=== PATIENT | male | born 1945 | race Caucasian/White ===

== ENCOUNTER 2017-04-09 11:08 | Outpatient (CLI) | payer MEDICARE, OTHER ==
[2017-04-09 19:17] LABS: HEMOGLOBIN A1C 0.73 g/dL
[2017-04-09 19:26] LABS: ALBUMIN/GLOBULIN RATIO 1.4 (1.0-2.2); BILIRUBIN,TOTAL 0.5 mg/dL (0.2-1.0); BUN - BLOOD UREA NITROGEN 20 mg/dL (6-20); CALCIUM 9.8 mg/dL (8.5-10.3); CARBON DIOXIDE - CO2 31 mmol/L (21-32); CHLORIDE 96 mmol/L (101-111); CHOL/HDL RATIO 3.7 (<5.0); CHOLESTEROL 193 mg/dL; CREATININE 1.1 mg/dL (0.6-1.2); GFR - MDRD 66 (>89); HDL CHOLESTEROL 52 mg/dL; LDL/HDL RATIO 2.4 (<3.6); POTASSIUM 4.8 mmol/L (3.5-5.0); SODIUM 135 mmol/L (135-145); TOTAL PROTEIN 7.4 g/dL (6.7-8.2); TRIGLYCERIDES 86 mg/dL; VLDL CHOLESTEROL 17 mg/dL
[2017-04-09 19:54] LABS: GLUCOSE 60 mg/dL (70-100)
== END 2017-04-09 11:09 | disposition home or self-care (01) ==
LOC: LAB.WCP 11:08
PROVIDERS: ATTEND Physician Assistant Medical
DX: E11.9 Type 2 diabetes mellitus without complications (principal)
CPT/HCPCS: 36415; 80053; 80061; 83036

== ENCOUNTER 2017-12-02 11:00 | Outpatient (CLI) | payer MEDICARE, OTHER ==
[2017-12-02 18:49] LABS: BASOPHILS # (AUTO) 0.1 10^3/uL (0.0-0.1); EOSINOPHILS # (AUTO) 0.2 10^3/uL (0.0-0.7); EOSINOPHILS % (AUTO) 2.9 %; HGB - HEMOGLOBIN 13.8 g/dL (14.0-18.0); LYMPHOCYTES # (AUTO) 1.9 10^3/uL (1.5-3.5); LYMPHOCYTES % (AUTO) 22.2 %; MEAN CORPUSCULAR HEMOGLOBIN 27.7 pg (27.0-31.0); MEAN CORPUSCULAR VOLUME 86.7 fL (80.0-94.0); MEAN PLATELET VOLUME 8.8 fL (7.4-11.4); MONOCYTES # (AUTO) 0.8 10^3/uL (0.0-1.0); MONOCYTES % (AUTO) 8.9 %; NEUTROPHILS # (AUTO) 5.6 10^3/uL (1.5-6.6); PLT - PLATELET COUNT 300 10^3/uL (130-450); WHITE BLOOD COUNT 8.7 x10^3/uL (4.8-10.8)
[2017-12-02 19:18] LABS: ALBUMIN 4.9 g/dL (3.2-5.5); ALBUMIN/GLOBULIN RATIO 1.5 (1.0-2.2); ALKALINE PHOSPHATASE 70 IU/L (42-121); ALT ALANINE AMINOTRANSFERASE 27 IU/L (10-60); AST ASPARTATE AMINOTRANSFERASE 34 IU/L (10-42); BILIRUBIN,TOTAL 0.5 mg/dL (0.2-1.0); BUN - BLOOD UREA NITROGEN 20 mg/dL (6-20); CALCIUM 9.9 mg/dL (8.5-10.3); CARBON DIOXIDE - CO2 31 mmol/L (21-32); CHLORIDE 93 mmol/L (101-111); CHOL/HDL RATIO 3.7 (<5.0); CHOLESTEROL 253 mg/dL; CREATININE 1.1 mg/dL (0.6-1.2); GFR - MDRD 66 (>89); GLUCOSE 176 mg/dL (70-100); HDL CHOLESTEROL 69 mg/dL; LDL CHOLESTEROL,CALCULATED 167 mg/dL; LDL/HDL RATIO 2.4 (<3.6); SODIUM 133 mmol/L (135-145); TOTAL PROTEIN 8.1 g/dL (6.7-8.2); VLDL CHOLESTEROL 17 mg/dL
[2017-12-02 19:54] LABS: HB2 TOTAL 15.4 g/dL; HEMOGLOBIN A1C 0.84 g/dL; HEMOGLOBIN A1C % 7.1 % (4.6-6.2)
== END 2017-12-02 11:01 ==
LOC: LAB.WCP 11:00
PROVIDERS: ATTEND Physician Assistant Medical
DX: I10 Essential (primary) hypertension (principal); E78.5 Hyperlipidemia, unspecified; E11.9 Type 2 diabetes mellitus without complications; Z12.5 Encounter for screening for malignant neoplasm of prostate; N40.1 Benign prostatic hyperplasia with lower urinary tract symptoms
CPT/HCPCS: 36415; 80053; 80061; 83036; 84443; 85025; G0103; 83721; 84153

== ENCOUNTER 2018-03-03 08:00 | Outpatient (CLI) | payer MEDICARE, OTHER ==
[2018-03-03 13:00] LABS: ALBUMIN 3.9 g/dL (3.2-5.5); ALBUMIN/GLOBULIN RATIO 1.1 (1.0-2.2); ALKALINE PHOSPHATASE 67 IU/L (42-121); ALT ALANINE AMINOTRANSFERASE 18 IU/L (10-60); AST ASPARTATE AMINOTRANSFERASE 24 IU/L (10-42); BILIRUBIN,TOTAL 0.6 mg/dL (0.2-1.0); BUN - BLOOD UREA NITROGEN 24 mg/dL (6-20); CALCIUM 9.4 mg/dL (8.5-10.3); CARBON DIOXIDE - CO2 31 mmol/L (21-32); CHLORIDE 94 mmol/L (101-111); CHOL/HDL RATIO 5.3 (<5.0); CHOLESTEROL 212 mg/dL; CREATININE 1.1 mg/dL (0.6-1.2); GFR - MDRD 66 (>89); GLUCOSE 117 mg/dL (70-100); HDL CHOLESTEROL 40 mg/dL; LDL CHOLESTEROL,CALCULATED 161 mg/dL; SODIUM 134 mmol/L (135-145); TOTAL PROTEIN 7.4 g/dL (6.7-8.2); VLDL CHOLESTEROL 11 mg/dL
[2018-03-03 13:02] LABS: HB2 TOTAL 13.1 g/dL; HEMOGLOBIN A1C 0.65 g/dL; HEMOGLOBIN A1C % 6.7 % (4.6-6.2)
== END 2018-03-03 08:01 ==
LOC: LAB.WCP 08:00
PROVIDERS: ATTEND Physician Assistant Medical
DX: E11.9 Type 2 diabetes mellitus without complications (principal)
CPT/HCPCS: 36415; 80053; 80061; 83036; 83721

== ENCOUNTER 2018-04-29 21:04 | Outpatient (CLI) | payer MEDICARE, OTHER | END 2018-04-29 21:05 | disposition critical access hospital (66) | LOC: EMS 21:04 | PROVIDERS: ATTEND Surgery | DX: R06.02 Shortness of breath (principal) | CPT/HCPCS: A0425; A0427 ==

== ENCOUNTER 2018-04-29 21:23 | Emergency (ER) | payer MEDICARE, OTHER ==
[2018-04-29 21:57] LABS: BASOPHILS # (AUTO) 0.1 10^3/uL (0.0-0.1); BASOPHILS % (AUTO) 0.6 %; EOSINOPHILS # (AUTO) 0.2 10^3/uL (0.0-0.7); EOSINOPHILS % (AUTO) 1.9 %; HGB - HEMOGLOBIN 11.9 g/dL (14.0-18.0); LYMPHOCYTES # (AUTO) 3.1 10^3/uL (1.5-3.5); LYMPHOCYTES % (AUTO) 25.7 %; MEAN CORPUSCULAR HEMOGLOBIN 28.4 pg (27.0-31.0); MEAN CORPUSCULAR HGB CONC 32.5 g/dL (32.0-36.0); MEAN CORPUSCULAR VOLUME 87.5 fL (80.0-94.0); MEAN PLATELET VOLUME 8.6 fL (7.4-11.4); MONOCYTES # (AUTO) 1.5 10^3/uL (0.0-1.0); MONOCYTES % (AUTO) 12.4 %; NEUTROPHILS # (AUTO) 7.1 10^3/uL (1.5-6.6); NEUTROPHILS % (AUTO) 59.4 %; PLT - PLATELET COUNT 283 10^3/uL (130-450); RED BLOOD COUNT 4.19 10^6/uL (4.70-6.10); WHITE BLOOD COUNT 11.9 x10^3/uL (4.8-10.8)
[2018-04-29 22:11] LABS: ALBUMIN 4.3 g/dL (3.2-5.5); ALBUMIN/GLOBULIN RATIO 1.3 (1.0-2.2); BILIRUBIN,TOTAL 0.6 mg/dL (0.2-1.0); CALCIUM 9.2 mg/dL (8.5-10.3); CREATININE 1.1 mg/dL (0.6-1.2); TOTAL PROTEIN 7.6 g/dL (6.7-8.2)
--- NOTE | 2018-04-29 22:15 | XRAY Report ---
Procedure Date: 04/29/2018 Accession Number: [id number] / [id number] Procedure: XR - Chest 2 View X-Ray CPT Code: 40419 FULL RESULT: EXAM: CHEST RADIOGRAPHY EXAM DATE: 04/29/2018 10:03 PM. CLINICAL HISTORY: Chest pain. COMPARISON: CHEST 2 VIEW PA/LAT 01/18/2016 CHEST W/O 01/16/2016. TECHNIQUE: 2 views. FINDINGS: Lungs/Pleura: Large volumes. Mild lingular scarring. No focal pneumonia or overt edema. No pneumothorax or effusion. Mediastinum: Within exam limitations, cardiomediastinal contour is normal. Other: None. IMPRESSION: COPD without acute process seen in the chest. RADIA
--- NOTE | 2018-04-29 22:43 | ED Physician Documentation ---
PD HPI DYSPNEA - Stated complaint Stated Complaint: SOA - Chief complaint Chief Complaint: Cardiac - History obtained from History obtained from: Patient, Family - History of Present Illness Timing - onset: How many hours ago (approximately 1 hour [employer]) Timing - onset during: Rest Timing - details: Abrupt onset Improved by: Other (no exacerbating factors) Worsened by: Other (no exacerbating factors) Associated symptoms: Chest pain / discomfort. No: Fever, Cough, Wheezing, Palpitations, Diaphoresis, Bilateral edema, Unilateral edema Similar symptoms before: Has not had sx before Recently seen: Not recently seen Review of Systems Constitutional: denies: Fever, Chills, Sweats Cardiac: reports: Chest pain / pressure. denies: Palpitations, Pedal edema, Calf pain Respiratory: reports: Dyspnea (baseline dyspnea on this evaluation, but had increased dyspnea over baseline earlier when he had more intense chest pain). denies: Cough GI: reports: Reviewed and negative PD PAST MEDICAL HISTORY - Past Medical History Cardiovascular: Congestive heart failure, Hypertension, High cholesterol Respiratory: COPD, Shortness of breath, Other Endocrine/Autoimmune: Type 2 diabetes GI: Cholelithiasis : None HEENT: Chronic hearing loss Psych: Anxiety Musculoskeletal: Chronic back pain Derm: None - Past Surgical History Past Surgical History: No - Present Medications Home Medications: Ambulatory Orders Medication Instructions Recorded Confirmed Aspirin [Low Dose Aspirin EC] 81 mg PO DAILY 01/10/15 01/16/16 Ezetimibe [Zetia] 10 mg PO DAILY 01/10/15 01/16/16 Fluticasone/Salmeterol [Advair 1 puffs INH BID 01/10/15 01/16/16 250-50 Diskus] Ipratropium/Albuterol Sulfate 1 inh INH QID 01/10/15 01/16/16 [Combivent Respimat Inhal [place]] Lisinopril [Zestril] 10 mg PO DAILY 01/10/15 01/16/16 Metformin HCl [Fortamet] 500 mg PO BIDWM 01/10/15 01/16/16 Albuterol Sulfate 2.5 mg INH Q4H PRN 01/11/15 01/16/16 Glipizide [Glucotrol Xl] 10 mg PO DAILY 01/11/15 01/16/16 Pioglitazone HCl [Actos] 30 mg PO DAILY 01/11/15 01/16/16 Albuterol Sulfate [Proair Hfa] 2 puffs INH Q4H PRN 04/03/15 01/16/16 Ipratropium [Atrovent] 0.5 mg INH QID 04/03/15 01/16/16 Tadalafil [Adcirca] 2.5 mg PO DAILY 04/06/15 01/16/16 - Allergies Allergies/Adverse Reactions: Allergies Allergy/AdvReac Type Severity Reaction Status Date / Time Mppoxhj-Mum-Uyk Reductase AdvReac Cramps Verified 04/29/18 21:31 Inhibitor - Social History Does the pt smoke?: No Smoking Status: Never smoker Does the pt drink ETOH?: No Does the pt have substance abuse?: No - Immunizations Immunizations are current?: Yes - POLST Patient has POLST: No PD ED PE NORMAL - Vitals Vital signs reviewed: Yes - General General: Alert and oriented X 3, No acute distress, Well developed/nourished - Neck Neck: Supple, no meningeal sign - Cardiac Cardiac: RRR - Respiratory Respiratory: No respiratory distress - Abdomen Abdomen: Soft, Non tender - Derm Derm: Normal color, Warm and dry, No rash - Extremities Extremities: No edema - Neuro Neuro: Alert and oriented X 3 PD ED PE EXPANDED - Respiratory Respiratory: Decreased breath sounds (distant bilaterally, all lung weaver) Results - Vitals Vitals: Oxygen O2 Source [] Nasal cannula O2 Source [] Nasal cannula O2 Source Nasal cannula Oxygen Flow Rate 2 - EKG (time done) No standard instances Rate: Rate (enter#) (112) Rhythm: Sinus tachycardia [place]: Normal Intervals: Normal [place] QRS: Normal Ischemia: Normal ST segments - Labs Labs: Laboratory Tests 04/29/18 04/29/18 04/29/18 21:52 21:52 21:52 WBC 11.9 H RBC 4.19 L Hgb 11.9 L Hct 36.6 L MCV 87.5 MCH 28.4 MCHC 32.5 RDW 14.0 Plt Count 283 MPV 8.6 Neut # (Auto) 7.1 H Lymph # (Auto) 3.1 [place] # (Auto) 1.5 H Eos # (Auto) 0.2 Baso # (Auto) 0.1 Absolute Nucleated RBC 0.00 Nucleated RBC % 0.0 Sodium 130 L Potassium 5.0 Chloride 91 L Carbon Dioxide 31 Anion Gap 8.0 BUN 30 H Creatinine 1.1 Estimated GFR (MDRD) 66 L Glucose 171 H Calcium 9.2 Total Bilirubin 0.6 AST 24 ALT 19 Alkaline Phosphatase 69 Troponin I < 0.04 B-Natriuretic Peptide Total Protein 7.6 Albumin 4.3 Globulin 3.3 Albumin/Globulin Ratio 1.3 Lipase 42 04/29/18 21:52 WBC RBC Hgb Hct MCV MCH MCHC RDW Plt Count MPV Neut # (Auto) Lymph # (Auto) [place] # (Auto) Eos # (Auto) Baso # (Auto) Absolute Nucleated RBC Nucleated RBC % Sodium Potassium Chloride Carbon Dioxide Anion Gap BUN Creatinine Estimated GFR (MDRD) Glucose Calcium Total Bilirubin AST ALT Alkaline Phosphatase Troponin I B-Natriuretic Peptide 8 Total Protein Albumin Globulin Albumin/Globulin Ratio Lipase - Rads (name of study) chest xray Radiology: Prelim report reviewed, See rad report CT chest (PE study) Radiology: Prelim report reviewed, See rad report PD MEDICAL DECISION MAKING - ED course Complexity details: reviewed old records, reviewed results, re-evaluated patient , considered differential, d/w patient, d/w family ED course: presents with c/o left-sided chest pain, onset while at home at rest approximately 1 hour [employer]. He has COPD and is oxygen-dependent, and he denies dyspnea on my HPI as well as reevaluation; he did have increased dyspnea (above baseline) while he had the chest pain. His chest pain had improved prior to arrival, and was mild and intermittent during ED stay. distant breath sounds bilaterally, but patient tells me he is not more short of breath than usual at the time of this evaluation. Reassuring test results including EKG, blood tests, CXR, and CT chest. Abnormal findings are include chronic findings (emphysema) as well as incidental findings (gallstone, vertebral fractures (do not appear acute nor would explain his chest discomfort)). Coronary artery calcifications as well as aortic calcification noted on CT, but no findings to suggest AMI (troponin, EKG). Instructed to return if worse in any way, and to follow-up with PMD. - Sepsis Event Vital Signs: Oxygen O2 Source [] Nasal cannula O2 Source [] Nasal cannula O2 Source Nasal cannula Oxygen Flow Rate 2 Departure - Departure Disposition: Home, Self Care Clinical Impression: Chest pain Qualifiers: Chest pain type: unspecified Qualified Code(s): R07.9 - Chest pain, unspecified Condition: Good Instructions: ED Chest Pain Atypical Unkn Cause Follow-Up: Dorothy Layne PA-C [Primary Care Provider] - (Call this morning to arrange for next available appointment) Discharge Date/Time: 04/30/18 03:19
[2018-04-29] MEDS ORDERED: IOPAMIDOL-300 100 ML VIAL ONE (23:39)
[2018-04-30] MEDS ORDERED: IOPAMIDOL-300 100 ML VIAL IVP ONE (00:04)
--- NOTE | 2018-04-30 00:38 | CT Report ---
Procedure Date: 04/30/2018 Accession Number: [id number] / [id number] Procedure: CT - Chest Angio (PE) CPT Code: FULL RESULT: EXAM: CT ANGIOGRAM CHEST EXAM DATE: 04/30/2018 12:06 AM. CLINICAL HISTORY: Dyspnea, chest pain. COMPARISON: 01/16/2016. TECHNIQUE: Routine helical imaging was performed through the chest in the pulmonary arterial phase. IV Contrast: ISOVUE 300 80mL. Reconstructions: Coronal 3-D MIP reconstructions.Sagittal and coronal. In accordance with CT protocol optimization, one or more of the following dose reduction techniques were utilized for this exam: automated exposure control, adjustment of mA and/or KV based on patient size, or use of iterative reconstructive technique. FINDINGS: Pulmonary Arteries: Diagnostic quality: Adequate through the segmental arteries. No evidence for acute or chronic pulmonary emboli. No evidence of right heart strain. Lungs/Pleura: Advanced pulmonary emphysema. Bilateral atelectasis. No pleural effusion. No pneumothorax. Mediastinum: Heart size is normal. Coronary artery calcifications. No lymphadenopathy seen. Thoracic Aorta: Moderate atherosclerosis. No aneurysm or dissection. Upper Abdomen: Calcified stones in the gallbladder. No obvious cholecystitis. Possible fatty liver. Other: Osteopenia. Thoracic and lumbar vertebral body fractures which are mostly unchanged compared with the prior CT. There is a fracture at T9 which is new compared with the prior exam, although still probably old. IMPRESSION: 1. No pulmonary emboli seen. 2. Advanced pulmonary emphysema with bilateral atelectasis. 3. Coronary artery calcifications. 4. Calcified stones in the gallbladder with no obvious cholecystitis. RADIA
[2018-04-30 01:25] VITALS: BP 115/62
== END 2018-04-30 03:19 | disposition home or self-care (01) ==
LOC: EDUNIT# → SUPCPDRO 21:23 → ED 21:23
DX: R07.9 Chest pain, unspecified (principal); R00.0 Tachycardia, unspecified; J43.9 Emphysema, unspecified; K80.80 Other cholelithiasis without obstruction; I11.0 Hypertensive heart disease with heart failure; I50.9 Heart failure, unspecified; E78.00 Pure hypercholesterolemia, unspecified; E11.9 Type 2 diabetes mellitus without complications; Z79.84 Long term (current) use of oral hypoglycemic drugs; Z79.82 Long term (current) use of aspirin
CPT/HCPCS: 36415; 71046; 71275; 80053; 83690; 83880; 84484; 85025; 93005; 99283; Q9967

== ENCOUNTER 2018-05-11 09:27 | Outpatient (CLI) | payer MEDICARE, OTHER ==
[2018-05-11 13:26] LABS: ALBUMIN 3.7 g/dL (3.2-5.5); ALBUMIN/GLOBULIN RATIO 1.2 (1.0-2.2); BILIRUBIN,TOTAL 0.6 mg/dL (0.2-1.0); CALCIUM 9.3 mg/dL (8.5-10.3); TOTAL PROTEIN 6.9 g/dL (6.7-8.2)
== END 2018-05-11 09:28 | disposition home or self-care (01) ==
LOC: LAB.WCP 09:27
PROVIDERS: ATTEND Family Medicine
DX: E11.9 Type 2 diabetes mellitus without complications (principal)
CPT/HCPCS: 36415; 80053

== ENCOUNTER 2018-12-28 13:00 | Emergency (ER) | payer MEDICARE, OTHER ==
[2018-12-28] MEDS ORDERED: IPRATROPIUM/ALBUTEROL 3 ML NEB INH STA (15:10)
--- NOTE | 2018-12-28 15:12 | ED Physician Documentation ---
PD HPI ABD PAIN - Stated complaint Stated Complaint: PAIN IN RIGHT SIDE - Chief complaint Chief Complaint: Abd Pain - History obtained from History obtained from: Patient, Caregiver - History of Present Illness Timing - onset: Last night (This is a 73-year-old gentleman with chronic COPD on oxygen who presents with right lower quadrant pain that started gradually last night. It is associated with occasional spasms. He does note some constipation and small stools with it. He is not nauseous. No history of abdominal surgeries. No urinary complaints.) Review of Systems Ten Systems: 10 systems reviewed and negative Constitutional: denies: Fever, Chills Nose: denies: Rhinorrhea / runny nose, Congestion Throat: denies: Sore throat Cardiac: denies: Chest pain / pressure, Palpitations Respiratory: denies: Dyspnea, Cough PD PAST MEDICAL HISTORY - Past Medical History Cardiovascular: Congestive heart failure, Hypertension, High cholesterol Respiratory: COPD, Shortness of breath, Other Endocrine/Autoimmune: Type 2 diabetes GI: Cholelithiasis : None HEENT: Chronic hearing loss Psych: Anxiety Musculoskeletal: Chronic back pain Derm: None - Past Surgical History Past Surgical History: No - Present Medications Home Medications: Ambulatory Orders Medication Instructions Recorded Confirmed Aspirin [Low Dose Aspirin EC] 81 mg PO DAILY 01/10/15 01/16/16 Ezetimibe [Zetia] 10 mg PO DAILY 01/10/15 01/16/16 Fluticasone/Salmeterol [Advair 1 puffs INH BID 01/10/15 01/16/16 250-50 Diskus] Ipratropium/Albuterol Sulfate 1 inh INH QID 01/10/15 01/16/16 [Combivent Respimat Inhal [place]] Lisinopril [Zestril] 10 mg PO DAILY 01/10/15 01/16/16 Metformin HCl [Fortamet] 500 mg PO BID 01/10/15 01/16/16 Albuterol Sulfate 2.5 mg INH Q4H PRN 01/11/15 01/16/16 Glipizide [Glucotrol Xl] 10 mg PO DAILY 01/11/15 01/16/16 Pioglitazone HCl [Actos] 30 mg PO DAILY 01/11/15 01/16/16 Albuterol Sulfate [Proair Hfa] 2 puffs INH Q4H PRN 04/03/15 01/16/16 Ipratropium [Atrovent] 0.5 mg INH QID 04/03/15 01/16/16 - Allergies Allergies/Adverse Reactions: Allergies Allergy/AdvReac Type Severity Reaction Status Date / Time Bpekspc-Fpl-Apd Reductase AdvReac Cramps Verified 12/28/18 13:19 Inhibitor - Social History Does the pt smoke?: No Smoking Status: Never smoker Does the pt drink ETOH?: No Does the pt have substance abuse?: No - Family History Family history: reports: Non contributory - Immunizations Immunizations are current?: Yes - POLST Patient has POLST: No PD ED PE NORMAL - Vitals Vital signs reviewed: Yes - General General: Alert and oriented X 3, Other (He is visibly short of breath, but says he is not breathing any harder than any other day.) - HEENT HEENT: PERRL, EOMI - Neck Neck: Supple, no meningeal sign, No bony TTP - Cardiac Cardiac: RRR, No murmur - Respiratory Respiratory: Other (Squeaky wheezes throughout, speaking in short sentences. He says this is his baseline.) - Abdomen Abdomen: Normal bowel sounds, Soft, Other (Moderate tenderness lateral to McBurney's point without shingles rash or surgical signs.) - Back Back: No CVA TTP, No spinal TTP - Derm Derm: Normal color, Warm and dry - Extremities Extremities: No edema, No calf tenderness / cord - Neuro Neuro: Alert and oriented X 3, Normal speech Results - Vitals Vitals: Vital Signs - 24 hr 12/28/18 12/28/18 12/28/18 13:14 15:30 15:33 Temperature 36.3 C L Heart Rate 107 H 98 98 Respiratory 18 20 16 Rate Blood Pressure 145/69 H 134/65 H O2 Saturation 94 100 12/28/18 12/28/18 17:10 18:34 Temperature Heart Rate 90 99 Respiratory 18 20 Rate Blood Pressure 113/67 143/63 H O2 Saturation 99 98 Oxygen O2 Source [Without Activity] Nasal cannula O2 Source [With Activity] Nasal cannula O2 Source Nasal cannula Oxygen Flow Rate 3 - Labs Labs: Laboratory Tests 12/28/18 12/28/18 15:20 15:45 WBC 8.8 RBC 4.68 L Hgb 13.1 L Hct 39.5 L MCV 84.4 MCH 27.9 MCHC 33.1 RDW 13.7 Plt Count 307 MPV 8.5 Neut # (Auto) 6.3 Lymph # (Auto) 1.5 [place] # (Auto) 0.8 Eos # (Auto) 0.1 Baso # (Auto) 0.1 Absolute Nucleated RBC 0.00 Nucleated RBC % 0.0 Sodium 132 L Potassium 4.8 Chloride 92 L Carbon Dioxide 30 Anion Gap 10.0 BUN 21 H Creatinine 0.9 Estimated GFR (MDRD) 82 L Glucose 124 H Calcium 9.3 Total Bilirubin 0.2 AST 31 ALT 21 Alkaline Phosphatase 68 Total Protein 6.8 Albumin 4.0 Globulin 2.8 Albumin/Globulin Ratio 1.4 Lipase 42 - Rads (name of study) Ct A/P Radiology: EMP read contemporaneously (Cholelithiasis without acute disease, diverticulosis without diverticulitis.) PD MEDICAL DECISION MAKING - ED course ED course: This is a 73-year-old gentleman presents with right lower quadrant pain, potentially constipation by history. CT was done without acute findings other than cholelithiasis. On recheck prior to discharge she was nontender and feeling okay. We will trial magnesium citrate and he is to return tomorrow if not better for recheck. Departure - Departure Disposition: 01 Home, Self Care Clinical Impression: Abdominal pain Qualifiers: Abdominal location: right lower quadrant Qualified Code(s): R10.31 - Right lower quadrant pain Condition: Stable Record reviewed to determine appropriate education?: Yes Instructions: ED Abdominal Pain Unkn Cause Male Comments: Take the laxative tonight. If you are not better in 12 hours,/tomorrow morning please return for reevaluation. Sooner if worse or if new symptoms develop.
[2018-12-28] MEDS ORDERED: IOVERSOL 320 100 ML VIAL IVP ONE ×2 (15:28→19:12)
[2018-12-28 15:34] LABS: BASOPHILS # (AUTO) 0.1 10^3/uL (0.0-0.1); BASOPHILS % (AUTO) 0.9 %; EOSINOPHILS # (AUTO) 0.1 10^3/uL (0.0-0.7); EOSINOPHILS % (AUTO) 1.3 %; HGB - HEMOGLOBIN 13.1 g/dL (14.0-18.0); LYMPHOCYTES # (AUTO) 1.5 10^3/uL (1.5-3.5); LYMPHOCYTES % (AUTO) 16.8 %; MEAN CORPUSCULAR HEMOGLOBIN 27.9 pg (27.0-31.0); MEAN CORPUSCULAR HGB CONC 33.1 g/dL (32.0-36.0); MEAN CORPUSCULAR VOLUME 84.4 fL (80.0-94.0); MEAN PLATELET VOLUME 8.5 fL (7.4-11.4); MONOCYTES # (AUTO) 0.8 10^3/uL (0.0-1.0); MONOCYTES % (AUTO) 9.5 %; NEUTROPHILS # (AUTO) 6.3 10^3/uL (1.5-6.6); NEUTROPHILS % (AUTO) 71.5 %; PLT - PLATELET COUNT 307 10^3/uL (130-450); RED BLOOD COUNT 4.68 10^6/uL (4.70-6.10); RED CELL DISTRIBUTION WIDTH 13.7 % (12.0-15.0); WHITE BLOOD COUNT 8.8 x10^3/uL (4.8-10.8)
[2018-12-28 16:01] LABS: CALCIUM 9.3 mg/dL (8.5-10.3)
[2018-12-28 18:43] LABS: ALBUMIN/GLOBULIN RATIO 1.4 (1.0-2.2); BILIRUBIN,TOTAL 0.2 mg/dL (0.2-1.0); CREATININE 0.9 mg/dL (0.6-1.2); TOTAL PROTEIN 6.8 g/dL (6.7-8.2)
--- NOTE | 2018-12-28 19:54 | CT Report ---
Reason: IV only, RLQ pain Procedure Date: 12/28/2018 Accession Number: [id number] / [id number] Procedure: CT - Abdomen/Pelvis W CPT Code: FULL RESULT: EXAM: CT ABDOMEN AND PELVIS EXAM DATE: 12/28/2018 07:10 PM. CLINICAL HISTORY: IV only, RLQ pain. COMPARISONS: ABDOMEN W/ 12/21/2015 11:27 AM. TECHNIQUE: Routine helical CT imaging was performed through the abdomen and pelvis. IV contrast: OPTI 320 100mL. Enteric contrast: No. Reconstructions: Coronal and sagittal. In accordance with CT protocol optimization, one or more of the following dose reduction techniques were utilized for this exam: automated exposure control, adjustment of mA and/or KV based on patient size, or use of iterative reconstructive technique. FINDINGS: Lung Bases: Unremarkable. Liver: Normal. No masses. Gallbladder/Bile Ducts: There is layering hyperdensity within the gallbladder which likely represents cholelithiasis. No evidence of cholecystitis or bile duct dilatation. Spleen: Normal. Pancreas: Normal. Adrenal Glands: Normal. Kidneys: Normal. No masses or hydronephrosis. Peritoneal Cavity/Bowel: No dilated or thick-walled bowel is seen. There is scattered distal colon diverticulosis. No intraperitoneal free air or free fluid. No enlarged mesenteric or retroperitoneal lymph nodes. No evidence of appendicitis. Pelvic Organs: Normal. The bladder and visualized pelvic organs are within normal limits. Vasculature: There are atheromatous calcifications of the aorta and branch vessels. Bones: No clearly acute bony abnormalities are seen. There are remote appearing lower thoracic and lumbar spine compression fractures. Other: None. IMPRESSION: 1. No acute solid or hollow viscus organ abnormalities to account for the patient's presentation. No evidence of bowel obstruction. The appendix is normal. 2. There are scattered distal colon diverticula. No evidence of diverticulitis. 3. There is likely cholelithiasis. No evidence of cholecystitis or bile duct dilatation. RADIA
[2018-12-28] MEDS ORDERED: MAGNESIUM CITRATE 296 ML BOTTLE PO STA (20:00)
[2018-12-28 20:10] VITALS: BP 140/66
== END 2018-12-28 20:10 | disposition home or self-care (01) ==
LOC: ED 13:00
DX: R10.31 Right lower quadrant pain (principal); K59.00 Constipation, unspecified; K80.20 Calculus of gallbladder without cholecystitis without obstruction; K57.30 Diverticulosis of large intestine without perforation or abscess without bleeding; J44.9 Chronic obstructive pulmonary disease, unspecified; Z99.81 Dependence on supplemental oxygen; I10 Essential (primary) hypertension; E11.9 Type 2 diabetes mellitus without complications; Z79.84 Long term (current) use of oral hypoglycemic drugs; Z79.82 Long term (current) use of aspirin
CPT/HCPCS: 36415; 74177; 80053; 83690; 85025; 94640; 94664; 99283; A9270; Q9967

== ENCOUNTER 2018-12-30 10:50 | Outpatient (CLI) | payer MEDICARE, OTHER ==
[2018-12-30 19:40] LABS: ALBUMIN 4.3 g/dL (3.2-5.5); ALBUMIN/GLOBULIN RATIO 1.5 (1.0-2.2); ALKALINE PHOSPHATASE 72 IU/L (42-121); ALT ALANINE AMINOTRANSFERASE 24 IU/L (10-60); AST ASPARTATE AMINOTRANSFERASE 38 IU/L (10-42); BILIRUBIN,TOTAL 0.6 mg/dL (0.2-1.0); BUN - BLOOD UREA NITROGEN 23 mg/dL (6-20); CARBON DIOXIDE - CO2 32 mmol/L (21-32); CHLORIDE 88 mmol/L (101-111); CHOL/HDL RATIO 2.8 (<5.0); CHOLESTEROL 184 mg/dL; CREATININE 1.2 mg/dL (0.6-1.2); GFR - MDRD 59 (>89); GLUCOSE 121 mg/dL (70-100); HDL CHOLESTEROL 65 mg/dL; LDL CHOLESTEROL,CALCULATED 110 mg/dL; LDL/HDL RATIO 1.7 (<3.6); SODIUM 130 mmol/L (135-145); TOTAL PROTEIN 7.2 g/dL (6.7-8.2); VLDL CHOLESTEROL 9 mg/dL
[2018-12-30 19:44] LABS: HB2 TOTAL 13.3 g/dL; HEMOGLOBIN A1C 0.7 g/dL
== END 2018-12-30 10:51 | disposition home or self-care (01) ==
LOC: LAB.WCP 10:50
PROVIDERS: ATTEND Physician Assistant Medical
DX: E11.9 Type 2 diabetes mellitus without complications (principal)
CPT/HCPCS: 36415; 80053; 80061; 83036; 83721

== ENCOUNTER 2019-09-13 17:17 | Outpatient (CLI) | payer MEDICARE, OTHER | END 2019-09-13 17:18 | disposition critical access hospital (66) | LOC: EMS 17:17 | PROVIDERS: ATTEND Surgery | DX: R06.02 Shortness of breath (principal); K62.5 Hemorrhage of anus and rectum | CPT/HCPCS: A0425; A0427 ==

== ENCOUNTER 2019-09-13 17:34 | Inpatient (IN) | payer MEDICARE, OTHER ==
[2019-09-13 17:52] LABS: BASOPHILS # (AUTO) 0.1 10^3/uL (0.0-0.1); BASOPHILS % (AUTO) 0.6 %; EOSINOPHILS # (AUTO) 0.1 10^3/uL (0.0-0.7); EOSINOPHILS % (AUTO) 0.6 %; HGB - HEMOGLOBIN 11.8 g/dL (14.0-18.0); LYMPHOCYTES # (AUTO) 1.4 10^3/uL (1.5-3.5); LYMPHOCYTES % (AUTO) 13.8 %; MEAN CORPUSCULAR HEMOGLOBIN 28.6 pg (27.0-31.0); MEAN CORPUSCULAR HGB CONC 31.3 g/dL (32.0-36.0); MEAN CORPUSCULAR VOLUME 91.5 fL (80.0-94.0); MEAN PLATELET VOLUME 10.1 fL (7.4-11.4); MONOCYTES # (AUTO) 1.1 10^3/uL (0.0-1.0); MONOCYTES % (AUTO) 10.6 %; NEUTROPHILS # (AUTO) 7.3 10^3/uL (1.5-6.6); NEUTROPHILS % (AUTO) 73.6 %; PLT - PLATELET COUNT 326 10^3/uL (130-450); RED BLOOD COUNT 4.12 10^6/uL (4.70-6.10); RED CELL DISTRIBUTION WIDTH 13.2 % (12.0-15.0); WHITE BLOOD COUNT 9.9 x10^3/uL (4.8-10.8)
[2019-09-13] MEDS ORDERED: ALBUTEROL NEB 2.5 MG/3 ML INH STA ×2 (17:54→18:07)
[2019-09-13 18:04] LABS: ALBUMIN 4.3 g/dL (3.2-5.5); ALBUMIN/GLOBULIN RATIO 1.4 (1.0-2.2); BILIRUBIN,TOTAL 0.6 mg/dL (0.2-1.0); CALCIUM 9.1 mg/dL (8.5-10.3); CREATININE 1.6 mg/dL (0.6-1.2); TOTAL PROTEIN 7.3 g/dL (6.7-8.2)
[2019-09-13] MEDS ORDERED: SODIUM CHLORIDE 0.9% 1,000 ML IV ONE (18:07)
[2019-09-13] MEDS ORDERED: methylPREDNISolone SUCCINATE 125 MG/2 ML VIAL IVP STA (18:07)
[2019-09-13] MEDS ORDERED: cefTRIAXone 1 GM in SODIUM CHLORIDE 0.9% MINIBAG 100 ML IV STA (18:07)
--- NOTE | 2019-09-13 18:09 | ED Physician Documentation ---
PD HPI DYSPNEA - Stated complaint Stated Complaint: COPD EXAC - Chief complaint Chief Complaint: Resp - History obtained from History obtained from: Patient - History of Present Illness Timing - onset: Other (73-year-old gentleman with COPD had bright red bleeding per rectum tonight. It was painless. EMS was summoned and noted him to be in respiratory distress with sats of 80% on his usual oxygen with tripoding. He is more short of breath than normal. Has a mild cough. Denies runny nose or fevers. No abdominal pain.) Review of Systems Ten Systems: 10 systems reviewed and negative Constitutional: denies: Fever, Chills Cardiac: denies: Chest pain / pressure, Palpitations Respiratory: reports: Dyspnea, Cough GI: denies: Abdominal Pain, Nausea, Vomiting, Constipation, Diarrhea PD PAST MEDICAL HISTORY - Past Medical History Cardiovascular: Congestive heart failure, Hypertension, High cholesterol Respiratory: COPD, Shortness of breath, Other Endocrine/Autoimmune: Type 2 diabetes GI: Cholelithiasis : None HEENT: Chronic hearing loss Psych: Anxiety Musculoskeletal: Chronic back pain Derm: None - Past Surgical History Past Surgical History: No - Present Medications Home Medications: Ambulatory Orders Medication Instructions Recorded Confirmed Aspirin [Low Dose Aspirin EC] 81 mg PO DAILY 01/10/15 01/16/16 Ezetimibe [Zetia] 10 mg PO DAILY 01/10/15 01/16/16 Fluticasone/Salmeterol [Advair 1 puffs INH BID 01/10/15 01/16/16 250-50 Diskus] Ipratropium/Albuterol Sulfate 1 inh INH QID 01/10/15 01/16/16 [Combivent Respimat Inhal [place]] Lisinopril [Zestril] 10 mg PO DAILY 01/10/15 01/16/16 Metformin HCl [Fortamet] 500 mg PO BID 01/10/15 01/16/16 Albuterol Sulfate 2.5 mg INH Q4H PRN 01/11/15 01/16/16 Glipizide [Glucotrol Xl] 10 mg PO DAILY 01/11/15 01/16/16 Pioglitazone HCl [Actos] 30 mg PO DAILY 01/11/15 01/16/16 Albuterol Sulfate [Proair Hfa] 2 puffs INH Q4H PRN 04/03/15 01/16/16 Ipratropium [Atrovent] 0.5 mg INH QID 04/03/15 01/16/16 - Allergies Allergies/Adverse Reactions: Allergies Allergy/AdvReac Type Severity Reaction Status Date / Time Bbwveum-Srz-Fxz Reductase AdvReac Cramps Verified 12/28/18 13:19 Inhibitor - Social History Does the pt smoke?: No Smoking Status: Never smoker Does the pt drink ETOH?: No Does the pt have substance abuse?: No - Immunizations Immunizations are current?: Yes - POLST Patient has POLST: No PD ED PE NORMAL - Vitals Vital signs reviewed: Yes - General General: Alert and oriented X 3, Other (He is tachypneic, speaking in several words but not full sentences.) - HEENT HEENT: PERRL, EOMI - Neck Neck: Supple, no meningeal sign, No bony TTP - Cardiac Cardiac: No murmur, Other (tachy) - Respiratory Respiratory: Other (Tachypneic very tight lungs with wheezing, increased expiratory time.) - Abdomen Abdomen: Non tender - Back Back: No CVA TTP, No spinal TTP - Derm Derm: Normal color, Warm and dry - Extremities Extremities: No edema, No calf tenderness / cord - Neuro Neuro: Alert and oriented X 3, Normal speech Results - Vitals Vitals: Vital Signs - 24 hr 09/13/19 09/13/19 09/13/19 17:35 17:57 18:12 Temperature 37.1 C Heart Rate 116 H 109 H 112 H Respiratory 36 H 20 22 Rate Blood Pressure 175/78 H O2 Saturation 98 09/13/19 09/13/19 09/13/19 18:21 18:30 19:00 Temperature 37.3 C 37.3 C Heart Rate 112 H 123 H 116 H Respiratory 20 22 22 Rate Blood Pressure 125/57 L 124/69 119/72 O2 Saturation 100 97 95 Oxygen O2 Source [] Nasal cannula O2 Source [] Nasal cannula O2 Source Nasal cannula - EKG (time done) 1747 Rate: Rate (enter#) (117) Rhythm: Sinus tachycardia [place]: Normal Intervals: Normal [place] QRS: Normal Ischemia: Normal ST segments Computer interpretation: Agree with computer - Labs Labs: Laboratory Tests 09/13/19 09/13/19 17:47 17:47 WBC 9.9 RBC 4.12 L Hgb 11.8 L Hct 37.7 L MCV 91.5 MCH 28.6 MCHC 31.3 L RDW 13.2 Plt Count 326 MPV 10.1 Neut # (Auto) 7.3 H Lymph # (Auto) 1.4 L [place] # (Auto) 1.1 H Eos # (Auto) 0.1 Baso # (Auto) 0.1 Absolute Nucleated RBC 0.00 Nucleated RBC % 0.0 Sodium 130 L Potassium 4.9 Chloride 90 L Carbon Dioxide 29 Anion Gap 11.0 BUN 40 H Creatinine 1.6 H Estimated GFR (MDRD) 42 L Glucose 235 H Calcium 9.1 Total Bilirubin 0.6 AST 35 ALT 23 Alkaline Phosphatase 75 Total Protein 7.3 Albumin 4.3 Globulin 3.0 Albumin/Globulin Ratio 1.4 Lipase 41 PD MEDICAL DECISION MAKING - ED course ED course: 73-year-old gentleman with COPD presents with an apparent severe exacerbation of same. He had some bright red blood per rectum but his H&H is basically at his baseline. He was administered a total of 5 nebs, one on the way here and an initial neb and then a 3 neb continuous nebulizer here. He still had some respiratory distress with tachypnea but was breathing easier, and at least had some opening of his breath sounds. Spoke with Dr. Li for admission at 7:24 PM. - Critical Care Time(min): 40 Time Includes: Direct patient care, Review records, Reassess patient, Document care, Coordinate care, Medical consult, Family consult for tx dec Data interpretation: Labs, Pulse ox Procedures included in critical care time: Peripheral IV Procedures excluded from critical care time: EKG Departure - Departure Disposition: 66 [facility] DC/Xfer Clinical Impression: Acute exacerbation of chronic obstructive airways disease Condition: Serious
[2019-09-13] MEDS ORDERED: ACETAMINOPHEN 325 MG TABLET PO PRN (19:24)
--- NOTE | 2019-09-13 19:31 | XRAY Report ---
Reason: COPD, tachypneic, CP Procedure Date: 09/13/2019 Accession Number: [id number] / [id number] Procedure: XR - Chest 2 View X-Ray CPT Code: 34890 Final Report FULL RESULT: EXAM: CHEST RADIOGRAPHY EXAM DATE: 09/13/2019 07:07 PM. CLINICAL HISTORY: COPD, tachypneic, CP. COMPARISON: CHEST 2 VIEW 04/29/2018 9:47 PM. TECHNIQUE: 2 views. FINDINGS: Lungs/Pleura: No focal opacities evident. No pleural effusion. No pneumothorax. Normal volumes. Mediastinum: Heart and mediastinal contours are unremarkable. Other: None. IMPRESSION: No acute cardiopulmonary process. RADIA
--- NOTE | 2019-09-13 20:14 | HISTORY & PHYSICAL EXAMINATION ---
Chief Complaint - Chief Complaint Chief Complaint: dyspnea, History of Present Illness - Admitted From Admitted From:: [facility] ED - History Obtained From Records Reviewed: yes History obtained from: patient - History of Present Illness HPI Comment/Other: Patient is a 73 y/o male who presented to the ED via EMS with dyspnea. While at home today he felt like he needed to have a bowel movement . He was not able to go once on the toilet. He noticed blood on the toilet paper on 2 occasions. There was no pain. Since he lives alone he was concerned and called EMS. When EMS arrived they noticed he was dyspneic with an O2Sat of 80% despite being on his baseline 2.5L of oxygen via nasal canula. He also had significantly diminished air movement on lung auscultation and was wheezing. He was only able to speak in very short sentences. As a result of his symptoms he was brought to the ED for further treatment. By the time of presentation for admission he had received 5 nebulizer breathing treatments. He still sounded dyspneic, was tachycardic with a heart rate in the 110's and tachypneic with a respiratory rate in the 20's. As a result he is being admitted for further treatment. He reports marked improvement in his symptoms. However he was still wheezing and still had decreased air movements. He denied chest pain, abd pain, nausea, vomiting, fever or chills. He denies being around anyone sick. History - Past Medical History Cardiovascular: reports: Congestive heart failure, Hypertension, High cholesterol Respiratory: reports: COPD, Shortness of breath, Other Endocrine/Autoimmune: reports: Type 2 diabetes GI: reports: Cholelithiasis : reports: None HEENT: reports: Chronic hearing loss Psych: reports: Anxiety Musculoskeletal: reports: Chronic back pain Derm: reports: None MRSA Hx?: No - Family & Social History Family History: Mother: CVA/TIA, Father: Cancer (liver), Other family: Diabetes, Type 2 (Extensive family Hx of diabetes) Social History Notes: He lives alone. His 2 years ago. He has a daughter who lives in [place]. He is independent of activities of daily living. He has a walker but doesn't use it. He quit smoking in 2002. He smoked about 1ppd for 43 years. He drinks alcohol ocassionally. He denies illicit drug use. - POLST Patient has POLST: Yes POLST Status: DNR Meds/Allgy - Home Medications Home Medications: Ambulatory Orders Medication Instructions Recorded Confirmed Aspirin [Low Dose Aspirin EC] 81 mg PO DAILY 01/10/15 01/16/16 Ezetimibe [Zetia] 10 mg PO DAILY 01/10/15 01/16/16 Fluticasone/Salmeterol [Advair 1 puffs INH BID 01/10/15 01/16/16 250-50 Diskus] Ipratropium/Albuterol Sulfate 1 inh INH QID 01/10/15 01/16/16 [Combivent Respimat Inhal [place]] Lisinopril [Zestril] 10 mg PO DAILY 01/10/15 01/16/16 Metformin HCl [Fortamet] 500 mg PO BID 01/10/15 01/16/16 Albuterol Sulfate 2.5 mg INH Q4H PRN 01/11/15 01/16/16 Glipizide [Glucotrol Xl] 10 mg PO DAILY 01/11/15 01/16/16 Pioglitazone HCl [Actos] 30 mg PO DAILY 01/11/15 01/16/16 Albuterol Sulfate [Proair Hfa] 2 puffs INH Q4H PRN 04/03/15 01/16/16 Ipratropium [Atrovent] 0.5 mg INH QID 04/03/15 01/16/16 - Allergies Allergies/Adverse Reactions: Allergies Allergy/AdvReac Type Severity Reaction Status Date / Time [id number] Reductase AdvReac Cramps Verified 12/28/18 13:19 Inhibitor Review of Systems - Constitutional Constitutional: denies: Fatigue, Fever, Chills - Eyes Eyes: denies: Pain, Vision loss, Dipolpia - Ears, Nose & Throat Ears, Nose & Throat: denies: Vertigo, Sore throat - Cardiovascular Cariovascular: reports: Palpitations, Exertional dyspnea. denies: Chest pain, Edema, Lightheadedness, Syncope - Respiratory Respiratory: reports: Wheezing, SOB at rest, SOB with exertion. denies: Cough, Sputum production, Orthopnea - Gastrointestinal Gastrointestinal: reports: Rectal bleeding. denies: Abdominal pain, Abdominal distention, Constipation, Diarrhea, Black stools, Nausea, Vomiting, Coffee grounds emesis, Reflux/heartburn, Bloating, Poor appetite - Genitourinary Genitourinary: denies: Dysuria, Frequency, Urgency, Hematuria - Musculoskeletal Musculoskeletal: denies: Muscle pain, Back pain, Muscle aches, Stiffness - Integumentary Integumentary: denies: Rash, Pruritis, Lesions - Neurological Neurological: denies: General weakness, Focal weakness, Headache, Dizziness - Psychiatric Psychiatric: reports: Anxiety. denies: Depression - Endocrine Endocrine: denies: Polyuria, Polydypsia - Hematologic/Lymphatic Hematologic/Lymphatic: reports: Bruising. denies: Anemia, Petechiae Prior Level of Functionality: He lives alone. His 2 years ago. He has a daughter who lives in [place]. He is independent of activities of daily living. He has a walker but doesn't use it. Exam - Vital Signs Vital Signs: Vital Signs x48h Temp Pulse Resp BP Pulse Ox 09/13/19 19:48 37.6 C H 111 H 18 113/56 L 98 09/13/19 19:00 37.3 C 116 H 22 119/72 95 09/13/19 18:30 37.3 C 123 H 22 124/69 97 09/13/19 18:21 112 H 20 125/57 L 100 09/13/19 18:12 112 H 22 09/13/19 17:57 109 H 20 09/13/19 17:35 37.1 C 116 H 36 H 175/78 H 98 - Physical Exam General Appearance: positive: Alert, Mild distress (respiratory distress) Eyes Bilateral: positive: Normal inspection, PERRL, EOMI ENT: positive: ENT inspection nml Neck: positive: Nml inspection, No JVD, Trachea midline Respiratory: positive: Chest non-tender, Wheezes Cardiovascular: positive: Tachycardia Back: positive: Nml inspection Skin: positive: Color nml, Warm, Dry, Other (some bruises noted) Neurologic/Psychiatric: positive: Oriented x3 Conclusion/Plan - Problem List (1) COPD exacerbation Conclusion/Plan: Duoneb q4hrs prn Solumedrol TID Pulmicort and formeterol ordered On O2 vial nasal canula (2) DM type 2 (diabetes mellitus, type 2) Conclusion/Plan: Will hold glipizide, metformin and Actos SSI and accu checks ordered (3) Hypertension Conclusion/Plan: Will hold lisinopril for now due to Cr of 1.6. Baseline is about 1.0 (4) Hyperlipidemia Conclusion/Plan: Resume ezetimibe once verified (5) Blood per rectum Conclusion/Plan: Likely 2/2 hemorrhoids Non-painful. Hgb 11.8 which is within baseline. Will monitor daily. If significant drop, please consider General Surgery consult (6) Acute renal failure Conclusion/Plan: Baseline Cr is 1.0. Currently 1.6 Will hold lisinopril. Gentle hydration with normal saline - Lab Results Fish Bones: 09/13/19 17:47 09/13/19 17:47 Core Measures - Anticipated LOS I expect patient to be DC'd or transferred within 96 hours.: Yes - DVT/VTE - Prophylaxis VTE/DVT Device ordered at admit?: Yes
[2019-09-13] MEDS: SODIUM CHLORIDE FLUSH 0.9% 10 ML SYRINGE IVP PRN (20:52)
[2019-09-13] MEDS: methylPREDNISolone SUCCINATE 125 MG/2 ML VIAL IVP SCH (20:52)
[2019-09-13] MEDS: IPRATROPIUM/ALBUTEROL 3 ML NEB INH PRN (22:00)
[2019-09-13] MEDS ORDERED: SODIUM CHLORIDE 0.9% 1,000 ML IV SCH (23:45)
[2019-09-14 00:20] LABS: HB2 TOTAL 11.9 g/dL; HEMOGLOBIN A1C 0.55 g/dL; HEMOGLOBIN A1C % 6.4 % (4.6-6.2)
[2019-09-14] MEDS: SODIUM CHLORIDE FLUSH 0.9% 10 ML SYRINGE IVP SCH ×3 (00:43→20:13)
[2019-09-14] MEDS: methylPREDNISolone SUCCINATE 125 MG/2 ML VIAL IVP SCH (03:34)
[2019-09-14 05:26] LABS: BASOPHILS % (AUTO) 0.2 %; HGB - HEMOGLOBIN 9.6 g/dL (14.0-18.0); LYMPHOCYTES # (AUTO) 0.3 10^3/uL (1.5-3.5); MEAN CORPUSCULAR HEMOGLOBIN 28.5 pg (27.0-31.0); MEAN CORPUSCULAR HGB CONC 31.5 g/dL (32.0-36.0); MEAN CORPUSCULAR VOLUME 90.5 fL (80.0-94.0); MEAN PLATELET VOLUME 10.5 fL (7.4-11.4); MONOCYTES % (AUTO) 0.5 %; NEUTROPHILS # (AUTO) 6.2 10^3/uL (1.5-6.6); NEUTROPHILS % (AUTO) 93.7 %; PLT - PLATELET COUNT 268 10^3/uL (130-450); RED BLOOD COUNT 3.37 10^6/uL (4.70-6.10); RED CELL DISTRIBUTION WIDTH 13.3 % (12.0-15.0); WHITE BLOOD COUNT 6.6 x10^3/uL (4.8-10.8)
[2019-09-14 05:35] LABS: CALCIUM 8.4 mg/dL (8.5-10.3); CREATININE 1.6 mg/dL (0.6-1.2)
[2019-09-14] MEDS: IPRATROPIUM/ALBUTEROL 3 ML NEB INH PRN ×2 (05:43→05:45)
[2019-09-14] MEDS: SODIUM CHLORIDE FLUSH 0.9% 10 ML SYRINGE IVP PRN ×2 (05:50→07:11)
[2019-09-14] MEDS: PANTOPRAZOLE 40 MG TABLET PO SCH (06:19)
[2019-09-14] MEDS: FORMOTEROL FUMARATE NEB 20 MCG/2 ML INH SCH ×2 (06:26→20:33)
[2019-09-14] MEDS: BUDESONIDE 0.5 MG/2 ML NEB INH SCH ×2 (06:27→20:33)
[2019-09-14] MEDS ORDERED: FUROSEMIDE 20 MG/2 ML VIAL IVP STA (06:53)
--- NOTE | 2019-09-14 07:45 | XRAY Report ---
Reason: dyspnea, wheezing Procedure Date: 09/14/2019 Accession Number: [id number] / [id number] Procedure: XR - Chest 1 View X-Ray CPT Code: 73446 Final Report FULL RESULT: EXAM: CHEST RADIOGRAPHY EXAM DATE: 09/14/2019 07:20 AM. CLINICAL HISTORY: Dyspnea, wheezing. COMPARISON: 09/13/2019. TECHNIQUE: 1 view. FINDINGS: Lungs/Pleura: No focal consolidation or vascular congestion. Mild hyperinflation and moderately prominent lung markings, with minor left basilar atelectasis or scarring. No pleural effusion or pneumothorax. Mediastinum: Cardiomediastinal silhouette appears unremarkable. Bones: No acute osseous findings. IMPRESSION: 1. Mild hyperinflation and nonspecific mildly prominent lung markings for age. Differential includes COPD or RAD. 2. No consolidative pneumonia or heart failure. RADIA
[2019-09-14] MEDS ORDERED: INSULIN ASPART 300 UNIT/3 ML PEN SUBQ SCH ×2 (08:00→12:00)
[2019-09-14] MEDS: ASPIRIN CHEW 81 MG TABLET PO SCH (09:20)
[2019-09-14] MEDS: INSULIN GLARGINE 300 UNIT/3 ML PEN SUBQ SCH (09:20)
[2019-09-14] MEDS: POLYETHYLENE GLYCOL 3350 17 GM PACKET PO SCH (09:21)
--- NOTE | 2019-09-14 11:26 | PROVIDER PROGRESS NOTE ---
Assessment/Plan - Problem List (1) COPD exacerbation Assessment/Plan: 09/14 pt is comfortably sitting at bed to watch TV, no obvious respiratory distress. pt took O2 at 2-3 liter NC at home. pt had 95% sats on 3 liter of O2 today. reduce solu-metro to 80mg tid from 120mg tid continue breath treatment with RT on Duoneb, pulmicort, formeterol continue supplement of O2 (2) Acute renal failure Conclusion/Plan: continue gentle hydration. pt's creatinine is still 1.6. pt has the Baseline Cr is 1.0. Currently 1.6 Will hold lisinopril. (3)dyspnea 09/14 great improvement. order D-dimer, reveal negative. The dyspnea is likely from pt's COPD. pt had slight elevated Troponin but denies chest pain, cardiac distress. it is likely from pt's dehydration continue check troponin supplement of O2 as needed (4) DM type 2 (diabetes mellitus, type 2) Conclusion/Plan: A1C is 6.4. continue hold glipizide, metformin and Actos continue SSI and accu checks, hypoglycemia protocol pt is taking steroid, order Lantus and increase SSI level plan to continue glipizide, metformin and Actos as his d/c DM plan (5) Hypertension Conclusion/Plan: stable, Will hold lisinopril for now due to Cr of 1.6. (6) Hyperlipidemia Conclusion/Plan: will Resume ezetimibe once verified (7) Blood per rectum Conclusion/Plan: pt report he had chronic hemorrhoids. Today HGB is 9.6 which is drop from 11.8 but also present hemodilation in lab test. pt denies any more GI bleed in hospital but pt also has no bowel movement as far continue H&H, occult stool test, if still positive, will consider General Surger y consult - Current Meds Current Meds: Current Medications Generic Name Dose Route Start Last Admin Trade Name Freq PRN Reason Stop Dose Admin Albuterol/Ipratropium 3 ml 09/13/19 19:29 09/14/19 05:45 Duoneb INH 3 ml Q4HR PRN Administration Wheezing Aspirin 81 mg 09/14/19 09:00 09/14/19 09:20 St Delta Aspirin PO 81 mg DAILY BAUTISTA Administration Budesonide 0.5 mg 09/14/19 07:00 09/14/19 06:27 Pulmicort INH 0.5 mg RTBID BAUTISTA Administration Formoterol Fumarate 20 mcg 09/14/19 07:00 09/14/19 06:26 Perforomist INH 20 mcg RTBID BAUTISTA Administration Insulin Glargine 10 unit 09/14/19 09:00 09/14/19 09:20 Lantus Solostar SUBQ 10 unit QDBREAKFAST BAUTISTA Administration Pantoprazole Sodium 40 mg 09/14/19 07:00 09/14/19 06:19 Protonix PO 40 mg QDAC BAUTISTA Administration Polyethylene Glycol 17 gm 09/14/19 09:00 09/14/19 09:21 Miralax PO Not Given DAILY BAUTISTA Sodium Chloride 10 ml 09/13/19 19:24 09/14/19 07:11 Normal Saline Flush 0.9% IVP 10 ml PRN PRN Administration NEEDED PER PROVIDER ORDERS Sodium Chloride 10 ml 09/14/19 01:00 09/14/19 09:21 Normal Saline Flush 0.9% IVP 10 ml 0100,0900,1700 BAUTISTA Administration - Lab Result Fish Bone Diagrams: 09/14/19 05:08 09/14/19 05:08 - Additional Planning My Orders: My Active Orders 09/14/19 OCCULT BLOOD IN PAT. SINGLE [RAPID] Urgent 09/14/19 08:13 Echo Transthoracic Complete [ECHO] Routine 09/14/19 09:00 Aspirin Chewable [St Delta Aspirin] 81 mg PO DAILY Insulin Glargine [Lantus Solostar] 10 unit SUBQ QDBREAKFAST 09/14/19 12:00 Insulin Aspart [NovoLOG] 2 - 10 unit SUBQ 0800,1200,1700,2100 methylPREDNISolone SUCCINATE [SOLU-Medrol (40MG VIAL)] 80 mg IVP Q8H 09/14/19 13:00 TROPONIN I HIGH SENSITIVITY [IAI] Timed 09/14/19 19:00 H&H [HEMOGLOBIN AND HEMATOCRIT] [HEME] Timed Subjective - Subjective Patient Reports: Feeling Better Objective Vital Signs: Vital Signs - 24 hr 09/13/19 09/13/19 09/13/19 17:35 17:57 18:12 Temperature 37.1 C Heart Rate 116 H 109 H 112 H Heart Rate [ Monitoring electrodes] Respiratory 36 H 20 22 Rate Blood Pressure 175/78 H Blood Pressure [Right Brachial artery] O2 Saturation 98 09/13/19 09/13/19 09/13/19 18:21 18:30 19:00 Temperature 37.3 C 37.3 C Heart Rate 112 H 123 H 116 H Heart Rate [ Monitoring electrodes] Respiratory 20 22 22 Rate Blood Pressure 125/57 L 124/69 119/72 Blood Pressure [Right Brachial artery] O2 Saturation 100 97 95 09/13/19 09/13/19 09/13/19 19:48 20:56 21:45 Temperature 37.6 C H 36.9 C Heart Rate 111 H 113 H Heart Rate [ 114 H Monitoring electrodes] Respiratory 18 18 20 Rate Blood Pressure 113/56 L Blood Pressure 138/55 H [Right Brachial artery] O2 Saturation 98 98 09/13/19 09/14/19 09/14/19 23:46 03:45 05:25 Temperature 36.6 C 36.7 C Heart Rate 109 H Heart Rate [ 105 H 98 Monitoring electrodes] Respiratory 20 18 30 H Rate Blood Pressure Blood Pressure 115/45 L 137/58 H [Right Brachial artery] O2 Saturation 97 97 09/14/19 09/14/19 06:29 07:35 Temperature 36.6 C Heart Rate 113 H Heart Rate [ 111 H Monitoring electrodes] Respiratory 24 18 Rate Blood Pressure Blood Pressure 118/86 H [Right Brachial artery] O2 Saturation 96 Oxygen O2 Source [Without Activity] Nasal cannula O2 Source [With Activity] Nasal cannula O2 Source Nasal cannula Oxygen Flow Rate 3 I&O (Last 24 Hrs): Intake and Output Totals x24h 09/12/19 09/13/19 09/14/19 23:59 23:59 23:59 Intake Total 1100 861.667 Output Total 300 150 Balance 800 711.667 General: Alert HEENT: Atraumatic Neck: Supple Lymphatic: no adenopathy Neuro: Alert, Non Focal, Oriented Times 3 Cardiovascular: Regular rate, Normal S1, Normal S2 Respiratory: Chest non-tender, No respiratory distress Abdomen: Normal bowel sounds, Soft - Results Results: Laboratory Results WBC 6.6 x10^3/uL (4.8-10.8) 09/14/19 05:08 RBC 3.37 10^6/uL (4.70-6.10) L 09/14/19 05:08 Hgb 9.6 g/dL (14.0-18.0) L 09/14/19 05:08 Hct 30.5 % (42.0-52.0) L 09/14/19 05:08 MCV 90.5 fL (80.0-94.0) 09/14/19 05:08 MCH 28.5 pg (27.0-31.0) 09/14/19 05:08 MCHC 31.5 g/dL (32.0-36.0) L 09/14/19 05:08 RDW 13.3 % (12.0-15.0) 09/14/19 05:08 Plt Count 268 10^3/uL (130-450) 09/14/19 05:08 MPV 10.5 fL (7.4-11.4) 09/14/19 05:08 Neut # (Auto) 6.2 10^3/uL (1.5-6.6) 09/14/19 05:08 Lymph # (Auto) 0.3 10^3/uL (1.5-3.5) L 09/14/19 05:08 Wright # (Auto) 0.0 10^3/uL (0.0-1.0) 09/14/19 05:08 Eos # (Auto) 0.0 10^3/uL (0.0-0.7) 09/14/19 05:08 Baso # (Auto) 0.0 10^3/uL (0.0-0.1) 09/14/19 05:08 Absolute Nucleated RBC 0.00 x10^3/uL 09/14/19 05:08 Nucleated RBC % 0.0 /100WBC 09/14/19 05:08 D-Dimer 244.0 ng/mL (200.0-255.0) 09/14/19 09:08 Sodium 133 mmol/L (135-145) L 09/14/19 05:08 Potassium 4.7 mmol/L (3.5-5.0) 09/14/19 05:08 Chloride 96 mmol/L (101-111) L 09/14/19 05:08 Carbon Dioxide 29 mmol/L (21-32) 09/14/19 05:08 Anion Gap 8.0 (6-13) 09/14/19 05:08 BUN 39 mg/dL (6-20) H 09/14/19 05:08 Creatinine 1.6 mg/dL (0.6-1.2) H 09/14/19 05:08 Estimated GFR (MDRD) 42 (>89) L 09/14/19 05:08 Glucose 309 mg/dL (70-100) H 09/14/19 05:08 Glycated Hemoglobin 6.4 % (4.6-6.2) H 09/13/19 17:47 Estim Average Glucose 137 (70-100) H 09/13/19 17:47 Calcium 8.4 mg/dL (8.5-10.3) L 09/14/19 05:08 Total Bilirubin 0.6 mg/dL (0.2-1.0) 09/13/19 17:47 AST 35 IU/L (10-42) 09/13/19 17:47 ALT 23 IU/L (10-60) 09/13/19 17:47 Alkaline Phosphatase 75 IU/L (42-121) 09/13/19 17:47 Troponin I High Sens 25.4 ng/L (2.3-19.7) H* 09/14/19 07:04 B-Natriuretic Peptide 127 pg/mL (5-100) H 09/14/19 07:04 Total Protein 7.3 g/dL (6.7-8.2) 09/13/19 17:47 Albumin 4.3 g/dL (3.2-5.5) 09/13/19 17:47 Globulin 3.0 g/dL (2.1-4.2) 09/13/19 17:47 Albumin/Globulin Ratio 1.4 (1.0-2.2) 09/13/19 17:47 Lipase 41 U/L (22-51) 09/13/19 17:47 - Procedures Procedures: Procedures NON-INVASIVE MECHANICAL VENTILATION (01/10/15) Sepsis Event Note (H) - Evaluation Current Stage of Sepsis: Ruled out ABX Reporting Has patient been on IV antibiotics over the past 48 hours?: No Current Medications - Current Medications Current Medications: Active Medications Acetaminophen (Tylenol) 650 mg PO Q4HR PRN PRN Reason: Pain 1 to 4 Albuterol/Ipratropium (Duoneb) 3 ml INH Q4HR PRN PRN Reason: Wheezing Last Admin: 09/14/19 05:45 Dose: 3 ml Aspirin (St Delta Aspirin) 81 mg PO DAILY [facility] Last Admin: 09/14/19 09:20 Dose: 81 mg Budesonide (Pulmicort) 0.5 mg INH RTBID [facility] Last Admin: 09/14/19 06:27 Dose: 0.5 mg Formoterol Fumarate (Perforomist) 20 mcg INH RTBID [facility] Last Admin: 09/14/19 06:26 Dose: 20 mcg Insulin Aspart (Novolog) 2 - 10 unit SUBQ 0800,1200,1700,2100 [facility]; Protocol Insulin Glargine (Lantus Solostar) 10 unit SUBQ QDBREAKFAST [facility] Last Admin: 09/14/19 09:20 Dose: 10 unit Methylprednisolone (Solu-Medrol (40mg Vial)) 80 mg IVP Q8H [facility] Pantoprazole Sodium (Protonix) 40 mg PO QDAC [facility] Last Admin: 09/14/19 06:19 Dose: 40 mg Polyethylene Glycol (Miralax) 17 gm PO DAILY [facility] Last Admin: 09/14/19 09:21 Dose: Not Given Sodium Chloride (Normal Saline Flush 0.9%) 10 ml IVP PRN PRN PRN Reason: NEEDED PER PROVIDER ORDERS Last Admin: 09/14/19 07:11 Dose: 10 ml Sodium Chloride (Normal Saline Flush 0.9%) 10 ml IVP 0100,0900,1700 [facility] Last Admin: 09/14/19 09:21 Dose: 10 ml Aspirin [Low Dose Aspirin EC] 81 mg PO DAILY 01/10/15 Fluticasone/Salmeterol [Advair 250-50 Diskus] 1 puffs INH BID 01/10/15 Ipratropium/Albuterol Sulfate [Combivent Respimat Inhal [place]] 1 puffs INH QID 01/10/15 Lisinopril [Zestril] 10 mg PO DAILY 01/10/15 Albuterol Sulfate 2.5 mg INH Q4H PRN 01/11/15 Pioglitazone HCl [Actos] 30 mg PO DAILY 01/11/15 Albuterol Sulfate [Proair Hfa] 2 puffs INH Q4H PRN 04/03/15 Cyclobenzaprine [Flexeril] 5 mg PO TID PRN 09/14/19 Meloxicam [Mobic] 7.5 mg PO BID 09/14/19 glipiZIDE ER [Glucotrol Xl] 2.5 mg PO 0800 09/14/19 metFORMIN [Glucophage] 500 mg PO BIDWM 09/14/19
[2019-09-14] MEDS ORDERED: methylPREDNISolone SUCCINATE 40 MG/ML VIAL IVP SCH (12:00)
[2019-09-14 13:27] LABS: HGB - HEMOGLOBIN 10.8 g/dL (14.0-18.0); MEAN CORPUSCULAR HEMOGLOBIN 29.2 pg (27.0-31.0); MEAN CORPUSCULAR HGB CONC 31.7 g/dL (32.0-36.0); MEAN CORPUSCULAR VOLUME 92.2 fL (80.0-94.0); MEAN PLATELET VOLUME 10.2 fL (7.4-11.4); RED BLOOD COUNT 3.7 10^6/uL (4.70-6.10); RED CELL DISTRIBUTION WIDTH 13.2 % (12.0-15.0); WHITE BLOOD COUNT 15.3 x10^3/uL (4.8-10.8)
[2019-09-14] MEDS ORDERED: LEVALBUTEROL 1.25 MG/3 ML NEB INH PRN (16:50)
[2019-09-14] MEDS ORDERED: IPRATROPIUM 0.2 MG/ML NEB INH SCH (17:00)
[2019-09-14] MEDS: INSULIN ASPART 300 UNIT/3 ML PEN SUBQ SCH ×2 (17:10→20:19)
[2019-09-14] MEDS: methylPREDNISolone SUCCINATE 40 MG/ML VIAL IVP SCH (20:13)
[2019-09-14] MEDS: IPRATROPIUM 0.2 MG/ML NEB INH SCH (20:33)
[2019-09-14] MEDS: LEVALBUTEROL 1.25 MG/3 ML NEB INH PRN (20:33)
[2019-09-14] MEDS ORDERED: CYCLOBENZAPRINE 10 MG TABLET PO PRN (21:34)
[2019-09-14] MEDS: MORPHINE 2 MG/ML CARPUJECT IVP PRN (21:36)
[2019-09-15] MEDS: methylPREDNISolone SUCCINATE 40 MG/ML VIAL IVP SCH ×3 (03:59→20:00)
[2019-09-15] MEDS: SODIUM CHLORIDE FLUSH 0.9% 10 ML SYRINGE IVP SCH ×3 (03:59→17:23)
[2019-09-15] MEDS: SODIUM CHLORIDE FLUSH 0.9% 10 ML SYRINGE IVP PRN (04:00)
[2019-09-15 05:22] LABS: BASOPHILS # (AUTO) 0.1 10^3/uL (0.0-0.1); BASOPHILS % (AUTO) 0.3 %; EOSINOPHILS # (AUTO) 0.1 10^3/uL (0.0-0.7); EOSINOPHILS % (AUTO) 0.3 %; HGB - HEMOGLOBIN 9.8 g/dL (14.0-18.0); LYMPHOCYTES # (AUTO) 0.6 10^3/uL (1.5-3.5); MEAN CORPUSCULAR HEMOGLOBIN 28.7 pg (27.0-31.0); MEAN CORPUSCULAR HGB CONC 30.4 g/dL (32.0-36.0); MEAN CORPUSCULAR VOLUME 94.2 fL (80.0-94.0); MEAN PLATELET VOLUME 10.5 fL (7.4-11.4); MONOCYTES # (AUTO) 0.9 10^3/uL (0.0-1.0); MONOCYTES % (AUTO) 4.9 %; NEUTROPHILS # (AUTO) 16.9 10^3/uL (1.5-6.6); NEUTROPHILS % (AUTO) 90.8 %; PLT - PLATELET COUNT 291 10^3/uL (130-450); RED BLOOD COUNT 3.42 10^6/uL (4.70-6.10); RED CELL DISTRIBUTION WIDTH 13.3 % (12.0-15.0); WHITE BLOOD COUNT 18.6 x10^3/uL (4.8-10.8)
[2019-09-15 05:32] LABS: CALCIUM 8.4 mg/dL (8.5-10.3); CREATININE 1.5 mg/dL (0.6-1.2)
[2019-09-15] MEDS: PANTOPRAZOLE 40 MG TABLET PO SCH (06:47)
[2019-09-15] MEDS ORDERED: SODIUM POLYSTYRENE SULFONATE 15 GM/60 ML BOTTLE PO ONE (07:34)
[2019-09-15] MEDS: IPRATROPIUM 0.2 MG/ML NEB INH SCH ×4 (08:40→19:17)
[2019-09-15] MEDS: BUDESONIDE 0.5 MG/2 ML NEB INH SCH ×2 (08:40→19:17)
[2019-09-15] MEDS: FORMOTEROL FUMARATE NEB 20 MCG/2 ML INH SCH ×2 (08:40→19:17)
[2019-09-15] MEDS: POLYETHYLENE GLYCOL 3350 17 GM PACKET PO SCH (09:16)
[2019-09-15] MEDS: SENNA 8.6 MG TABLET PO SCH (09:16)
[2019-09-15] MEDS: ASPIRIN CHEW 81 MG TABLET PO SCH (09:16)
[2019-09-15] MEDS: DOCUSATE SODIUM 250 MG CAPSULE PO SCH (09:16)
[2019-09-15] MEDS: SODIUM CHLORIDE 0.9% 1,000 ML IV SCH ×2 (09:17→18:42)
[2019-09-15] MEDS: INSULIN GLARGINE 300 UNIT/3 ML PEN SUBQ SCH (09:21)
[2019-09-15] MEDS: INSULIN ASPART 300 UNIT/3 ML PEN SUBQ SCH ×3 (09:22→17:22)
[2019-09-15] MEDS: LEVALBUTEROL 1.25 MG/3 ML NEB INH PRN (13:46)
[2019-09-15 16:49] LABS: CALCIUM 8.9 mg/dL (8.5-10.3); CREATININE 1.5 mg/dL (0.6-1.2)
--- NOTE | 2019-09-15 17:15 | PROVIDER PROGRESS NOTE ---
Assessment/Plan - Problem List (1) COPD exacerbation Assessment/Plan: continue improved. pt is comfortably sitting at bed, no obvious respiratory distress. pt took O2 at 2-3 liter NC at home. pt had 99% sats on 3 liter of O2 today. reduce solu-metro to 670mg tid from 120mg tid continue breath treatment with RT on Duoneb, pulmicort, formeterol continue supplement of O2 nurse with pt safely walk (2) Acute renal failure Conclusion/Plan: pt had creatinine 1.5, slight improved from yesterday 1.6.pt has the Baseline Cr is 1.0. continue IVF order US of retro to check if any obstruction or kidney features, will followup (3) hyperkalemia pt has 5.6 potassium today. pt denies chest pain, palpitation. pt is asymptomatic without distress. it is likely from pt's MIGUEL ANGEL. order Kayexaline check BMP at this afternoon to followup (4)dyspnea great improvement. order D-dimer, reveal negative. The dyspnea is likely from pt's COPD. pt had slight elevated Troponin but denies chest pain, cardiac distress. it is likely from pt's dehydration continue check troponin supplement of O2 as needed (5) DM type 2 (diabetes mellitus, type 2) Conclusion/Plan: A1C is 6.4. continue hold glipizide, metformin and Actos continue SSI and accu checks, hypoglycemia protocol pt is taking steroid, order Lantus and increase SSI level plan to continue glipizide, metformin and Actos as his d/c DM plan (6) Hypertension Conclusion/Plan: stable, Will hold lisinopril for now due to Cr of 1.6. (7) Hyperlipidemia Conclusion/Plan: will Resume ezetimibe once verified (8) Blood per rectum Conclusion/Plan: resolved. HGB is stable. Occult test is negative - Current Meds Current Meds: Current Medications Generic Name Dose Route Start Last Admin Trade Name Pamela PRN Reason Stop Dose Admin Aspirin 81 mg 09/14/19 09:00 09/15/19 09:16 St Delta Aspirin PO 81 mg DAILY BAUTISTA Administration Budesonide 0.5 mg 09/14/19 07:00 09/15/19 08:40 Pulmicort INH 0.5 mg RTBID BAUTISTA Administration Cyclobenzaprine HCl 10 mg 09/14/19 21:34 09/14/19 21:47 Flexeril PO 10 mg TID PRN Administration Spasms Docusate Sodium 250 - 500 mg 09/15/19 09:00 09/15/19 09:16 Colace 250mg Capsule PO 250 mg DAILY BAUTISTA Administration Formoterol Fumarate 20 mcg 09/14/19 07:00 09/15/19 08:40 Perforomist INH 20 mcg RTBID BAUTISTA Administration Sodium Chloride 1,000 mls @ 100 mls/hr 09/15/19 08:00 09/15/19 09:17 Normal Saline 0.9% IV 09/16/19 03:59 100 mls/hr .Q10H BAUTISTA Administration Insulin Aspart 1 - 5 unit 09/14/19 17:00 09/15/19 11:26 Novolog SUBQ 2 unit 0800,1200,1700,2100 BAUTISTA Administration Protocol Insulin Glargine 10 unit 09/14/19 09:00 09/15/19 09:21 Lantus Solostar SUBQ 10 unit QDBREAKFAST BAUTISTA Administration Ipratropium Edwards 0.5 mg 09/14/19 19:00 09/15/19 13:46 Atrovent INH 0.5 mg RTQID BAUTISTA Administration Levalbuterol HCl 1.25 mg 09/14/19 16:53 09/15/19 13:46 Xopenex INH 1.25 mg QID PRN Administration Shortness of Air/Wheezing Methylprednisolone 60 mg 09/14/19 20:00 09/15/19 11:26 Solu-Medrol (40mg Vial) IVP 60 mg Q8H BAUTISTA Administration Morphine Sulfate 2 mg 09/14/19 21:33 09/14/19 21:36 Morphine (Carpuject) IVP 2 mg Q4HR PRN Administration PER PHYSICIAN ORDER Pantoprazole Sodium 40 mg 09/14/19 07:00 09/15/19 06:47 Protonix PO 40 mg QDAC BAUTISTA Administration Polyethylene Glycol 17 gm 09/14/19 09:00 09/15/19 09:16 Miralax PO 17 gm DAILY BAUTISTA Administration Senna 8.6 - 17.2 mg 09/15/19 09:00 09/15/19 09:16 Senokot PO 8.6 mg DAILY BAUTISTA Administration Sodium Chloride 10 ml 09/13/19 19:24 09/15/19 04:00 Normal Saline Flush 0.9% IVP 10 ml PRN PRN Administration NEEDED PER PROVIDER ORDERS Sodium Chloride 10 ml 09/14/19 01:00 09/15/19 09:16 Normal Saline Flush 0.9% IVP 10 ml 0100,0900,1700 BAUTISTA Administration - Lab Result Fish Bone Diagrams: 09/15/19 04:50 09/15/19 15:54 - Additional Planning My Orders: My Active Orders 09/14/19 16:53 Levalbuterol [Xopenex] 1.25 mg INH QID PRN 09/14/19 16:57 Miscellaenous Nursing Order [RC] PRN 09/14/19 17:00 Insulin Aspart [NovoLOG] 1 - 5 unit SUBQ 0800,1200,1700,2100 09/14/19 19:00 Ipratropium [Atrovent] 0.5 mg INH RTQID 09/14/19 20:00 methylPREDNISolone SUCCINATE [SOLU-Medrol (40MG VIAL)] 60 mg IVP Q8H 09/15/19 08:00 Sodium Chloride 0.9% [Normal Saline 0.9%] 1,000 ml IV 100 mls/hr 09/15/19 17:06 Retroperitoneal [US] Routine 09/15/19 Lunch Carb-controlled Diet [DIET] Objective Vital Signs: Vital Signs - 24 hr 09/14/19 09/14/19 09/14/19 19:47 20:36 23:35 Temperature 36.7 C 36.7 C Heart Rate 95 Heart Rate [ Brachial] Heart Rate [ 98 98 Monitoring electrodes] Respiratory 20 20 18 Rate Blood Pressure [Left Brachial artery] Blood Pressure 119/44 L 128/56 L [Right Brachial artery] O2 Saturation 98 99 09/15/19 09/15/19 09/15/19 03:20 07:25 08:40 Temperature 36.7 C 36.6 C Heart Rate 9 L Heart Rate [ Brachial] Heart Rate [ 86 75 Monitoring electrodes] Respiratory 16 18 20 Rate Blood Pressure [Left Brachial artery] Blood Pressure 135/56 H 114/62 [Right Brachial artery] O2 Saturation 100 99 09/15/19 09/15/19 09/15/19 11:15 13:46 16:06 Temperature 36.5 C 36.6 C Heart Rate 97 Heart Rate [ 108 H Brachial] Heart Rate [ 103 H Monitoring electrodes] Respiratory 22 22 21 Rate Blood Pressure 122/64 [Left Brachial artery] Blood Pressure 144/76 H [Right Brachial artery] O2 Saturation 99 99 Oxygen O2 Source [Without Activity] Nasal cannula O2 Source [With Activity] Nasal cannula O2 Source Nasal cannula Oxygen Flow Rate 3 I&O (Last 24 Hrs): Intake and Output Totals x24h 09/13/19 09/14/19 09/15/19 23:59 23:59 23:59 Intake Total 1100 1061.667 820 Output Total 300 865 425 Balance 800 196.667 395 - Results Results: Laboratory Results WBC 18.6 x10^3/uL (4.8-10.8) H 09/15/19 04:50 RBC 3.42 10^6/uL (4.70-6.10) L 09/15/19 04:50 Hgb 9.8 g/dL (14.0-18.0) L 09/15/19 04:50 Hct 32.2 % (42.0-52.0) L 09/15/19 04:50 MCV 94.2 fL (80.0-94.0) H 09/15/19 04:50 MCH 28.7 pg (27.0-31.0) 09/15/19 04:50 MCHC 30.4 g/dL (32.0-36.0) L 09/15/19 04:50 RDW 13.3 % (12.0-15.0) 09/15/19 04:50 Plt Count 291 10^3/uL (130-450) 09/15/19 04:50 MPV 10.5 fL (7.4-11.4) 09/15/19 04:50 Neut # (Auto) 16.9 10^3/uL (1.5-6.6) H 09/15/19 04:50 Lymph # (Auto) 0.6 10^3/uL (1.5-3.5) L 09/15/19 04:50 [place] # (Auto) 0.9 10^3/uL (0.0-1.0) 09/15/19 04:50 Eos # (Auto) 0.1 10^3/uL (0.0-0.7) 09/15/19 04:50 Baso # (Auto) 0.1 10^3/uL (0.0-0.1) 09/15/19 04:50 Absolute Nucleated RBC 0.00 x10^3/uL 09/15/19 04:50 Nucleated RBC % 0.0 /100WBC 09/15/19 04:50 D-Dimer 244.0 ng/mL (200.0-255.0) 09/14/19 09:08 Sodium 136 mmol/L (135-145) 09/15/19 15:54 Potassium 4.5 mmol/L (3.5-5.0) 09/15/19 15:54 Chloride 97 mmol/L (101-111) L 09/15/19 15:54 Carbon Dioxide 31 mmol/L (21-32) 09/15/19 15:54 Anion Gap 8.0 (6-13) 09/15/19 15:54 BUN 39 mg/dL (6-20) H 09/15/19 15:54 Creatinine 1.5 mg/dL (0.6-1.2) H 09/15/19 15:54 Estimated GFR (MDRD) 46 (>89) L 09/15/19 15:54 Glucose 253 mg/dL (70-100) H 09/15/19 15:54 Glycated Hemoglobin 6.4 % (4.6-6.2) H 09/13/19 17:47 Estim Average Glucose 137 (70-100) H 09/13/19 17:47 Calcium 8.9 mg/dL (8.5-10.3) 09/15/19 15:54 Total Bilirubin 0.6 mg/dL (0.2-1.0) 09/13/19 17:47 AST 35 IU/L (10-42) 09/13/19 17:47 ALT 23 IU/L (10-60) 09/13/19 17:47 Alkaline Phosphatase 75 IU/L (42-121) 09/13/19 17:47 Troponin I High Sens 25.1 ng/L (2.3-19.7) H* 09/14/19 13:20 B-Natriuretic Peptide 127 pg/mL (5-100) H 09/14/19 07:04 Total Protein 7.3 g/dL (6.7-8.2) 09/13/19 17:47 Albumin 4.3 g/dL (3.2-5.5) 09/13/19 17:47 Globulin 3.0 g/dL (2.1-4.2) 09/13/19 17:47 Albumin/Globulin Ratio 1.4 (1.0-2.2) 09/13/19 17:47 Lipase 41 U/L (22-51) 09/13/19 17:47 - Procedures Procedures: Procedures NON-INVASIVE MECHANICAL VENTILATION (01/10/15) Sepsis Event Note (H) - Evaluation Current Stage of Sepsis: Ruled out ABX Reporting Has patient been on IV antibiotics over the past 48 hours?: No
[2019-09-15] MEDS: MORPHINE 2 MG/ML CARPUJECT IVP PRN (18:38)
[2019-09-15] MEDS: AZITHROMYCIN 250 MG TABLET PO SCH (18:42)
[2019-09-15] MEDS: HEPARIN 5,000 UNIT/ML VIAL SUBQ SCH (21:58)
[2019-09-16] MEDS ORDERED: traZODone 50 MG TABLET PO SCH (00:18)
[2019-09-16] MEDS: SODIUM CHLORIDE FLUSH 0.9% 10 ML SYRINGE IVP SCH ×3 (01:10→17:30)
[2019-09-16] MEDS: methylPREDNISolone SUCCINATE 40 MG/ML VIAL IVP SCH ×4 (03:04→19:49)
[2019-09-16] MEDS ORDERED: LEVALBUTEROL 1.25 MG/3 ML NEB INH ONE (03:27)
[2019-09-16 04:01] LABS: ABG PH 7.27 (7.35-7.45)
[2019-09-16 04:02] LABS: ABG BASE EXCESS 2.1 mmol/L (-2.0-3.0); ABG HCO3 30.5 mmol/L (22.0-26.0); ABG OXYGEN SATURATION 99 % (94-98); ABG TCO2 32.5 MMOL/L (21.0-29.0); ALLEN TEST POSITIVE
[2019-09-16 04:03] LABS: ABG PCO2 67 mmHg (34-45); ABG PO2 241 mmHg (80-100)
--- NOTE | 2019-09-16 04:09 | XRAY Report ---
Reason: shortness of breath Procedure Date: 09/16/2019 Accession Number: [id number] / [id number] Procedure: XR - Chest 1 View X-Ray CPT Code: 98765 Final Report FULL RESULT: EXAM: CHEST RADIOGRAPHY EXAM DATE: 09/16/2019 03:45 AM. CLINICAL HISTORY: Shortness of breath. COMPARISON: CHEST 1 VIEW 09/14/2019 7:00 AM CHEST ANGIO 04/29/2018 11:43 PM. TECHNIQUE: 1 view. FINDINGS: Lungs/Pleura: Large volumes. No focal pneumonia or overt edema. No pneumothorax or effusion. Mediastinum: Within exam limitations, cardiomediastinal contour is normal. Other: None. IMPRESSION: Known emphysema without acute process seen in the chest. RADIA
[2019-09-16] MEDS: LEVALBUTEROL 1.25 MG/3 ML NEB INH PRN ×3 (04:10→14:35)
--- NOTE | 2019-09-16 05:43 | PROVIDER PROGRESS NOTE ---
Advisory Services Associate Note - Advisory Services Associate Note Advisory Services Associate Note: I was called to patient bedside around 4:00am on 09/16/19 because patient had suddenly become very dyspnea. His O2Sat had drop to the 60's, he was tachycardic into the 120's and there were little to no air movement on auscultation. It appeared like he was unable to take in a breath. He cough but does not produce any sputum. He could not speak during this episode. A Veturi mask was place and the patient's oxygenation bounced back into the high 90's. CXR showed emphysema but no acute cardiopulmonary process. ABG showed pH 7.27, pCO2 67, pO2 214, HCO3 30.4 The patient likely has mucous plugs. While a CT of the chest with contrast will be helpful in exploring this further, were are limited by the patient's renal function. He has a GFR of 39 and a Cr of 1.5 A chest physical therapy was placed on patient. It is likely this acute respiratory distress may recur. Patient may need a bronchoscopy.
[2019-09-16 05:51] LABS: BASOPHILS % (AUTO) 0.2 %; EOSINOPHILS % (AUTO) 0.1 %; HGB - HEMOGLOBIN 10.5 g/dL (14.0-18.0); LYMPHOCYTES # (AUTO) 0.4 10^3/uL (1.5-3.5); LYMPHOCYTES % (AUTO) 2.4 %; MEAN CORPUSCULAR HEMOGLOBIN 28.8 pg (27.0-31.0); MEAN CORPUSCULAR HGB CONC 29.8 g/dL (32.0-36.0); MEAN CORPUSCULAR VOLUME 96.4 fL (80.0-94.0); MEAN PLATELET VOLUME 10.1 fL (7.4-11.4); MONOCYTES # (AUTO) 0.8 10^3/uL (0.0-1.0); MONOCYTES % (AUTO) 5.1 %; NEUTROPHILS # (AUTO) 14.9 10^3/uL (1.5-6.6); NEUTROPHILS % (AUTO) 91.2 %; PLT - PLATELET COUNT 314 10^3/uL (130-450); RED BLOOD COUNT 3.65 10^6/uL (4.70-6.10); RED CELL DISTRIBUTION WIDTH 13.2 % (12.0-15.0); WHITE BLOOD COUNT 16.3 x10^3/uL (4.8-10.8)
[2019-09-16] MEDS: PANTOPRAZOLE 40 MG TABLET PO SCH (05:53)
[2019-09-16 06:02] LABS: CALCIUM 8.3 mg/dL (8.5-10.3); CREATININE 1.2 mg/dL (0.6-1.2)
[2019-09-16 07:12] LABS: ABG BASE EXCESS 4.5 mmol/L (-2.0-3.0); ABG OXYGEN SATURATION 97 % (94-98); ABG PH 7.33 (7.35-7.45); ABG PO2 93 mmHg (80-100)
[2019-09-16 07:13] LABS: ALLEN TEST POSITIVE
[2019-09-16] MEDS: BUDESONIDE 0.5 MG/2 ML NEB INH SCH ×2 (07:16→19:03)
[2019-09-16] MEDS: IPRATROPIUM 0.2 MG/ML NEB INH SCH ×4 (07:16→19:02)
[2019-09-16] MEDS: FORMOTEROL FUMARATE NEB 20 MCG/2 ML INH SCH ×2 (07:16→19:03)
[2019-09-16 07:22] LABS: ABG PCO2 63 mmHg (34-45)
[2019-09-16] MEDS ORDERED: IOVERSOL 320 100 ML VIAL IVP ONE ×2 (07:42→13:03)
[2019-09-16] MEDS ORDERED: SODIUM CHLORIDE 0.9% 1,000 ML IV SCH (08:00)
[2019-09-16] MEDS: HEPARIN 5,000 UNIT/ML VIAL SUBQ SCH ×2 (08:34→20:04)
[2019-09-16] MEDS: DOCUSATE SODIUM 250 MG CAPSULE PO SCH (08:36)
[2019-09-16] MEDS: POLYETHYLENE GLYCOL 3350 17 GM PACKET PO SCH (08:36)
[2019-09-16] MEDS: ASPIRIN CHEW 81 MG TABLET PO SCH (08:36)
[2019-09-16] MEDS: SENNA 8.6 MG TABLET PO SCH (08:36)
[2019-09-16] MEDS: INSULIN ASPART 300 UNIT/3 ML PEN SUBQ SCH ×4 (08:36→20:04)
[2019-09-16] MEDS: AZITHROMYCIN 250 MG TABLET PO SCH (08:37)
[2019-09-16] MEDS: INSULIN GLARGINE 300 UNIT/3 ML PEN SUBQ SCH (08:43)
[2019-09-16] MEDS ORDERED: guaiFENesin 600 MG TABLET PO SCH ×2 (09:00)
--- NOTE | 2019-09-16 09:05 | CT Report ---
Reason: SOB Procedure Date: 09/16/2019 Accession Number: [id number] / [id number] Procedure: CT - CHEST W CPT Code: Final Report FULL RESULT: EXAM: CT CHEST EXAM DATE: 09/16/2019 08:25 AM. CLINICAL HISTORY: Shortness of breath. COMPARISONS: CHEST ANGIO 04/29/2018 11:43 PM ABDOMEN/PELVIS W/ 12/28/2018 7:10 PM CHEST 1 VIEW 09/16/2019 3:28 AM. TECHNIQUE: Routine helical CT imaging was performed through the chest. IV contrast: 80 cc of Optiray 320. Reconstructions: Coronal and sagittal. In accordance with CT protocol optimization, one or more of the following dose reduction techniques were utilized for this exam: automated exposure control, adjustment of mA and/or KV based on patient size, or use of iterative reconstructive technique. FINDINGS: Lungs/Pleura: New spiculated 1.3 x 1.4 cm lesion in the anterior left lower lobe on image 6, 77 with extension to the adjacent diaphragm on image 7, 66. Advanced centrilobular and paraseptal emphysema. No new consolidation, effusions or pneumothorax. Moderate bronchial wall thickening. No endobronchial lesions are noted. Band-like opacity in the posterior lateral left upper lobe on image 6, 38, probably represents an area of scarring. Mediastinum: Atheromatous plaques are noted in the thoracic aorta. No thoracic aortic aneurysm or dissection. No mediastinal hematoma. Multivessel coronary artery disease. No cardiac enlargement. No mediastinal or hilar adenopathy or pericardial effusion. 1.1 cm left thyroid low density nodule on image 3, 10. No abnormal calcifications. No supraclavicular or axillary adenopathy. Bones: Chronic-appearing compression fractures are noted at T9, T11, T12, L1. There is a new inferior T6 compression fracture resulting in approximately 30-40% vertebral body height loss, new since 04/29/2018. No new osteoblastic or osteolytic lesions are noted. 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 Multilevel degenerative disk disease is present. Visualized Abdomen: Probable gallstones or sludge. No gallbladder fossa inflammation. Mild thickening of both adrenal glands without a focal lesion. Visualized portions of the kidneys, liver, pancreas and spleen are normal. Portal vein is patent. Small hiatal hernia. Diffuse atheromatous plaques of the upper abdominal aorta and branch vessels. 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 No upper abdominal aortic aneurysm. Other: None. IMPRESSION: 1. New indeterminate 1.4 cm spiculated lesion in the left lower lobe extending to the diaphragm. Findings are new since CT performed 12/28/2018 and 04/29/2018. Given the configuration, scarring is not excluded. Given the ambiguity, recommend short interval follow-up. If finding persists, recommend evaluation to exclude a lung carcinoma. 2. Extensive centrilobular and paraseptal emphysema. Moderate bronchial wall thickening likely represents superimposed bronchitis. No new consolidation, effusions or pneumothorax. 3. No cardiac enlargement or pathologic adenopathy. Multivessel coronary artery disease. 4. Gallstones. No CT findings concerning for acute cholecystitis. RADIA
[2019-09-16] MEDS: SODIUM CHLORIDE 0.9% 1,000 ML IV SCH ×2 (11:18→19:49)
--- NOTE | 2019-09-16 11:52 | PROVIDER PROGRESS NOTE ---
Assessment/Plan - Problem List (1) Respiratory failure with hypoxia Assessment/Plan: last night pt's sat drop to 60% with tachycardia 120, pt had twice similar episodes. CT of chest with contrast reveals spiculated lesion 1.4 cm size in the left lower lobe no pathologic adenopathy, and given the configuration, scarring is not excluded, recommend short interval followup. extensive emphysema, bronchitis, no new consolidation, effusion. image did not indicate mucus plugging or pneumonia, or PE, and d-dimer was negative at the admission. The second ABGs reveals PO2 93%, PCO2 63% and PH 7.33. continue Azithyromycin for bronchitis continue steroid and breath treatment follow up sugar presser as out-pt for his spiculated lesion (2) COPD exacerbation Assessment/Plan: in the morning pt is comfortably sitting at chair to eat his breakfast, no obvious respiratory distress. pt took O2 at 2-3 liter NC at home. pt had 100% sats on 4 liter of O2 today. solu-metro to 60mg tid continue breath treatment with RT on Duoneb, pulmicort, formeterol continue supplement of O2 (3) Acute renal failure Conclusion/Plan: great improvement. creatinine 1.2 as his baseline continue gently IVF for hydration (4) hyperkalemia resolved (5)dyspnea D-dimer, reveal negative. slight elevated troponin is stable. pt has no chest pain, palpitation. The dyspnea is likely from pt's COPD. pt had slight elevated Troponin but denies chest pain, cardiac distress. it is likely from pt's dehydration supplement of O2 as needed continue treatment of COPD (6) DM type 2 (diabetes mellitus, type 2) Conclusion/Plan: A1C is 6.4. continue hold glipizide, metformin and Actos continue SSI and accu checks, hypoglycemia protocol pt is taking steroid, order Lantus and increase SSI level plan to continue glipizide, metformin and Actos as his d/c DM plan (7) Hypertension Conclusion/Plan: stable, Will hold lisinopril for now due to Cr of 1.6. (8) Blood per rectum Conclusion/Plan: resolved. HGB is stable. Occult test is negative - Current Meds Current Meds: Current Medications Generic Name Dose Route Start Last Admin Trade Name Freq PRN Reason Stop Dose Admin Aspirin 81 mg 09/14/19 09:00 09/16/19 08:36 St Delta Aspirin PO 81 mg DAILY [facility] Administration Azithromycin 250 mg 09/15/19 17:27 09/16/19 08:37 Zithromax PO 250 mg DAILY [facility] Administration Budesonide 0.5 mg 09/14/19 07:00 09/16/19 07:16 Pulmicort INH 0.5 mg RTBID [facility] Administration Cyclobenzaprine HCl 10 mg 09/14/19 21:34 09/14/19 21:47 Flexeril PO 10 mg TID PRN Administration Spasms Docusate Sodium 250 - 500 mg 09/15/19 09:00 09/16/19 08:36 Colace 250mg Capsule PO Not Given DAILY [facility] Formoterol Fumarate 20 mcg 09/14/19 07:00 09/16/19 07:16 Perforomist INH 20 mcg RTBID [facility] Administration Heparin Sodium (Porcine) 2,500 unit 09/15/19 21:00 09/16/19 08:34 SUBQ 2,500 unit BID [facility] Administration Sodium Chloride 1,000 mls @ 83.3 mls/hr 09/16/19 10:20 09/16/19 11:18 Normal Saline 0.9% IV 09/17/19 10:20 Not Given .Q12H1M [facility] Insulin Aspart 1 - 9 unit 09/16/19 08:00 09/16/19 08:36 Novolog SUBQ Not Given 0800,1200,1700,2100 [facility] Protocol Insulin Glargine 10 unit 09/14/19 09:00 09/16/19 08:43 Lantus Solostar SUBQ 10 unit QDBREAKFAST [facility] Administration Ipratropium [place] 0.5 mg 09/14/19 19:00 09/16/19 11:13 Atrovent INH 0.5 mg RTQID [facility] Administration Levalbuterol HCl 1.25 mg 09/14/19 16:53 09/16/19 11:14 Xopenex INH 1.25 mg QID PRN Administration Shortness of Air/Wheezing Methylprednisolone 60 mg 09/16/19 08:44 09/16/19 09:16 Solu-Medrol (40mg Vial) IVP 60 mg Q8H [facility] Administration Morphine Sulfate 2 mg 09/14/19 21:33 09/15/19 18:38 Morphine (Carpuject) IVP 2 mg Q4HR PRN Administration PER PHYSICIAN ORDER Pantoprazole Sodium 40 mg 09/14/19 07:00 09/16/19 05:53 Protonix PO 40 mg QDAC [facility] Administration Polyethylene Glycol 17 gm 09/14/19 09:00 09/16/19 08:36 Miralax PO Not Given DAILY [facility] Senna 8.6 - 17.2 mg 09/15/19 09:00 09/16/19 08:36 Senokot PO Not Given DAILY [facility] Sodium Chloride 10 ml 09/13/19 19:24 09/15/19 04:00 Normal Saline Flush 0.9% IVP 10 ml PRN PRN Administration NEEDED PER PROVIDER ORDERS Sodium Chloride 10 ml 09/14/19 01:00 09/16/19 08:37 Normal Saline Flush 0.9% IVP 10 ml 0100,0900,1700 [facility] Administration - Lab Result Fish Bone Diagrams: 09/16/19 05:30 09/16/19 05:30 - Additional Planning My Orders: My Active Orders 09/15/19 17:27 Azithromycin [Zithromax] 250 mg PO DAILY 09/15/19 21:00 Heparin 2,500 unit SUBQ BID 09/15/19 Lunch Carb-controlled Diet [DIET] 09/16/19 CUL, RESPIRATORY [RM] Urgent 09/16/19 07:34 Daily Weight [RC] 0600 09/16/19 08:00 Retroperitoneal [US] Routine Insulin Aspart [NovoLOG] 1 - 9 unit SUBQ 0800,1200,1700,2100 09/16/19 08:44 methylPREDNISolone SUCCINATE [SOLU-Medrol (40MG VIAL)] 60 mg IVP Q8H 09/16/19 10:20 Sodium Chloride 0.9% [Normal Saline 0.9%] 1,000 ml IV 83.3 mls/hr 09/16/19 21:00 guaiFENesin [Mucinex] 600 mg PO BID Subjective - Subjective Patient Reports: Feeling Better Objective Vital Signs: Vital Signs - 24 hr 09/15/19 09/15/19 09/15/19 13:46 16:06 19:20 Temperature 36.6 C Heart Rate 97 103 H Heart Rate [ 108 H Brachial] Respiratory 22 21 20 Rate Blood Pressure 122/64 [Left Brachial artery] Blood Pressure [Right Brachial artery] O2 Saturation 99 09/15/19 09/16/1909/16/19 20:44 00:35 03:49 Temperature 36.6 C 36.5 C 36.6 C Heart Rate Heart Rate [ 99 91 105 H Brachial] Respiratory 20 20 22 Rate Blood Pressure [Left Brachial artery] Blood Pressure 142/63 H 113/58 L 152/82 H [Right Brachial artery] O2 Saturation 97 95 95 09/16/19 09/16/19 09/16/19 04:11 04:45 07:19 Temperature Heart Rate 105 H 80 Heart Rate [ 102 H Brachial] Respiratory 20 18 Rate Blood Pressure 146/68 H [Left Brachial artery] Blood Pressure [Right Brachial artery] O2 Saturation 92 09/16/19 09/16/19 09/16/19 07:44 11:15 11:43 Temperature 36.6 C 36.5 C Heart Rate 80 Heart Rate [ 95 94 Brachial] Respiratory 20 20 19 Rate Blood Pressure 151/70 H [Left Brachial artery] Blood Pressure 132/59 H [Right Brachial artery] O2 Saturation 99 97 Oxygen O2 Source [Without Activity] Nasal cannula O2 Source [With Activity] Nasal cannula O2 Source Nasal cannula Oxygen Flow Rate 3 I&O (Last 24 Hrs): Intake and Output Totals x24h 09/14/19 09/15/19 09/16/19 23:59 23:59 23:59 Intake Total 3511.734 3659.667 1040 Output Total 865 685 800 Balance 309.828 6766.667 240 General: Alert, No acute distress HEENT: Atraumatic Neck: Supple Lymphatic: no adenopathy Neuro: Alert, Non Focal Cardiovascular: Regular rate Respiratory: Chest non-tender, No respiratory distress, Wheezes Abdomen: Normal bowel sounds, Soft - Results Results: Laboratory Results WBC 16.3 x10^3/uL (4.8-10.8) H 09/16/19 05:30 RBC 3.65 10^6/uL (4.70-6.10) L 09/16/19 05:30 Hgb 10.5 g/dL (14.0-18.0) L 09/16/19 05:30 Hct 35.2 % (42.0-52.0) L 09/16/19 05:30 MCV 96.4 fL (80.0-94.0) H 09/16/19 05:30 MCH 28.8 pg (27.0-31.0) 09/16/19 05:30 MCHC 29.8 g/dL (32.0-36.0) L 09/16/19 05:30 RDW 13.2 % (12.0-15.0) 09/16/19 05:30 Plt Count 314 10^3/uL (130-450) 09/16/19 05:30 MPV 10.1 fL (7.4-11.4) 09/16/19 05:30 Neut # (Auto) 14.9 10^3/uL (1.5-6.6) H 09/16/19 05:30 Lymph # (Auto) 0.4 10^3/uL (1.5-3.5) L 09/16/19 05:30 [place] # (Auto) 0.8 10^3/uL (0.0-1.0) 09/16/19 05:30 Eos # (Auto) 0.0 10^3/uL (0.0-0.7) 09/16/19 05:30 Baso # (Auto) 0.0 10^3/uL (0.0-0.1) 09/16/19 05:30 Absolute Nucleated RBC 0.00 x10^3/uL 09/16/19 05:30 Nucleated RBC % 0.0 /100WBC 09/16/19 05:30 D-Dimer 244.0 ng/mL (200.0-255.0) 09/14/19 09:08 Bld Gas Analysis Time 07:04 09/16/19 07:04 Sample Site RIGHT RADIAL 09/16/19 07:04 ABG pH 7.33 (7.35-7.45) L 09/16/19 07:04 ABG pCO2 63 mmHg (34-45) H* 09/16/19 07:04 ABG pO2 93 mmHg (80-100) 09/16/19 07:04 ABG HCO3 32.0 mmol/L (22.0-26.0) H 09/16/19 07:04 ABG Total CO2 34.0 MMOL/L (21.0-29.0) H 09/16/19 07:04 ABG O2 Saturation 97 % (94-98) 09/16/19 07:04 ABG Base Excess 4.5 mmol/L (-2.0-3.0) H 09/16/19 07:04 Alon Test POSITIVE 09/16/19 07:04 O2 Delivery Device OXYMASK 09/16/19 07:04 O2 Liters/Min 6.00 LPM 09/16/19 07:04 FiO2 9.00 09/16/19 03:55 Sodium 138 mmol/L (135-145) 09/16/19 05:30 Potassium 5.0 mmol/L (3.5-5.0) 09/16/19 05:30 Chloride 100 mmol/L (101-111) L 09/16/19 05:30 Carbon Dioxide 33 mmol/L (21-32) H 09/16/19 05:30 Anion Gap 5.0 (6-13) L 09/16/19 05:30 BUN 33 mg/dL (6-20) H 09/16/19 05:30 Creatinine 1.2 mg/dL (0.6-1.2) 09/16/19 05:30 Estimated GFR (MDRD) 59 (>89) L 09/16/19 05:30 Glucose 128 mg/dL (70-100) H 09/16/19 05:30 Glycated Hemoglobin 6.4 % (4.6-6.2) H 09/13/19 17:47 Estim Average Glucose 137 (70-100) H 09/13/19 17:47 Calcium 8.3 mg/dL (8.5-10.3) L 09/16/19 05:30 Total Bilirubin 0.6 mg/dL (0.2-1.0) 09/13/19 17:47 AST 35 IU/L (10-42) 09/13/19 17:47 ALT 23 IU/L (10-60) 09/13/19 17:47 Alkaline Phosphatase 75 IU/L (42-121) 09/13/19 17:47 Troponin I High Sens 25.1 ng/L (2.3-19.7) H* 09/14/19 13:20 B-Natriuretic Peptide 127 pg/mL (5-100) H 09/14/19 07:04 Total Protein 7.3 g/dL (6.7-8.2) 09/13/19 17:47 Albumin 4.3 g/dL (3.2-5.5) 09/13/19 17:47 Globulin 3.0 g/dL (2.1-4.2) 09/13/19 17:47 Albumin/Globulin Ratio 1.4 (1.0-2.2) 09/13/19 17:47 Lipase 41 U/L (22-51) 09/13/19 17:47 - Procedures Procedures: Procedures NON-INVASIVE MECHANICAL VENTILATION (01/10/15) Sepsis Event Note (H) - Evaluation Current Stage of Sepsis: Ruled out ABX Reporting Has patient been on IV antibiotics over the past 48 hours?: Yes Current Medications - Current Medications Current Medications: Active Medications Acetaminophen (Tylenol) 650 mg PO Q4HR PRN PRN Reason: Pain 1 to 4 Aspirin (St Delta Aspirin) 81 mg PO DAILY [facility] Last Admin: 09/16/19 08:36 Dose: 81 mg Azithromycin (Zithromax) 250 mg PO DAILY [facility] Last Admin: 09/16/19 08:37 Dose: 250 mg Budesonide (Pulmicort) 0.5 mg INH RTBID [facility] Last Admin: 09/16/19 07:16 Dose: 0.5 mg Cyclobenzaprine HCl (Flexeril) 10 mg PO TID PRN PRN Reason: Spasms Last Admin: 09/14/19 21:47 Dose: 10 mg Docusate Sodium (Colace 250mg Capsule) 250 - 500 mg PO DAILY [facility] Last Admin: 09/16/19 08:36 Dose: Not Given Formoterol Fumarate (Perforomist) 20 mcg INH RTBID [facility] Last Admin: 09/16/19 07:16 Dose: 20 mcg Guaifenesin (Mucinex) 600 mg PO BID [facility] Heparin Sodium (Porcine) () 2,500 unit SUBQ BID [facility] Last Admin: 09/16/19 08:34 Dose: 2,500 unit Sodium Chloride (Normal Saline 0.9%) 1,000 mls @ 83.3 mls/hr IV .Q12H1M [facility] Stop: 09/17/19 10:20 Last Admin: 09/16/19 11:18 Dose: Not Given Insulin Aspart (Novolog) 1 - 9 unit SUBQ 0800,1200,1700,2100 [facility]; Protocol Last Admin: 09/16/19 12:41 Dose: 3 unit Insulin Glargine (Lantus Solostar) 10 unit SUBQ QDBREAKFAST [facility] Last Admin: 09/16/19 08:43 Dose: 10 unit Ioversol (Optiray 320) 80 ml IVP ONCE ONE Stop: 09/16/19 13:04 Last Admin: 09/16/19 13:03 Dose: 80 ml Ipratropium [place] (Atrovent) 0.5 mg INH RTQID [facility] Last Admin: 09/16/19 11:13 Dose: 0.5 mg Levalbuterol HCl (Xopenex) 1.25 mg INH QID PRN PRN Reason: Shortness of Air/Wheezing Last Admin: 09/16/19 11:14 Dose: 1.25 mg Methylprednisolone (Solu-Medrol (40mg Vial)) 60 mg IVP Q8H [facility] Last Admin: 09/16/19 09:16 Dose: 60 mg Morphine Sulfate (Morphine (Carpuject)) 2 mg IVP Q4HR PRN PRN Reason: PER PHYSICIAN ORDER Last Admin: 09/15/19 18:38 Dose: 2 mg Pantoprazole Sodium (Protonix) 40 mg PO QDAC [facility] Last Admin: 09/16/19 05:53 Dose: 40 mg Polyethylene Glycol (Miralax) 17 gm PO DAILY [facility] Last Admin: 09/16/19 08:36 Dose: Not Given Senna (Senokot) 8.6 - 17.2 mg PO DAILY [facility] Last Admin: 09/16/19 08:36 Dose: Not Given Sodium Chloride (Normal Saline Flush 0.9%) 10 ml IVP PRN PRN PRN Reason: NEEDED PER PROVIDER ORDERS Last Admin: 09/15/19 04:00 Dose: 10 ml Sodium Chloride (Normal Saline Flush 0.9%) 10 ml IVP 0100,0900,1700 [facility] Last Admin: 09/16/19 08:37 Dose: 10 ml Aspirin [Low Dose Aspirin EC] 81 mg PO DAILY 01/10/15 Fluticasone/Salmeterol [Advair 250-50 Diskus] 1 puffs INH BID 01/10/15 Ipratropium/Albuterol Sulfate [Combivent Respimat Inhal [place]] 1 puffs INH QID 01/10/15 Lisinopril [Zestril] 10 mg PO DAILY 01/10/15 Albuterol Sulfate 2.5 mg INH Q4H PRN 01/11/15 Pioglitazone HCl [Actos] 30 mg PO DAILY 01/11/15 Albuterol Sulfate [Proair Hfa] 2 puffs INH Q4H PRN 04/03/15 Cyclobenzaprine [Flexeril] 5 mg PO TID PRN 09/14/19 Meloxicam [Mobic] 7.5 mg PO BID 09/14/19 glipiZIDE ER [Glucotrol Xl] 2.5 mg PO 0800 09/14/19 metFORMIN [Glucophage] 500 mg PO BIDWM 09/14/19
[2019-09-16] MEDS: MORPHINE 2 MG/ML CARPUJECT IVP PRN (14:32)
[2019-09-16 15:59] LABS: ABG PH 7.29 (7.35-7.45)
[2019-09-16 16:00] LABS: ABG BASE EXCESS 1.9 mmol/L (-2.0-3.0); ABG HCO3 29.8 mmol/L (22.0-26.0); ABG OXYGEN SATURATION 98 % (94-98); ABG PCO2 64 mmHg (34-45); ABG PO2 120 mmHg (80-100); ABG TCO2 31.8 MMOL/L (21.0-29.0); ALLEN TEST POSITIVE
[2019-09-16 18:04] LABS: ABG HCO3 34.6 mmol/L (22.0-26.0); ABG PO2 87 mmHg (80-100)
[2019-09-16 18:05] LABS: ABG OXYGEN SATURATION 95 % (94-98); ALLEN TEST POSITIVE
[2019-09-16 18:12] LABS: ABG PCO2 70 mmHg (34-45)
--- NOTE | 2019-09-16 18:20 | PROVIDER PROGRESS NOTE ---
Hospitalist Cross-cover Note - Cross-Cover Note Cross-Cover Note: Last night he had 2 episodes of Rapid Response for air hunger, improved with percussion vest. This afternoon, Pt had another episiode of "panic attack" due to air hunger and was in severe resp distress, labored breathing, started on BIPAP & moved to ICU. He felt better after recving Morphine 2 mg iv The patient was seen in ICU after Morphine and BIPAP begun, he appeared comfortable, said he had chest pain in center of chest with coughing. BP 140/80, HR 88 in sinus rhythm HEENT: edentulous, wearing BIPSP mask. Lungs: poor air movement everywhere, but no wheezing or rales. Heart: no murmur. Legs: no edema He had a CT chest today that showed no PE, no infiltrate, no plug, no pulmonary edema. ABG on 35% FIO2 on BIPAP: 7.3/70/87 Imp: COPD exacerbation Severe COPD Plan: Continue morphine iv prn for air hunger increase from q4h to q2h Continue BIPAP Continue Zithromax for atypical organisms for bronchitis treatment Add Singular Cont nebs Continue Mucinex Add Acapella device Increase iv Solumedrol from 60mg q8h to 80mg q8h POLST states no ventilator DNR is his Code status CRITICAL CARE TIME SPENT: 60 min
[2019-09-16] MEDS: MONTELUKAST 10 MG TABLET PO SCH (20:04)
[2019-09-16] MEDS: guaiFENesin 600 MG TABLET PO SCH (20:04)
[2019-09-17] MEDS: SODIUM CHLORIDE FLUSH 0.9% 10 ML SYRINGE IVP SCH ×4 (00:18→20:28)
[2019-09-17] MEDS: LEVALBUTEROL 1.25 MG/3 ML NEB INH PRN ×5 (03:02→18:31)
[2019-09-17] MEDS: MORPHINE 2 MG/ML CARPUJECT IVP PRN ×2 (03:02→18:23)
[2019-09-17] MEDS: methylPREDNISolone SUCCINATE 40 MG/ML VIAL IVP SCH ×3 (03:07→20:28)
[2019-09-17 04:53] LABS: BASOPHILS % (AUTO) 0.2 %; HGB - HEMOGLOBIN 9.7 g/dL (14.0-18.0); LYMPHOCYTES # (AUTO) 0.4 10^3/uL (1.5-3.5); MEAN CORPUSCULAR HGB CONC 29.8 g/dL (32.0-36.0); MEAN CORPUSCULAR VOLUME 97.3 fL (80.0-94.0); MEAN PLATELET VOLUME 10.1 fL (7.4-11.4); MONOCYTES # (AUTO) 0.6 10^3/uL (0.0-1.0); MONOCYTES % (AUTO) 5.8 %; NEUTROPHILS # (AUTO) 9.3 10^3/uL (1.5-6.6); NEUTROPHILS % (AUTO) 88.8 %; PLT - PLATELET COUNT 274 10^3/uL (130-450); RED BLOOD COUNT 3.34 10^6/uL (4.70-6.10); RED CELL DISTRIBUTION WIDTH 13.2 % (12.0-15.0); WHITE BLOOD COUNT 10.5 x10^3/uL (4.8-10.8)
[2019-09-17 04:53] LABS: ABG HCO3 35.6 mmol/L (22.0-26.0); ABG OXYGEN SATURATION 99 % (94-98); ABG PCO2 58 mmHg (34-45); ABG PO2 128 mmHg (80-100); ALLEN TEST POSITIVE
[2019-09-17 05:03] LABS: CALCIUM 8.1 mg/dL (8.5-10.3); CREATININE 1.1 mg/dL (0.6-1.2)
[2019-09-17] MEDS: PANTOPRAZOLE 40 MG TABLET PO SCH (06:53)
[2019-09-17] MEDS: IPRATROPIUM 0.2 MG/ML NEB INH SCH ×4 (07:41→18:31)
[2019-09-17] MEDS: FORMOTEROL FUMARATE NEB 20 MCG/2 ML INH SCH ×2 (07:41→18:32)
[2019-09-17] MEDS: BUDESONIDE 0.5 MG/2 ML NEB INH SCH ×2 (07:41→18:31)
[2019-09-17] MEDS: INSULIN GLARGINE 300 UNIT/3 ML PEN SUBQ SCH (08:54)
[2019-09-17] MEDS: guaiFENesin 600 MG TABLET PO SCH ×2 (08:54→20:27)
[2019-09-17] MEDS: SENNA 8.6 MG TABLET PO SCH (08:55)
[2019-09-17] MEDS: DOCUSATE SODIUM 250 MG CAPSULE PO SCH (08:55)
[2019-09-17] MEDS: POLYETHYLENE GLYCOL 3350 17 GM PACKET PO SCH (08:55)
[2019-09-17] MEDS: AZITHROMYCIN 250 MG TABLET PO SCH (08:55)
[2019-09-17] MEDS: INSULIN ASPART 300 UNIT/3 ML PEN SUBQ SCH ×4 (08:55→20:31)
[2019-09-17] MEDS: ASPIRIN CHEW 81 MG TABLET PO SCH (08:55)
[2019-09-17] MEDS: HEPARIN 5,000 UNIT/ML VIAL SUBQ SCH ×2 (08:56→20:28)
--- NOTE | 2019-09-17 13:47 | PROVIDER PROGRESS NOTE ---
Assessment/Plan - Problem List (1) COPD exacerbation Assessment/Plan: Continue with ICU, BiPAP, wean this down as needed. Continue with nebs, IV steroids, the dose has been increased due to his worsening shortness of breath. Continue with pulmonary toilet with Mucinex, Singulair and empiric bronchitis tx (2) Respiratory failure with hypoxia Assessment/Plan: Continue with BiPAP and the plan as above in number 1 (3) Anemia Assessment/Plan: Stable H/H. If there is a further drop, will check B12, folate, iron stores and replace (4) DM type 2 (diabetes mellitus, type 2) Assessment/Plan: Continue CC diet, SS insulin (5) MIGUEL ANGEL (acute kidney injury) Assessment/Plan: Resolved after 3 days of fluids (6) Blood per rectum Assessment/Plan: Resolved, presumably was from hemorrhoidal bleeding - Current Meds Current Meds: Current Medications Generic Name Dose Route Start Last Admin Trade Name Freq PRN Reason Stop Dose Admin Aspirin 81 mg 09/14/19 09:00 09/17/19 08:55 St Delta Aspirin PO 81 mg DAILY BAUTISTA Administration Azithromycin 250 mg 09/15/19 17:27 09/17/19 08:55 Zithromax PO 250 mg DAILY BAUTISTA Administration Budesonide 0.5 mg 09/14/19 07:00 09/17/19 07:41 Pulmicort INH 0.5 mg RTBID BAUTISTA Administration Cyclobenzaprine HCl 10 mg 09/14/19 21:34 09/14/19 21:47 Flexeril PO 10 mg TID PRN Administration Spasms Docusate Sodium 250 - 500 mg 09/15/19 09:00 09/17/19 08:55 Colace 250mg Capsule PO 250 mg DAILY BAUTISTA Administration Formoterol Fumarate 20 mcg 09/14/19 07:00 09/17/19 07:41 Perforomist INH 20 mcg RTBID BAUTISTA Administration Guaifenesin 600 mg 09/16/19 21:00 09/17/19 08:54 Mucinex PO 600 mg BID BAUTISTA Administration Heparin Sodium (Porcine) 2,500 unit 09/15/19 21:00 09/17/19 08:56 SUBQ 2,500 unit BID BAUTISTA Administration Insulin Aspart 1 - 9 unit 09/16/19 08:00 09/17/19 12:04 Novolog SUBQ 3 unit 0800,1200,1700,2100 BAUTISTA Administration Protocol Insulin Glargine 10 unit 09/14/19 09:00 09/17/19 08:54 Lantus Solostar SUBQ 10 unit QDBREAKFAST BAUTISTA Administration Ipratropium [place] 0.5 mg 09/14/19 19:00 09/17/19 11:34 Atrovent INH 0.5 mg RTQID BAUTISTA Administration Levalbuterol HCl 1.25 mg 09/14/19 16:53 09/17/19 11:34 Xopenex INH 1.25 mg QID PRN Administration Shortness of Air/Wheezing Methylprednisolone 80 mg 09/16/19 20:00 09/17/19 12:04 Solu-Medrol (40mg Vial) IVP 80 mg Q8H BAUTISTA Administration Montelukast Sodium 10 mg 09/16/19 21:00 09/16/19 20:04 Singulair PO 10 mg QPM BAUTISTA Administration Morphine Sulfate 2 mg 09/16/19 18:21 09/17/19 03:02 Morphine (Carpuject) IVP 2 mg Q2HR PRN Administration PER PHYSICIAN ORDER Pantoprazole Sodium 40 mg 09/14/19 07:00 09/17/19 06:53 Protonix PO 40 mg QDAC BAUTISTA Administration Polyethylene Glycol 17 gm 09/14/19 09:00 09/17/19 08:55 Miralax PO 17 gm DAILY BAUTISTA Administration Senna 8.6 - 17.2 mg 09/15/19 09:00 09/17/19 08:55 Senokot PO 17.2 mg DAILY BAUTISTA Administration Sodium Chloride 10 ml 09/13/19 19:24 09/15/19 04:00 Normal Saline Flush 0.9% IVP 10 ml PRN PRN Administration NEEDED PER PROVIDER ORDERS Sodium Chloride 10 ml 09/14/19 01:00 09/17/19 08:57 Normal Saline Flush 0.9% IVP 10 ml 0100,0900,1700 BAUTISTA Administration - Lab Result Fish Bone Diagrams: 09/18/19 04:02 09/18/19 04:02 - Additional Planning My Orders: My Active Orders 09/16/19 15:04 BIPAP [BIPAP/CPAP - RT] [RC] .q2 09/16/19 18:21 Morphine Inj (Carpuject) [Morphine (Carpuject)] 2 mg IVP Q2HR PRN 09/16/19 20:00 methylPREDNISolone SUCCINATE [SOLU-Medrol (40MG VIAL)] 80 mg IVP Q8H 09/16/19 21:00 Montelukast [Singulair] 10 mg PO QPM 09/17/19 12:00 Acapella (Flutter Valve Device [RC] TID Subjective - Subjective Patient Reports: Resting Comfortably Nursing Reports: Other (Took short breaks on n.c., off BIPAP) Objective Vital Signs: Vital Signs - 24 hr 09/16/19 09/16/19 09/16/19 14:30 14:33 14:35 Temperature Heart Rate 108 H 108 H Heart Rate [ 116 H Brachial] Heart Rate [ Monitoring electrodes] Respiratory 28 H 24 Rate Blood Pressure Blood Pressure [Left Brachial artery] O2 Saturation 71 L 09/16/19 09/16/19 09/16/19 14:40 14:45 14:50 Temperature Heart Rate 104 H 105 H 115 H Heart Rate [ Brachial] Heart Rate [ Monitoring electrodes] Respiratory Rate Blood Pressure Blood Pressure [Left Brachial artery] O2 Saturation 09/16/19 09/16/19 09/16/19 14:53 14:55 14:56 Temperature Heart Rate 121 H 109 H 106 H Heart Rate [ Brachial] Heart Rate [ Monitoring electrodes] Respiratory 23 21 Rate Blood Pressure 177/83 H Blood Pressure [Left Brachial artery] O2 Saturation 09/16/19 09/16/19 09/16/19 15:00 15:01 15:04 Temperature 36.3 C L Heart Rate 105 H 97 98 Heart Rate [ Brachial] Heart Rate [ 98 Monitoring electrodes] Respiratory 23 22 Rate Blood Pressure 144/77 H Blood Pressure 177/83 H [Left Brachial artery] O2 Saturation 100 09/16/19 09/16/19 09/16/19 15:05 15:10 15:15 Temperature Heart Rate 99 97 92 Heart Rate [ Brachial] Heart Rate [ Monitoring electrodes] Respiratory 21 17 17 Rate Blood Pressure Blood Pressure [Left Brachial artery] O2 Saturation 09/16/19 09/16/19 09/16/19 15:20 15:25 15:30 Temperature Heart Rate 98 98 104 H Heart Rate [ Brachial] Heart Rate [ Monitoring electrodes] Respiratory 21 23 21 Rate Blood Pressure Blood Pressure [Left Brachial artery] O2 Saturation 09/16/19 09/16/19 09/16/19 15:31 15:35 15:40 Temperature Heart Rate 96 93 94 Heart Rate [ Brachial] Heart Rate [ Monitoring electrodes] Respiratory 22 18 16 Rate Blood Pressure 142/72 H Blood Pressure [Left Brachial artery] O2 Saturation 09/16/19 09/16/19 09/16/19 15:45 15:50 15:55 Temperature Heart Rate 98 89 90 Heart Rate [ Brachial] Heart Rate [ Monitoring electrodes] Respiratory 20 17 18 Rate Blood Pressure Blood Pressure [Left Brachial artery] O2 Saturation 09/16/19 09/16/19 09/16/19 16:00 16:01 16:05 Temperature Heart Rate 87 78 95 Heart Rate [ 76 Brachial] Heart Rate [ 76 Monitoring electrodes] Respiratory 22 18 23 Rate Blood Pressure 123/67 Blood Pressure 123/67 [Left Brachial artery] O2 Saturation 100 09/16/19 09/16/19 09/16/19 16:10 16:15 16:20 Temperature Heart Rate 76 108 H 84 Heart Rate [ Brachial] Heart Rate [ Monitoring electrodes] Respiratory 16 29 H 16 Rate Blood Pressure Blood Pressure [Left Brachial artery] O2 Saturation 09/16/19 09/16/19 09/16/19 16:25 16:30 16:35 Temperature Heart Rate 75 86 85 Heart Rate [ Brachial] Heart Rate [ Monitoring electrodes] Respiratory 16 21 18 Rate Blood Pressure Blood Pressure [Left Brachial artery] O2 Saturation 09/16/19 09/16/19 09/16/19 16:40 16:45 16:50 Temperature Heart Rate 77 76 76 Heart Rate [ Brachial] Heart Rate [ Monitoring electrodes] Respiratory 16 16 17 Rate Blood Pressure Blood Pressure [Left Brachial artery] O2 Saturation 09/16/19 09/16/19 09/16/19 16:55 17:00 17:01 Temperature 36.4 C L Heart Rate 75 88 89 Heart Rate [ 75 Brachial] Heart Rate [ Monitoring electrodes] Respiratory 16 18 18 Rate Blood Pressure 133/66 H Blood Pressure 133/66 H [Left Brachial artery] O2 Saturation 100 09/16/19 09/16/19 09/16/19 17:05 17:10 17:15 Temperature Heart Rate 78 73 101 H Heart Rate [ Brachial] Heart Rate [ Monitoring electrodes] Respiratory 16 16 25 H Rate Blood Pressure Blood Pressure [Left Brachial artery] O2 Saturation 09/16/19 09/16/19 09/16/19 17:20 17:25 18:00 Temperature Heart Rate 78 77 Heart Rate [ Brachial] Heart Rate [ 74 Monitoring electrodes] Respiratory 16 16 15 Rate Blood Pressure Blood Pressure 118/60 [Left Brachial artery] O2 Saturation 100 09/16/19 09/16/19 09/16/19 19:00 19:13 19:18 Temperature 36.8 C Heart Rate 94 Heart Rate [ Brachial] Heart Rate [ 93 84 Monitoring electrodes] Respiratory 20 20 19 Rate Blood Pressure Blood Pressure 139/75 H 131/74 H [Left Brachial artery] O2 Saturation 100 100 09/16/19 09/16/19 09/16/19 20:00 20:25 21:00 Temperature Heart Rate 92 Heart Rate [ Brachial] Heart Rate [ 105 H 93 Monitoring electrodes] Respiratory 25 H 16 Rate Blood Pressure Blood Pressure 145/79 H 138/71 H [Left Brachial artery] O2 Saturation 99 99 09/16/19 09/16/19 09/16/19 22:00 22:03 23:00 Temperature 37 C Heart Rate 81 Heart Rate [ Brachial] Heart Rate [ 87 70 Monitoring electrodes] Respiratory 20 18 Rate Blood Pressure Blood Pressure 143/61 H 130/71 [Left Brachial artery] O2 Saturation 99 100 09/17/19 09/17/19 09/17/19 00:00 00:21 01:00 Temperature Heart Rate 67 Heart Rate [ Brachial] Heart Rate [ 68 70 Monitoring electrodes] Respiratory 16 17 Rate Blood Pressure Blood Pressure 135/57 H 138/66 H [Left Brachial artery] O2 Saturation 100 96 09/17/19 09/17/19 09/17/19 02:00 02:12 03:00 Temperature 36.5 C Heart Rate 71 Heart Rate [ Brachial] Heart Rate [ 64 70 Monitoring electrodes] Respiratory 17 20 Rate Blood Pressure Blood Pressure 128/59 L 129/63 [Left Brachial artery] O2 Saturation 99 100 09/17/19 09/17/19 09/17/19 03:04 04:00 05:00 Temperature Heart Rate 69 Heart Rate [ Brachial] Heart Rate [ 64 74 Monitoring electrodes] Respiratory 21 16 20 Rate Blood Pressure Blood Pressure 131/60 H 120/72 [Left Brachial artery] O2 Saturation 100 97 09/17/19 09/17/19 09/17/19 05:34 06:00 07:00 Temperature Heart Rate 77 Heart Rate [ Brachial] Heart Rate [ 60 75 Monitoring electrodes] Respiratory 16 21 Rate Blood Pressure Blood Pressure 141/63 H 132/78 H [Left Brachial artery] O2 Saturation 98 98 09/17/19 09/17/19 09/17/19 07:42 08:00 09:00 Temperature 36 C L Heart Rate 76 Heart Rate [ Brachial] Heart Rate [ 90 71 Monitoring electrodes] Respiratory 22 17 20 Rate Blood Pressure Blood Pressure 161/47 H 142/85 H [Left Brachial artery] O2 Saturation 98 96 09/17/19 09/17/19 09/17/19 09:20 10:00 11:00 Temperature Heart Rate 84 Heart Rate [ Brachial] Heart Rate [ 76 72 Monitoring electrodes] Respiratory 20 18 Rate Blood Pressure Blood Pressure 140/64 H 147/71 H [Left Brachial artery] O2 Saturation 100 100 09/17/19 09/17/19 09/17/19 11:36 12:00 13:00 Temperature 36.2 C L Heart Rate 69 Heart Rate [ Brachial] Heart Rate [ 99 81 Monitoring electrodes] Respiratory 21 20 20 Rate Blood Pressure Blood Pressure 141/67 H 136/70 H [Left Brachial artery] O2 Saturation 96 97 09/17/19 09/17/19 13:19 13:35 Temperature Heart Rate 91 97 Heart Rate [ Brachial] Heart Rate [ Monitoring electrodes] Respiratory Rate Blood Pressure Blood Pressure [Left Brachial artery] O2 Saturation Oxygen O2 Source [Without Activity] Nasal cannula O2 Source [With Activity] Nasal cannula O2 Source BIPAP Oxygen Flow Rate 3 I&O (Last 24 Hrs): Intake and Output Totals x24h 09/15/19 09/16/19 09/17/19 23:59 23:59 23:59 Intake Total 2351.667 2477.172 1364.828 Output Total 685 1400 850 Balance 0060.112 4874.172 514.828 General: Alert HEENT: Mucous membr. moist/pink, Other (edentulous) Neck: Supple Neuro: Non Focal Cardiovascular: No murmurs Respiratory: Other (Poor air mvm, scattered wheezes) Abdomen: Soft Extremities: No edema - Results Results: Laboratory Results WBC 10.5 x10^3/uL (4.8-10.8) 09/17/19 04:40 RBC 3.34 10^6/uL (4.70-6.10) L 09/17/19 04:40 Hgb 9.7 g/dL (14.0-18.0) L 09/17/19 04:40 Hct 32.5 % (42.0-52.0) L 09/17/19 04:40 MCV 97.3 fL (80.0-94.0) H 09/17/19 04:40 MCH 29.0 pg (27.0-31.0) 09/17/19 04:40 MCHC 29.8 g/dL (32.0-36.0) L 09/17/19 04:40 RDW 13.2 % (12.0-15.0) 09/17/19 04:40 Plt Count 274 10^3/uL (130-450) 09/17/19 04:40 MPV 10.1 fL (7.4-11.4) 09/17/19 04:40 Neut # (Auto) 9.3 10^3/uL (1.5-6.6) H 09/17/19 04:40 Lymph # (Auto) 0.4 10^3/uL (1.5-3.5) L 09/17/19 04:40 [place] # (Auto) 0.6 10^3/uL (0.0-1.0) 09/17/19 04:40 Eos # (Auto) 0.0 10^3/uL (0.0-0.7) 09/17/19 04:40 Baso # (Auto) 0.0 10^3/uL (0.0-0.1) 09/17/19 04:40 Absolute Nucleated RBC 0.00 x10^3/uL 09/17/19 04:40 Nucleated RBC % 0.0 /100WBC 09/17/19 04:40 D-Dimer 244.0 ng/mL (200.0-255.0) 09/14/19 09:08 Bld Gas Analysis Time 0430 09/17/19 04:25 Sample Site LEFT RADIAL 09/17/19 04:25 ABG pH 7.40 (7.35-7.45) 09/17/19 04:25 ABG pCO2 58 mmHg (34-45) H 09/17/19 04:25 ABG pO2 128 mmHg (80-100) H 09/17/19 04:25 ABG HCO3 35.6 mmol/L (22.0-26.0) H 09/17/19 04:25 ABG Total CO2 37.0 MMOL/L (21.0-29.0) H 09/17/19 04:25 ABG O2 Saturation 99 % (94-98) H 09/17/19 04:25 ABG Base Excess 11.0 mmol/L (-2.0-3.0) H 09/17/19 04:25 Alon Test POSITIVE 09/17/19 04:25 O2 Delivery Device BiPAP 09/17/19 04:25 O2 Liters/Min 6.00 LPM 09/16/19 07:04 FiO2 26.00 09/17/19 04:25 EPAP 5 cmH2O 09/17/19 04:25 IPAP 12 cmH2O 09/17/19 04:25 Sodium 141 mmol/L (135-145) 09/17/19 04:40 Potassium 4.8 mmol/L (3.5-5.0) 09/17/19 04:40 Chloride 101 mmol/L (101-111) 09/17/19 04:40 Carbon Dioxide 36 mmol/L (21-32) H 09/17/19 04:40 Anion Gap 4.0 (6-13) L 09/17/19 04:40 BUN 26 mg/dL (6-20) H 09/17/19 04:40 Creatinine 1.1 mg/dL (0.6-1.2) 09/17/19 04:40 Estimated GFR (MDRD) 65 (>89) L 09/17/19 04:40 Glucose 181 mg/dL (70-100) H 09/17/19 04:40 Glycated Hemoglobin 6.4 % (4.6-6.2) H 09/13/19 17:47 Estim Average Glucose 137 (70-100) H 09/13/19 17:47 Calcium 8.1 mg/dL (8.5-10.3) L 09/17/19 04:40 Total Bilirubin 0.6 mg/dL (0.2-1.0) 09/13/19 17:47 AST 35 IU/L (10-42) 09/13/19 17:47 ALT 23 IU/L (10-60) 09/13/19 17:47 Alkaline Phosphatase 75 IU/L (42-121) 09/13/19 17:47 Troponin I High Sens 25.1 ng/L (2.3-19.7) H* 09/14/19 13:20 B-Natriuretic Peptide 127 pg/mL (5-100) H 09/14/19 07:04 Total Protein 7.3 g/dL (6.7-8.2) 09/13/19 17:47 Albumin 4.3 g/dL (3.2-5.5) 09/13/19 17:47 Globulin 3.0 g/dL (2.1-4.2) 09/13/19 17:47 Albumin/Globulin Ratio 1.4 (1.0-2.2) 09/13/19 17:47 Lipase 41 U/L (22-51) 09/13/19 17:47 Nasal Screen MRSA (PCR) NEGATIVE (NEGATIVE) 09/16/19 19:00 - Procedures Procedures: Procedures NON-INVASIVE MECHANICAL VENTILATION (01/10/15) Sepsis Event Note (H) - Evaluation Current Stage of Sepsis: Ruled out
[2019-09-17] MEDS: SODIUM CHLORIDE FLUSH 0.9% 10 ML SYRINGE IVP PRN ×2 (18:23→18:58)
[2019-09-17] MEDS: MONTELUKAST 10 MG TABLET PO SCH (20:28)
[2019-09-18 04:11] LABS: BASOPHILS % (AUTO) 0.2 %; EOSINOPHILS # (AUTO) 0.1 10^3/uL (0.0-0.7); EOSINOPHILS % (AUTO) 0.6 %; HGB - HEMOGLOBIN 10.3 g/dL (14.0-18.0); LYMPHOCYTES # (AUTO) 0.6 10^3/uL (1.5-3.5); LYMPHOCYTES % (AUTO) 5.4 %; MEAN CORPUSCULAR HEMOGLOBIN 28.9 pg (27.0-31.0); MEAN CORPUSCULAR HGB CONC 30.6 g/dL (32.0-36.0); MEAN CORPUSCULAR VOLUME 94.7 fL (80.0-94.0); MONOCYTES # (AUTO) 0.7 10^3/uL (0.0-1.0); MONOCYTES % (AUTO) 6.6 %; NEUTROPHILS # (AUTO) 8.7 10^3/uL (1.5-6.6); NEUTROPHILS % (AUTO) 84.6 %; PLT - PLATELET COUNT 258 10^3/uL (130-450); RED BLOOD COUNT 3.56 10^6/uL (4.70-6.10); RED CELL DISTRIBUTION WIDTH 12.9 % (12.0-15.0); WHITE BLOOD COUNT 10.2 x10^3/uL (4.8-10.8)
[2019-09-18 04:29] LABS: CALCIUM 8.6 mg/dL (8.5-10.3)
[2019-09-18] MEDS: methylPREDNISolone SUCCINATE 40 MG/ML VIAL IVP SCH ×3 (05:40→20:15)
[2019-09-18] MEDS: SODIUM CHLORIDE FLUSH 0.9% 10 ML SYRINGE IVP PRN ×2 (05:40→12:36)
[2019-09-18] MEDS: PANTOPRAZOLE 40 MG TABLET PO SCH (06:57)
[2019-09-18] MEDS: IPRATROPIUM 0.2 MG/ML NEB INH SCH ×4 (08:22→19:49)
[2019-09-18] MEDS: LEVALBUTEROL 1.25 MG/3 ML NEB INH PRN ×4 (08:22→19:49)
[2019-09-18] MEDS: BUDESONIDE 0.5 MG/2 ML NEB INH SCH ×2 (08:22→19:49)
[2019-09-18] MEDS: FORMOTEROL FUMARATE NEB 20 MCG/2 ML INH SCH ×2 (08:22→19:49)
[2019-09-18] MEDS: ASPIRIN CHEW 81 MG TABLET PO SCH (08:23)
[2019-09-18] MEDS: POLYETHYLENE GLYCOL 3350 17 GM PACKET PO SCH (08:23)
[2019-09-18] MEDS: guaiFENesin 600 MG TABLET PO SCH ×2 (08:23→20:15)
[2019-09-18] MEDS: SENNA 8.6 MG TABLET PO SCH (08:23)
[2019-09-18] MEDS: AZITHROMYCIN 250 MG TABLET PO SCH (08:23)
[2019-09-18] MEDS: DOCUSATE SODIUM 250 MG CAPSULE PO SCH (08:23)
[2019-09-18] MEDS: INSULIN ASPART 300 UNIT/3 ML PEN SUBQ SCH ×4 (08:28→20:16)
[2019-09-18] MEDS: INSULIN GLARGINE 300 UNIT/3 ML PEN SUBQ SCH (08:30)
[2019-09-18] MEDS: SODIUM CHLORIDE FLUSH 0.9% 10 ML SYRINGE IVP SCH ×3 (08:31→20:27)
[2019-09-18] MEDS: HEPARIN 5,000 UNIT/ML VIAL SUBQ SCH ×2 (08:31→20:15)
--- NOTE | 2019-09-18 16:45 | PROVIDER PROGRESS NOTE ---
Assessment/Plan - Problem List (1) COPD exacerbation Assessment/Plan: Weaning off BIPAP slowly, remain in ICU Continue IV steroids, nebs, Singulair, Mucinex (2) Respiratory failure with hypoxia Qualifiers: Chronicity: acute on chronic Qualified Code(s): J96.21 - Acute and chronic respiratory failure with hypoxia Assessment/Plan: As above (3) Anemia Assessment/Plan: Stable. Monitor CBC daily (4) DM type 2 (diabetes mellitus, type 2) Assessment/Plan: cc diet, ss Insulin - Current Meds Current Meds: Current Medications Generic Name Dose Route Start Last Admin Trade Name Freq PRN Reason Stop Dose Admin Aspirin 81 mg 09/14/19 09:00 09/18/19 08:23 St Delta Aspirin PO 81 mg DAILY BAUTISTA Administration Azithromycin 250 mg 09/15/19 17:27 09/18/19 08:23 Zithromax PO 250 mg DAILY BAUTISTA Administration Budesonide 0.5 mg 09/14/19 07:00 09/18/19 08:22 Pulmicort INH 0.5 mg RTBID BAUTISTA Administration Cyclobenzaprine HCl 10 mg 09/14/19 21:34 09/14/19 21:47 Flexeril PO 10 mg TID PRN Administration Spasms Docusate Sodium 250 - 500 mg 09/15/19 09:00 09/18/19 08:23 Colace 250mg Capsule PO 250 mg DAILY BAUTISTA Administration Formoterol Fumarate 20 mcg 09/14/19 07:00 09/18/19 08:22 Perforomist INH 20 mcg RTBID BAUTISTA Administration Guaifenesin 600 mg 09/16/19 21:00 09/18/19 08:23 Mucinex PO 600 mg BID BAUTISTA Administration Heparin Sodium (Porcine) 2,500 unit 09/15/19 21:00 09/18/19 08:31 SUBQ 2,500 unit BID BAUTISTA Administration Insulin Aspart 1 - 9 unit 09/16/19 08:00 09/18/19 12:36 Novolog SUBQ 5 unit 0800,1200,1700,2100 BAUTISTA Administration Protocol Insulin Glargine 10 unit 09/14/19 09:00 09/18/19 08:30 Lantus Solostar SUBQ 10 unit QDBREAKFAST BAUTISTA Administration Ipratropium [place] 0.5 mg 09/14/19 19:00 09/18/19 15:21 Atrovent INH 0.5 mg RTQID BAUTISTA Administration Levalbuterol HCl 1.25 mg 09/14/19 16:53 09/18/19 15:21 Xopenex INH 1.25 mg QID PRN Administration Shortness of Air/Wheezing Methylprednisolone 80 mg 09/16/19 20:00 09/18/19 12:36 Solu-Medrol (40mg Vial) IVP 80 mg Q8H BAUTISTA Administration Montelukast Sodium 10 mg 09/16/19 21:00 09/17/19 20:28 Singulair PO 10 mg QPM BAUTISTA Administration Morphine Sulfate 2 mg 09/16/19 18:21 09/17/19 18:23 Morphine (Carpuject) IVP 2 mg Q2HR PRN Administration PER PHYSICIAN ORDER Pantoprazole Sodium 40 mg 09/14/19 07:00 09/18/19 06:57 Protonix PO 40 mg QDAC BAUTISTA Administration Polyethylene Glycol 17 gm 09/14/19 09:00 09/18/19 08:23 Miralax PO 17 gm DAILY BAUTISTA Administration Senna 8.6 - 17.2 mg 09/15/19 09:00 09/18/19 08:23 Senokot PO 17.2 mg DAILY BAUTISTA Administration Sodium Chloride 10 ml 09/13/19 19:24 09/18/19 12:36 Normal Saline Flush 0.9% IVP 10 ml PRN PRN Administration NEEDED PER PROVIDER ORDERS Sodium Chloride 10 ml 09/14/19 01:00 09/18/19 08:31 Normal Saline Flush 0.9% IVP 10 ml 0100,0900,1700 BAUTISTA Administration - Lab Result Fish Bone Diagrams: 09/18/19 04:02 09/18/19 04:02 Subjective - Subjective Patient Reports: Feeling Better Nursing Reports: Other (Able to take longer breaks off BIPAP and on n.c. oxygen) Objective Vital Signs: Vital Signs - 24 hr 09/17/19 09/17/19 09/17/19 17:00 17:57 18:33 Temperature Heart Rate 98 Heart Rate [ 71 95 Monitoring electrodes] Respiratory 18 20 20 Rate Blood Pressure 126/53 L 126/73 [Left Brachial artery] O2 Saturation 95 09/17/19 09/17/19 09/17/19 18:36 19:01 19:07 Temperature 36.4 C L Heart Rate 94 Heart Rate [ 95 Monitoring electrodes] Respiratory 21 Rate Blood Pressure 148/85 H [Left Brachial artery] O2 Saturation 99 09/17/19 09/17/19 09/17/19 20:00 20:15 21:00 Temperature Heart Rate 77 Heart Rate [ 88 96 Monitoring electrodes] Respiratory 20 25 H Rate Blood Pressure 138/64 H 136/101 H [Left Brachial artery] O2 Saturation 98 99 09/17/19 09/17/19 09/17/19 22:00 23:00 23:40 Temperature Heart Rate 80 Heart Rate [ 74 76 Monitoring electrodes] Respiratory 18 19 Rate Blood Pressure 142/68 H 156/69 H [Left Brachial artery] O2 Saturation 100 98 09/18/19 09/18/19 09/18/19 00:00 01:00 01:40 Temperature Heart Rate 66 Heart Rate [ 71 64 Monitoring electrodes] Respiratory 20 17 Rate Blood Pressure 155/73 H 135/84 H [Left Brachial artery] O2 Saturation 96 95 09/18/19 09/18/19 09/18/19 02:00 03:00 03:55 Temperature 36.1 C L Heart Rate 67 Heart Rate [ 64 88 Monitoring electrodes] Respiratory 17 17 Rate Blood Pressure 129/64 142/65 H [Left Brachial artery] O2 Saturation 97 97 09/18/19 09/18/19 09/18/19 04:00 05:00 05:05 Temperature Heart Rate 61 Heart Rate [ 69 61 Monitoring electrodes] Respiratory 18 16 Rate Blood Pressure 144/76 H 151/62 H [Left Brachial artery] O2 Saturation 96 97 09/18/19 09/18/19 09/18/19 06:00 07:00 08:00 Temperature 36.5 C Heart Rate Heart Rate [ 59 L 67 73 Monitoring electrodes] Respiratory 17 17 19 Rate Blood Pressure 137/68 H 160/77 H 158/70 H [Left Brachial artery] O2 Saturation 97 99 96 09/18/19 09/18/19 09/18/19 08:30 09:00 10:00 Temperature Heart Rate 64 Heart Rate [ 63 82 Monitoring electrodes] Respiratory 20 15 20 Rate Blood Pressure 163/72 H 94/81 H [Left Brachial artery] O2 Saturation 100 100 09/18/19 09/18/19 09/18/19 11:03 11:53 13:00 Temperature Heart Rate 84 Heart Rate [ 78 101 H Monitoring electrodes] Respiratory 21 16 19 Rate Blood Pressure 120/81 H 148/76 H [Left Brachial artery] O2 Saturation 100 99 09/18/19 09/18/19 09/18/19 14:00 15:00 15:21 Temperature Heart Rate 98 Heart Rate [ 97 91 Monitoring electrodes] Respiratory 20 21 15 Rate Blood Pressure 147/73 H 114/78 [Left Brachial artery] O2 Saturation 100 100 09/18/19 16:00 Temperature 36.2 C L Heart Rate Heart Rate [ 100 Monitoring electrodes] Respiratory 20 Rate Blood Pressure 139/74 H [Left Brachial artery] O2 Saturation 100 Oxygen O2 Source [Without Activity] Nasal cannula O2 Source [With Activity] Nasal cannula O2 Source Nasal cannula Oxygen Flow Rate 3 I&O (Last 24 Hrs): Intake and Output Totals x24h 09/16/19 09/17/19 09/18/19 23:59 23:59 23:59 Intake Total 2477.172 1604.828 620 Output Total 1400 1525 400 Balance 1077.172 79.828 220 General: Alert HEENT: Mucous membr. moist/pink, Other (edentulous) Neck: Supple Neuro: Non Focal Cardiovascular: No murmurs Respiratory: Other (Poor air mvm diffusely) Abdomen: Soft Extremities: No edema - Results Results: Laboratory Results WBC 10.2 x10^3/uL (4.8-10.8) 09/18/19 04:02 RBC 3.56 10^6/uL (4.70-6.10) L 09/18/19 04:02 Hgb 10.3 g/dL (14.0-18.0) L 09/18/19 04:02 Hct 33.7 % (42.0-52.0) L 09/18/19 04:02 MCV 94.7 fL (80.0-94.0) H 09/18/19 04:02 MCH 28.9 pg (27.0-31.0) 09/18/19 04:02 MCHC 30.6 g/dL (32.0-36.0) L 09/18/19 04:02 RDW 12.9 % (12.0-15.0) 09/18/19 04:02 Plt Count 258 10^3/uL (130-450) 09/18/19 04:02 MPV 10.0 fL (7.4-11.4) 09/18/19 04:02 Neut # (Auto) 8.7 10^3/uL (1.5-6.6) H 09/18/19 04:02 Lymph # (Auto) 0.6 10^3/uL (1.5-3.5) L 09/18/19 04:02 [place] # (Auto) 0.7 10^3/uL (0.0-1.0) 09/18/19 04:02 Eos # (Auto) 0.1 10^3/uL (0.0-0.7) 09/18/19 04:02 Baso # (Auto) 0.0 10^3/uL (0.0-0.1) 09/18/19 04:02 Absolute Nucleated RBC 0.00 x10^3/uL 09/18/19 04:02 Nucleated RBC % 0.0 /100WBC 09/18/19 04:02 D-Dimer 244.0 ng/mL (200.0-255.0) 09/14/19 09:08 Bld Gas Analysis Time 0430 09/17/19 04:25 Sample Site LEFT RADIAL 09/17/19 04:25 ABG pH 7.40 (7.35-7.45) 09/17/19 04:25 ABG pCO2 58 mmHg (34-45) H 09/17/19 04:25 ABG pO2 128 mmHg (80-100) H 09/17/19 04:25 ABG HCO3 35.6 mmol/L (22.0-26.0) H 09/17/19 04:25 ABG Total CO2 37.0 MMOL/L (21.0-29.0) H 09/17/19 04:25 ABG O2 Saturation 99 % (94-98) H 09/17/19 04:25 ABG Base Excess 11.0 mmol/L (-2.0-3.0) H 09/17/19 04:25 Alon Test POSITIVE 09/17/19 04:25 O2 Delivery Device BiPAP 09/17/19 04:25 O2 Liters/Min 6.00 LPM 09/16/19 07:04 FiO2 26.00 09/17/19 04:25 EPAP 5 cmH2O 09/17/19 04:25 IPAP 12 cmH2O 09/17/19 04:25 Sodium 136 mmol/L (135-145) 09/18/19 04:02 Potassium 4.8 mmol/L (3.5-5.0) 09/18/19 04:02 Chloride 96 mmol/L (101-111) L 09/18/19 04:02 Carbon Dioxide 34 mmol/L (21-32) H 09/18/19 04:02 Anion Gap 6.0 (6-13) 09/18/19 04:02 BUN 24 mg/dL (6-20) H 09/18/19 04:02 Creatinine 1.0 mg/dL (0.6-1.2) 09/18/19 04:02 Estimated GFR (MDRD) 73 (>89) L 09/18/19 04:02 Glucose 200 mg/dL (70-100) H 09/18/19 04:02 POC Whole Bld Glucose 232 mg/dL (70 - 100) H 09/18/19 11:41 Glycated Hemoglobin 6.4 % (4.6-6.2) H 09/13/19 17:47 Estim Average Glucose 137 (70-100) H 09/13/19 17:47 Calcium 8.6 mg/dL (8.5-10.3) 09/18/19 04:02 Total Bilirubin 0.6 mg/dL (0.2-1.0) 09/13/19 17:47 AST 35 IU/L (10-42) 09/13/19 17:47 ALT 23 IU/L (10-60) 09/13/19 17:47 Alkaline Phosphatase 75 IU/L (42-121) 09/13/19 17:47 Troponin I High Sens 25.1 ng/L (2.3-19.7) H* 09/14/19 13:20 B-Natriuretic Peptide 127 pg/mL (5-100) H 09/14/19 07:04 Total Protein 7.3 g/dL (6.7-8.2) 09/13/19 17:47 Albumin 4.3 g/dL (3.2-5.5) 09/13/19 17:47 Globulin 3.0 g/dL (2.1-4.2) 09/13/19 17:47 Albumin/Globulin Ratio 1.4 (1.0-2.2) 09/13/19 17:47 Lipase 41 U/L (22-51) 09/13/19 17:47 Nasal Screen MRSA (PCR) NEGATIVE (NEGATIVE) 09/16/19 19:00 - Procedures Procedures: Procedures NON-INVASIVE MECHANICAL VENTILATION (01/10/15) Sepsis Event Note (H) - Evaluation Current Stage of Sepsis: Ruled out
[2019-09-18] MEDS: MORPHINE 2 MG/ML CARPUJECT IVP PRN (16:52)
[2019-09-18] MEDS: MONTELUKAST 10 MG TABLET PO SCH (20:15)
[2019-09-19] MEDS: SODIUM CHLORIDE FLUSH 0.9% 10 ML SYRINGE IVP PRN ×3 (04:41→20:31)
[2019-09-19] MEDS: methylPREDNISolone SUCCINATE 40 MG/ML VIAL IVP SCH ×3 (04:41→20:30)
[2019-09-19] MEDS: PANTOPRAZOLE 40 MG TABLET PO SCH (06:06)
[2019-09-19] MEDS: IPRATROPIUM 0.2 MG/ML NEB INH SCH ×4 (07:36→19:51)
[2019-09-19] MEDS: LEVALBUTEROL 1.25 MG/3 ML NEB INH PRN ×4 (07:36→19:51)
[2019-09-19] MEDS: BUDESONIDE 0.5 MG/2 ML NEB INH SCH ×2 (07:36→19:51)
[2019-09-19] MEDS: FORMOTEROL FUMARATE NEB 20 MCG/2 ML INH SCH ×2 (07:36→19:51)
[2019-09-19] MEDS ORDERED: MAGNESIUM CITRATE 296 ML BOTTLE PO SCH (08:00)
[2019-09-19] MEDS: SENNA 8.6 MG TABLET PO SCH (08:31)
[2019-09-19] MEDS: ASPIRIN CHEW 81 MG TABLET PO SCH (08:32)
[2019-09-19] MEDS: AZITHROMYCIN 250 MG TABLET PO SCH (08:32)
[2019-09-19] MEDS: DOCUSATE SODIUM 250 MG CAPSULE PO SCH (08:33)
[2019-09-19] MEDS: guaiFENesin 600 MG TABLET PO SCH ×2 (08:34→20:31)
[2019-09-19] MEDS: INSULIN GLARGINE 300 UNIT/3 ML PEN SUBQ SCH (08:34)
[2019-09-19] MEDS: INSULIN ASPART 300 UNIT/3 ML PEN SUBQ SCH ×4 (08:35→20:33)
[2019-09-19] MEDS: HEPARIN 5,000 UNIT/ML VIAL SUBQ SCH ×2 (08:36→20:31)
[2019-09-19] MEDS: POLYETHYLENE GLYCOL 3350 17 GM PACKET PO SCH (08:39)
[2019-09-19] MEDS: SODIUM CHLORIDE FLUSH 0.9% 10 ML SYRINGE IVP SCH ×3 (08:49→20:31)
--- NOTE | 2019-09-19 17:13 | PROVIDER PROGRESS NOTE ---
Assessment/Plan - Problem List (1) COPD exacerbation Assessment/Plan: He made it throgh the night without BIPAP. Lumbar right you know what reaction to over that I plan for this morning ice good good good he still gets extremely short of breath just standing up Remain in ICU. Continue IV steroids, nebs, Mucinex, Singular and will now add Acapella device (2) Respiratory failure with hypoxia Qualifiers: Chronicity: acute on chronic Qualified Code(s): J96.21 - Acute and chronic respiratory failure with hypoxia Assessment/Plan: As above (3) Anemia Assessment/Plan: Monitor (4) DM type 2 (diabetes mellitus, type 2) Assessment/Plan: cc diet and ss Insulin - Current Meds Current Meds: Current Medications Generic Name Dose Route Start Last Admin Trade Name Freq PRN Reason Stop Dose Admin Aspirin 81 mg 09/14/19 09:00 09/19/19 08:32 St Delta Aspirin PO 81 mg DAILY BAUTISTA Administration Azithromycin 250 mg 09/15/19 17:27 09/19/19 08:32 Zithromax PO 250 mg DAILY BAUTISTA Administration Budesonide 0.5 mg 09/14/19 07:00 09/19/19 07:36 Pulmicort INH 0.5 mg RTBID BAUTISTA Administration Cyclobenzaprine HCl 10 mg 09/14/19 21:34 09/14/19 21:47 Flexeril PO 10 mg TID PRN Administration Spasms Docusate Sodium 250 - 500 mg 09/15/19 09:00 09/19/19 08:33 Colace 250mg Capsule PO 250 mg DAILY BAUTISTA Administration Formoterol Fumarate 20 mcg 09/14/19 07:00 09/19/19 07:36 Perforomist INH 20 mcg RTBID BAUTISTA Administration Guaifenesin 600 mg 09/16/19 21:00 09/19/19 08:34 Mucinex PO 600 mg BID BAUTISTA Administration Heparin Sodium (Porcine) 2,500 unit 09/15/19 21:00 09/19/19 08:36 SUBQ 2,500 unit BID BAUTISTA Administration Insulin Aspart 1 - 9 unit 09/16/19 08:00 09/19/19 16:57 Novolog SUBQ 3 unit 0800,1200,1700,2100 BAUTISTA Administration Protocol Insulin Glargine 10 unit 09/14/19 09:00 09/19/19 08:34 Lantus Solostar SUBQ 10 unit QDBREAKFAST BAUTISTA Administration Ipratropium [place] 0.5 mg 09/14/19 19:00 09/19/19 15:39 Atrovent INH 0.5 mg RTQID BAUTISTA Administration Levalbuterol HCl 1.25 mg 09/14/19 16:53 09/19/19 15:39 Xopenex INH 1.25 mg QID PRN Administration Shortness of Air/Wheezing Methylprednisolone 80 mg 09/16/19 20:00 09/19/19 12:03 Solu-Medrol (40mg Vial) IVP 80 mg Q8H BAUTISTA Administration Montelukast Sodium 10 mg 09/16/19 21:00 09/18/19 20:15 Singulair PO 10 mg QPM BAUTISTA Administration Morphine Sulfate 2 mg 09/16/19 18:21 09/18/19 16:52 Morphine (Carpuject) IVP 2 mg Q2HR PRN Administration PER PHYSICIAN ORDER Pantoprazole Sodium 40 mg 09/14/19 07:00 09/19/19 06:06 Protonix PO 40 mg QDAC BAUTISTA Administration Polyethylene Glycol 17 gm 09/14/19 09:00 09/19/19 08:39 Miralax PO 17 gm DAILY BAUTISTA Administration Senna 8.6 - 17.2 mg 09/15/19 09:00 09/19/19 08:31 Senokot PO 17.2 mg DAILY BAUTISTA Administration Sodium Chloride 10 ml 09/13/19 19:24 09/19/19 16:56 Normal Saline Flush 0.9% IVP 10 ml PRN PRN Administration NEEDED PER PROVIDER ORDERS Sodium Chloride 10 ml 09/14/19 01:00 09/19/19 12:03 Normal Saline Flush 0.9% IVP 10 ml 0100,0900,1700 BAUTISTA Administration - Lab Result Fish Bone Diagrams: 09/18/19 04:02 09/18/19 04:02 Subjective - Subjective Patient Reports: Resting Comfortably Nursing Reports: Other (HR goes up to 130 with standing and he gets red faced and SOB) Objective Vital Signs: Vital Signs - 24 hr 09/18/19 09/18/19 09/18/19 18:00 19:00 19:50 Temperature Heart Rate 99 Heart Rate [ 103 H 98 Monitoring electrodes] Respiratory 22 22 22 Rate Blood Pressure 164/76 H 167/75 H [Left Brachial artery] O2 Saturation 96 92 09/18/19 09/18/19 09/18/19 20:00 21:00 22:00 Temperature Heart Rate Heart Rate [ 93 90 97 Monitoring electrodes] Respiratory 21 17 18 Rate Blood Pressure 155/73 H 140/69 H 138/70 H [Left Brachial artery] O2 Saturation 98 99 97 09/18/19 09/19/19 09/19/19 23:00 00:00 01:00 Temperature Heart Rate Heart Rate [ 76 78 73 Monitoring electrodes] Respiratory 17 16 15 Rate Blood Pressure 129/58 L 138/67 H 121/58 L [Left Brachial artery] O2 Saturation 97 94 98 09/19/19 09/19/19 09/19/19 02:00 03:00 04:00 Temperature 36.1 C L Heart Rate Heart Rate [ 70 70 67 Monitoring electrodes] Respiratory 16 16 15 Rate Blood Pressure 120/45 L 135/58 H 134/58 H [Left Brachial artery] O2 Saturation 97 97 97 09/19/19 09/19/19 09/19/19 04:46 05:00 06:14 Temperature 36 C L Heart Rate Heart Rate [ 68 71 Monitoring electrodes] Respiratory 17 22 Rate Blood Pressure 138/66 H [Left Brachial artery] O2 Saturation 99 100 09/19/19 09/19/19 09/19/19 07:00 07:37 08:00 Temperature 36.4 C L Heart Rate 78 Heart Rate [ 72 74 Monitoring electrodes] Respiratory 17 16 20 Rate Blood Pressure 169/83 H 150/66 H [Left Brachial artery] O2 Saturation 99 92 09/19/19 09/19/19 09/19/19 09:00 10:00 11:00 Temperature Heart Rate Heart Rate [ 89 82 82 Monitoring electrodes] Respiratory 18 19 23 Rate Blood Pressure 162/72 H 166/74 H 114/53 L [Left Brachial artery] O2 Saturation 100 98 95 09/19/19 09/19/19 09/19/19 11:59 12:00 13:00 Temperature 36.4 C L Heart Rate 85 Heart Rate [ 80 100 Monitoring electrodes] Respiratory 18 19 22 Rate Blood Pressure 137/80 H 146/68 H [Left Brachial artery] O2 Saturation 100 90 L 09/19/19 09/19/19 09/19/19 14:00 15:00 15:39 Temperature Heart Rate 85 Heart Rate [ 107 H 94 Monitoring electrodes] Respiratory 27 H 20 20 Rate Blood Pressure 140/91 H 138/79 H [Left Brachial artery] O2 Saturation 100 98 09/19/19 16:00 Temperature 36.6 C Heart Rate Heart Rate [ 100 Monitoring electrodes] Respiratory 18 Rate Blood Pressure 149/64 H [Left Brachial artery] O2 Saturation 100 Oxygen O2 Source [Without Activity] Nasal cannula O2 Source [With Activity] Nasal cannula O2 Source Nasal cannula Oxygen Flow Rate 3 I&O (Last 24 Hrs): Intake and Output Totals x24h 09/17/19 09/18/19 09/19/19 23:59 23:59 23:59 Intake Total 1604.828 770 940 Output Total 1732 600 3838 Balance 79.828 -80 -60 General: Alert, Oriented x3 HEENT: Mucous membr. moist/pink, Other (edentulous) Neck: Supple Neuro: Non Focal Cardiovascular: No murmurs Respiratory: Other (Better air mvm, diminished BS) Abdomen: Soft Extremities: No edema - Results Results: Laboratory Results WBC 10.2 x10^3/uL (4.8-10.8) 09/18/19 04:02 RBC 3.56 10^6/uL (4.70-6.10) L 09/18/19 04:02 Hgb 10.3 g/dL (14.0-18.0) L 09/18/19 04:02 Hct 33.7 % (42.0-52.0) L 09/18/19 04:02 MCV 94.7 fL (80.0-94.0) H 09/18/19 04:02 MCH 28.9 pg (27.0-31.0) 09/18/19 04:02 MCHC 30.6 g/dL (32.0-36.0) L 09/18/19 04:02 RDW 12.9 % (12.0-15.0) 09/18/19 04:02 Plt Count 258 10^3/uL (130-450) 09/18/19 04:02 MPV 10.0 fL (7.4-11.4) 09/18/19 04:02 Neut # (Auto) 8.7 10^3/uL (1.5-6.6) H 09/18/19 04:02 Lymph # (Auto) 0.6 10^3/uL (1.5-3.5) L 09/18/19 04:02 [place] # (Auto) 0.7 10^3/uL (0.0-1.0) 09/18/19 04:02 Eos # (Auto) 0.1 10^3/uL (0.0-0.7) 09/18/19 04:02 Baso # (Auto) 0.0 10^3/uL (0.0-0.1) 09/18/19 04:02 Absolute Nucleated RBC 0.00 x10^3/uL 09/18/19 04:02 Nucleated RBC % 0.0 /100WBC 09/18/19 04:02 D-Dimer 244.0 ng/mL (200.0-255.0) 09/14/19 09:08 Bld Gas Analysis Time 0430 09/17/19 04:25 Sample Site LEFT RADIAL 09/17/19 04:25 ABG pH 7.40 (7.35-7.45) 09/17/19 04:25 ABG pCO2 58 mmHg (34-45) H 09/17/19 04:25 ABG pO2 128 mmHg (80-100) H 09/17/19 04:25 ABG HCO3 35.6 mmol/L (22.0-26.0) H 09/17/19 04:25 ABG Total CO2 37.0 MMOL/L (21.0-29.0) H 09/17/19 04:25 ABG O2 Saturation 99 % (94-98) H 09/17/19 04:25 ABG Base Excess 11.0 mmol/L (-2.0-3.0) H 09/17/19 04:25 Alon Test POSITIVE 09/17/19 04:25 O2 Delivery Device BiPAP 09/17/19 04:25 O2 Liters/Min 6.00 LPM 09/16/19 07:04 FiO2 26.00 09/17/19 04:25 EPAP 5 cmH2O 09/17/19 04:25 IPAP 12 cmH2O 09/17/19 04:25 Sodium 136 mmol/L (135-145) 09/18/19 04:02 Potassium 4.8 mmol/L (3.5-5.0) 09/18/19 04:02 Chloride 96 mmol/L (101-111) L 09/18/19 04:02 Carbon Dioxide 34 mmol/L (21-32) H 09/18/19 04:02 Anion Gap 6.0 (6-13) 09/18/19 04:02 BUN 24 mg/dL (6-20) H 09/18/19 04:02 Creatinine 1.0 mg/dL (0.6-1.2) 09/18/19 04:02 Estimated GFR (MDRD) 73 (>89) L 09/18/19 04:02 Glucose 200 mg/dL (70-100) H 09/18/19 04:02 POC Whole Bld Glucose 206 mg/dL (70 - 100) H 09/19/19 16:54 Glycated Hemoglobin 6.4 % (4.6-6.2) H 09/13/19 17:47 Estim Average Glucose 137 (70-100) H 09/13/19 17:47 Calcium 8.6 mg/dL (8.5-10.3) 09/18/19 04:02 Total Bilirubin 0.6 mg/dL (0.2-1.0) 09/13/19 17:47 AST 35 IU/L (10-42) 09/13/19 17:47 ALT 23 IU/L (10-60) 09/13/19 17:47 Alkaline Phosphatase 75 IU/L (42-121) 09/13/19 17:47 Troponin I High Sens 25.1 ng/L (2.3-19.7) H* 09/14/19 13:20 B-Natriuretic Peptide 127 pg/mL (5-100) H 09/14/19 07:04 Total Protein 7.3 g/dL (6.7-8.2) 09/13/19 17:47 Albumin 4.3 g/dL (3.2-5.5) 09/13/19 17:47 Globulin 3.0 g/dL (2.1-4.2) 09/13/19 17:47 Albumin/Globulin Ratio 1.4 (1.0-2.2) 09/13/19 17:47 Lipase 41 U/L (22-51) 09/13/19 17:47 Nasal Screen MRSA (PCR) NEGATIVE (NEGATIVE) 09/16/19 19:00 - Procedures Procedures: Procedures NON-INVASIVE MECHANICAL VENTILATION (01/10/15) Sepsis Event Note (H) - Evaluation Current Stage of Sepsis: Ruled out
[2019-09-19] MEDS: MONTELUKAST 10 MG TABLET PO SCH (20:30)
[2019-09-20] MEDS: SODIUM CHLORIDE FLUSH 0.9% 10 ML SYRINGE IVP PRN ×2 (03:10→12:03)
[2019-09-20] MEDS: methylPREDNISolone SUCCINATE 40 MG/ML VIAL IVP SCH ×3 (03:10→20:08)
[2019-09-20] MEDS: PANTOPRAZOLE 40 MG TABLET PO SCH (06:33)
[2019-09-20] MEDS: FORMOTEROL FUMARATE NEB 20 MCG/2 ML INH SCH ×2 (08:12→21:30)
[2019-09-20] MEDS: LEVALBUTEROL 1.25 MG/3 ML NEB INH PRN ×4 (08:12→21:30)
[2019-09-20] MEDS: IPRATROPIUM 0.2 MG/ML NEB INH SCH ×4 (08:12→21:30)
[2019-09-20] MEDS: BUDESONIDE 0.5 MG/2 ML NEB INH SCH ×2 (08:12→21:30)
[2019-09-20] MEDS: HEPARIN 5,000 UNIT/ML VIAL SUBQ SCH ×2 (08:33→20:53)
[2019-09-20] MEDS: INSULIN ASPART 300 UNIT/3 ML PEN SUBQ SCH ×4 (08:34→20:43)
[2019-09-20] MEDS: INSULIN GLARGINE 300 UNIT/3 ML PEN SUBQ SCH (08:35)
[2019-09-20] MEDS: AZITHROMYCIN 250 MG TABLET PO SCH (08:35)
[2019-09-20] MEDS: guaiFENesin 600 MG TABLET PO SCH ×2 (08:35→20:56)
[2019-09-20] MEDS: ASPIRIN CHEW 81 MG TABLET PO SCH (08:35)
[2019-09-20] MEDS: POLYETHYLENE GLYCOL 3350 17 GM PACKET PO SCH (08:36)
[2019-09-20] MEDS: SODIUM CHLORIDE FLUSH 0.9% 10 ML SYRINGE IVP SCH ×2 (08:36→20:09)
[2019-09-20] MEDS: SENNA 8.6 MG TABLET PO SCH (08:36)
[2019-09-20] MEDS: DOCUSATE SODIUM 250 MG CAPSULE PO SCH (09:47)
--- NOTE | 2019-09-20 17:49 | PROVIDER PROGRESS NOTE ---
Assessment/Plan - Problem List (1) COPD exacerbation Assessment/Plan: He was not needing BIPAP overnight. Will move out of ICU. Continue nebs, steroids, Mucinex, Cingular and empiric antibx. Increase activity to assess when ready for DCh. He may need SNF for PT if deconditioned, I told him and the at bedside. PT and OT evaluations planned when he is out of ICU. (2) Respiratory failure with hypoxia Qualifiers: Chronicity: acute on chronic Qualified Code(s): J96.21 - Acute and chronic respiratory failure with hypoxia Assessment/Plan: As in #1. He already had home oxygen (3) Anemia Assessment/Plan: Stable (4) DM type 2 (diabetes mellitus, type 2) Assessment/Plan: ss Insulin and cc diet ordered. - Current Meds Current Meds: Current Medications Generic Name Dose Route Start Last Admin Trade Name Freq PRN Reason Stop Dose Admin Acetaminophen 650 mg 09/13/19 19:24 09/19/19 19:31 Tylenol PO 650 mg Q4HR PRN Administration Pain 1 to 4 Aspirin 81 mg 09/14/19 09:00 09/20/19 08:35 St Delta Aspirin PO 81 mg DAILY BAUTISTA Administration Azithromycin 250 mg 09/15/19 17:27 09/20/19 08:35 Zithromax PO 250 mg DAILY BAUTISTA Administration Budesonide 0.5 mg 09/14/19 07:00 09/20/19 08:12 Pulmicort INH 0.5 mg RTBID BAUTISTA Administration Cyclobenzaprine HCl 10 mg 09/14/19 21:34 09/14/19 21:47 Flexeril PO 10 mg TID PRN Administration Spasms Docusate Sodium 250 - 500 mg 09/15/19 09:00 09/20/19 09:47 Colace 250mg Capsule PO Not Given DAILY BAUTISTA Formoterol Fumarate 20 mcg 09/14/19 07:00 09/20/19 08:12 Perforomist INH 20 mcg RTBID BAUTISTA Administration Guaifenesin 600 mg 09/16/19 21:00 09/20/19 08:35 Mucinex PO 600 mg BID BAUTISTA Administration Heparin Sodium (Porcine) 2,500 unit 09/15/19 21:00 09/20/19 08:33 SUBQ 2,500 unit BID BAUTISTA Administration Insulin Aspart 1 - 9 unit 09/16/19 08:00 09/20/19 17:17 Novolog SUBQ 5 unit 0800,1200,1700,2100 BAUTISTA Administration Protocol Insulin Glargine 10 unit 09/14/19 09:00 09/20/19 08:35 Lantus Solostar SUBQ 10 unit QDBREAKFAST BAUTISTA Administration Ipratropium [place] 0.5 mg 09/14/19 19:00 09/20/19 16:33 Atrovent INH 0.5 mg RTQID BAUTISTA Administration Levalbuterol HCl 1.25 mg 09/14/19 16:53 09/20/19 16:33 Xopenex INH 1.25 mg QID PRN Administration Shortness of Air/Wheezing Methylprednisolone 80 mg 09/16/19 20:00 09/20/19 12:03 Solu-Medrol (40mg Vial) IVP 80 mg Q8H BAUTISTA Administration Montelukast Sodium 10 mg 09/16/19 21:00 09/19/19 20:30 Singulair PO 10 mg QPM BAUTISTA Administration Morphine Sulfate 2 mg 09/16/19 18:21 09/18/19 16:52 Morphine (Carpuject) IVP 2 mg Q2HR PRN Administration PER PHYSICIAN ORDER Pantoprazole Sodium 40 mg 09/14/19 07:00 09/20/19 06:33 Protonix PO 40 mg QDAC BAUTISTA Administration Polyethylene Glycol 17 gm 09/14/19 09:00 09/20/19 08:36 Miralax PO Not Given DAILY BAUTISTA Senna 8.6 - 17.2 mg 09/15/19 09:00 09/20/19 08:36 Senokot PO Not Given DAILY BAUTISTA Sodium Chloride 10 ml 09/13/19 19:24 09/20/19 12:03 Normal Saline Flush 0.9% IVP 10 ml PRN PRN Administration NEEDED PER PROVIDER ORDERS Sodium Chloride 10 ml 09/14/19 01:00 09/20/19 08:36 Normal Saline Flush 0.9% IVP 10 ml 0100,0900,1700 BAUTISTA Administration - Lab Result Fish Bone Diagrams: 09/18/19 04:02 09/18/19 04:02 Subjective - Subjective Patient Reports: Feeling Better, Resting Comfortably Objective Vital Signs: Vital Signs - 24 hr 09/19/19 09/19/19 09/19/19 17:51 18:00 19:00 Temperature 36.6 C 36.5 C Heart Rate 102 H Heart Rate [ Brachial] Heart Rate [ 97 93 Monitoring electrodes] Respiratory 22 22 27 H Rate Blood Pressure 145/64 H 136/59 H [Left Brachial artery] Blood Pressure [Right Brachial artery] O2 Saturation 96 99 100 09/19/19 09/19/19 09/19/19 19:52 20:00 21:00 Temperature Heart Rate 91 Heart Rate [ Brachial] Heart Rate [ 88 97 Monitoring electrodes] Respiratory 20 21 24 Rate Blood Pressure 132/56 H 119/61 [Left Brachial artery] Blood Pressure [Right Brachial artery] O2 Saturation 100 98 09/19/19 09/19/19 09/19/19 22:00 23:00 23:14 Temperature 36.2 C L Heart Rate Heart Rate [ Brachial] Heart Rate [ 85 74 Monitoring electrodes] Respiratory 19 18 Rate Blood Pressure 125/54 L 125/55 L [Left Brachial artery] Blood Pressure [Right Brachial artery] O2 Saturation 92 100 09/20/19 09/20/19 09/20/19 00:00 01:00 02:00 Temperature Heart Rate Heart Rate [ Brachial] Heart Rate [ 73 74 78 Monitoring electrodes] Respiratory 14 16 16 Rate Blood Pressure 134/74 H 114/52 L 128/59 L [Left Brachial artery] Blood Pressure [Right Brachial artery] O2 Saturation 100 99 93 09/20/19 09/20/19 09/20/19 03:00 03:09 04:00 Temperature 36.4 C L Heart Rate Heart Rate [ Brachial] Heart Rate [ 91 70 Monitoring electrodes] Respiratory 26 H 17 Rate Blood Pressure 139/70 H 122/61 [Left Brachial artery] Blood Pressure [Right Brachial artery] O2 Saturation 96 96 09/20/19 09/20/19 09/20/19 05:00 06:00 07:00 Temperature Heart Rate Heart Rate [ Brachial] Heart Rate [ 74 68 71 Monitoring electrodes] Respiratory 19 17 16 Rate Blood Pressure 133/63 H 132/63 H 128/64 [Left Brachial artery] Blood Pressure [Right Brachial artery] O2 Saturation 97 97 92 09/20/19 09/20/19 09/20/19 07:44 08:15 09:00 Temperature 36.7 C Heart Rate 74 Heart Rate [ Brachial] Heart Rate [ 82 79 Monitoring electrodes] Respiratory 25 H 12 18 Rate Blood Pressure 128/64 145/69 H [Left Brachial artery] Blood Pressure [Right Brachial artery] O2 Saturation 96 96 09/20/19 09/20/19 09/20/19 11:23 11:57 13:00 Temperature 36.8 C 36.6 C Heart Rate 86 Heart Rate [ Brachial] Heart Rate [ 82 Monitoring electrodes] Respiratory 20 18 Rate Blood Pressure 136/55 H [Left Brachial artery] Blood Pressure [Right Brachial artery] O2 Saturation 99 09/20/19 09/20/19 16:07 16:33 Temperature 37.1 C Heart Rate 77 Heart Rate [ 84 Brachial] Heart Rate [ Monitoring electrodes] Respiratory 18 14 Rate Blood Pressure [Left Brachial artery] Blood Pressure 141/65 H [Right Brachial artery] O2 Saturation 98 Oxygen O2 Source [Without Activity] Nasal cannula O2 Source [With Activity] Nasal cannula O2 Source Nasal cannula Oxygen Flow Rate 3 I&O (Last 24 Hrs): Intake and Output Totals x24h 09/18/19 09/19/19 09/20/19 23:59 23:59 23:59 Intake Total 770 1260 840 Output Total 850 1700 1950 Balance -80 -440 -1110 General: Alert, Oriented x3 HEENT: Mucous membr. moist/pink, Other (edentulous) Neck: Supple Neuro: Alert, Non Focal Cardiovascular: Regular rate, No murmurs Respiratory: No respiratory distress, Other (PPoor air movement, no wheezing, rales or rhonchi) Abdomen: Soft Extremities: No edema - Results Results: Laboratory Results WBC 10.2 x10^3/uL (4.8-10.8) 09/18/19 04:02 RBC 3.56 10^6/uL (4.70-6.10) L 09/18/19 04:02 Hgb 10.3 g/dL (14.0-18.0) L 09/18/19 04:02 Hct 33.7 % (42.0-52.0) L 09/18/19 04:02 MCV 94.7 fL (80.0-94.0) H 09/18/19 04:02 MCH 28.9 pg (27.0-31.0) 09/18/19 04:02 MCHC 30.6 g/dL (32.0-36.0) L 09/18/19 04:02 RDW 12.9 % (12.0-15.0) 09/18/19 04:02 Plt Count 258 10^3/uL (130-450) 09/18/19 04:02 MPV 10.0 fL (7.4-11.4) 09/18/19 04:02 Neut # (Auto) 8.7 10^3/uL (1.5-6.6) H 09/18/19 04:02 Lymph # (Auto) 0.6 10^3/uL (1.5-3.5) L 09/18/19 04:02 [place] # (Auto) 0.7 10^3/uL (0.0-1.0) 09/18/19 04:02 Eos # (Auto) 0.1 10^3/uL (0.0-0.7) 09/18/19 04:02 Baso # (Auto) 0.0 10^3/uL (0.0-0.1) 09/18/19 04:02 Absolute Nucleated RBC 0.00 x10^3/uL 09/18/19 04:02 Nucleated RBC % 0.0 /100WBC 09/18/19 04:02 D-Dimer 244.0 ng/mL (200.0-255.0) 09/14/19 09:08 Bld Gas Analysis Time 0430 09/17/19 04:25 Sample Site LEFT RADIAL 09/17/19 04:25 ABG pH 7.40 (7.35-7.45) 09/17/19 04:25 ABG pCO2 58 mmHg (34-45) H 09/17/19 04:25 ABG pO2 128 mmHg (80-100) H 09/17/19 04:25 ABG HCO3 35.6 mmol/L (22.0-26.0) H 09/17/19 04:25 ABG Total CO2 37.0 MMOL/L (21.0-29.0) H 09/17/19 04:25 ABG O2 Saturation 99 % (94-98) H 09/17/19 04:25 ABG Base Excess 11.0 mmol/L (-2.0-3.0) H 09/17/19 04:25 Alon Test POSITIVE 09/17/19 04:25 O2 Delivery Device BiPAP 09/17/19 04:25 O2 Liters/Min 6.00 LPM 09/16/19 07:04 FiO2 26.00 09/17/19 04:25 EPAP 5 cmH2O 09/17/19 04:25 IPAP 12 cmH2O 09/17/19 04:25 Sodium 136 mmol/L (135-145) 09/18/19 04:02 Potassium 4.8 mmol/L (3.5-5.0) 09/18/19 04:02 Chloride 96 mmol/L (101-111) L 09/18/19 04:02 Carbon Dioxide 34 mmol/L (21-32) H 09/18/19 04:02 Anion Gap 6.0 (6-13) 09/18/19 04:02 BUN 24 mg/dL (6-20) H 09/18/19 04:02 Creatinine 1.0 mg/dL (0.6-1.2) 09/18/19 04:02 Estimated GFR (MDRD) 73 (>89) L 09/18/19 04:02 Glucose 200 mg/dL (70-100) H 09/18/19 04:02 POC Whole Bld Glucose 254 mg/dL (70 - 100) H 09/20/19 16:35 Glycated Hemoglobin 6.4 % (4.6-6.2) H 09/13/19 17:47 Estim Average Glucose 137 (70-100) H 09/13/19 17:47 Calcium 8.6 mg/dL (8.5-10.3) 09/18/19 04:02 Total Bilirubin 0.6 mg/dL (0.2-1.0) 09/13/19 17:47 AST 35 IU/L (10-42) 09/13/19 17:47 ALT 23 IU/L (10-60) 09/13/19 17:47 Alkaline Phosphatase 75 IU/L (42-121) 09/13/19 17:47 Troponin I High Sens 25.1 ng/L (2.3-19.7) H* 09/14/19 13:20 B-Natriuretic Peptide 127 pg/mL (5-100) H 09/14/19 07:04 Total Protein 7.3 g/dL (6.7-8.2) 09/13/19 17:47 Albumin 4.3 g/dL (3.2-5.5) 09/13/19 17:47 Globulin 3.0 g/dL (2.1-4.2) 09/13/19 17:47 Albumin/Globulin Ratio 1.4 (1.0-2.2) 09/13/19 17:47 Lipase 41 U/L (22-51) 09/13/19 17:47 Nasal Screen MRSA (PCR) NEGATIVE (NEGATIVE) 09/16/19 19:00 - Procedures Procedures: Procedures NON-INVASIVE MECHANICAL VENTILATION (01/10/15) Sepsis Event Note (H) - Evaluation Current Stage of Sepsis: Ruled out
[2019-09-20] MEDS: MONTELUKAST 10 MG TABLET PO SCH (20:56)
[2019-09-21] MEDS: methylPREDNISolone SUCCINATE 40 MG/ML VIAL IVP SCH ×3 (03:49→21:21)
[2019-09-21] MEDS: SODIUM CHLORIDE FLUSH 0.9% 10 ML SYRINGE IVP SCH ×3 (03:49→17:16)
[2019-09-21] MEDS: PANTOPRAZOLE 40 MG TABLET PO SCH (07:15)
[2019-09-21] MEDS: BUDESONIDE 0.5 MG/2 ML NEB INH SCH ×2 (07:20→19:38)
[2019-09-21] MEDS: IPRATROPIUM 0.2 MG/ML NEB INH SCH ×4 (07:20→19:38)
[2019-09-21] MEDS: LEVALBUTEROL 1.25 MG/3 ML NEB INH PRN ×3 (07:20→15:13)
[2019-09-21] MEDS: FORMOTEROL FUMARATE NEB 20 MCG/2 ML INH SCH ×2 (07:20→19:38)
[2019-09-21] MEDS: ASPIRIN CHEW 81 MG TABLET PO SCH (08:44)
[2019-09-21] MEDS: guaiFENesin 600 MG TABLET PO SCH ×2 (08:44→21:22)
[2019-09-21] MEDS: AZITHROMYCIN 250 MG TABLET PO SCH (08:44)
[2019-09-21] MEDS: DOCUSATE SODIUM 250 MG CAPSULE PO SCH (08:44)
[2019-09-21] MEDS: SENNA 8.6 MG TABLET PO SCH (08:45)
[2019-09-21] MEDS: INSULIN ASPART 300 UNIT/3 ML PEN SUBQ SCH ×4 (08:45→21:20)
[2019-09-21] MEDS: INSULIN GLARGINE 300 UNIT/3 ML PEN SUBQ SCH (08:49)
[2019-09-21] MEDS: POLYETHYLENE GLYCOL 3350 17 GM PACKET PO SCH (08:51)
[2019-09-21] MEDS: HEPARIN 5,000 UNIT/ML VIAL SUBQ SCH ×2 (08:51→21:18)
--- NOTE | 2019-09-21 14:30 | PROVIDER PROGRESS NOTE ---
Assessment/Plan - Problem List (1) Respiratory failure with hypoxia Qualifiers: Chronicity: acute on chronic Qualified Code(s): J96.21 - Acute and chronic respiratory failure with hypoxia Assessment/Plan: pt moved out ICU today. pt is as far stable, improved. pt requires nocturnal and daytime ventilation. Home Bipap insufficient due to severity of hypoxia condition. COPD is likely the primary cause of CRF/hypercapnia. I am ordering an NHV for pt (2) COPD exacerbation Assessment/Plan: improved, moved out ICU, without acute respiratory distress now continue steroid, and gradually wane off steroid dosage continue breath treatment. pt requires nocturnal and daytime ventilation. Home Bipap insufficient due to severity of hypoxia condition. COPD is likely the primary cause of CRF/hyperc apnia. I am ordering an NHV for pt Since Azithyomycin was given 7 days, it can be stopped now. pt will have PT and OT evaluations and treatment (3) Anemia Assessment/Plan: Stable, continue lab monitor (4) DM type 2 (diabetes mellitus, type 2) Assessment/Plan: stable. pt has slight elevated glucose level, because pt still used steroid now to treat COPD. continue slide scale and cc diet - Current Meds Current Meds: Current Medications Generic Name Dose Route Start Last Admin Trade Name Freq PRN Reason Stop Dose Admin Acetaminophen 650 mg 09/13/19 19:24 09/19/19 19:31 Tylenol PO 650 mg Q4HR PRN Administration Pain 1 to 4 Aspirin 81 mg 09/14/19 09:00 09/21/19 08:44 St Delta Aspirin PO 81 mg DAILY BAUTISTA Administration Budesonide 0.5 mg 09/14/19 07:00 09/21/19 07:20 Pulmicort INH 0.5 mg RTBID BAUTISTA Administration Cyclobenzaprine HCl 10 mg 09/14/19 21:34 09/14/19 21:47 Flexeril PO 10 mg TID PRN Administration Spasms Docusate Sodium 250 - 500 mg 09/15/19 09:00 09/21/19 08:44 Colace 250mg Capsule PO 250 mg DAILY BAUTISTA Administration Formoterol Fumarate 20 mcg 09/14/19 07:00 09/21/19 07:20 Perforomist INH 20 mcg RTBID BAUTISTA Administration Guaifenesin 600 mg 09/16/19 21:00 09/21/19 08:44 Mucinex PO 600 mg BID BAUTISTA Administration Heparin Sodium (Porcine) 2,500 unit 09/15/19 21:00 09/21/19 08:51 SUBQ 2,500 unit BID BAUTISTA Administration Insulin Aspart 1 - 9 unit 09/16/19 08:00 09/21/19 12:00 Novolog SUBQ 5 unit 0800,1200,1700,2100 BAUTISTA Administration Protocol Insulin Glargine 10 unit 09/14/19 09:00 09/21/19 08:49 Lantus Solostar SUBQ 10 unit QDBREAKFAST BAUTISTA Administration Ipratropium [place] 0.5 mg 09/14/19 19:00 09/21/19 11:20 Atrovent INH 0.5 mg RTQID BAUTISTA Administration Levalbuterol HCl 1.25 mg 09/14/19 16:53 09/21/19 11:21 Xopenex INH 1.25 mg QID PRN Administration Shortness of Air/Wheezing Methylprednisolone 60 mg 09/21/19 12:00 09/21/19 12:10 Solu-Medrol (40mg Vial) IVP 60 mg Q8H BAUTISTA Administration Montelukast Sodium 10 mg 09/16/19 21:00 09/20/19 20:56 Singulair PO 10 mg QPM BAUTISTA Administration Morphine Sulfate 2 mg 09/16/19 18:21 09/18/19 16:52 Morphine (Carpuject) IVP 2 mg Q2HR PRN Administration PER PHYSICIAN ORDER Pantoprazole Sodium 40 mg 09/14/19 07:00 09/21/19 07:15 Protonix PO 40 mg QDAC BAUTISTA Administration Polyethylene Glycol 17 gm 09/14/19 09:00 09/21/19 08:51 Miralax PO Not Given DAILY BAUTISTA Senna 8.6 - 17.2 mg 09/15/19 09:00 09/21/19 08:45 Senokot PO 8.6 mg DAILY BAUTISTA Administration Sodium Chloride 10 ml 09/13/19 19:24 09/20/19 12:03 Normal Saline Flush 0.9% IVP 10 ml PRN PRN Administration NEEDED PER PROVIDER ORDERS Sodium Chloride 10 ml 09/14/19 01:00 09/21/19 08:50 Normal Saline Flush 0.9% IVP 10 ml 0100,0900,1700 BAUTISTA Administration - Lab Result Fish Bone Diagrams: 09/18/19 04:02 09/18/19 04:02 - Additional Planning My Orders: My Active Orders 09/21/19 12:00 methylPREDNISolone SUCCINATE [SOLU-Medrol (40MG VIAL)] 60 mg IVP Q8H Subjective - Subjective Patient Reports: Feeling Better Objective Vital Signs: Vital Signs - 24 hr 09/20/19 09/20/19 09/20/19 16:07 16:33 21:00 Temperature 37.1 C 36.6 C Heart Rate 77 Heart Rate [ 84 75 Brachial] Respiratory 18 14 18 Rate Blood Pressure 145/57 H [Left Brachial artery] Blood Pressure 141/65 H [Right Brachial artery] O2 Saturation 98 99 09/20/19 09/20/19 09/21/19 21:32 23:43 05:00 Temperature 36.8 C 36.5 C Heart Rate 76 Heart Rate [ 68 99 Brachial] Respiratory 20 16 20 Rate Blood Pressure [Left Brachial artery] Blood Pressure 129/58 L 152/73 H [Right Brachial artery] O2 Saturation 99 95 09/21/19 09/21/19 09/21/19 07:20 09:15 11:20 Temperature 36.6 C Heart Rate 85 86 Heart Rate [ 97 Brachial] Respiratory 16 26 H 22 Rate Blood Pressure [Left Brachial artery] Blood Pressure 136/61 H [Right Brachial artery] O2 Saturation 94 Oxygen O2 Source [Without Activity] Nasal cannula O2 Source [With Activity] Nasal cannula O2 Source Nasal cannula Oxygen Flow Rate 3 I&O (Last 24 Hrs): Intake and Output Totals x24h 09/19/19 09/20/19 09/21/19 23:59 23:59 23:59 Intake Total 1260 1080 1250 Output Total 1700 1950 1200 Balance -440 -870 50 General: Alert, Oriented x3, No acute distress HEENT: Atraumatic Neck: Supple Lymphatic: no adenopathy Neuro: Alert, Non Focal, Oriented Times 3 Cardiovascular: Regular rate, Normal S1, Normal S2 Respiratory: Chest non-tender, No respiratory distress Abdomen: Normal bowel sounds, Soft - Results Results: Laboratory Results WBC 10.2 x10^3/uL (4.8-10.8) 09/18/19 04:02 RBC 3.56 10^6/uL (4.70-6.10) L 09/18/19 04:02 Hgb 10.3 g/dL (14.0-18.0) L 09/18/19 04:02 Hct 33.7 % (42.0-52.0) L 09/18/19 04:02 MCV 94.7 fL (80.0-94.0) H 09/18/19 04:02 MCH 28.9 pg (27.0-31.0) 09/18/19 04:02 MCHC 30.6 g/dL (32.0-36.0) L 09/18/19 04:02 RDW 12.9 % (12.0-15.0) 09/18/19 04:02 Plt Count 258 10^3/uL (130-450) 09/18/19 04:02 MPV 10.0 fL (7.4-11.4) 09/18/19 04:02 Neut # (Auto) 8.7 10^3/uL (1.5-6.6) H 09/18/19 04:02 Lymph # (Auto) 0.6 10^3/uL (1.5-3.5) L 09/18/19 04:02 [place] # (Auto) 0.7 10^3/uL (0.0-1.0) 09/18/19 04:02 Eos # (Auto) 0.1 10^3/uL (0.0-0.7) 09/18/19 04:02 Baso # (Auto) 0.0 10^3/uL (0.0-0.1) 09/18/19 04:02 Absolute Nucleated RBC 0.00 x10^3/uL 09/18/19 04:02 Nucleated RBC % 0.0 /100WBC 09/18/19 04:02 D-Dimer 244.0 ng/mL (200.0-255.0) 09/14/19 09:08 Bld Gas Analysis Time 0430 09/17/19 04:25 Sample Site LEFT RADIAL 09/17/19 04:25 ABG pH 7.40 (7.35-7.45) 09/17/19 04:25 ABG pCO2 58 mmHg (34-45) H 09/17/19 04:25 ABG pO2 128 mmHg (80-100) H 09/17/19 04:25 ABG HCO3 35.6 mmol/L (22.0-26.0) H 09/17/19 04:25 ABG Total CO2 37.0 MMOL/L (21.0-29.0) H 09/17/19 04:25 ABG O2 Saturation 99 % (94-98) H 09/17/19 04:25 ABG Base Excess 11.0 mmol/L (-2.0-3.0) H 09/17/19 04:25 Alon Test POSITIVE 09/17/19 04:25 O2 Delivery Device BiPAP 09/17/19 04:25 O2 Liters/Min 6.00 LPM 09/16/19 07:04 FiO2 26.00 09/17/19 04:25 EPAP 5 cmH2O 09/17/19 04:25 IPAP 12 cmH2O 09/17/19 04:25 Sodium 136 mmol/L (135-145) 09/18/19 04:02 Potassium 4.8 mmol/L (3.5-5.0) 09/18/19 04:02 Chloride 96 mmol/L (101-111) L 09/18/19 04:02 Carbon Dioxide 34 mmol/L (21-32) H 09/18/19 04:02 Anion Gap 6.0 (6-13) 09/18/19 04:02 BUN 24 mg/dL (6-20) H 09/18/19 04:02 Creatinine 1.0 mg/dL (0.6-1.2) 09/18/19 04:02 Estimated GFR (MDRD) 73 (>89) L 09/18/19 04:02 Glucose 200 mg/dL (70-100) H 09/18/19 04:02 POC Whole Bld Glucose 247 mg/dL (70 - 100) H 09/21/19 11:51 Glycated Hemoglobin 6.4 % (4.6-6.2) H 09/13/19 17:47 Estim Average Glucose 137 (70-100) H 09/13/19 17:47 Calcium 8.6 mg/dL (8.5-10.3) 09/18/19 04:02 Total Bilirubin 0.6 mg/dL (0.2-1.0) 09/13/19 17:47 AST 35 IU/L (10-42) 09/13/19 17:47 ALT 23 IU/L (10-60) 09/13/19 17:47 Alkaline Phosphatase 75 IU/L (42-121) 09/13/19 17:47 Troponin I High Sens 25.1 ng/L (2.3-19.7) H* 09/14/19 13:20 B-Natriuretic Peptide 127 pg/mL (5-100) H 09/14/19 07:04 Total Protein 7.3 g/dL (6.7-8.2) 09/13/19 17:47 Albumin 4.3 g/dL (3.2-5.5) 09/13/19 17:47 Globulin 3.0 g/dL (2.1-4.2) 09/13/19 17:47 Albumin/Globulin Ratio 1.4 (1.0-2.2) 09/13/19 17:47 Lipase 41 U/L (22-51) 09/13/19 17:47 Nasal Screen MRSA (PCR) NEGATIVE (NEGATIVE) 09/16/19 19:00 - Procedures Procedures: Procedures NON-INVASIVE MECHANICAL VENTILATION (01/10/15) Sepsis Event Note (H) - Evaluation Current Stage of Sepsis: Ruled out ABX Reporting Has patient been on IV antibiotics over the past 48 hours?: No Current Medications - Current Medications Current Medications: Active Medications Acetaminophen (Tylenol) 650 mg PO Q4HR PRN PRN Reason: Pain 1 to 4 Last Admin: 09/19/19 19:31 Dose: 650 mg Aspirin (St Delta Aspirin) 81 mg PO DAILY [facility] Last Admin: 09/21/19 08:44 Dose: 81 mg Budesonide (Pulmicort) 0.5 mg INH RTBID [facility] Last Admin: 09/21/19 07:20 Dose: 0.5 mg Cyclobenzaprine HCl (Flexeril) 10 mg PO TID PRN PRN Reason: Spasms Last Admin: 09/14/19 21:47 Dose: 10 mg Docusate Sodium (Colace 250mg Capsule) 250 - 500 mg PO DAILY [facility] Last Admin: 09/21/19 08:44 Dose: 250 mg Formoterol Fumarate (Perforomist) 20 mcg INH RTBID [facility] Last Admin: 09/21/19 07:20 Dose: 20 mcg Guaifenesin (Mucinex) 600 mg PO BID [facility] Last Admin: 09/21/19 08:44 Dose: 600 mg Heparin Sodium (Porcine) () 2,500 unit SUBQ BID [facility] Last Admin: 09/21/19 08:51 Dose: 2,500 unit Insulin Aspart (Novolog) 1 - 9 unit SUBQ 0800,1200,1700,2100 [facility]; Protocol Last Admin: 09/21/19 12:00 Dose: 5 unit Insulin Glargine (Lantus Solostar) 10 unit SUBQ QDBREAKFAST [facility] Last Admin: 09/21/19 08:49 Dose: 10 unit Ipratropium [place] (Atrovent) 0.5 mg INH RTQID [facility] Last Admin: 09/21/19 11:20 Dose: 0.5 mg Levalbuterol HCl (Xopenex) 1.25 mg INH QID PRN PRN Reason: Shortness of Air/Wheezing Last Admin: 09/21/19 11:21 Dose: 1.25 mg Methylprednisolone (Solu-Medrol (40mg Vial)) 60 mg IVP Q8H [facility] Last Admin: 09/21/19 12:10 Dose: 60 mg Montelukast Sodium (Singulair) 10 mg PO QPM [facility] Last Admin: 09/20/19 20:56 Dose: 10 mg Morphine Sulfate (Morphine (Carpuject)) 2 mg IVP Q2HR PRN PRN Reason: PER PHYSICIAN ORDER Last Admin: 09/18/19 16:52 Dose: 2 mg Pantoprazole Sodium (Protonix) 40 mg PO QDAC [facility] Last Admin: 09/21/19 07:15 Dose: 40 mg Polyethylene Glycol (Miralax) 17 gm PO DAILY [facility] Last Admin: 09/21/19 08:51 Dose: Not Given Senna (Senokot) 8.6 - 17.2 mg PO DAILY [facility] Last Admin: 09/21/19 08:45 Dose: 8.6 mg Sodium Chloride (Normal Saline Flush 0.9%) 10 ml IVP PRN PRN PRN Reason: NEEDED PER PROVIDER ORDERS Last Admin: 09/20/19 12:03 Dose: 10 ml Sodium Chloride (Normal Saline Flush 0.9%) 10 ml IVP 0100,0900,1700 [facility] Last Admin: 09/21/19 08:50 Dose: 10 ml Aspirin [Low Dose Aspirin EC] 81 mg PO DAILY 01/10/15 Fluticasone/Salmeterol [Advair 250-50 Diskus] 1 puffs INH BID 01/10/15 Ipratropium/Albuterol Sulfate [Combivent Respimat Inhal [place]] 1 puffs INH QID 01/10/15 Lisinopril [Zestril] 10 mg PO DAILY 01/10/15 Albuterol Sulfate 2.5 mg INH Q4H PRN 01/11/15 Pioglitazone HCl [Actos] 30 mg PO DAILY 01/11/15 Albuterol Sulfate [Proair Hfa] 2 puffs INH Q4H PRN 04/03/15 Cyclobenzaprine [Flexeril] 5 mg PO TID PRN 09/14/19 Meloxicam [Mobic] 7.5 mg PO BID 09/14/19 glipiZIDE ER [Glucotrol Xl] 2.5 mg PO 0800 09/14/19 metFORMIN [Glucophage] 500 mg PO BIDWM 09/14/19
[2019-09-21] MEDS: MONTELUKAST 10 MG TABLET PO SCH (21:36)
[2019-09-22] MEDS: SODIUM CHLORIDE FLUSH 0.9% 10 ML SYRINGE IVP SCH ×2 (05:02→08:45)
[2019-09-22] MEDS: methylPREDNISolone SUCCINATE 40 MG/ML VIAL IVP SCH ×2 (05:02→11:57)
[2019-09-22] MEDS: PANTOPRAZOLE 40 MG TABLET PO SCH (06:56)
[2019-09-22] MEDS: IPRATROPIUM 0.2 MG/ML NEB INH SCH ×3 (07:32→14:53)
[2019-09-22] MEDS: BUDESONIDE 0.5 MG/2 ML NEB INH SCH (07:32)
[2019-09-22] MEDS: LEVALBUTEROL 1.25 MG/3 ML NEB INH PRN ×3 (07:33→14:54)
[2019-09-22] MEDS: FORMOTEROL FUMARATE NEB 20 MCG/2 ML INH SCH (07:33)
[2019-09-22] MEDS: DOCUSATE SODIUM 250 MG CAPSULE PO SCH (08:38)
[2019-09-22] MEDS: ASPIRIN CHEW 81 MG TABLET PO SCH (08:39)
[2019-09-22] MEDS: SENNA 8.6 MG TABLET PO SCH (08:39)
[2019-09-22] MEDS: guaiFENesin 600 MG TABLET PO SCH (08:39)
[2019-09-22] MEDS: HEPARIN 5,000 UNIT/ML VIAL SUBQ SCH (08:39)
[2019-09-22] MEDS: INSULIN ASPART 300 UNIT/3 ML PEN SUBQ SCH ×2 (08:42→11:58)
[2019-09-22] MEDS: INSULIN GLARGINE 300 UNIT/3 ML PEN SUBQ SCH (08:42)
[2019-09-22] MEDS: POLYETHYLENE GLYCOL 3350 17 GM PACKET PO SCH (08:45)
--- NOTE | 2019-09-22 13:27 | Discharge Plan ---
Discharge Plan Problem Reviewed?: Yes Disposition: Home, Self Care Condition: Poor Prescriptions: Budesonide [Pulmicort] 1 puffs INH BID PRN #1 inhaler PRN Reason: Shortness Of Air/Wheezing guaiFENesin [Mucinex] 600 mg PO BID PRN #20 tablet PRN Reason: Cough predniSONE [Deltasone] 20 mg PO [id number] #21 tab Diet: Diabetic Activity Restrictions: Activity as Tolerated Shower Restrictions: No (fall precaution, caregiver closely monitor) Instruction Topics: Guaifenesin oral ER tablets, Prednisone tablets, COPD Health Concerns: COPD Plan of Treatment: The Trilogy machine is approved for you, advise you followup RT instruction to appropriately use the machine. Pulmonary rehab is also arranged for you, advise you followup the schedule. Care Goals: stabilization and improvement of your medical condition Assessment: I discussed with you about your medical conditions, and care plan. you decline to be d/c to SNF. you agree the current care plan and d/c to home. Additional Instructions or Follow Up instructions: you may followup your PCP in one week, followup your technician preventative medicine as out-pt. Should your symptoms return or worsen, you may present ER or call 911 for help. Follow-Up Care: [facility] No Smoking: If you smoke, Please STOP! Call for help. Follow-up with: Dorothy Layne PA-C [Primary Care Provider] -
[2019-09-22 13:43] VITALS: BP 138/60
--- NOTE | 2019-09-22 14:26 | DISCHARGE SUMMARY ---
Discharge Summary Admit Date: 09/13/19 Discharge Date: 09/22/19 Discharging Provider: MÁRQUEZ Primary Care Provider: Melissa Carver Condition at Discharge: Poor Discharge Disposition: 01 Home, Self Care Discharge Facility Name: home - DIAGNOSES Admission Diagnoses: (1) COPD exacerbation (2) DM type 2 (diabetes mellitus, type 2) (3) Hypertension (4) Hyperlipidemia (5) Blood per rectum (6) Acute renal failure Discharge Diagnoses with Status of Each Condition: (1) Respiratory failure with hypoxia stable. pt has no acute respiratory distress since pt was out of ICU for over 48 hours. pt had 100% sats on 2.5 liter of O2 with RR 16 now. pt will have Trilogy setting up on today 4pm. pt is arranged for pulmonary rehab.advise pt resume pt's home oxygen as previous scheduled. In hospital, pt requires nocturnal and daytime ventilation. Home bipap insufficient due to severity of condition. chronic respiratory failure and COPD is primary cause of CRF/hypercapnia. I am ordering a NHV (2) COPD exacerbation stable now. pt had 100% sats on 2.5 liter of O2 with RR 16. pt had recent ABG's indicated a high pCO2 of 67 mmHG. Pt is at the risk of worsening CRF. Pt now requires non-invasive ventilation not offered on less costly options. pt require a device which will not fail in the event of a power failure and ventilatory support using tidal volume that other potions do not provide. Due to the pt's worsening condition, I am prescribing Trilogy therapy to decrease the chance of continued unplanned expensive medical encounters. pt is arranged for pulmonary rehab.advise pt resume pt's home oxygen as previous scheduled. (3) Anemia stable (4) DM type 2 (diabetes mellitus, type 2) stable, resume home diabetes meds, followup PCP continue management (5) Blood per rectum resolved. occult stool test is nbs. pt's HGB is stable (6) Acute renal failure resolved. creatinine is 1.0 - HPI History of Present Illness: refer from Dr. Li's HPI on 09/13/19 Patient is a 73 y/o male who presented to the ED via EMS with dyspnea. While at home today he felt like he needed to have a bowel movement . He was not able to go once on the toilet. He noticed blood on the toilet paper on 2 occasions. There was no pain. Since he lives alone he was concerned and called EMS. When EMS arrived they noticed he was dyspneic with an O2Sat of 80% despite being on his baseline 2.5L of oxygen via nasal canula. He also had significantly diminished air movement on lung auscultation and was wheezing. He was only able to speak in very short sentences. As a result of his symptoms he was brought to the ED for further treatment. By the time of presentation for admission he had received 5 nebulizer breathing treatments. He still sounded dyspneic, was tachycardic with a heart rate in the 110's and tachypneic with a respiratory rate in the 20's. As a result he is being admitted for further treatment. He reports marked improvement in his symptoms. However he was still wheezing and still had decreased air movements. He denied chest pain, abd pain, nausea, vomiting, fever or chills. He denies being around anyone sick. - HOSPITAL COURSE Hospital Course: pt was admitted for shortness of breath and rectal bleed. pt's rectal bleeding was stopped. HGB was stable. occult stool test was negative for blood staining. pt suddenly developed acute respiratory failure. pt need BiPAP and transferred to ICU. after treatment, pt was transferred to medical floor. pt has no acute respiratory distress since he was transferred from ICU to the medical floor without BiPAP or ventilator for over 48 hours. Pt's Trilogy was ordered and will have on this afternoon. pt was also arranged for pulmonary rehab. the detail hospital course is as the below. (1) Respiratory failure with hypoxia stable. pt has no acute respiratory distress since pt was out of ICU for over 48 hours. pt had 100% sats on 2.5 liter of O2 with RR 16 now. pt will have Trilogy setting up on today 4pm. pt is arranged for pulmonary rehab.advise pt resume pt's home oxygen as previous scheduled. In hospital, pt requires nocturnal and daytime ventilation. Home bipap insufficient due to emmett rity of condition. chronic respiratory failure and COPD is primary cause of CRF/hypercapnia. I am ordering a NHV (2) COPD exacerbation stable now. pt had 100% sats on 2.5 liter of O2 with RR 16. pt had recent ABG's indicated a high pCO2 of 67 mmHG. Pt is at the risk of worse federico CRF. Pt now requires non-invasive ventilation not offered on less costly options. pt require a device which will not fail in the event of a power failure and ventilatory support using tidal volume that other potions do not provide. Due to the pt's worsening condition, I am prescribing Trilogy therapy to decrease the chance of continued unplanned expensive medical encounters. pt is arranged for pulmonary rehab.advise pt resume pt's home oxygen as previous scheduled. pt is prescribed Prednisone for wane off and Pulmicort Puff. (3) Anemia stable (4) DM type 2 (diabetes mellitus, type 2) stable, resume home diabetes meds, followup PCP continue management (5) Blood per rectum resolved. occult stool test is nbs. pt's HGB is stable (6) Acute renal failure resolved. creatinine is 1.0 - ALLERGIES Allergies/Adverse Reactions: Allergies Allergy/AdvReac Type Severity Reaction Status Date / Time Imlccyf-[id number]-Mjl Reductase AdvReac Cramps Verified 12/28/18 13:19 Inhibitor - MEDICATIONS Home Medications: Ambulatory Orders Medication Instructions Recorded Confirmed Aspirin [Low Dose Aspirin EC] 81 mg PO DAILY 01/10/15 09/14/19 Fluticasone/Salmeterol [Advair 1 puffs INH BID 01/10/15 09/14/19 250-50 Diskus] Ipratropium/Albuterol Sulfate 1 puffs INH QID 01/10/15 09/14/19 [Combivent Respimat 20-100 Mcg] Lisinopril [Zestril] 10 mg PO DAILY 01/10/15 09/14/19 Albuterol Sulfate 2.5 mg INH Q4H PRN 01/11/15 09/14/19 Pioglitazone HCl [Actos] 30 mg PO DAILY 01/11/15 01/16/16 Albuterol Sulfate [Proair Hfa 2 puffs INH Q4H PRN 04/03/15 09/14/19 Inhaler] Cyclobenzaprine [Flexeril] 5 mg PO TID PRN 09/14/19 09/14/19 glipiZIDE ER [Glucotrol Xl] 2.5 mg PO 0800 09/14/19 09/14/19 metFORMIN [Glucophage] 500 mg PO BIDWM 09/14/19 09/14/19 Budesonide [Pulmicort] 1 puffs INH BID PRN #1 inhaler 09/22/19 guaiFENesin [Mucinex] 600 mg PO BID PRN #20 tablet 09/22/19 predniSONE [Deltasone] 20 mg PO [id number] #21 tab 09/22/19 - PHYSICAL EXAM AT DISCHARGE General Appearance: positive: No acute distress, Alert. negative: Lethargic Eyes Bilateral: positive: Normal inspection, PERRL, EOMI, No lid inflammation ENT: positive: ENT inspection nml, Pharynx nml, No signs of dehydration. negative: Purulent nasal drainage Neck: positive: Nml inspection, Thyroid nml, No JVD, Trachea midline. negative: Thyromegaly, Lymphadenopathy (R), Lymphadenopathy (L), Stiff neck, Tracheal deviation Respiratory: positive: Chest non-tender, No respiratory distress. negative: Wheezes, Rales, Rhonchi Cardiovascular: positive: Regular rate & rhythm, No murmur, No gallop. negative: Irregularly irregular, Extrasystoles, Tachycardia, Bradycardia, JVD present, Systolic murmur, Diastolic murmur Peripheral Pulses: positive: 2+ Abdomen: positive: Non-tender, No organomegaly, Nml bowel sounds, No distention. negative: Tenderness, Guarding, Rebound Back: positive: Nml inspection. negative: CVA tenderness (R), CVA tenderness (L) Skin: positive: Color nml, No rash, Warm, Dry. negative: Cyanosis, Diaphoresis, Pallor Extremities: positive: Non-tender, Full ROM, Nml appearance. negative: Calf tenderness, Adenike's sign/cords Neurologic/Psychiatric: positive: Oriented x3, Motor nml, Sensation nml, Mood/affect nml. negative: Weakness, Sensory loss, Facial droop, Slurred/abnml speech, Depressed mood/affect - LABS Result Diagrams: 09/18/19 04:02 09/18/19 04:02 - SEPSIS Current Stage of Sepsis: Ruled out - FOLLOW UP Follow Up: The Trilogy machine is approved for you, advise you followup RT instruction to appropriately use the machine. Pulmonary rehab is also arranged for you, advise you followup the schedule. you may followup your PCP in one week, followup your facing baster as out-pt. Should your symptoms return or worsen, you may present ER or call 911 for help. - TIME SPENT Time Spent in Discharge (Minutes): 55
== END 2019-09-22 16:00 | disposition home or self-care (01) | DRG 190 ==
LOC: EDUNIT# → ED 17:34 → MS2 19:24 → ICU 09-16 14:35 → MS2 09-20 13:16 → ICU 09-20 13:16 → UNDODISIN 09-22 16:00
PROVIDERS: ADMIT Internal Medicine; ATTEND Nurse Practitioner Gerontology
DX: J44.1 Chronic obstructive pulmonary disease with (acute) exacerbation (principal); J96.01 Acute respiratory failure with hypoxia; K62.5 Hemorrhage of anus and rectum; N17.9 Acute kidney failure, unspecified; E78.00 Pure hypercholesterolemia, unspecified; E11.9 Type 2 diabetes mellitus without complications; I11.0 Hypertensive heart disease with heart failure; I50.9 Heart failure, unspecified; E78.5 Hyperlipidemia, unspecified; E86.0 Dehydration; E87.5 Hyperkalemia; D64.9 Anemia, unspecified; E11.65 Type 2 diabetes mellitus with hyperglycemia; K80.80 Other cholelithiasis without obstruction; F41.0 Panic disorder [episodic paroxysmal anxiety]; G89.29 Other chronic pain; M54.9 Dorsalgia, unspecified; H91.90 Unspecified hearing loss, unspecified ear; Z66 Do not resuscitate; Z99.81 Dependence on supplemental oxygen; Z79.82 Long term (current) use of aspirin; Z79.51 Long term (current) use of inhaled steroids; Z79.84 Long term (current) use of oral hypoglycemic drugs; Z79.899 Other long term (current) drug therapy
CPT/HCPCS: 36415; 36600; 71045; 71046; 71260; 80048; 80053; 82272; 82803; 83036; 83690; 83880; 84484; 85025; 85027; 85379; 87150; 87205; 93005; 93306; 94640; 94660; 94667; 94668; 97116; 97162; 99285; 99291; A9270; J1815; J7626; Q9967; 84132; 85014; 85018; 87070

== ENCOUNTER 2019-09-29 08:00 | Outpatient (CLI) | payer MEDICARE, OTHER ==
[2019-09-29 13:25] LABS: CALCIUM 9.6 mg/dL (8.5-10.3); CREATININE 1.1 mg/dL (0.6-1.2)
[2019-09-29 14:22] LABS: HB2 TOTAL 13.1 g/dL; HEMOGLOBIN A1C 0.67 g/dL; HEMOGLOBIN A1C % 6.8 % (4.6-6.2)
== END 2019-09-29 23:59 | disposition home or self-care (01) ==
LOC: LAB.WCP 08:00
PROVIDERS: ATTEND Physician Assistant Medical
DX: E11.9 Type 2 diabetes mellitus without complications (principal)
CPT/HCPCS: 36415; 80048; 83036

== ENCOUNTER 2019-10-11 13:35 | Outpatient (CLI) | payer MEDICARE, OTHER | END 2019-10-11 13:36 | disposition critical access hospital (66) | LOC: EMS 13:35 | PROVIDERS: ATTEND Surgery | DX: R07.9 Chest pain, unspecified (principal) | CPT/HCPCS: A0425; A0427 ==

== ENCOUNTER 2019-10-11 13:51 | Inpatient (IN) | payer MEDICARE, OTHER ==
[2019-10-11] MEDS ORDERED: methylPREDNISolone SUCCINATE 125 MG/2 ML VIAL IVP STA (13:57)
[2019-10-11] MEDS ORDERED: ALBUTEROL NEB 2.5 MG/3 ML INH STA ×2 (13:57→16:32)
--- NOTE | 2019-10-11 14:01 | ED Physician Documentation ---
History of Present Illness - Stated complaint Stated Complaint: COPD EXAC - History obtained from History obtained from: Patient - History of Present Illness Timing: Today Pain level max: 0 Pain level now: 0 - Additonal information Additional information: 73-year-old male states that he has had difficulty breathing since yesterday. Has history of severe COPD. Admitted approximately 3 weeks ago for same. He had an appointment with his mattress filler today, but was severely short of breath but his daughter called 911 instead. Brought here for evaluation. Received a DuoNeb en route. He denies being ill recently. No fevers. Has a chronic, dry cough. Nothing makes it better or worse. Is on 2.5 L of O2 at home 19/05. Review of Systems Ten Systems: 10 systems reviewed and negative Constitutional: denies: Fever, Chills Ears: denies: Ear pain Nose: denies: Rhinorrhea / runny nose, Congestion Throat: denies: Sore throat Cardiac: denies: Chest pain / pressure Respiratory: reports: Dyspnea, Cough, Wheezing GI: denies: Abdominal Pain, Nausea, Vomiting, Diarrhea Skin: denies: Rash Musculoskeletal: denies: Neck pain, Back pain Neurologic: denies: Headache PD PAST MEDICAL HISTORY - Past Medical History Cardiovascular: Congestive heart failure, Hypertension, High cholesterol Respiratory: COPD, Shortness of breath, Other Endocrine/Autoimmune: Type 2 diabetes GI: Cholelithiasis : None HEENT: Chronic hearing loss Psych: Anxiety Musculoskeletal: Chronic back pain Derm: None - Past Surgical History Past Surgical History: No - Present Medications Home Medications: Ambulatory Orders Medication Instructions Recorded Confirmed Aspirin [Low Dose Aspirin EC] 81 mg PO DAILY 01/10/15 09/14/19 Fluticasone/Salmeterol [Advair 1 puffs INH BID 01/10/15 09/14/19 250-50 Diskus] Ipratropium/Albuterol Sulfate 1 puffs INH QID 01/10/15 09/14/19 [Combivent Respimat 20-100 Mcg] Lisinopril [Zestril] 10 mg PO DAILY 01/10/15 09/14/19 Albuterol Sulfate 2.5 mg INH Q4H PRN 01/11/15 09/14/19 Pioglitazone HCl [Actos] 30 mg PO DAILY 03/18/15 03/22/16 Albuterol Sulfate [Proair Hfa 2 puffs INH Q4H PRN 04/03/15 09/14/19 Inhaler] Cyclobenzaprine [Flexeril] 5 mg PO TID PRN 09/14/19 09/14/19 glipiZIDE ER [Glucotrol Xl] 2.5 mg PO 0800 09/14/19 09/14/19 metFORMIN [Glucophage] 500 mg PO BIDWM 09/14/19 09/14/19 Budesonide [Pulmicort] 1 puffs INH BID PRN #1 inhaler 09/22/19 guaiFENesin [Mucinex] 600 mg PO BID PRN #20 tablet 09/22/19 predniSONE [Deltasone] 20 mg PO [id number] #21 tab 09/22/19 Furosemide 10/11/19 - Allergies Allergies/Adverse Reactions: Allergies Allergy/AdvReac Type Severity Reaction Status Date / Time acetaminophen AdvReac Hives Verified 10/11/19 18:40 Hiveszj-Mxx-Hht Reductase AdvReac Cramps Verified 10/11/19 14:04 Inhibitor - Social History Does the pt smoke?: No Smoking Status: Former smoker Does the pt drink ETOH?: No Does the pt have substance abuse?: No - Immunizations Immunizations are current?: Yes - POLST Patient has POLST: Yes POLST Status: DNR PD ED PE NORMAL - Vitals Vital signs reviewed: Yes - General General: Alert and oriented X 3, Well developed/nourished - HEENT HEENT: Moist mucous membranes - Neck Neck: Supple, no meningeal sign - Cardiac Cardiac: RRR - Respiratory Respiratory: Other (Tachypneic, very restricted breathing with occasional wheeze.) - Abdomen Abdomen: Soft, Non tender, Non distended - Derm Derm: Warm and dry - Extremities Extremities: No edema - Neuro Neuro: Alert and oriented X 3 - Psych Psych: Normal mood, Normal affect Results - Vitals Vitals: Vital Signs - 24 hr 10/11/19 10/11/19 10/11/19 13:58 14:05 14:34 Temperature 36.7 C Heart Rate 107 H 105 H 101 H Respiratory 16 24 18 Rate Blood Pressure 116/51 L 112/58 L O2 Saturation 99 100 10/11/19 10/11/19 10/11/19 15:04 15:34 16:04 Temperature Heart Rate 100 96 98 Respiratory 16 18 20 Rate Blood Pressure 112/58 L 109/52 L 110/53 L O2 Saturation 100 100 100 10/11/19 10/11/19 10/11/19 16:30 16:57 17:00 Temperature Heart Rate 104 H 105 H 123 H Respiratory 18 22 16 Rate Blood Pressure 119/56 L 144/94 H O2 Saturation 98 90 L 10/11/19 17:30 Temperature Heart Rate 104 H Respiratory 18 Rate Blood Pressure 120/58 L O2 Saturation 98 Oxygen O2 Source [Without Activity] Nasal cannula O2 Source [With Activity] Nasal cannula O2 Source Nasal cannula Oxygen Flow Rate 2 - Labs Labs: Laboratory Tests 10/11/19 10/11/19 10/11/19 13:57 14:10 14:10 WBC 6.5 RBC 3.96 L Hgb 11.5 L Hct 36.5 L MCV 92.2 MCH 29.0 MCHC 31.5 L RDW 14.5 Plt Count 323 MPV 9.4 Neut # (Auto) 4.9 Lymph # (Auto) 0.7 L [place] # (Auto) 0.5 Eos # (Auto) 0.4 Baso # (Auto) 0.0 Absolute Nucleated RBC 0.00 Nucleated RBC % 0.0 Sodium 134 L Potassium 4.5 Chloride 91 L Carbon Dioxide 35 H Anion Gap 8.0 BUN 26 H Creatinine 1.5 H Estimated GFR (MDRD) 46 L Glucose 197 H Calcium 9.1 Total Bilirubin 0.6 AST 31 ALT 34 Alkaline Phosphatase 64 B-Natriuretic Peptide 21 Total Protein 6.9 Albumin 3.8 Globulin 3.1 Albumin/Globulin Ratio 1.2 Lipase 54 H - Rads (name of study) Chest x-ray Radiology: Prelim report reviewed, EMP read contemporaneously, See rad report (Emphysematous changes without definite superimposed acute findings. The left lower lobe nodule seen on the 09/16/[address] is not well seen by plain films. Follow-up as previously described still indicated. ) PD MEDICAL DECISION MAKING - ED course Complexity details: reviewed results, re-evaluated patient, considered differential, d/w patient, d/w family ED course: 73-year-old male presents to the emergency department with a COPD exacerbation. Despite 5 nebulizer treatments between the emergency department and EMS, as well as IV steroids he is still unable to ambulate without significant respiratory distress and hypoxia. Dropped down to the low 80s with any exertion. He will need to be placed back in the hospital for COPD exacerbation. Discussed the case with the hospitalist, Dr. Solis who accepts. This document was made in part using voice recognition software. While efforts are made to proofread this document, sound alike and grammatical errors may occur. Departure - Departure Disposition: 66 [facility] DC/Xfer Clinical Impression: COPD exacerbation, Hypoxia Tinea pedis Qualifiers: Laterality: bilateral Qualified Code(s): B35.3 - Tinea pedis Condition: Stable Discharge Date/Time: 10/11/19 18:35
[2019-10-11 14:20] LABS: BASOPHILS % (AUTO) 0.5 %; EOSINOPHILS # (AUTO) 0.4 10^3/uL (0.0-0.7); EOSINOPHILS % (AUTO) 5.5 %; HGB - HEMOGLOBIN 11.5 g/dL (14.0-18.0); LYMPHOCYTES # (AUTO) 0.7 10^3/uL (1.5-3.5); LYMPHOCYTES % (AUTO) 10.1 %; MEAN CORPUSCULAR HGB CONC 31.5 g/dL (32.0-36.0); MEAN CORPUSCULAR VOLUME 92.2 fL (80.0-94.0); MEAN PLATELET VOLUME 9.4 fL (7.4-11.4); MONOCYTES # (AUTO) 0.5 10^3/uL (0.0-1.0); MONOCYTES % (AUTO) 8.1 %; NEUTROPHILS # (AUTO) 4.9 10^3/uL (1.5-6.6); NEUTROPHILS % (AUTO) 75.2 %; PLT - PLATELET COUNT 323 10^3/uL (130-450); RED BLOOD COUNT 3.96 10^6/uL (4.70-6.10); RED CELL DISTRIBUTION WIDTH 14.5 % (12.0-15.0); WHITE BLOOD COUNT 6.5 x10^3/uL (4.8-10.8)
[2019-10-11 14:33] LABS: ALBUMIN 3.8 g/dL (3.2-5.5); BILIRUBIN,TOTAL 0.6 mg/dL (0.2-1.0); CALCIUM 9.1 mg/dL (8.5-10.3); CREATININE 1.5 mg/dL (0.6-1.2); TOTAL PROTEIN 6.9 g/dL (6.7-8.2)
[2019-10-11 14:34] LABS: ALBUMIN/GLOBULIN RATIO 1.2 (1.0-2.2)
--- NOTE | 2019-10-11 14:56 | XRAY Report ---
Reason: cough, wheezing Procedure Date: 10/11/2019 Accession Number: [id number] / [id number] Procedure: XR - Chest 2 View X-Ray CPT Code: 92455 Final Report FULL RESULT: EXAM: CHEST RADIOGRAPHY EXAM DATE: 10/11/2019 02:41 PM. CLINICAL HISTORY: Cough, wheezing. COMPARISON: CHEST W/ 09/16/2019 8:15 AM CHEST 1 VIEW 09/16/2019 3:28 AM ABDOMEN/PELVIS W12/28/2018 7:10 PM. TECHNIQUE: 2 views. FINDINGS: Lungs/Pleura: Emphysematous changes are present. The 1.4 cm left lower lobe spiculated lesion seen on the 09/16/[address] is not well seen by plain films. No definite acute parenchymal findings are seen. No pleural effusion. No pneumothorax. Normal volumes. Mediastinum: Heart and mediastinal contours are unremarkable. Other: None. IMPRESSION: Emphysematous changes without definite superimposed acute findings. The left lower lobe nodule seen on the 09/16/[address] is not well seen by plain films. Follow-up as previously described still indicated. RADIA
[2019-10-11] MEDS ORDERED: predniSONE 20 MG TABLET PO STA (16:31)
[2019-10-11] MEDS ORDERED: HYDROcod/ACETAM 5/325 MG TABLET PO STA (16:56)
[2019-10-11] MEDS ORDERED: ONDANSETRON 4 MG/2 ML VIAL IVP PRN (17:31)
[2019-10-11] MEDS ORDERED: ONDANSETRON ODT 4 MG TABLET TL PRN (17:31)
[2019-10-11] MEDS ORDERED: oxyCODONE 5 MG TABLET PO PRN (17:31)
[2019-10-11] MEDS ORDERED: ACETAMINOPHEN 325 MG TABLET PO PRN (17:31)
--- NOTE | 2019-10-11 17:48 | HISTORY & PHYSICAL EXAMINATION ---
Chief Complaint - Chief Complaint Chief Complaint: short of breath History of Present Illness - Admitted From Admitted From:: Home/ER - History Obtained From Records Reviewed: [facility] History obtained from: Dr. Bernal, patient Exam Limitations: he's tired and sob - History of Present Illness HPI Comment/Other: This is a gentleman that I met back in December 2015. At that time he had already had severe COPD. 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 He was already short of breath by the time he was in the middle of his service with the [employer]. As time is gone on, he is developed and progressed to COPD. He did meet with Faustina Costello in December 2015 for palliative care consultation. He was anxious, depressed, fearful of the future and what his lung deterioration would mean. At that time his was alive. She 2 years ago. He lives by himself. Daughter lives in [place] and comes on a regular basis or the grandchildren come over to help him with groceries, taking them out. He lives a very solitary life. Does have a caregiver that comes Friday through Friday a couple hours a day. Both he and his daughter agree that there is a strong component of anxiety to his shortness of breath. 1 of the reasons he refuses to leave the apartment is his fear of running out of oxygen. He was just in the hospital September 13 through September 22. He presented with shortness of breath, and blood on the toilet paper on 2 occasions. He had an O2 sat of 80% in spite of being on his usual 2-1/2 L of oxygen. He was brought into the hospital because he was continued to be symptomatic in spite of treatment in the emergency room. Rectal bleeding did stop. COPD exacerbation was gradually tempered and he was able to walk from the bathroom to his room door and out a few feet and back again without feeling like he was completely wiped out. He was sent home on trilogy. Prednisone was tapered. Since being home not much is changed. He and his daughter both state that he is compliant with his medications. She does not see him taking them but she knows that he is nervous enough about his status that he will take them. There is been no antecedent change with regards to fever, chills, and no one else is sick.He has had increased leg edema and his legs have gotten severely puffy. The soles of his feet, the skin between his toes, and the tops of his feet were red and hot feeling but not tender. The skin started peeling off like a sunburn. She went to go pick him up to take him to see his beater lead. She had come last night, spent the night, and this morning had gotten ready. By the time she got the car ready to go, and came to get him out of the house, he was starting to panic and say that his chest hurt. He describes his chest pain as a "full feeling" "like he is going to pop". It is not pleuritic, stabbing. Every once in all it does feel like there is an elephant sitting on his chest. There is no diaphoresis, sweats, nausea with this. Nonradiating. He really will panic and feel like he is going to . As such she called an ambulance and he was brought to the emergency room. They did give him steroids, nebulizers, and were trying to send him home. But when they tried to road test him his O2 sat was 84% with his usual oxygen and he has been asked to be admitted. Chest x-ray is negative for new infiltrates. He has emphysematous changes without definite superimposed acute findings. He continues to have the left lower lobe nodule. It is a spiculated lesion. He is slightly tachycardic at 101. 2 L nasal cannula results on the 100% saturation. Slight bump in his creatinine of 1.5 and his baseline is 1.0. Sometimes low as 0.9. And random glucose is 197. White cell count is normal. He is now admitted for COPD exacerbation. History - Past Medical History Cardiovascular: reports: Congestive heart failure, Hypertension, High cholesterol Respiratory: reports: COPD, Shortness of breath, Other Neuro: reports: None Endocrine/Autoimmune: reports: Type 2 diabetes GI: reports: Cholelithiasis : reports: None HEENT: reports: Chronic hearing loss Psych: reports: Anxiety Musculoskeletal: reports: Chronic back pain Derm: reports: None MRSA Hx?: No - Family & Social History Family History: Mother: CVA/TIA, Father: Cancer (liver), Other family: Diabetes, Type 2 (Extensive family Hx of diabetes) Living arrangement: At home Living Situation: Alone Social History Notes: He lives alone. His 2 years ago.He was dependent on her for help. He has a daughter who lives in [place]. He is independent of activities of daily living. He has a walker but doesn't use it. He quit smoking in 2002. He smoked about 1ppd for 43 years. He drinks alcohol ocassionally. He denies illicit drug use. - Substance History Use: Uses substance without health or social issues: NONE Abuse: Recurrent use of substance despite neg consequences: NONE Dependence: Experiences withdrawal or developed tolerances: NONE - POLST Patient has POLST: Yes POLST Status: DNR Meds/Allgy - Home Medications Home Medications: Ambulatory Orders Medication Instructions Recorded Confirmed Aspirin [Low Dose Aspirin EC] 81 mg PO DAILY 01/10/15 09/14/19 Fluticasone/Salmeterol [Advair 1 puffs INH BID 01/10/15 09/14/19 250-50 Diskus] Ipratropium/Albuterol Sulfate 1 puffs INH QID 01/10/15 09/14/19 [Combivent Respimat 20-100 Mcg] Lisinopril [Zestril] 10 mg PO DAILY 01/10/15 09/14/19 Albuterol Sulfate 2.5 mg INH Q4H PRN 01/11/15 09/14/19 Pioglitazone HCl [Actos] 30 mg PO DAILY 01/11/15 01/16/16 Albuterol Sulfate [Proair Hfa 2 puffs INH Q4H PRN 04/03/15 09/14/19 Inhaler] Cyclobenzaprine [Flexeril] 5 mg PO TID PRN 09/14/19 09/14/19 glipiZIDE ER [Glucotrol Xl] 2.5 mg PO 0800 09/14/19 09/14/19 metFORMIN [Glucophage] 500 mg PO BIDWM 09/14/19 09/14/19 Budesonide [Pulmicort] 1 puffs INH BID PRN #1 inhaler 09/22/19 guaiFENesin [Mucinex] 600 mg PO BID PRN #20 tablet 09/22/19 predniSONE [Deltasone] 20 mg PO [id number] #21 tab 09/22/19 Furosemide 10/11/19 - Allergies Allergies/Adverse Reactions: Allergies Allergy/AdvReac Type Severity Reaction Status Date / Time acetaminophen AdvReac Hives Verified 10/11/19 18:40 Tzrovjw-Bqe-Bph Reductase AdvReac Cramps Verified 10/11/19 14:04 Inhibitor Review of Systems - Constitutional Constitutional: reports: Fatigue, Malaise. denies: Fever, Chills - Eyes Eyes: reports: Vision loss (chornic). denies: Pain, Field loss - Ears, Nose & Throat Ears, Nose & Throat: reports: Hearing loss, Vertigo, Nasal congestion. denies: Ear pain - Cardiovascular Cariovascular: reports: Palpitations, Chest pain, Exertional dyspnea, Decr. exercise tolerance, Orthopnea (sleeps in reclincer at home for a while now, unchanged. Using his trilogy.) - Respiratory Respiratory: reports: Cough, Sputum production, Wheezing, SOB at rest, SOB with exertion - Gastrointestinal Gastrointestinal: denies: Abdominal pain, Abdominal distention, Constipation, Change in bowel habits - Genitourinary Genitourinary: denies: Dysuria, Frequency, Urgency, Incontinence - Musculoskeletal Musculoskeletal: denies: Muscle pain, Back pain, Muscle aches, Stiffness - Integumentary Integumentary: denies: Rash, Pruritis - Neurological Neurological: reports: General weakness, Headache, Dizziness, Memory problems, Pre-existing deficit. denies: Focal weakness, Numbness - Psychiatric Psychiatric: reports: Depression, Anxiety. denies: Suicidal, Delusions, Hallucinations - Endocrine Endocrine: denies: Polyuria, Polydypsia, Polyphagia - Hematologic/Lymphatic Hematologic/Lymphatic: denies: Anemia, Bruising, Petechiae Prior Level of Functionality: He prefers to stay in his apartment. He has a lady that comes by Friday through Friday to do 2 hours of work a day. He can get up to walk to the bathroom, dress himself, feed himself. He is homebound and that it requires such exertion to leave the house with his oxygen, etc. that he prefers to stay home. Exam - Vital Signs Reviewed Vital Signs: Yes Vital Signs: Vital Signs x48h Temp Pulse Resp BP Pulse Ox 10/11/19 17:00 123 H 16 144/94 H 90 L 10/11/19 16:57 105 H 22 10/11/19 16:30 104 H 18 119/56 L 98 10/11/19 16:04 98 20 110/53 L 100 10/11/19 15:34 96 18 109/52 L 100 10/11/19 15:04 100 16 112/58 L 100 10/11/19 14:34 101 H 18 112/58 L 100 10/11/19 14:05 105 H 24 10/11/19 13:58 36.7 C 107 H 16 116/51 L 99 - Physical Exam General Appearance: positive: Alert, Other (Short statured of 5 foot 1 inches tall, 57.5 kg. Male pattern baldness elderly gentleman with pursed lip breathing and baseline increased respiratory effort even at rest. Both daughter and he say that this is what he looks like 100% of the time) Eyes Bilateral: positive: PERRL, EOMI ENT: positive: Dry mucous membranes (From open mouth breathing) Neck: positive: Thyroid nml, No JVD. negative: Stiff neck Respiratory: positive: Chest non-tender, Wheezes, Rhonchi, Other (Respiratory rate 20, prolonged inhalation to escalation ratio that is quite noticeable, rib contraction but no use of sternocleidomastoid muscles, no use of abdominal muscles). negative: Rales Cardiovascular: positive: Regular rate & rhythm (Tachycardic at 106-110), Other (no RV lift but does have barrel chest). negative: Gallop/S4, Friction rub Abdomen: positive: Non-tender, No organomegaly, Nml bowel sounds, No distention Skin: positive: Other Extremities: positive: Pedal edema (2+ of calves, 3+ of feet. Skin is red, non blanching at base of metatarsals, between toes, bottom of toes.) Conclusion/Plan - Problem List (1) COPD exacerbation Conclusion/Plan: He returns in less than a month from his last admission. States he is compliant w his meds. NO new illness. CXR does not have infiltrate. Plan: steroids tid for 1 day then bid, then qd IVF for 1 liter oral azithromycin inhaled LABA + inhaled steroids Palliative care reconsult. He was seen 12/2015 but no further visits. (2) Acute on chronic kidney failure Conclusion/Plan: dehydrated on labs and oral mucosa Plan: check labs in am hydrate w 1 liter IVF Qualifiers: Chronic kidney disease stage: stage 3 (moderate) (3) Type 2 diabetes mellitus with neurologic complication, with long-term current use of insulin Conclusion/Plan: stop oral meds for now change to lantus and SS insulin. check A1c Qualifiers: Diabetes mellitus complication detail: with polyneuropathy Qualified Code(s): E11.42 - Type 2 diabetes mellitus with diabetic polyneuropathy; Z79.4 - extermination supervisor (current) use of insulin (4) Hypertension Conclusion/Plan: controlled. no change in lisinopril Qualifiers: Hypertension type: essential hypertension Qualified Code(s): I10 - Essential (primary) hypertension (5) Heart failure with preserved ejection fraction Conclusion/Plan: ECHO is 12/2014 had EF 55% and no right sided failure or hypertension 12/2015 had EF 70% and no right sided HTN 08/2019 the same with EF 60-65% without pulm HTN. In spite of this man's COPD he has kept nomrla pulmonary pressures and no cor pulmonale. Today his BNP is 21. Plan: watch for fluid overlodad and no diuretic at this time Qualifiers: Heart failure chronicity: chronic Qualified Code(s): I50.32 - Chronic diastolic (congestive) heart failure (6) Anxiety about health Conclusion/Plan: In reviewing the objective data on this gentleman he has a really good right heart system, with no right-sided heart failure. There is no pulmonary hypertension. If his COPD is severe enough to be end-stage, I would think that he would have pulmonary hypertension with right-sided heart failure. He does not. He also only requires 2 L to 2-1/2 L to maintain O2 sats. Most of his decompensation is in the face of a sensation of chest tightness and pressure when he starts to hyperventilate and panic. Plan: Cardiopulmonary rehab strongly recommended Start citalopram Consider low-dose benzodiazepine - Lab Results Lab results reviewed: Yes Fish Bones: 10/12/19 09:02 10/12/19 09:02 - Diagnostic Imaging Results Diagnostic Imaging Results: positive: Final report reviewed Diagnostic Imaging Results Comments: EXAM DATE: 10/11/2019 02:41 PM. CLINICAL HISTORY: Cough, wheezing. COMPARISON: CHEST W/ 09/16/2019 8:15 AM CHEST 1 VIEW 09/16/2019 3:28 AM ABDOMEN/PELVIS W/ 12/28/2018 7:10 PM. TECHNIQUE: 2 views. FINDINGS: Lungs/Pleura: Emphysematous changes are present. The 1.4 cm left lower lobe spiculated lesion seen on the 09/16/[address] is not well seen by plain films. No definite acute parenchymal findings are seen. No pleural effusion. No pneumothorax. Normal volumes. Mediastinum: Heart and mediastinal contours are unremarkable. Other: None. IMPRESSION: Emphysematous changes without definite superimposed acute findings. The left lower lobe nodule seen on the 09/16/[address] is not well seen by plain films. Follow-up as previously described still indicated. - EKG Results EKG Interpreted Independently: No Core Measures - Anticipated LOS I expect patient to be DC'd or transferred within 96 hours.: Yes - DVT/VTE - Prophylaxis VTE/DVT Device ordered at admit?: Yes
[2019-10-11] MEDS ORDERED: SODIUM CHLORIDE 0.9% 1,000 ML IV SCH (18:00)
[2019-10-11] MEDS ORDERED: WITCH HAZEL/GLYCERIN 1 PAD TOP PRN (18:57)
[2019-10-11] MEDS: methylPREDNISolone SUCCINATE 40 MG/ML VIAL IVP SCH ×2 (19:41→21:46)
[2019-10-11] MEDS: AZITHROMYCIN 250 MG TABLET PO SCH (19:42)
[2019-10-11] MEDS ORDERED: INSULIN GLARGINE 300 UNIT/3 ML PEN SUBQ SCH (21:00)
[2019-10-11] MEDS: FORMOTEROL FUMARATE NEB 20 MCG/2 ML INH SCH (21:36)
[2019-10-11] MEDS: BUDESONIDE 0.5 MG/2 ML NEB INH SCH (21:36)
[2019-10-11] MEDS: IPRATROPIUM/ALBUTEROL 3 ML NEB INH SCH (21:36)
[2019-10-11] MEDS: INSULIN ASPART 300 UNIT/3 ML PEN SUBQ SCH (21:48)
[2019-10-11] MEDS ORDERED: MORPHINE 2 MG/ML CARPUJECT IVP STA (22:26)
[2019-10-12] MEDS: SODIUM CHLORIDE FLUSH 0.9% 10 ML SYRINGE IVP SCH ×3 (05:50→19:43)
[2019-10-12] MEDS: methylPREDNISolone SUCCINATE 40 MG/ML VIAL IVP SCH ×3 (05:50→21:03)
[2019-10-12] MEDS: IPRATROPIUM/ALBUTEROL 3 ML NEB INH SCH ×4 (08:03→20:21)
[2019-10-12] MEDS: BUDESONIDE 0.5 MG/2 ML NEB INH SCH ×2 (08:03→20:21)
[2019-10-12] MEDS: FORMOTEROL FUMARATE NEB 20 MCG/2 ML INH SCH ×2 (08:03→20:21)
[2019-10-12] MEDS: lisinopriL 5 MG TABLET PO SCH (08:26)
[2019-10-12] MEDS: INSULIN ASPART 300 UNIT/3 ML PEN SUBQ SCH ×4 (08:26→21:11)
[2019-10-12] MEDS: AZITHROMYCIN 250 MG TABLET PO SCH (08:26)
[2019-10-12] MEDS ORDERED: LORazepam 0.5 MG TABLET PO PRN (08:45)
[2019-10-12] MEDS ORDERED: CYCLOBENZAPRINE 10 MG TABLET PO PRN (08:45)
[2019-10-12] MEDS ORDERED: SODIUM CHLORIDE 0.9% 1,000 ML IV SCH (09:00)
[2019-10-12 09:12] LABS: BASOPHILS % (AUTO) 0.1 %; HGB - HEMOGLOBIN 9.7 g/dL (14.0-18.0); LYMPHOCYTES # (AUTO) 0.4 10^3/uL (1.5-3.5); LYMPHOCYTES % (AUTO) 4.8 %; MEAN CORPUSCULAR HEMOGLOBIN 29.3 pg (27.0-31.0); MEAN CORPUSCULAR HGB CONC 31.5 g/dL (32.0-36.0); MEAN CORPUSCULAR VOLUME 93.1 fL (80.0-94.0); MEAN PLATELET VOLUME 9.6 fL (7.4-11.4); MONOCYTES # (AUTO) 0.2 10^3/uL (0.0-1.0); NEUTROPHILS # (AUTO) 7.9 10^3/uL (1.5-6.6); NEUTROPHILS % (AUTO) 92.5 %; PLT - PLATELET COUNT 326 10^3/uL (130-450); RED BLOOD COUNT 3.31 10^6/uL (4.70-6.10); RED CELL DISTRIBUTION WIDTH 14.6 % (12.0-15.0); WHITE BLOOD COUNT 8.5 x10^3/uL (4.8-10.8)
[2019-10-12 09:23] LABS: CALCIUM 8.6 mg/dL (8.5-10.3); CREATININE 1.3 mg/dL (0.6-1.2); MAGNESIUM 2.1 mg/dL (1.7-2.8)
[2019-10-12 09:26] LABS: HB2 TOTAL 9.9 g/dL; HEMOGLOBIN A1C 0.61 g/dL; HEMOGLOBIN A1C % 7.8 % (4.6-6.2)
[2019-10-12] MEDS: MORPHINE 2 MG/ML CARPUJECT IVP PRN ×4 (09:34→21:01)
[2019-10-12 09:46] LABS: ABG PCO2 54 mmHg (34-45); ABG PH 7.34 (7.35-7.45)
[2019-10-12 09:47] LABS: ABG BASE EXCESS 2.2 mmol/L (-2.0-3.0); ABG HCO3 28.7 mmol/L (22.0-26.0); ABG OXYGEN SATURATION 94 % (94-98); ABG PO2 77 mmHg (80-100); ABG TCO2 30.3 MMOL/L (21.0-29.0); ALLEN TEST POSITIVE
[2019-10-12] MEDS: LORazepam 2 MG/ML VIAL IVP PRN ×2 (09:47→21:32)
[2019-10-12] MEDS: guaiFENesin 600 MG TABLET PO SCH ×2 (10:43→21:09)
--- NOTE | 2019-10-12 15:39 | PROVIDER PROGRESS NOTE ---
Assessment/Plan - Problem List (1) COPD exacerbation Assessment/Plan: recurrent of COPD. CXR does not have infiltrate. continue steroids tid for 1 day then bid, then qd IVF for 1 liter oral azithromycin inhaled LABA + inhaled steroids called Palliative care re-consult, will pt on tomorrow. He was seen 12/2015 but no further visits. (2) Acute on chronic kidney failure Conclusion/Plan: improved. creatinine is 1.3 from 1.5 at the admission. Plan: check labs in am hydrate w 1 liter IVF (3) Type 2 diabetes mellitus with neurologic complication, with long-term current use of insulin Conclusion/Plan: A1c is 7.8. pt did not take insulin at home. but pt is on steroid now stop oral meds for now change to lantus 15 unit on PM and SS insulin. continue hypoglycemia protocol continue ACHS to check glucose level (4) Hypertension Conclusion/Plan: controlled. no change in lisinopril (5) Heart failure with preserved ejection fraction Conclusion/Plan: ECHO is 12/2014 had EF 55% and no right sided failure or hypertension 12/2015 had EF 70% and no right sided HTN 08/2019 the same with EF 60-65% without pulm HTN. In spite of this man's COPD he has kept nomrla pulmonary pressures and no cor pulmonale. Today his BNP is 21. continue, watch for fluid overlodad, gently hydration for his MIGUEL ANGEL, and hold diuretic at this time for his MIGUEL ANGEL (6) Anxiety about health Conclusion/Plan: pt's sudden SOB as last admission and today morning episode is more likely caused by pt's anxiety and panic. ABGs reveals mild respiratory distress which is not matched his clinic presentation. agree Dr. Solis's analysis: In reviewing the objective data on this gentleman he has a really good right heart system, with no right-sided heart failure. There is no pulmonary hypertension. If his COPD is severe enough to be end-sta ge, I would think that he would have pulmonary hypertension with right-sided heart failure. He does not. He also only requires 2 L to 2-1/2 L to maintain O2 sats. Most of his decompensation is in the face of a sensation of chest tightness and pressure when he starts to hyperventilate and panic. Plan: Cardiopulmonary rehab strongly recommended Start citalopram Consider low-dose benzodiazepine PRN now start Morphine PRN - Current Meds Current Meds: Current Medications Generic Name Dose Route Start Last Admin Trade Name Fredain PRN Reason Stop Dose Admin Albuterol/Ipratropium 3 ml 10/11/19 19:00 10/12/19 15:26 Duoneb INH 3 ml RTQID [facility] Administration Azithromycin 250 mg 10/11/19 17:43 10/12/19 08:26 Zithromax PO 250 mg DAILY [facility] Administration Budesonide 0.5 mg 10/11/19 19:00 10/12/19 08:03 Pulmicort INH 0.5 mg RTBID [facility] Administration Formoterol Fumarate 20 mcg 10/11/19 19:00 10/12/19 08:03 Perforomist INH 20 mcg RTBID [facility] Administration Guaifenesin 600 mg 10/12/19 10:00 10/12/19 10:43 Mucinex PO 600 mg BID [facility] Administration Sodium Chloride 1,000 mls @ 83.333 mls/hr 10/12/19 09:00 10/12/19 10:45 Normal Saline 0.9% IV 10/12/19 20:59 83.333 mls/hr .Q12H [facility] Administration Insulin Aspart 1 - 9 unit 10/11/19 21:00 10/12/19 11:42 Novolog SUBQ 5 unit 0800,1200,1700,2100 [facility] Administration Protocol Insulin Glargine 20 unit 10/11/19 21:00 10/11/19 21:48 Lantus Solostar SUBQ 20 unit QPM [facility] Administration Lisinopril 10 mg 10/12/19 09:00 10/12/19 08:26 Zestril PO 10 mg DAILY [facility] Administration Lorazepam 0.5 mg 10/12/19 09:27 10/12/19 09:47 Ativan Inj (Vial) IVP 0.5 mg Q6H PRN Administration Anxiety Methylprednisolone 40 mg 10/12/19 14:00 10/12/19 14:36 Solu-Medrol (40mg Vial) IVP 40 mg TID [facility] Administration Morphine Sulfate 2 mg 10/12/19 09:24 10/12/19 14:35 Morphine (Carpuject) IVP 2 mg Q2HR PRN Administration PAIN Sodium Chloride 10 ml 10/12/19 01:00 10/12/19 08:27 Normal Saline Flush 0.9% IVP 10 ml 0100,0900,1700 [facility] Administration - Lab Result Fish Bone Diagrams: 10/12/19 09:02 10/12/19 09:02 - Additional Planning My Orders: My Active Orders 10/12/19 Palliative Care Consult [CONS] Routine OCCULT BLOOD IN PAT. SINGLE [RAPID] Routine 10/12/19 08:45 Cyclobenzaprine [Flexeril] 10 mg PO TID PRN 10/12/19 09:00 Sodium Chloride 0.9% [Normal Saline 0.9%] 1,000 ml IV 83.333 mls/hr 10/12/19 09:23 Respiratory Care [RC] .ONCE 10/12/19 09:24 Morphine Inj (Carpuject) [Morphine (Carpuject)] 2 mg IVP Q2HR PRN 10/12/19 09:25 Arterial Blood Gases - RT [RC] .ONCE 10/12/19 09:27 LORazepam INJ [Ativan Inj (Vial)] 0.5 mg IVP Q6H PRN 10/12/19 10:00 guaiFENesin [Mucinex] 600 mg PO BID 10/12/19 14:00 methylPREDNISolone SUCCINATE [SOLU-Medrol (40MG VIAL)] 40 mg IVP TID 10/13/19 05:00 BMP - BASIC METABOLIC PANEL [CHEM] DAILYLAB CBC - COMP BLD CT W/AUTO DIFF [HEME] DAILYLAB 10/14/19 05:00 BMP - BASIC METABOLIC PANEL [CHEM] DAILYLAB CBC - COMP BLD CT W/AUTO DIFF [HEME] DAILYLAB 10/15/19 05:00 BMP - BASIC METABOLIC PANEL [CHEM] DAILYLAB CBC - COMP BLD CT W/AUTO DIFF [HEME] DAILYLAB 10/16/19 05:00 BMP - BASIC METABOLIC PANEL [CHEM] DAILYLAB CBC - COMP BLD CT W/AUTO DIFF [HEME] DAILYLAB 10/17/19 05:00 BMP - BASIC METABOLIC PANEL [CHEM] DAILYLAB CBC - COMP BLD CT W/AUTO DIFF [HEME] DAILYLAB Subjective - Subjective Patient Reports: Feeling Better Objective Vital Signs: Vital Signs - 24 hr 10/11/19 10/11/19 10/11/19 16:04 16:30 16:57 Temperature Heart Rate 98 104 H 105 H Heart Rate [ Brachial] Respiratory 20 18 22 Rate Blood Pressure 110/53 L 119/56 L Blood Pressure [Right Brachial artery] O2 Saturation 100 98 10/11/19 10/11/19 10/11/19 17:00 17:30 18:00 Temperature Heart Rate 123 H 104 H 103 H Heart Rate [ Brachial] Respiratory 16 18 16 Rate Blood Pressure 144/94 H 120/58 L 128/58 L Blood Pressure [Right Brachial artery] O2 Saturation 90 L 98 98 10/11/19 10/11/19 10/11/19 18:41 21:41 22:15 Temperature 36.9 C Heart Rate 99 Heart Rate [ 110 H 120 H Brachial] Respiratory 20 20 30 H Rate Blood Pressure Blood Pressure 129/59 L [Right Brachial artery] O2 Saturation 95 82 L 10/11/19 10/11/19 10/11/19 22:35 22:45 23:51 Temperature 36.8 C Heart Rate Heart Rate [ 122 H 98 Brachial] Respiratory 30 H 16 16 Rate Blood Pressure Blood Pressure 122/60 [Right Brachial artery] O2 Saturation 92 92 97 10/12/19 10/12/19 10/12/19 05:30 05:32 05:45 Temperature Heart Rate Heart Rate [ 99 Brachial] Respiratory 22 20 20 Rate Blood Pressure Blood Pressure [Right Brachial artery] O2 Saturation 78 L 95 99 10/12/19 10/12/19 10/12/19 08:00 08:03 12:15 Temperature 36.5 C Heart Rate 107 H 101 H Heart Rate [ 104 H Brachial] Respiratory 22 22 22 Rate Blood Pressure Blood Pressure 119/64 [Right Brachial artery] O2 Saturation 93 10/12/19 15:28 Temperature Heart Rate 95 Heart Rate [ Brachial] Respiratory 22 Rate Blood Pressure Blood Pressure [Right Brachial artery] O2 Saturation Oxygen O2 Source [Without Activity] Nasal cannula O2 Source [With Activity] Nasal cannula O2 Source Nasal cannula Oxygen Flow Rate 2 I&O (Last 24 Hrs): Intake and Output Totals x24h 10/10/19 10/11/19 10/12/19 23:59 23:59 23:59 Intake Total 1360 Output Total 275 250 Balance -275 1110 General: Alert, Oriented x3, No acute distress HEENT: Atraumatic Neck: Supple Lymphatic: no adenopathy Neuro: Alert, Non Focal, Oriented Times 3 Cardiovascular: Regular rate, Normal S1, Normal S2 Respiratory: Chest non-tender, No respiratory distress Abdomen: Normal bowel sounds, Soft Extremities: Normal pulses - Results Results: Laboratory Results WBC 8.5 x10^3/uL (4.8-10.8) 10/12/19 09:02 RBC 3.31 10^6/uL (4.70-6.10) L 10/12/19 09:02 Hgb 9.7 g/dL (14.0-18.0) L 10/12/19 09:02 Hct 30.8 % (42.0-52.0) L 10/12/19 09:02 MCV 93.1 fL (80.0-94.0) 10/12/19 09:02 MCH 29.3 pg (27.0-31.0) 10/12/19 09:02 MCHC 31.5 g/dL (32.0-36.0) L 10/12/19 09:02 RDW 14.6 % (12.0-15.0) 10/12/19 09:02 Plt Count 326 10^3/uL (130-450) 10/12/19 09:02 MPV 9.6 fL (7.4-11.4) 10/12/19 09:02 Neut # (Auto) 7.9 10^3/uL (1.5-6.6) H 10/12/19 09:02 Lymph # (Auto) 0.4 10^3/uL (1.5-3.5) L 10/12/19 09:02 [place] # (Auto) 0.2 10^3/uL (0.0-1.0) 10/12/19 09:02 Eos # (Auto) 0.0 10^3/uL (0.0-0.7) 10/12/19 09:02 Baso # (Auto) 0.0 10^3/uL (0.0-0.1) 10/12/19 09:02 Absolute Nucleated RBC 0.00 x10^3/uL 10/12/19 09:02 Nucleated RBC % 0.0 /100WBC 10/12/19 09:02 Bld Gas Analysis Time 0945 10/12/19 09:38 Sample Site RIGHT RADIAL 10/12/19 09:38 ABG pH 7.34 (7.35-7.45) L 10/12/19 09:38 ABG pCO2 54 mmHg (34-45) H 10/12/19 09:38 ABG pO2 77 mmHg (80-100) L 10/12/19 09:38 ABG HCO3 28.7 mmol/L (22.0-26.0) H 10/12/19 09:38 ABG Total CO2 30.3 MMOL/L (21.0-29.0) H 10/12/19 09:38 ABG O2 Saturation 94 % (94-98) 10/12/19 09:38 ABG Base Excess 2.2 mmol/L (-2.0-3.0) 10/12/19 09:38 Alon Test POSITIVE 10/12/19 09:38 O2 Delivery Device NASAL CANNULA 10/12/19 09:38 O2 Liters/Min 2.50 LPM 10/12/19 09:38 Sodium 135 mmol/L (135-145) 10/12/19 09:02 Potassium 4.8 mmol/L (3.5-5.0) 10/12/19 09:02 Chloride 97 mmol/L (101-111) L 10/12/19 09:02 Carbon Dioxide 31 mmol/L (21-32) 10/12/19 09:02 Anion Gap 7.0 (6-13) 10/12/19 09:02 BUN 25 mg/dL (6-20) H 10/12/19 09:02 Creatinine 1.3 mg/dL (0.6-1.2) H 10/12/19 09:02 Estimated GFR (MDRD) 54 (>89) L 10/12/19 09:02 Glucose 255 mg/dL (70-100) H 10/12/19 09:02 Glycated Hemoglobin 7.8 % (4.6-6.2) H 10/12/19 09:02 Estim Average Glucose 177 (70-100) H 10/12/19 09:02 Calcium 8.6 mg/dL (8.5-10.3) 10/12/19 09:02 Magnesium 2.1 mg/dL (1.7-2.8) 10/12/19 09:02 Total Bilirubin 0.6 mg/dL (0.2-1.0) 10/11/19 13:57 AST 31 IU/L (10-42) 10/11/19 13:57 ALT 34 IU/L (10-60) 10/11/19 13:57 Alkaline Phosphatase 64 IU/L (42-121) 10/11/19 13:57 B-Natriuretic Peptide 21 pg/mL (5-100) 10/11/19 14:10 Total Protein 6.9 g/dL (6.7-8.2) 10/11/19 13:57 Albumin 3.8 g/dL (3.2-5.5) 10/11/19 13:57 Globulin 3.1 g/dL (2.1-4.2) 10/11/19 13:57 Albumin/Globulin Ratio 1.2 (1.0-2.2) 10/11/19 13:57 Lipase 54 U/L (22-51) H 10/11/19 13:57 - Procedures Procedures: Procedures NON-INVASIVE MECHANICAL VENTILATION (01/10/15) Sepsis Event Note (H) - Evaluation Current Stage of Sepsis: Ruled out ABX Reporting Has patient been on IV antibiotics over the past 48 hours?: Yes Current Medications - Current Medications Current Medications: Active Medications Albuterol () 2.5 mg INH RTQ4H PRN PRN Reason: Wheezing Albuterol/Ipratropium (Duoneb) 3 ml INH RTQID [facility] Last Admin: 10/12/19 15:26 Dose: 3 ml Azithromycin (Zithromax) 250 mg PO DAILY [facility] Last Admin: 10/12/19 08:26 Dose: 250 mg Budesonide (Pulmicort) 0.5 mg INH RTBID [facility] Last Admin: 10/12/19 08:03 Dose: 0.5 mg Citalopram Hydrobromide (Celexa) 10 mg PO DAILY [facility] Cyclobenzaprine HCl (Flexeril) 10 mg PO TID PRN PRN Reason: Spasms Formoterol Fumarate (Perforomist) 20 mcg INH RTBID [facility] Last Admin: 10/12/19 08:03 Dose: 20 mcg Guaifenesin (Mucinex) 600 mg PO BID [facility] Last Admin: 10/12/19 10:43 Dose: 600 mg Sodium Chloride (Normal Saline 0.9%) 1,000 mls @ 83.333 mls/hr IV .Q12H [facility] Stop: 10/12/19 20:59 Last Admin: 10/12/19 10:45 Dose: 83.333 mls/hr Insulin Aspart (Novolog) 1 - 9 unit SUBQ 0800,1200,1700,2100 [facility]; Protocol Last Admin: 10/12/19 11:42 Dose: 5 unit Insulin Glargine (Lantus Solostar) 15 unit SUBQ QPM [facility] Lisinopril (Zestril) 10 mg PO DAILY [facility] Last Admin: 10/12/19 08:26 Dose: 10 mg Lorazepam (Ativan Inj (Vial)) 0.5 mg IVP Q6H PRN PRN Reason: Anxiety Last Admin: 10/12/19 09:47 Dose: 0.5 mg Methylprednisolone (Solu-Medrol (40mg Vial)) 40 mg IVP TID [facility] Last Admin: 10/12/19 14:36 Dose: 40 mg Morphine Sulfate (Morphine (Carpuject)) 2 mg IVP Q2HR PRN PRN Reason: PAIN Last Admin: 10/12/19 14:35 Dose: 2 mg Ondansetron HCl (Zofran Inj) 4 mg IVP Q6HR PRN PRN Reason: Nausea / Vomiting Ondansetron HCl (Zofran Odt) 4 mg TL Q6HR PRN PRN Reason: Nausea / Vomiting Oxycodone HCl (Roxicodone) 5 mg PO Q4HR PRN PRN Reason: Pain 5 to 7 Sodium Chloride (Normal Saline Flush 0.9%) 10 ml IVP PRN PRN PRN Reason: NEEDED PER PROVIDER ORDERS Sodium Chloride (Normal Saline Flush 0.9%) 10 ml IVP 0100,0900,1700 [facility] Last Admin: 10/12/19 08:27 Dose: 10 ml Witch Flower/Glycerin (Tucks) 1 pad TOP PRN PRN PRN Reason: ITCHING Aspirin [Low Dose Aspirin EC] 81 mg PO DAILY 01/10/15 Fluticasone/Salmeterol [Advair 250-50 Diskus] 1 puffs INH BID 01/10/15 Ipratropium/Albuterol Sulfate [Combivent Respimat 20-100 Mcg] 1 puffs INH QID 01/10/15 Lisinopril [Zestril] 10 mg PO DAILY 01/10/15 Albuterol Sulfate 2.5 mg INH Q4H PRN 01/11/15 Pioglitazone HCl [Actos] 30 mg PO DAILY 01/11/15 Albuterol Sulfate [Proair Hfa Inhaler] 2 puffs INH Q4H PRN 04/03/15 Cyclobenzaprine [Flexeril] 5 mg PO TID PRN 09/14/19 glipiZIDE ER [Glucotrol Xl] 2.5 mg PO 0800 09/14/19 metFORMIN [Glucophage] 500 mg PO BIDWM 09/14/19 Furosemide 10/11/19
[2019-10-12] MEDS: CITALOPRAM 10 MG TABLET PO SCH (16:42)
--- NOTE | 2019-10-12 16:48 | ADVANCE CARE PLANNING NOTE ---
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 He was diagnosed with emphysema while he was still in active duty. That is when he can still remember being for short of breath. [place] . And his emphysema has progressed. He was admitted for a long hospital stay in 2016. Overall his status is deteriorated to the point that he spends most of his time in his own home. He's lonely and depressed since his 2 years ago and he doesn't find much to be happy about anymore. He does not like to even get in a car and go for a long drive even if the oxygen tank is with him. Going to doctors offices for visits, or even going to the grocery store has become nearly impossible for him. His daughter drives from [place] to pick him up and take him to pulmonology. She did that on the day of admission and by the time he got ready, into the car, he was so short of breath he called an ambulance instead to bring him to the hospital. He says he is compliant with medications. There is a strong component of anxiety with a shortness of breath. In spite of his nearly monastic existence of being in his apartment all the time, he still finds almita in life. His face lights up when he talks about his twin grandsons. He also talks about the older boys that are the signs of the daughter this in the room with him right now. While he is willing to be DO NOT RESUSCITATE, he says that he still not ready to transition to palliative care or hospice yet. He has not thought about what arrangements he needs to make if he needs more help in the home. He says is very difficult for him to want to ask for help. Objective/Medical Story: This is a gentleman that I met back in December 2015. At that time he had already had severe COPD. 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 He was already short of breath by the time he was in the middle of his service with the [employer]. As time is gone on, he is developed and progressed to COPD. He did meet with Faustina Costello in December 2015 for palliative care consultation. He was anxious, depressed, fearful of the future and what his lung deterioration would mean. At that time his was alive. She 2 years ago. He lives by himself. Daughter lives in [place] and comes on a regular basis or the grandchildren come over to help him with groceries, taking them out. He lives a very solitary life. Does have a caregiver that comes Friday through Friday a couple hours a day. Both he and his daughter agree that there is a strong component of anxiety to his shortness of breath. 1 of the reasons he refuses to leave the apartment is his fear of running out of oxygen. He was just in the hospital September 13 through September 22. He presented with shortness of breath, and blood on the toilet paper on 2 occasions. He had an O2 sat of 80% in spite of being on his usual 2-1/2 L of oxygen. He was brought into the hospital because he was continued to be symptomatic in spite of treatment in the emergency room. Rectal bleeding did stop. COPD exacerbation was gradually tempered and he was able to walk from the bathroom to his room door and out a few feet and back again without feeling like he was completely wiped out. He was sent home on trilogy. Prednisone was tapered. Since being home not much is changed. He and his daughter both state that he is compliant with his medications. She does not see him taking them but she knows that he is nervous enough about his status that he will take them. There is been no antecedent change with regards to fever, chills, and no one else is sick.He has had increased leg edema and his legs have gotten severely puffy. The soles of his feet, the skin between his toes, and the tops of his feet were red and hot feeling but not tender. The skin started peeling off like a sunburn. She went to go pick him up to take him to see his clipper operator. She had come last night, spent the night, and this morning had gotten ready. By the time she got the car ready to go, and came to get him out of the house, he was starting to panic and say that his chest hurt. He describes his chest pain as a "full feeling" "like he is going to pop". It is not pleuritic, stabbing. Every once in all it does feel like there is an elephant sitting on his chest. There is no diaphoresis, sweats, nausea with this. Nonradiating. He really will panic and feel like he is going to . As such she called an ambulance and he was brought to the emergency room. They did give him steroids, nebulizers, and were trying to send him home. But when they tried to road test him his O2 sat was 84% with his usual oxygen and he has been asked to be admitted. Chest x-ray is negative for new infiltrates. He has emphysematous changes without definite superimposed acute findings. He continues to have the left lower lobe nodule. It is a spiculated lesion. He is slightly tachycardic at 101. 2 L nasal cannula results on the 100% saturation. Slight bump in his creatinine of 1.5 and his baseline is 1.0. Sometimes low as 0.9. And random glucose is 197. White cell count is normal. He is now admitted for COPD exacerbation. History - Past Medical History Cardiovascular: +Congestive heart failure:ECHO is 12/2014 had EF 55% and no right sided failure or hypertension 12/2015 had EF 70% and no right sided HTN 08/2019 the same with EF 60-65% without pulm HTN. In spite of this man's COPD he has kept normal pulmonary pressures and no cor pulmonale. Today his BNP is 21. +Hypertension +High cholesterol Respiratory: reports: COPD, Shortness of breath, Other Neuro: reports: None Endocrine/Autoimmune: reports: Type 2 diabetes GI: reports: Cholelithiasis : reports: None HEENT: reports: Chronic hearing loss Psych: reports: Anxiety Musculoskeletal: reports: Chronic back pain Derm: reports: None Goals of Care: 1. He would like to remain as independent as possible and to always remain in his own home. He doubts he will ever want to be placed in a fpc facility for care. 2. To remain DO NOT RESUSCITATE 3. To try and figure out a way to control his anxiety which makes him hyperventilate and destabilize his COPD 4. To improve his cardiopulmonary endurance and be able to do simple things within his own home without getting so short of breath beyond 20 feet Plan: 1. Refer to cardiopulmonary rehab 2. Fill out POLST form 3. Start serotonin reuptake inhibitor and benzodiazepine to control depression with anxiety 4. Consider palliative care consult Code Status: Do Not Attempt Resuscitation Time spent on advance care plannin
--- NOTE | 2019-10-12 19:30 | PHARMACY PROGRESS NOTE ---
- Best Possible Medication History Admit Date and Time: 10/11/19 1731 Processed by: Pharmacy Medication History completed: In progress As the person ultimately responsible for medication therapy, providers are able to order a medication from an existing home medication list in [facility] via the "Reconcile Routine" prior to Confirmation of that medication by customer support analyst. Such practice is discouraged except when the physician, in their clinical judgment, deems that a medical need exists for a medication without regard to previous use.
[2019-10-12] MEDS: SODIUM CHLORIDE FLUSH 0.9% 10 ML SYRINGE IVP PRN (21:02)
[2019-10-12] MEDS: INSULIN GLARGINE 300 UNIT/3 ML PEN SUBQ SCH (21:11)
[2019-10-13 05:01] LABS: BASOPHILS % (AUTO) 0.2 %; HGB - HEMOGLOBIN 9.1 g/dL (14.0-18.0); LYMPHOCYTES # (AUTO) 0.5 10^3/uL (1.5-3.5); LYMPHOCYTES % (AUTO) 4.9 %; MEAN CORPUSCULAR HEMOGLOBIN 28.1 pg (27.0-31.0); MEAN CORPUSCULAR HGB CONC 29.7 g/dL (32.0-36.0); MEAN CORPUSCULAR VOLUME 94.4 fL (80.0-94.0); MEAN PLATELET VOLUME 9.4 fL (7.4-11.4); MONOCYTES # (AUTO) 0.6 10^3/uL (0.0-1.0); MONOCYTES % (AUTO) 5.4 %; NEUTROPHILS # (AUTO) 9.6 10^3/uL (1.5-6.6); NEUTROPHILS % (AUTO) 88.5 %; PLT - PLATELET COUNT 331 10^3/uL (130-450); RED BLOOD COUNT 3.24 10^6/uL (4.70-6.10); RED CELL DISTRIBUTION WIDTH 14.7 % (12.0-15.0); WHITE BLOOD COUNT 10.8 x10^3/uL (4.8-10.8)
[2019-10-13 05:07] LABS: CALCIUM 8.9 mg/dL (8.5-10.3); CREATININE 1.2 mg/dL (0.6-1.2)
[2019-10-13] MEDS: methylPREDNISolone SUCCINATE 40 MG/ML VIAL IVP SCH ×3 (06:54→21:00)
[2019-10-13] MEDS: SODIUM CHLORIDE FLUSH 0.9% 10 ML SYRINGE IVP SCH ×4 (06:55→17:27)
[2019-10-13] MEDS: FORMOTEROL FUMARATE NEB 20 MCG/2 ML INH SCH ×2 (07:45→20:10)
[2019-10-13] MEDS: BUDESONIDE 0.5 MG/2 ML NEB INH SCH ×2 (07:45→20:11)
[2019-10-13] MEDS: IPRATROPIUM/ALBUTEROL 3 ML NEB INH SCH ×4 (07:45→20:11)
[2019-10-13] MEDS: INSULIN ASPART 300 UNIT/3 ML PEN SUBQ SCH ×4 (08:00→20:33)
[2019-10-13] MEDS: MORPHINE 2 MG/ML CARPUJECT IVP PRN ×2 (08:24→16:17)
[2019-10-13] MEDS: AZITHROMYCIN 250 MG TABLET PO SCH (09:16)
[2019-10-13] MEDS: CITALOPRAM 10 MG TABLET PO SCH (09:17)
[2019-10-13] MEDS: guaiFENesin 600 MG TABLET PO SCH ×2 (09:17→20:32)
[2019-10-13] MEDS: lisinopriL 5 MG TABLET PO SCH (09:21)
[2019-10-13] MEDS: LORazepam 2 MG/ML VIAL IVP PRN ×2 (10:20→19:13)
[2019-10-13] MEDS ORDERED: SODIUM POLYSTYRENE SULFONATE 15 GM/60 ML BOTTLE PO ONE (11:26)
[2019-10-13] MEDS ORDERED: SODIUM CHLORIDE 0.9% 1,000 ML IV SCH (12:00)
--- NOTE | 2019-10-13 12:29 | PROVIDER PROGRESS NOTE ---
Subjective - Prog Note Date Prog Note Date: 10/13/19 - Subjective Pt reports feeling: No change Subjective: pt has some difficult to use Triligen at last night. I asked pt's daughter if pt see his gift officer for further evaluation of his spiculated lesion on his left lower lobe, per discussed with pt and his daughter on last discharge. pt's daughter state pt did not see his gift officer on Friday instead he went to hospital. Advise pt and pt's daughter still need see his gift officer for further evaluation of his left lower lobe lesion. Both understand this. Current Medications - Current Medications Current Medications: Active Medications Albuterol () 2.5 mg INH RTQ4H PRN PRN Reason: Wheezing Albuterol/Ipratropium (Duoneb) 3 ml INH RTQID [facility] Last Admin: 10/13/19 10:57 Dose: 3 ml Azithromycin (Zithromax) 250 mg PO DAILY [facility] Last Admin: 10/13/19 09:16 Dose: 250 mg Budesonide (Pulmicort) 0.5 mg INH RTBID [facility] Last Admin: 10/13/19 07:45 Dose: 0.5 mg Citalopram Hydrobromide (Celexa) 10 mg PO DAILY [facility] Last Admin: 10/13/19 09:17 Dose: 10 mg Cyclobenzaprine HCl (Flexeril) 10 mg PO TID PRN PRN Reason: Spasms Enoxaparin Sodium (Lovenox) 40 mg SUBQ DAILY [facility] Formoterol Fumarate (Perforomist) 20 mcg INH RTBID [facility] Last Admin: 10/13/19 07:45 Dose: 20 mcg Guaifenesin (Mucinex) 600 mg PO BID [facility] Last Admin: 10/13/19 09:17 Dose: 600 mg Sodium Chloride (Normal Saline 0.9%) 1,000 mls @ 75 mls/hr IV .[id number] [facility] Stop: 10/14/19 01:19 Insulin Aspart (Novolog) 2 - 10 unit SUBQ 0800,1200,1700,2100 [facility]; Protocol Last Admin: 10/13/19 12:01 Dose: 4 unit Insulin Glargine (Lantus Solostar) 15 unit SUBQ QPM [facility] Last Admin: 10/12/19 21:11 Dose: 15 unit Lisinopril (Zestril) 10 mg PO DAILY [facility] Last Admin: 10/13/19 09:21 Dose: 10 mg Lorazepam (Ativan Inj (Vial)) 0.5 mg IVP Q6H PRN PRN Reason: Anxiety Last Admin: 10/13/19 10:20 Dose: 0.5 mg Methylprednisolone (Solu-Medrol (40mg Vial)) 40 mg IVP TID [facility] Last Admin: 10/13/19 06:54 Dose: 40 mg Morphine Sulfate (Morphine (Carpuject)) 2 mg IVP Q2HR PRN PRN Reason: Shortness of Air/Wheezing Last Admin: 10/13/19 08:24 Dose: 2 mg Nystatin (Mycostatin Cream) 1 applic TOP BID [facility] Ondansetron HCl (Zofran Inj) 4 mg IVP Q6HR PRN PRN Reason: Nausea / Vomiting Ondansetron HCl (Zofran Odt) 4 mg TL Q6HR PRN PRN Reason: Nausea / Vomiting Oxycodone HCl (Roxicodone) 5 mg PO Q4HR PRN PRN Reason: Pain 5 to 7 Sodium Chloride (Normal Saline Flush 0.9%) 10 ml IVP PRN PRN PRN Reason: NEEDED PER PROVIDER ORDERS Last Admin: 10/12/19 21:02 Dose: 10 ml Sodium Chloride (Normal Saline Flush 0.9%) 10 ml IVP 0100,0900,1700 [facility] Last Admin: 10/13/19 08:24 Dose: 10 ml Witch Flower/Glycerin (Tucks) 1 pad TOP PRN PRN PRN Reason: ITCHING Aspirin [Low Dose Aspirin EC] 81 mg PO DAILY 01/10/15 Fluticasone/Salmeterol [Advair 250-50 Diskus] 1 puffs INH BID 01/10/15 Ipratropium/Albuterol Sulfate [Combivent Respimat 20-100 Mcg] 1 puffs INH QID 01/10/15 Lisinopril [Zestril] 10 mg PO DAILY 01/10/15 Albuterol Sulfate [Proair Hfa Inhaler] 1 - 2 puffs INH Q4H PRN 04/03/15 metFORMIN [Glucophage] 500 mg PO BID 09/14/19 Furosemide 20 mg PO BID 10/11/19 Azithromycin 250 mg PO MOWEFR 10/12/19 Glipizide [Glipizide Xl] 2.5 mg PO DAILY 10/12/19 Pioglitazone HCl 45 mg PO DAILY 10/12/19 guaiFENesin [Mucinex] 600 mg PO BID PRN 10/12/19 Objective - Vital Signs/Intake & Output Reviewed Vital Signs: Yes Vital Signs: Vital Signs x48h Temp Pulse Pulse Pulse Pulse Pulse Resp 10/13/19 11:12 113 H 109 H 104 H 10/13/19 10:57 100 16 10/13/19 07:45 79 20 10/13/19 07:21 36.5 C 90 19 10/13/19 05:07 36.5 C 90 20 BP Pulse Ox Pulse Ox Pulse Ox Pulse Ox 10/13/19 11:12 99 99 96 10/13/19 10:57 10/13/19 07:45 10/13/19 07:21 124/62 93 10/13/19 05:07 108/54 L 97 Intake & Output: Intake & Output 10/10/19 10/11/19 10/12/19 10/13/19 23:59 23:59 23:59 23:59 Intake Total 2746.000 230 Output Total 275 250 550 Balance -275 2496.000 -320 - Objective General Appearance: positive: No acute distress, Alert. negative: Lethargic Eyes Bilateral: positive: Normal inspection, PERRL, EOMI, No lid inflammation ENT: positive: ENT inspection nml, Pharynx nml, No signs of dehydration. negative: Purulent nasal drainage Neck: positive: Nml inspection, Thyroid nml, No JVD, Trachea midline. negative: Thyromegaly, Lymphadenopathy (R), Lymphadenopathy (L), Stiff neck, Tracheal deviation Respiratory: positive: Chest non-tender, Rales. negative: No respiratory distress, Breath sounds nml, Wheezes, Rhonchi Cardiovascular: positive: Regular rate & rhythm, No murmur, No gallop, Ta chycardia. negative: Irregularly irregular, Extrasystoles, Bradycardia, JVD present, Systolic murmur, Diastolic murmur Peripheral Pulses: 2+ Radial (R), 2+ Radial (L), 2+ Dorsalis pedis (R), 2+ Dorsalis pedis (L) Abdomen: positive: Non-tender, No organomegaly, Nml bowel sounds, No distention. negative: Tenderness, Guarding, Rebound Back: positive: Nml inspection. negative: CVA tenderness (R), CVA tenderness (L) Skin: positive: Color nml, No rash, Warm, Dry. negative: Cyanosis, Diaphoresis, Pallor Extremities: positive: Non-tender, Full ROM, Other (bilateral lower extremities are dry. bilteral foot are mild chronic erythema, edema plus one, possible tinea unguium in his toes). negative: Calf tenderness, Adenike's sign/cords Neurologic/Psychiatric: positive: Oriented x3, Sensation nml, Mood/affect nml. negative: Weakness, Sensory loss, Facial droop, Slurred/abnml speech, Depressed mood/affect - Lab Results Fish Bones: 10/13/19 04:45 10/13/19 04:45 Other Labs: Lab Results x24hrs 10/13/19 10/13/19 10/13/19 Range/Units 11:40 11:09 07:38 WBC (4.8-10.8) x10^3/uL RBC (4.70-6.10) 10^6/uL Hgb (14.0-18.0) g/dL Hct (42.0-52.0) % MCV (80.0-94.0) fL MCH (27.0-31.0) pg MCHC (32.0-36.0) g/dL RDW (12.0-15.0) % Plt Count (130-450) 10^3/uL MPV (7.4-11.4) fL Neut # (Auto) (1.5-6.6) 10^3/uL Lymph # (Auto) (1.5-3.5) 10^3/uL Hardee # (Auto) (0.0-1.0) 10^3/uL Eos # (Auto) (0.0-0.7) 10^3/uL Baso # (Auto) (0.0-0.1) 10^3/uL Absolute Nucleated RBC x10^3/uL Nucleated RBC % /100WBC Sodium (135-145) mmol/L Potassium (3.5-5.0) mmol/L Chloride (101-111) mmol/L Carbon Dioxide (21-32) mmol/L Anion Gap (6-13) BUN (6-20) mg/dL Creatinine (0.6-1.2) mg/dL Estimated GFR (MDRD) (>89) Glucose (70-100) mg/dL POC Whole Bld Glucose 215 H 104 H (70 - 100) mg/dL Calcium (8.5-10.3) mg/dL Troponin I High Sens 15.0 (2.3-19.7) ng/L 10/13/19 10/13/19 10/12/19 Range/Units 04:45 04:45 20:47 WBC 10.8 (4.8-10.8) x10^3/uL RBC 3.24 L (4.70-6.10) 10^6/uL Hgb 9.1 L (14.0-18.0) g/dL Hct 30.6 L (42.0-52.0) % MCV 94.4 H (80.0-94.0) fL MCH 28.1 (27.0-31.0) pg MCHC 29.7 L (32.0-36.0) g/dL RDW 14.7 (12.0-15.0) % Plt Count 331 (130-450) 10^3/uL MPV 9.4 (7.4-11.4) fL Neut # (Auto) 9.6 H (1.5-6.6) 10^3/uL Lymph # (Auto) 0.5 L (1.5-3.5) 10^3/uL Hardee # (Auto) 0.6 (0.0-1.0) 10^3/uL Eos # (Auto) 0.0 (0.0-0.7) 10^3/uL Baso # (Auto) 0.0 (0.0-0.1) 10^3/uL Absolute Nucleated RBC 0.00 x10^3/uL Nucleated RBC % 0.0 /100WBC Sodium 139 (135-145) mmol/L Potassium 5.2 H (3.5-5.0) mmol/L Chloride 100 L (101-111) mmol/L Carbon Dioxide 33 H (21-32) mmol/L Anion Gap 6.0 (6-13) BUN 24 H (6-20) mg/dL Creatinine 1.2 (0.6-1.2) mg/dL Estimated GFR (MDRD) 59 L (>89) Glucose 138 H (70-100) mg/dL POC Whole Bld Glucose 215 H (70 - 100) mg/dL Calcium 8.9 (8.5-10.3) mg/dL Troponin I High Sens (2.3-19.7) ng/L 10/12/19 10/12/19 10/12/19 Range/Units 16:31 11:34 08:05 WBC (4.8-10.8) x10^3/uL RBC (4.70-6.10) 10^6/uL Hgb (14.0-18.0) g/dL Hct (42.0-52.0) % MCV (80.0-94.0) fL MCH (27.0-31.0) pg MCHC (32.0-36.0) g/dL RDW (12.0-15.0) % Plt Count (130-450) 10^3/uL MPV (7.4-11.4) fL Neut # (Auto) (1.5-6.6) 10^3/uL Lymph # (Auto) (1.5-3.5) 10^3/uL Hardee # (Auto) (0.0-1.0) 10^3/uL Eos # (Auto) (0.0-0.7) 10^3/uL Baso # (Auto) (0.0-0.1) 10^3/uL Absolute Nucleated RBC x10^3/uL Nucleated RBC % /100WBC Sodium (135-145) mmol/L Potassium (3.5-5.0) mmol/L Chloride (101-111) mmol/L Carbon Dioxide (21-32) mmol/L Anion Gap (6-13) BUN (6-20) mg/dL Creatinine (0.6-1.2) mg/dL Estimated GFR (MDRD) (>89) Glucose (70-100) mg/dL POC Whole Bld Glucose 225 H 272 H 195 H (70 - 100) mg/dL Calcium (8.5-10.3) mg/dL Troponin I High Sens (2.3-19.7) ng/L 10/11/19 Range/Units 21:15 WBC (4.8-10.8) x10^3/uL RBC (4.70-6.10) 10^6/uL Hgb (14.0-18.0) g/dL Hct (42.0-52.0) % MCV (80.0-94.0) fL MCH (27.0-31.0) pg MCHC (32.0-36.0) g/dL RDW (12.0-15.0) % Plt Count (130-450) 10^3/uL MPV (7.4-11.4) fL Neut # (Auto) (1.5-6.6) 10^3/uL Lymph # (Auto) (1.5-3.5) 10^3/uL Hardee # (Auto) (0.0-1.0) 10^3/uL Eos # (Auto) (0.0-0.7) 10^3/uL Baso # (Auto) (0.0-0.1) 10^3/uL Absolute Nucleated RBC x10^3/uL Nucleated RBC % /100WBC Sodium (135-145) mmol/L Potassium (3.5-5.0) mmol/L Chloride (101-111) mmol/L Carbon Dioxide (21-32) mmol/L Anion Gap (6-13) BUN (6-20) mg/dL Creatinine (0.6-1.2) mg/dL Estimated GFR (MDRD) (>89) Glucose (70-100) mg/dL POC Whole Bld Glucose 350 H (70 - 100) mg/dL Calcium (8.5-10.3) mg/dL Troponin I High Sens (2.3-19.7) ng/L ABX Reporting Has patient been on IV antibiotics over the past 48 hours?: No Sepsis Event Note (H) - Evaluation Current Stage of Sepsis: Ruled out Assessment/Plan - Problem List (1) COPD exacerbation Impression: 10/13 pt need 2.5-3.5 of liter of O2 to remain his 93% sats. consult with RT for pt's home Triligen for appropriate usage. RT will call the company to provide the detail information for pt appropriately use the Triligen machine. continue steroids, oral azithromycin inhaled LABA + inhaled steroids called Palliative care re-consult, will pt on today. recurrent of COPD. CXR does not have infiltrate. continue steroids tid for 1 day then bid, then qd IVF for 1 liter oral azithromycin inhaled LABA + inhaled steroids called Palliative care re-consult, will pt on tomorrow. He was seen 12/2015 but no further visits. (2) Acute on chronic kidney failure Conclusion/Plan: 10/13 improved. creatinine is 1.2 from 1.5 at the admission. Plan: check labs in am hydrate w 1 liter IVF (3) Type 2 diabetes mellitus with neurologic complication, with long-term current use of insulin Conclusion/Plan: A1c is 7.8. pt did not take insulin at home. but pt is on steroid now stop oral meds for now change to lantus 15 unit on PM and SS insulin. continue hypoglycemia protocol continue ACHS to check glucose level (4) Hypertension Conclusion/Plan: controlled. no change in lisinopril (5) Heart failure with preserved ejection fraction Conclusion/Plan: ECHO is 12/2014 had EF 55% and no right sided failure or hypertension 12/2015 had EF 70% and no right sided HTN 08/2019 the same with EF 60-65% without pulm HTN. In spite of this man's COPD he has kept nomrla pulmonary pressures and no cor pulmonale. Today his BNP is 21. continue, watch for fluid overlodad, gently hydration for his MIGUEL ANGEL, and hold diuretic at this time for his MIGUEL ANGEL (6) Anxiety about health Conclusion/Plan: 10/13 continue Ativan and Morphine. we might schedule ativan and morphine the meds for pt continue Citalopram pt's sudden SOB as last admission and today morning episode is more likely caused by pt's anxiety and panic. ABGs reveals mild respiratory distress which is not matched his clinic presentation. agree Dr. Solis's analysis: In reviewing the objective data on this gentleman he has a really good right heart system, with no right-sided heart failure. There is no pulmonary hypertension. If his COPD is severe enough to be end- stage, I would think that he would have pulmonary hypertension with right-sided heart failure. He does not. He also only requires 2 L to 2-1/2 L to maintain O2 sats. Most of his decompensation is in the face of a sensation of chest tightness and pressure when he starts to hyperventilate and panic. Plan: Cardiopulmonary rehab strongly recommended Start citalopram Consider low-dose benzodiazepine PRN now start Morphine PRN (7) spiculated lesion on left lower lobe pt had 1.4 cm spiculated lesion at left lower lobe on CT of chest on 10/16/19. I asked pt's daughter if pt see his gift officer for further evaluation of his spiculated lesion on his left lower lobe, per discussed with pt and his daughter on last discharge. pt's daughter state pt did not see his gift officer on Friday instead he went to hospital. Advise pt and pt's daughter still need see his gift officer for further evaluation of his left lower lobe lesion. Both understand this.
[2019-10-13] MEDS: NYSTATIN CREAM 15 GM TUBE TOP SCH ×2 (12:30→20:34)
[2019-10-13] MEDS ORDERED: CALCIUM CARBONATE CHEW 500 MG TABLET PO PRN (12:54)
--- NOTE | 2019-10-13 15:40 | CONSULTATION NOTE ---
Palliative Care Consultation - Referral Referring Provider: Lucas DAVIS Time of Visit: 1107-4801 Referral setting: Hospitalized patient Referral Reason: Advanced COPD/Goals of Care - Information Sources Records reviewed: Previous records reviewed History/Review of Systems obtained from: Patient, Family (daughter Sophia) Exam limitations: Clinical condition (patient lethargic and with respiratory effort;) - History of Present Illness Brief History of Present Illness: This is a 73-year-old gentleman with advanced COPD, admitted acutely for hypoxia, increased anxiety, worsening chest pain exacerbated with inspiration, also describes across upper abdomen. Patient was just recently hospitalized 09/13 to 09/22, for similar symptoms as well as rectal bleeding. This stay though did include an ICU stay for noted respiratory failure with hypoxia. He did have functional decline, and was discharged home, did have some improvement as far as his ability to ambulate short distances but has remained quite weak, and also presents with weight loss of 13 pounds. Patient symptom burden is fairly high, he has severe dyspnea with any kind of activity, he has poor activity tolerance which includes ambulation, ADLs, severe anxiety, and persistent depressive symptoms. Patient has needed increased support since last discharge, his sister came for couple weeks, he does have a caregiver he has had for 2 years, who comes 2 to 3 hours a day. His daughter has been providing more support, the patient's goals are to remain independent. Patient has had steady decline, daughter's understanding from engineer technician, is he is essentially on the last frontier as far as medications, trilogy, and ability impact or improve his underlying disease process. Palliative care meeting with patient and daughter to establish rapport, and goals of care. Patient's understanding of his disease, as he is quite ill, and is hoping to be able to feel independent again, he is expressing the desire to return home. And is drifting off quite frequently, is unable to stay engaged in conversation, most of the history and information is obtained from his daughter Sophia. She is his D POA and has actually quite a bit of insight into his ongoing decline. She reports his symptom burden is very high, that he has about 20% of his lung function, and often is gasping with any kind of activity. Medical/Surgical History - Past Medical History Cardiovascular: reports: Congestive heart failure, Hypertension, High cholesterol Respiratory: reports: COPD, Shortness of breath, Other Neuro: None Endocrine/Autoimmune: reports: Type 2 diabetes GI: reports: Cholelithiasis : reports: None HEENT: reports: Chronic hearing loss Psych: reports: Depression, Anxiety Musculoskeletal: reports: Osteoarthritis, Fatigue, Chronic back pain Derm: reports: None MRSA Hx?: No Other Past Medical History: COPD, shortness of breath, vision, & hearing loss. - Substance History Use: Uses substance without health or social issues: NONE Abuse: Recurrent use of substance despite neg consequences: NONE Dependence: Experiences withdrawal or developed tolerances: NONE Social History - Living Situation Living arrangement: At home Living Situation: Alone Support System: Patient is retired Mel[employer], his who remarried in 1973, and took on her 3 children from the [facility], 2 years ago. Daughter believes that this was his reason for living, despite being told he had end-stage disease in 2016. She is quite devoted, as he has been her dad for 10 years, there are 2 other siblings, unfortunately 1 of her brothers has had a stroke recently. Patient does have 3 sisters still living, and are available to help some with caregiving. She feels he "still has things to live for", as he still enjoys his grandchildren, though does admit patient has been on a fairly steep decline, with increasing dyspnea, isolation, and worsening functional status. Family History - Family History Family History: Mother: (black lung disease), CAD, Diabetes, Type 2, Father: , Sister: Alive and Well (lung cancer) Medications/Allergies - Medications Active Medication List: Active Medications Albuterol () 2.5 mg INH RTQ4H PRN PRN Reason: Wheezing Albuterol/Ipratropium (Duoneb) 3 ml INH RTQID [facility] Last Admin: 10/13/19 10:57 Dose: 3 ml Azithromycin (Zithromax) 250 mg PO DAILY [facility] Last Admin: 10/13/19 09:16 Dose: 250 mg Budesonide (Pulmicort) 0.5 mg INH RTBID [facility] Last Admin: 10/13/19 07:45 Dose: 0.5 mg Calcium Carbonate/Glycine (Tums) 500 mg PO BID PRN PRN Reason: Heartburn Citalopram Hydrobromide (Celexa) 10 mg PO DAILY [facility] Last Admin: 10/13/19 09:17 Dose: 10 mg Cyclobenzaprine HCl (Flexeril) 10 mg PO TID PRN PRN Reason: Spasms Enoxaparin Sodium (Lovenox) 40 mg SUBQ DAILY [facility] Formoterol Fumarate (Perforomist) 20 mcg INH RTBID [facility] Last Admin: 10/13/19 07:45 Dose: 20 mcg Guaifenesin (Mucinex) 600 mg PO BID [facility] Last Admin: 10/13/19 09:17 Dose: 600 mg Sodium Chloride (Normal Saline 0.9%) 1,000 mls @ 75 mls/hr IV [id number] [facility] Stop: 10/14/19 01:19 Last Admin: 10/13/19 12:30 Dose: 75 mls/hr Insulin Aspart (Novolog) 2 - 10 unit SUBQ 0800,1200,1700,2100 [facility]; Protocol Last Admin: 10/13/19 12:01 Dose: 4 unit Insulin Glargine (Lantus Solostar) 15 unit SUBQ QPM [facility] Last Admin: 10/12/19 21:11 Dose: 15 unit Lisinopril (Zestril) 10 mg PO DAILY [facility] Last Admin: 10/13/19 09:21 Dose: 10 mg Lorazepam (Ativan Inj (Vial)) 0.5 mg IVP Q6H PRN PRN Reason: Anxiety Last Admin: 10/13/19 10:20 Dose: 0.5 mg Methylprednisolone (Solu-Medrol (40mg Vial)) 40 mg IVP TID [facility] Last Admin: 10/13/19 15:04 Dose: 40 mg Morphine Sulfate (Morphine (Carpuject)) 2 mg IVP Q2HR PRN PRN Reason: Shortness of Air/Wheezing Last Admin: 10/13/19 08:24 Dose: 2 mg Nystatin (Mycostatin Cream) 1 applic TOP BID [facility] Last Admin: 10/13/19 12:30 Dose: 1 applic Ondansetron HCl (Zofran Inj) 4 mg IVP Q6HR PRN PRN Reason: Nausea / Vomiting Ondansetron HCl (Zofran Odt) 4 mg TL Q6HR PRN PRN Reason: Nausea / Vomiting Oxycodone HCl (Roxicodone) 5 mg PO Q4HR PRN PRN Reason: Pain 5 to 7 Sodium Chloride (Normal Saline Flush 0.9%) 10 ml IVP PRN PRN PRN Reason: NEEDED PER PROVIDER ORDERS Last Admin: 10/12/19 21:02 Dose: 10 ml Sodium Chloride (Normal Saline Flush 0.9%) 10 ml IVP 0100,0900,1700 [facility] Last Admin: 10/13/19 15:04 Dose: 10 ml Witch Flower/Glycerin (Tucks) 1 pad TOP PRN PRN PRN Reason: ITCHING Aspirin [Low Dose Aspirin EC] 81 mg PO DAILY 01/10/15 Fluticasone/Salmeterol [Advair 250-50 Diskus] 1 puffs INH BID 01/10/15 Ipratropium/Albuterol Sulfate [Combivent Respimat 20-100 Mcg] 1 puffs INH QID 01/10/15 Lisinopril [Zestril] 10 mg PO DAILY 01/10/15 Albuterol Sulfate [Proair Hfa Inhaler] 1 - 2 puffs INH Q4H PRN 04/03/15 metFORMIN [Glucophage] 500 mg PO BID 09/14/19 Furosemide 20 mg PO BID 10/11/19 Azithromycin 250 mg PO MOWEFR 10/12/19 Glipizide [Glipizide Xl] 2.5 mg PO DAILY 10/12/19 Pioglitazone HCl 45 mg PO DAILY 10/12/19 guaiFENesin [Mucinex] 600 mg PO BID PRN 10/12/19 - Allergies Allergies/Adverse Reactions: Allergies Allergy/AdvReac Type Severity Reaction Status Date / Time acetaminophen AdvReac Hives Verified 10/11/19 18:40 [id number]-Lrl Reductase AdvReac Cramps Verified 10/11/19 14:04 Inhibitor Review of Systems - Constitutional Constitutional: reports: Fatigue, Weight loss (last admit was 63.5; today 57.5). denies: Fever, Chills - Eyes Eyes: reports: Vision loss - Ears, Nose & Throat Ears, Nose & Throat: reports: Hearing loss, Dry mouth - Cardiovascular Cardiovascular: reports: Chest pain (reports both patient more upper abdominal; daughter reports exacerbates with COPD exacerbation as part of constellation of symptoms), Decr. exercise tolerance - Respiratory Respiratory: reports: Wheezing, Orthopnea, SOB at rest, SOB with exertion - Gastrointestinal Gastrointestinal: reports: Abdominal distention, Poor appetite, Early satiety - Genitourinary Genitourinary: reports: Frequency - Musculoskeletal Musculoskeletal: reports: Muscle weakness, Assistive devices (has walker and equipment at home) - Integumentary Integumentary: reports: Dryness - Neurological Neurological: reports: General weakness, Memory problems (fluctuating per daughter) - Psychiatric Psychiatric: reports: Depression, Anxiety - Endocrine Endocrine: reports: Diabetes type 2 (patient manages at home), Intolerance to h eat - Hematologic/Lymphatic Hematologic/Lymphatic: reports: Anemia - All Other Systems All Other Systems: reports: Other (limited ROS with patient lethargy) Physical Exam - Vital Signs Vital Signs: Vital Signs x48h Temp Pulse Pulse Pulse Pulse Pulse Resp 10/13/19 13:47 10/13/19 12:50 36.6 C 113 H 20 10/13/19 11:12 113 H 109 H 104 H 10/13/19 10:57 100 16 10/13/19 10:20 113 H 104 H 10/13/19 07:45 79 20 BP Pulse Ox Pulse Ox Pulse Ox Pulse Ox 10/13/19 13:47 113/32 L 10/13/19 12:50 94 10/13/19 11:12 99 99 96 10/13/19 10:57 10/13/19 10:20 10/13/19 07:45 - Physical Exam General Appearance: positive: Moderate distress, Anxious, Lethargic Eyes Bilateral: positive: Other (kept eyes closed most of visit) Neck: positive: Trachea midline Cardiovascular: positive: Regular rate & rhythm, Tachycardia Respiratory: positive: Diminished throughout, Wheezes (audidble without stethscope). negative: No respiratory distress (patient with respiratory effort; even when sleeping; heavy labored breaths) Abdomen: positive: Soft, Nml bowel sounds, Taut Skin: positive: Pallor, Dryness, Bruising Extremities: positive: No pedal edema Neurologic/Psychiatric: positive: Disoriented to time, Weakness, Slurred/abnml speech, Depressed mood/affect, Flat affect Palliative Care - POLST Patient has POLST: Yes POLST Status: DNR, Selective Treatment (filled out 01/16/2016 with hospitalis for DNAR/ Bipap only no intubation; okay for AB and no medically assisted nutrition) Pain: Location (pain in chest/upper abdomen worsens with respiratory effort; anxiety;) Tiredness/Fatigue: Severe (7-10) Drowsiness/Sedation: Severe (7-10) Dyspnea: Severe (7-10) Depression: Severe (7-10) Anxiety: Severe (7-10) Feelings of wellbeing/Perceived Quality of Life: Poor, Worsening Constipation: Yes (no BM for two days) Performance Status: He has had a decline in his functional status overall, he is able to ambulate short distances in his house, he has declined SNF though has had it in the past. And if he does go out, he is quite fearful of running out of oxygen, his daughter does live in [place] but talks to him daily, as well as visits frequently. He does have some caregiving support, he tries to be quite independent, though does appear no preparation is more difficult and can be adding to his factors for weight loss. - Palliative Care Discussion: Discussion for goals, was mostly done with Sophia, patient drifted in and out. We did discuss the pros and cons of SNF versus home health team support, she feels he would not choose to go to a SNF. We did discuss support through RN, PT, OT, and home health aide that it is covered to his Medicare a benefit, and would be able to pace his recovery and goals accordingly to his energy. Initiated conversation regarding anticipatory guidance, she does understand he is most likely not to improve, she does understand he has a spiculated left lower lobe nodule, but it his underlying COPD and severity is more of a focus at this point. Patient does have severe anxiety, which feeds into his breathlessness and activity tolerance, he has been started on citalopram and lorazepam. Did initiate conversation regarding transition and continuum of care of palliative versus hospice, she does feel most likely home health team support and palliative support would meet their current goals. Patient is a do not attempt resuscitation, she does feel she understands most likely what he would want if he were not able to speak for himself. She does present with some caregiver fatigue, her mother did have hospice for about 3 days, and she did help with her care and her last weeks to months. Results - Lab Results Lab results reviewed: Yes Fish Bones: 10/13/19 04:45 10/13/19 04:45 Lab and Imaging Results: Lab Results x24hrs 10/13/19 10/13/19 10/13/19 Range/Units 11:40 11:09 07:38 WBC (4.8-10.8) x10^3/uL RBC (4.70-6.10) 10^6/uL Hgb (14.0-18.0) g/dL Hct (42.0-52.0) % MCV (80.0-94.0) fL MCH (27.0-31.0) pg MCHC (32.0-36.0) g/dL RDW (12.0-15.0) % Plt Count (130-450) 10^3/uL MPV (7.4-11.4) fL Neut # (Auto) (1.5-6.6) 10^3/uL Lymph # (Auto) (1.5-3.5) 10^3/uL Yolo # (Auto) (0.0-1.0) 10^3/uL Eos # (Auto) (0.0-0.7) 10^3/uL Baso # (Auto) (0.0-0.1) 10^3/uL Absolute Nucleated RBC x10^3/uL Nucleated RBC % /100WBC Sodium (135-145) mmol/L Potassium (3.5-5.0) mmol/L Chloride (101-111) mmol/L Carbon Dioxide (21-32) mmol/L Anion Gap (6-13) BUN (6-20) mg/dL Creatinine (0.6-1.2) mg/dL Estimated GFR (MDRD) (>89) Glucose (70-100) mg/dL POC Whole Bld Glucose 215 H 104 H (70 - 100) mg/dL Calcium (8.5-10.3) mg/dL Troponin I High Sens 15.0 (2.3-19.7) ng/L 10/13/19 10/13/19 10/12/19 Range/Units 04:45 04:45 20:47 WBC 10.8 (4.8-10.8) x10^3/uL RBC 3.24 L (4.70-6.10) 10^6/uL Hgb 9.1 L (14.0-18.0) g/dL Hct 30.6 L (42.0-52.0) % MCV 94.4 H (80.0-94.0) fL MCH 28.1 (27.0-31.0) pg MCHC 29.7 L (32.0-36.0) g/dL RDW 14.7 (12.0-15.0) % Plt Count 331 (130-450) 10^3/uL MPV 9.4 (7.4-11.4) fL Neut # (Auto) 9.6 H (1.5-6.6) 10^3/uL Lymph # (Auto) 0.5 L (1.5-3.5) 10^3/uL Yolo # (Auto) 0.6 (0.0-1.0) 10^3/uL Eos # (Auto) 0.0 (0.0-0.7) 10^3/uL Baso # (Auto) 0.0 (0.0-0.1) 10^3/uL Absolute Nucleated RBC 0.00 x10^3/uL Nucleated RBC % 0.0 /100WBC Sodium 139 (135-145) mmol/L Potassium 5.2 H (3.5-5.0) mmol/L Chloride 100 L (101-111) mmol/L Carbon Dioxide 33 H (21-32) mmol/L Anion Gap 6.0 (6-13) BUN 24 H (6-20) mg/dL Creatinine 1.2 (0.6-1.2) mg/dL Estimated GFR (MDRD) 59 L (>89) Glucose 138 H (70-100) mg/dL POC Whole Bld Glucose 215 H (70 - 100) mg/dL Calcium 8.9 (8.5-10.3) mg/dL Troponin I High Sens (2.3-19.7) ng/L 10/12/19 10/12/19 10/12/19 Range/Units 16:31 11:34 08:05 WBC (4.8-10.8) x10^3/uL RBC (4.70-6.10) 10^6/uL Hgb (14.0-18.0) g/dL Hct (42.0-52.0) % MCV (80.0-94.0) fL MCH (27.0-31.0) pg MCHC (32.0-36.0) g/dL RDW (12.0-15.0) % Plt Count (130-450) 10^3/uL MPV (7.4-11.4) fL Neut # (Auto) (1.5-6.6) 10^3/uL Lymph # (Auto) (1.5-3.5) 10^3/uL [place]olo # (Auto) (0.0-1.0) 10^3/uL Eos # (Auto) (0.0-0.7) 10^3/uL Baso # (Auto) (0.0-0.1) 10^3/uL Absolute Nucleated RBC x10^3/uL Nucleated RBC % /100WBC Sodium (135-145) mmol/L Potassium (3.5-5.0) mmol/L Chloride (101-111) mmol/L Carbon Dioxide (21-32) mmol/L Anion Gap (6-13) BUN (6-20) mg/dL Creatinine (0.6-1.2) mg/dL Estimated GFR (MDRD) (>89) Glucose (70-100) mg/dL POC Whole Bld Glucose 225 H 272 H 195 H (70 - 100) mg/dL Calcium (8.5-10.3) mg/dL Troponin I High Sens (2.3-19.7) ng/L 10/11/19 Range/Units 21:15 WBC (4.8-10.8) x10^3/uL RBC (4.70-6.10) 10^6/uL Hgb (14.0-18.0) g/dL Hct (42.0-52.0) % MCV (80.0-94.0) fL MCH (27.0-31.0) pg MCHC (32.0-36.0) g/dL RDW (12.0-15.0) % Plt Count (130-450) 10^3/uL MPV (7.4-11.4) fL Neut # (Auto) (1.5-6.6) 10^3/uL Lymph # (Auto) (1.5-3.5) 10^3/uL [place] # (Auto) (0.0-1.0) 10^3/uL Eos # (Auto) (0.0-0.7) 10^3/uL Baso # (Auto) (0.0-0.1) 10^3/uL Absolute Nucleated RBC x10^3/uL Nucleated RBC % /100WBC Sodium (135-145) mmol/L Potassium (3.5-5.0) mmol/L Chloride (101-111) mmol/L Carbon Dioxide (21-32) mmol/L Anion Gap (6-13) BUN (6-20) mg/dL Creatinine (0.6-1.2) mg/dL Estimated GFR (MDRD) (>89) Glucose (70-100) mg/dL POC Whole Bld Glucose 350 H (70 - 100) mg/dL Calcium (8.5-10.3) mg/dL Troponin I High Sens (2.3-19.7) ng/L Impression and Recommendations - Palliative Care Impression: This is a 73-year-old gentleman who presents with advanced COPD, and high symptom burden. He has significant fatigue, dyspnea, depression, anxiety, and acute on chronic pain. He has had fairly steady functional decline, now more acute as far as being able to meet his ADLs and continue to be independent. Patient would benefit from further palliative support in transition back to his home setting given the severity of his illness. Recommendations/Counseling Done: 1. Stage IV COPD. Patient presents with second acute hospitalization within a month, with acute on chronic respiratory failure, increasing symptom burden, functional decline, and dyspnea at rest. Patient has had difficulty complying with his trilogy, and presents with audible wheezing. Patient at high risk for continued sequela and decline, daughter does recognize the seriousness of the illness, and patient presents with high anxiety. Patient is being transition to new engineer technician, at this point in time though he is a DNA R, is excepting rehospitalization for management of acute symptoms. They appreciated there conversation with Dr. Solis to help further with their understanding. Counseling provided regarding disease trajectory, anticipatory guidance, and weighing benefits and burdens of decisions as they present themselves. Encouraged continued revisitation of goals, in the context of patient's definiti on of quality of life. 2. Severe anxiety. Patient is being started on an SSRI, and in agreement will benefit long-term, currently managed acutely with benzodiazepines and morphine, will need reevaluation if patient would benefit for PRN dosing for acute anxiety/breathlessness. Patient does live at home by himself, will need to revisit this in the context of safety and or oversight. 3. Generalized weakness. Patient presents with functional decline, had a brief respite after her last hospitalization, now remains quite bedbound. At baseline only able to ambulate 10 to 15 feet, without "gasping". Would recommend home PT/OT for energy conservation, gentle home exercise program, and safety eval. Patient would not be able at this point time to tolerate coming in for pulmonary rehab, daughter reports takes at least several hours to get ready for leaving the home and outpatient appointments. 4. Advanced care planning. Patient stated goals have been to be as independent as possible, though he has had increasing dependence particular over the last several weeks to months. He does have good family support, and will most likely need 24-hour supervision at least for several weeks. Would recommend home health RN for monitoring of symptoms and transition home, in addition to rehab t herapy and home health aide to assist with bathing. Counseling provided to daughter regarding continuum of care including palliative versus hospice, and transition points versus decision points in the trajectory of her father's illness. Patient is quite lethargic from recent medications, has been drifting in and out, agreed to revisit conversation with palliative CARDIOPULMONARY TECHNICIAN tomorrow. Time Spent: 60 minutes with greater than 50% of this done in counseling regarding goals of care, continuum of care, palliative versus hospice, and disease trajectory for advanced COPD. Coordination of care with hospitalist and care team
[2019-10-13] MEDS: INSULIN GLARGINE 300 UNIT/3 ML PEN SUBQ SCH (20:32)
[2019-10-14] MEDS: SODIUM CHLORIDE FLUSH 0.9% 10 ML SYRINGE IVP SCH ×3 (00:59→17:00)
[2019-10-14 05:09] LABS: BASOPHILS % (AUTO) 0.1 %; HGB - HEMOGLOBIN 9.1 g/dL (14.0-18.0); LYMPHOCYTES # (AUTO) 0.4 10^3/uL (1.5-3.5); LYMPHOCYTES % (AUTO) 4.6 %; MEAN CORPUSCULAR HEMOGLOBIN 29.4 pg (27.0-31.0); MEAN CORPUSCULAR HGB CONC 30.3 g/dL (32.0-36.0); MEAN CORPUSCULAR VOLUME 96.8 fL (80.0-94.0); MEAN PLATELET VOLUME 9.4 fL (7.4-11.4); MONOCYTES # (AUTO) 0.5 10^3/uL (0.0-1.0); MONOCYTES % (AUTO) 5.6 %; NEUTROPHILS # (AUTO) 7.1 10^3/uL (1.5-6.6); NEUTROPHILS % (AUTO) 88.5 %; PLT - PLATELET COUNT 351 10^3/uL (130-450); RED CELL DISTRIBUTION WIDTH 14.6 % (12.0-15.0)
[2019-10-14 05:15] LABS: CALCIUM 8.6 mg/dL (8.5-10.3); CREATININE 1.1 mg/dL (0.6-1.2)
[2019-10-14] MEDS: SODIUM CHLORIDE FLUSH 0.9% 10 ML SYRINGE IVP PRN (05:28)
[2019-10-14] MEDS: methylPREDNISolone SUCCINATE 40 MG/ML VIAL IVP SCH ×3 (05:28→21:35)
[2019-10-14] MEDS: FORMOTEROL FUMARATE NEB 20 MCG/2 ML INH SCH (07:50)
[2019-10-14] MEDS: BUDESONIDE 0.5 MG/2 ML NEB INH SCH (07:50)
[2019-10-14] MEDS: IPRATROPIUM/ALBUTEROL 3 ML NEB INH SCH ×2 (07:50→11:35)
[2019-10-14] MEDS: INSULIN ASPART 300 UNIT/3 ML PEN SUBQ SCH ×4 (07:51→21:30)
[2019-10-14] MEDS: MORPHINE 2 MG/ML CARPUJECT IVP PRN (08:26)
[2019-10-14] MEDS: guaiFENesin 600 MG TABLET PO SCH ×2 (09:16→21:28)
[2019-10-14] MEDS: CITALOPRAM 10 MG TABLET PO SCH (09:16)
[2019-10-14] MEDS: ENOXAPARIN 40 MG/0.4 ML SYRINGE SUBQ SCH (09:16)
[2019-10-14] MEDS: AZITHROMYCIN 250 MG TABLET PO SCH (09:16)
[2019-10-14] MEDS: lisinopriL 5 MG TABLET PO SCH (09:16)
[2019-10-14] MEDS: NYSTATIN CREAM 15 GM TUBE TOP SCH ×2 (09:17→21:32)
[2019-10-14] MEDS ORDERED: methylPREDNISolone SUCCINATE 40 MG/ML VIAL IVP ONE (10:00)
--- NOTE | 2019-10-14 11:10 | PROVIDER PROGRESS NOTE ---
Assessment/Plan - Problem List (1) COPD exacerbation Assessment/Plan: 10/14 pt has hx of advanced stage of COPD. today pt present bilateral wheezing with mild to moderate respiratory distress although his sat is remaining similar as yesterday. pt had one episode to have have very respiratory distress, which happened multiple times before. pt's acute respiratory distress quickly return ti his baseline and wane away after pt was given Morphine. increase solu-metrol to 120mg tid. pt has given 60 mg tid before because pt has significant anxiety, we tried to reduced steroid caused anxiety continue breath treatment, continue supplement of O2 followup palliative care's recommendation, continue PT/OT evaluation and treatment, health health PT and AIDe. 10/13 pt need 2.5-3.5 of liter of O2 to remain his 93% sats. consult with RT for pt's home Triligen for appropriate usage. RT will call the company to provide the detail information for pt appropriately use the Triligen machine. continue steroids, oral azithromycin inhaled LABA + inhaled steroids called Palliative care re-consult, will pt on today. recurrent of COPD. CXR does not have infiltrate. continue steroids tid for 1 day then bid, then qd IVF for 1 liter oral azithromycin inhaled LABA + inhaled steroids called Palliative care re-consult, will pt on tomorrow. He was seen 12/2015 but no further visits. (2) Acute on chronic kidney failure Conclusion/Plan: 10/14 continue improved as his baseline, continue appropriate hydration, and lab monitor 10/13 improved. creatinine is 1.2 from 1.5 at the admission. Plan: check labs in am hydrate w 1 liter IVF (3) hypoglycemia with Type 2 diabetes mellitus with neurologic complication, with long-term current use of insulin Conclusion/Plan: 10/14 pt had hypoglycemia at glucose 37 on last night. nurse report pt is asymptomatic. pt had 15 unit of Lantus reduced from his previous 20 units. now pt's lantus is reduced to 5 units, also reduced SS insulin. pt is on steroid, will closely monitor glucose level by ACHS A1c is 7.8. pt did not take insulin at home. but pt is on steroid now stop oral meds for now change to lantus 15 unit on PM and SS insulin. continue hypoglycemia protocol continue ACHS to check glucose level (4) Hypertension Conclusion/Plan: controlled. no change in lisinopril (5) Heart failure with preserved ejection fraction Conclusion/Plan: ECHO is 12/2014 had EF 55% and no right sided failure or hypertension 12/2015 had EF 70% and no right sided HTN 08/2019 the same with EF 60-65% without pulm HTN. In spite of this man's COPD he has kept nomrla pulmonary pressures and no cor pulmonale. Today his BNP is 21. continue, watch for fluid overlodad, gently hydration for his MIGUEL ANGEL, and hold diuretic at this time for his MIGUEL ANGEL (6) Anxiety about health Conclusion/Plan: 10/14 pt still present once significant anxiety today morning. will schedule for Ativan now, PRN Morphine for breathing. 10/13 continue Ativan and Morphine. we might schedule ativan and morphine the meds for pt continue Citalopram pt's sudden SOB as last admission and today morning episode is more likely caused by pt's anxiety and panic. ABGs reveals mild respiratory distress which is not matched his clinic presentation. agree Dr. Solis's analysis: In reviewing the objective data on this gentleman he has a really good right heart system, with no right-sided heart failure. There is no pulmonary hypertension. If his COPD is severe enough to be end- stage, I would think that he would have pulmonary hypertension with right-sided heart failure. He does not. He also only requires 2 L to 2-1/2 L to maintain O2 sats. Most of his decompensation is in the face of a sensation of chest tig htness and pressure when he starts to hyperventilate and panic. Plan: Cardiopulmonary rehab strongly recommended Start citalopram Consider low-dose benzodiazepine PRN now start Morphine PRN (7) spiculated lesion on left lower lobe pt had 1.4 cm spiculated lesion at left lower lobe on CT of chest on 10/16/19. I asked pt's daughter if pt see his lamp decorator for further evaluation of his spiculated lesion on his left lower lobe, per discussed with pt and his daughter on last discharge. pt's daughter state pt did not see his lamp decorator on Friday instead he went to hospital. Advise pt and pt's daughter still need see his lamp decorator for further evaluation of his left lower lobe lesion. Both understand this. - Current Meds Current Meds: Current Medications Generic Name Dose Route Start Last Admin Trade Name Freq PRN Reason Stop Dose Admin Albuterol/Ipratropium 3 ml 10/11/19 19:00 10/14/19 07:50 Duoneb INH 3 ml RTQID BAUTISTA Administration Azithromycin 250 mg 10/11/19 17:43 10/14/19 09:16 Zithromax PO 250 mg DAILY BAUTISTA Administration Budesonide 0.5 mg 10/11/19 19:00 10/14/19 07:50 Pulmicort INH 0.5 mg RTBID BAUTISTA Administration Citalopram Hydrobromide 10 mg 10/12/19 15:53 10/14/19 09:16 Celexa PO 10 mg DAILY BAUTISTA Administration Enoxaparin Sodium 40 mg 10/14/19 09:00 10/14/19 09:16 Lovenox SUBQ 40 mg DAILY BAUTISTA Administration Formoterol Fumarate 20 mcg 10/11/19 19:00 10/14/19 07:50 Perforomist INH 20 mcg RTBID BAUTISTA Administration Guaifenesin 600 mg 10/12/19 10:00 10/14/19 09:16 Mucinex PO 600 mg BID BAUTISTA Administration Lisinopril 10 mg 10/12/19 09:00 10/14/19 09:16 Zestril PO 10 mg DAILY BAUTISTA Administration Lorazepam 0.5 mg 10/12/19 09:27 10/13/19 19:13 Ativan Inj (Vial) IVP 0.5 mg Q6H PRN Administration Anxiety Morphine Sulfate 2 mg 10/12/19 17:49 10/14/19 08:26 Morphine (Carpuject) IVP 2 mg Q2HR PRN Administration Shortness of Air/Wheezing Nystatin 1 applic 10/13/19 12:00 10/14/19 09:17 Mycostatin Cream TOP 1 applic BID BAUTISTA Administration Sodium Chloride 10 ml 10/11/19 17:31 10/14/19 05:28 Normal Saline Flush 0.9% IVP 10 ml PRN PRN Administration NEEDED PER PROVIDER ORDERS Sodium Chloride 10 ml 10/12/19 01:00 10/14/19 09:17 Normal Saline Flush 0.9% IVP 10 ml 0100,0900,1700 BAUTISTA Administration - Lab Result Fish Bone Diagrams: 10/14/19 04:40 10/14/19 04:40 - Additional Planning My Orders: My Active Orders 10/13/19 12:00 Nystatin Cream [Mycostatin Cream] 1 applic TOP BID 10/13/19 12:54 Calcium Carbonate [Tums] 500 mg PO BID PRN 10/14/19 Home Health Referral [CONS] Routine 10/14/19 09:00 Enoxaparin [Lovenox] 40 mg SUBQ DAILY 10/14/19 12:00 Insulin Aspart [NovoLOG] 1 - 5 unit SUBQ 0800,1200,1700,2100 10/14/19 16:00 methylPREDNISolone SUCCINATE [SOLU-Medrol (40MG VIAL)] 120 mg IVP TID 10/14/19 21:00 Insulin Glargine [Lantus Solostar] 5 unit SUBQ QPM 10/15/19 05:00 BMP - BASIC METABOLIC PANEL [CHEM] DAILYLAB CBC - COMP BLD CT W/AUTO DIFF [HEME] DAILYLAB 10/16/19 05:00 BMP - BASIC METABOLIC PANEL [CHEM] DAILYLAB CBC - COMP BLD CT W/AUTO DIFF [HEME] DAILYLAB 10/17/19 05:00 BMP - BASIC METABOLIC PANEL [CHEM] DAILYLAB CBC - COMP BLD CT W/AUTO DIFF [HEME] DAILYLAB Subjective - Subjective Patient Reports: Feeling Better Objective Vital Signs: Vital Signs - 24 hr 10/13/19 10/13/19 10/13/19 11:12 12:50 13:47 Temperature 36.6 C Heart Rate Heart Rate [ 113 H Activity] Heart Rate [ 113 H Brachial] Heart Rate [ 109 H Sitting] Heart Rate [ 104 H Supine] Respiratory 20 Rate Blood Pressure 113/32 L [Right Brachial artery] O2 Saturation 94 O2 Saturation [ 99 Activity] O2 Saturation [ 99 Sitting] O2 Saturation [ 96 Supine] 10/13/19 10/13/19 10/13/19 15:39 15:50 20:12 Temperature 36.6 C Heart Rate 103 H 99 Heart Rate [ Activity] Heart Rate [ 99 Brachial] Heart Rate [ Sitting] Heart Rate [ Supine] Respiratory 20 18 20 Rate Blood Pressure 136/75 H [Right Brachial artery] O2 Saturation 99 O2 Saturation [ Activity] O2 Saturation [ Sitting] O2 Saturation [ Supine] 10/13/19 10/13/19 10/14/19 20:13 23:59 05:13 Temperature 36.2 C L 36.7 C 36.5 C Heart Rate Heart Rate [ Activity] Heart Rate [ 103 H 89 81 Brachial] Heart Rate [ Sitting] Heart Rate [ Supine] Respiratory 16 20 19 Rate Blood Pressure 139/57 H 135/64 H 120/68 [Right Brachial artery] O2 Saturation 98 99 100 O2 Saturation [ Activity] O2 Saturation [ Sitting] O2 Saturation [ Supine] 10/14/19 10/14/19 07:37 07:50 Temperature 36.4 C L Heart Rate 93 Heart Rate [ Activity] Heart Rate [ 104 H Brachial] Heart Rate [ Sitting] Heart Rate [ Supine] Respiratory 20 20 Rate Blood Pressure 148/91 H [Right Brachial artery] O2 Saturation 91 L O2 Saturation [ Activity] O2 Saturation [ Sitting] O2 Saturation [ Supine] Oxygen O2 Source [Without Activity] Nasal cannula O2 Source [With Activity] Nasal cannula O2 Source Nasal cannula Oxygen Flow Rate 2 I&O (Last 24 Hrs): Intake and Output Totals x24h 10/12/19 10/13/19 10/14/19 23:59 23:59 23:59 Intake Total 2746.287 801 8839 Output Total 250 675 725 Balance 2496.000 -165 451 General: Alert, Oriented x3, Mild distress HEENT: Atraumatic Neck: Supple, No thyromegaly Lymphatic: no adenopathy Neuro: Alert, Non Focal, Oriented Times 3 Cardiovascular: Regular rate, Normal S1, Normal S2 Respiratory: Chest non-tender, Wheezes Abdomen: Normal bowel sounds, Soft - Results Results: Laboratory Results WBC 8.0 x10^3/uL (4.8-10.8) 10/14/19 04:40 RBC 3.10 10^6/uL (4.70-6.10) L 10/14/19 04:40 Hgb 9.1 g/dL (14.0-18.0) L 10/14/19 04:40 Hct 30.0 % (42.0-52.0) L 10/14/19 04:40 MCV 96.8 fL (80.0-94.0) H 10/14/19 04:40 MCH 29.4 pg (27.0-31.0) 10/14/19 04:40 MCHC 30.3 g/dL (32.0-36.0) L 10/14/19 04:40 RDW 14.6 % (12.0-15.0) 10/14/19 04:40 Plt Count 351 10^3/uL (130-450) 10/14/19 04:40 MPV 9.4 fL (7.4-11.4) 10/14/19 04:40 Neut # (Auto) 7.1 10^3/uL (1.5-6.6) H 10/14/19 04:40 Lymph # (Auto) 0.4 10^3/uL (1.5-3.5) L 10/14/19 04:40 Door # (Auto) 0.5 10^3/uL (0.0-1.0) 10/14/19 04:40 Eos # (Auto) 0.0 10^3/uL (0.0-0.7) 10/14/19 04:40 Baso # (Auto) 0.0 10^3/uL (0.0-0.1) 10/14/19 04:40 Absolute Nucleated RBC 0.00 x10^3/uL 10/14/19 04:40 Nucleated RBC % 0.0 /100WBC 10/14/19 04:40 Bld Gas Analysis Time 0945 10/12/19 09:38 Sample Site RIGHT RADIAL 10/12/19 09:38 ABG pH 7.34 (7.35-7.45) L 10/12/19 09:38 ABG pCO2 54 mmHg (34-45) H 10/12/19 09:38 ABG pO2 77 mmHg (80-100) L 10/12/19 09:38 ABG HCO3 28.7 mmol/L (22.0-26.0) H 10/12/19 09:38 ABG Total CO2 30.3 MMOL/L (21.0-29.0) H 10/12/19 09:38 ABG O2 Saturation 94 % (94-98) 10/12/19 09:38 ABG Base Excess 2.2 mmol/L (-2.0-3.0) 10/12/19 09:38 Alon Test POSITIVE 10/12/19 09:38 O2 Delivery Device NASAL CANNULA 10/12/19 09:38 O2 Liters/Min 2.50 LPM 10/12/19 09:38 Sodium 140 mmol/L (135-145) 10/14/19 04:40 Potassium 4.6 mmol/L (3.5-5.0) 10/14/19 04:40 Chloride 101 mmol/L (101-111) 10/14/19 04:40 Carbon Dioxide 34 mmol/L (21-32) H 10/14/19 04:40 Anion Gap 5.0 (6-13) L 10/14/19 04:40 BUN 23 mg/dL (6-20) H 10/14/19 04:40 Creatinine 1.1 mg/dL (0.6-1.2) 10/14/19 04:40 Estimated GFR (MDRD) 65 (>89) L 10/14/19 04:40 Glucose 69 mg/dL (70-100) L 10/14/19 04:40 POC Whole Bld Glucose 173 mg/dL (70 - 100) H 10/14/19 11:05 Glycated Hemoglobin 7.8 % (4.6-6.2) H 10/12/19 09:02 Estim Average Glucose 177 (70-100) H 10/12/19 09:02 Calcium 8.6 mg/dL (8.5-10.3) 10/14/19 04:40 Magnesium 2.1 mg/dL (1.7-2.8) 10/12/19 09:02 Total Bilirubin 0.6 mg/dL (0.2-1.0) 10/11/19 13:57 AST 31 IU/L (10-42) 10/11/19 13:57 ALT 34 IU/L (10-60) 10/11/19 13:57 Alkaline Phosphatase 64 IU/L (42-121) 10/11/19 13:57 Troponin I High Sens 15.0 ng/L (2.3-19.7) 10/13/19 11:40 B-Natriuretic Peptide 21 pg/mL (5-100) 10/11/19 14:10 Total Protein 6.9 g/dL (6.7-8.2) 10/11/19 13:57 Albumin 3.8 g/dL (3.2-5.5) 10/11/19 13:57 Globulin 3.1 g/dL (2.1-4.2) 10/11/19 13:57 Albumin/Globulin Ratio 1.2 (1.0-2.2) 10/11/19 13:57 Lipase 54 U/L (22-51) H 10/11/19 13:57 - Procedures Procedures: Procedures NON-INVASIVE MECHANICAL VENTILATION (01/10/15) Sepsis Event Note (H) - Evaluation Current Stage of Sepsis: Ruled out ABX Reporting Has patient been on IV antibiotics over the past 48 hours?: No Current Medications - Current Medications Current Medications: Active Medications Albuterol () 2.5 mg INH RTQ4H PRN PRN Reason: Wheezing Albuterol/Ipratropium (Duoneb) 3 ml INH RTQID [facility] Last Admin: 10/14/19 07:50 Dose: 3 ml Aspirin (Ecotrin) 81 mg PO DAILY [facility] Azithromycin (Zithromax) 250 mg PO DAILY [facility] Last Admin: 10/14/19 09:16 Dose: 250 mg Budesonide (Pulmicort) 0.5 mg INH RTBID [facility] Last Admin: 10/14/19 07:50 Dose: 0.5 mg Calcium Carbonate/Glycine (Tums) 500 mg PO BID PRN PRN Reason: Heartburn Citalopram Hydrobromide (Celexa) 10 mg PO DAILY [facility] Last Admin: 10/14/19 09:16 Dose: 10 mg Cyclobenzaprine HCl (Flexeril) 10 mg PO TID PRN PRN Reason: Spasms Enoxaparin Sodium (Lovenox) 40 mg SUBQ DAILY [facility] Last Admin: 10/14/19 09:16 Dose: 40 mg Formoterol Fumarate (Perforomist) 20 mcg INH RTBID [facility] Last Admin: 10/14/19 07:50 Dose: 20 mcg Guaifenesin (Mucinex) 600 mg PO BID [facility] Last Admin: 10/14/19 09:16 Dose: 600 mg Sodium Chloride (Normal Saline 0.9%) 1,000 mls @ 75 mls/hr IV .[id number] [facility] Stop: 10/15/19 01:19 Insulin Aspart (Novolog) 1 - 5 unit SUBQ 0800,1200,1700,2100 [facility]; Protocol Insulin Glargine (Lantus Solostar) 5 unit SUBQ QPM [facility] Lisinopril (Zestril) 10 mg PO DAILY [facility] Last Admin: 10/14/19 09:16 Dose: 10 mg Lorazepam (Ativan) 1 mg PO BID [facility] Methylprednisolone (Solu-Medrol (40mg Vial)) 120 mg IVP TID [facility] Morphine Sulfate (Morphine (Carpuject)) 2 mg IVP Q2HR PRN PRN Reason: Shortness of Air/Wheezing Last Admin: 10/14/19 08:26 Dose: 2 mg Nystatin (Mycostatin Cream) 1 applic TOP BID [facility] Last Admin: 10/14/19 09:17 Dose: 1 applic Ondansetron HCl (Zofran Inj) 4 mg IVP Q6HR PRN PRN Reason: Nausea / Vomiting Ondansetron HCl (Zofran Odt) 4 mg TL Q6HR PRN PRN Reason: Nausea / Vomiting Oxycodone HCl (Roxicodone) 5 mg PO Q4HR PRN PRN Reason: Pain 5 to 7 Sodium Chloride (Normal Saline Flush 0.9%) 10 ml IVP PRN PRN PRN Reason: NEEDED PER PROVIDER ORDERS Last Admin: 10/14/19 05:28 Dose: 10 ml Sodium Chloride (Normal Saline Flush 0.9%) 10 ml IVP 0100,0900,1700 [facility] Last Admin: 10/14/19 09:17 Dose: 10 ml Witch Flower/Glycerin (Tucks) 1 pad TOP PRN PRN PRN Reason: ITCHING Aspirin [Low Dose Aspirin EC] 81 mg PO DAILY 01/10/15 Fluticasone/Salmeterol [Advair 250-50 Diskus] 1 puffs INH BID 01/10/15 Ipratropium/Albuterol Sulfate [Combivent Respimat 20-100 Mcg] 1 puffs INH QID 01/10/15 Lisinopril [Zestril] 10 mg PO DAILY 01/10/15 Albuterol Sulfate [Proair Hfa Inhaler] 1 - 2 puffs INH Q4H PRN 04/03/15 metFORMIN [Glucophage] 500 mg PO BID 09/14/19 Furosemide 20 mg PO BID 10/11/19 Azithromycin 250 mg PO [id number] 10/12/19 Glipizide [Glipizide Xl] 2.5 mg PO DAILY 10/12/19 Pioglitazone HCl 45 mg PO DAILY 10/12/19 guaiFENesin [Mucinex] 600 mg PO BID PRN 10/12/19
[2019-10-14] MEDS ORDERED: SODIUM CHLORIDE 0.9% 1,000 ML IV SCH (12:00)
[2019-10-14] MEDS ORDERED: LORazepam 1 MG TABLET PO SCH (12:00)
[2019-10-14] MEDS: ASPIRIN EC 81 MG TABLET PO SCH (13:36)
[2019-10-14] MEDS ORDERED: methylPREDNISolone SUCCINATE 40 MG/ML VIAL IVP SCH ×2 (14:00)
[2019-10-14] MEDS ORDERED: INSULIN GLARGINE 300 UNIT/3 ML PEN SUBQ SCH ×2 (21:00)
[2019-10-14] MEDS: INSULIN GLARGINE 300 UNIT/3 ML PEN SUBQ SCH (21:31)
[2019-10-15] MEDS: IPRATROPIUM/ALBUTEROL 3 ML NEB INH SCH ×6 (00:06→21:25)
[2019-10-15] MEDS: BUDESONIDE 0.5 MG/2 ML NEB INH SCH ×3 (00:07→21:25)
[2019-10-15] MEDS: FORMOTEROL FUMARATE NEB 20 MCG/2 ML INH SCH ×3 (00:07→21:25)
[2019-10-15] MEDS: SODIUM CHLORIDE FLUSH 0.9% 10 ML SYRINGE IVP SCH ×3 (01:17→18:19)
[2019-10-15] MEDS: ALBUTEROL NEB 2.5 MG/3 ML INH PRN (04:37)
[2019-10-15 05:01] LABS: BASOPHILS % (AUTO) 0.1 %; HGB - HEMOGLOBIN 9.3 g/dL (14.0-18.0); LYMPHOCYTES # (AUTO) 0.4 10^3/uL (1.5-3.5); LYMPHOCYTES % (AUTO) 5.3 %; MEAN CORPUSCULAR HEMOGLOBIN 29.3 pg (27.0-31.0); MEAN CORPUSCULAR HGB CONC 30.8 g/dL (32.0-36.0); MEAN CORPUSCULAR VOLUME 95.3 fL (80.0-94.0); MEAN PLATELET VOLUME 9.4 fL (7.4-11.4); MONOCYTES # (AUTO) 0.3 10^3/uL (0.0-1.0); MONOCYTES % (AUTO) 3.8 %; NEUTROPHILS # (AUTO) 6.7 10^3/uL (1.5-6.6); NEUTROPHILS % (AUTO) 88.2 %; PLT - PLATELET COUNT 362 10^3/uL (130-450); RED BLOOD COUNT 3.17 10^6/uL (4.70-6.10); RED CELL DISTRIBUTION WIDTH 14.1 % (12.0-15.0); WHITE BLOOD COUNT 7.6 x10^3/uL (4.8-10.8)
[2019-10-15 05:10] LABS: CALCIUM 8.5 mg/dL (8.5-10.3)
[2019-10-15] MEDS: methylPREDNISolone SUCCINATE 40 MG/ML VIAL IVP SCH ×3 (06:16→22:06)
[2019-10-15] MEDS ORDERED: SENNA 8.6 MG TABLET PO SCH (08:00)
[2019-10-15] MEDS: SODIUM CHLORIDE FLUSH 0.9% 10 ML SYRINGE IVP PRN ×2 (08:14→22:08)
[2019-10-15] MEDS: MORPHINE 2 MG/ML CARPUJECT IVP PRN ×2 (08:14→18:10)
[2019-10-15] MEDS: INSULIN ASPART 300 UNIT/3 ML PEN SUBQ SCH ×4 (08:41→22:11)
[2019-10-15] MEDS: POLYETHYLENE GLYCOL 3350 17 GM PACKET PO SCH (08:42)
[2019-10-15] MEDS: guaiFENesin 600 MG TABLET PO SCH ×2 (08:43→22:06)
[2019-10-15] MEDS: AZITHROMYCIN 250 MG TABLET PO SCH (08:43)
[2019-10-15] MEDS: DOCUSATE SODIUM 250 MG CAPSULE PO SCH (08:43)
[2019-10-15] MEDS: ENOXAPARIN 40 MG/0.4 ML SYRINGE SUBQ SCH (08:43)
[2019-10-15] MEDS: lisinopriL 5 MG TABLET PO SCH (08:43)
[2019-10-15] MEDS: ASPIRIN EC 81 MG TABLET PO SCH (08:44)
[2019-10-15] MEDS: CITALOPRAM 10 MG TABLET PO SCH (08:44)
--- NOTE | 2019-10-15 11:36 | PROVIDER PROGRESS NOTE ---
Assessment/Plan - Problem List (1) COPD exacerbation Assessment/Plan: 10/15 pt is taking Trilogy now. it seems pt's respiratory distress is reduced. pt's wheezing sound is reduced significant from yesterday. continue solu-metrol 120mg tid today, tomorrow it might wane gradually off continue breath treatment, continue supplement of O2 followup palliative care's recommendation, continue PT/OT evaluation and treatment, health health PT and [facility]. 10/14 pt has hx of advanced stage of COPD. today pt present bilateral wheezing with mild to moderate respiratory distress although his sat is remaining similar as yesterday. pt had one episode to have have very respiratory distress, which happened multiple times before. pt's acute respiratory distress quickly return ti his baseline and wane away after pt was given Morphine. increase solu-metrol to 120mg tid. pt has given 60 mg tid before because pt has significant anxiety, we tried to reduced steroid caused anxiety continue breath treatment, continue supplement of O2 followup palliative care's recommendation, continue PT/OT evaluation and treatment, health health PT and AIDe. 10/13 pt need 2.5-3.5 of liter of O2 to remain his 93% sats. consult with RT for pt's home Triligen for appropriate usage. RT will call the company to provide the detail information for pt appropriately use the Triligen machine. continue steroids, oral azithromycin inhaled LABA + inhaled steroids called Palliative care re-consult, will pt on today. recurrent of COPD. CXR does not have infiltrate. continue steroids tid for 1 day then bid, then qd IVF for 1 liter oral azithromycin inhaled LABA + inhaled steroids called Palliative care re-consult, will pt on tomorrow. He was seen 12/2015 but no further visits. (2) Acute on chronic kidney failure Conclusion/Plan: 10/15 continue improved. Creatinine is 1.0 today, continue hydration, lab monitor 10/14 continue improved as his baseline, continue appropriate hydration, and lab monitor 10/13 improved. creatinine is 1.2 from 1.5 at the admission. Plan: check labs in am hydrate w 1 liter IVF (3) hypoglycemia with Type 2 diabetes mellitus with neurologic complication, with long-term current use of insulin Conclusion/Plan: 10/15 hypoglycemia is resolved, continue SS, ACHS, hypoglycemia protocol 10/14 pt had hypoglycemia at glucose 37 on last night. nurse report pt is asymptomatic. pt had 15 unit of Lantus reduced from his previous 20 units. now pt's lantus is reduced to 5 units, also reduced SS insulin. pt is on steroid, will closely monitor glucose level by ACHS A1c is 7.8. pt did not take insulin at home. but pt is on steroid now stop oral meds for now change to lantus 15 unit on PM and SS insulin. continue hypoglycemia protocol continue ACHS to check glucose level (4) Hypertension Conclusion/Plan: controlled. no change in lisinopril (5) Heart failure with preserved ejection fraction Conclusion/Plan: ECHO is 12/2014 had EF 55% and no right sided failure or hypertension 12/2015 had EF 70% and no right sided HTN 08/2019 the same with EF 60-65% without pulm HTN. In spite of this man's COPD he has kept nomrla pulmonary pressures and no cor pulmonale. Today his BNP is 21. continue, watch for fluid overlodad, gently hydration for his MIGUEL ANGEL, and hold diuretic at this time for his MIGUEL ANGEL (6) Anxiety about health Conclusion/Plan: 10/15 stable,continue Ativan and Morphine PRN 10/14 pt still present once significant anxiety today morning. will schedule for Ativan now, PRN Morphine for breathing. 10/13 continue Ativan and Morphine. we might schedule ativan and morphine the meds for pt continue Citalopram pt's sudden SOB as last admission and today morning episode is more likely caused by pt's anxiety and panic. ABGs reveals mild respiratory distress which is not matched his clinic presentation. agree Dr. Solis's analysis: In reviewing the objective data on this gentleman he has a really good right heart system, with no right-sided heart failure. There is no pulmonary hypertension. If his COPD is severe enough to be end- stage, I would think that he would have pulmonary hypertension with right-sided heart failure. He does not. He also only requires 2 L to 2-1/2 L to maintain O2 sats. Most of his decompensation is in the face of a sensation of chest tightness and pressure when he starts to hyperventilate and panic. Plan: Cardiopulmonary rehab strongly recommended Start citalopram Consider low-dose benzodiazepine PRN now start Morphine PRN (7) spiculated lesion on left lower lobe pt had 1.4 cm spiculated lesion at left lower lobe on CT of chest on 10/16/19. I asked pt's daughter if pt see his guide for further evaluation of his spiculated lesion on his left lower lobe, per discussed with pt and his daughter on last discharge. pt's daughter state pt did not see his guide on Friday instead he went to hospital. Advise pt and pt's daughter still need see his guide for further evaluation of his left lower lobe lesion. Both understand this. - Current Meds Current Meds: Current Medications Generic Name Dose Route Start Last Admin Trade Name Freq PRN Reason Stop Dose Admin Albuterol 2.5 mg 10/11/19 17:37 10/15/19 04:37 INH 2.5 mg RTQ4H PRN Administration Wheezing Albuterol/Ipratropium 3 ml 10/11/19 19:00 10/15/19 08:19 Duoneb INH 3 ml RTQID [facility] Administration Aspirin 81 mg 10/14/19 12:00 10/15/19 08:44 Ecotrin PO 81 mg DAILY [facility] Administration Azithromycin 250 mg 10/11/19 17:43 10/15/19 08:43 Zithromax PO 250 mg DAILY [facility] Administration Budesonide 0.5 mg 10/11/19 19:00 10/15/19 04:44 Pulmicort INH 0.5 mg RTBID [facility] Administration Citalopram Hydrobromide 10 mg 10/12/19 15:53 10/15/19 08:44 Celexa PO 10 mg DAILY [facility] Administration Docusate Sodium 250 - 500 mg 10/15/19 09:00 10/15/19 08:43 Colace 250mg Capsule PO 250 mg DAILY [facility] Administration Enoxaparin Sodium 40 mg 10/14/19 09:00 10/15/19 08:43 Lovenox SUBQ 40 mg DAILY [facility] Administration Formoterol Fumarate 20 mcg 10/11/19 19:00 10/15/19 04:45 Perforomist INH 20 mcg RTBID [facility] Administration Guaifenesin 600 mg 10/12/19 10:00 10/15/19 08:43 Mucinex PO 600 mg BID [facility] Administration Insulin Aspart 2 - 10 unit 10/15/19 08:00 10/15/19 08:41 Novolog SUBQ 2 unit 0800,1200,1700,2100 [facility] Administration Protocol Insulin Glargine 5 unit 10/14/19 21:00 10/14/19 21:31 Lantus Solostar SUBQ 5 unit QPM [facility] Administration Lisinopril 10 mg 10/12/19 09:00 10/15/19 08:43 Zestril PO 10 mg DAILY [facility] Administration Methylprednisolone 120 mg 10/14/19 16:00 10/15/19 06:16 Solu-Medrol (40mg Vial) IVP 120 mg TID [facility] Administration Morphine Sulfate 2 mg 10/12/19 17:49 10/15/19 08:14 Morphine (Carpuject) IVP 2 mg Q2HR PRN Administration Shortness of Air/Wheezing Nystatin 1 applic 10/13/19 12:00 10/14/19 21:32 Mycostatin Cream TOP 1 applic BID [facility] Administration Polyethylene Glycol 17 gm 10/15/19 09:00 10/15/19 08:42 Miralax PO 17 gm DAILY [facility] Administration Sodium Chloride 10 ml 10/11/19 17:31 10/15/19 08:14 Normal Saline Flush 0.9% IVP 10 ml PRN PRN Administration NEEDED PER PROVIDER ORDERS Sodium Chloride 10 ml 10/12/19 01:00 10/15/19 08:42 Normal Saline Flush 0.9% IVP 10 ml 0100,0900,1700 [facility] Administration - Lab Result Fish Bone Diagrams: 10/15/19 04:50 10/15/19 04:50 - Additional Planning My Orders: My Active Orders 10/14/19 12:00 Aspirin EC [Ecotrin] 81 mg PO DAILY 10/14/19 15:11 LORazepam [Ativan] 0.5 mg PO Q6H PRN 10/14/19 16:00 methylPREDNISolone SUCCINATE [SOLU-Medrol (40MG VIAL)] 120 mg IVP TID 10/14/19 21:00 Insulin Glargine [Lantus Solostar] 5 unit SUBQ QPM 10/15/19 08:00 Insulin Aspart [NovoLOG] 2 - 10 unit SUBQ 0800,1200,1700,2100 Senna [Senokot] 17.2 - 25.8 mg PO Q6H 10/15/19 09:00 Docusate Sodium 250Mg Capsule [Colace 250Mg Capsule] 250 - 500 mg PO DAILY Polyethylene Glycol 3350 [Miralax] 17 gm PO DAILY 10/16/19 05:00 BMP - BASIC METABOLIC PANEL [CHEM] DAILYLAB CBC - COMP BLD CT W/AUTO DIFF [HEME] DAILYLAB 10/17/19 05:00 BMP - BASIC METABOLIC PANEL [CHEM] DAILYLAB CBC - COMP BLD CT W/AUTO DIFF [HEME] DAILYLAB Subjective - Subjective Patient Reports: Feeling Better Objective Vital Signs: Vital Signs - 24 hr 10/14/19 10/14/19 10/14/19 11:35 12:24 15:44 Temperature 36.6 C 36.4 C L Heart Rate 109 H Heart Rate [ 113 H 76 Brachial] Respiratory 20 20 16 Rate Blood Pressure 131/68 H [Left Brachial artery] Blood Pressure 149/72 H [Right Brachial artery] O2 Saturation 91 L 94 10/14/19 10/14/19 10/14/19 16:30 20:00 20:08 Temperature 36.7 C Heart Rate 85 Heart Rate [ 97 Brachial] Respiratory 20 24 Rate Blood Pressure 145/64 H [Left Brachial artery] Blood Pressure [Right Brachial artery] O2 Saturation 95 97 10/15/19 10/15/19 10/15/19 00:09 04:46 04:49 Temperature 36.6 C 36.3 C L Heart Rate 95 Heart Rate [ 88 100 Brachial] Respiratory 24 22 22 Rate Blood Pressure [Left Brachial artery] Blood Pressure 135/64 H 151/61 H [Right Brachial artery] O2 Saturation 94 98 10/15/19 10/15/19 07:49 08:21 Temperature 36.1 C L Heart Rate 116 H Heart Rate [ 88 Brachial] Respiratory 20 28 H Rate Blood Pressure [Left Brachial artery] Blood Pressure 126/53 L [Right Brachial artery] O2 Saturation 94 Oxygen O2 Source [Without Activity] Nasal cannula O2 Source [With Activity] Nasal cannula O2 Source Nasal cannula Oxygen Flow Rate 2 I&O (Last 24 Hrs): Intake and Output Totals x24h 10/13/19 10/14/19 10/15/19 23:59 23:59 23:59 Intake Total 510 1716 1340 Output Total 675 1225 Balance -266 226 9298 General: Alert, Oriented x3, Mild distress HEENT: Atraumatic Neck: Supple Lymphatic: no adenopathy Neuro: Alert, Non Focal, Oriented Times 3 Cardiovascular: Regular rate, Normal S1, Normal S2 Respiratory: Chest non-tender, Wheezes Abdomen: Normal bowel sounds, Soft Extremities: Normal pulses - Results Results: Laboratory Results WBC 7.6 x10^3/uL (4.8-10.8) 10/15/19 04:50 RBC 3.17 10^6/uL (4.70-6.10) L 10/15/19 04:50 Hgb 9.3 g/dL (14.0-18.0) L 10/15/19 04:50 Hct 30.2 % (42.0-52.0) L 10/15/19 04:50 MCV 95.3 fL (80.0-94.0) H 10/15/19 04:50 MCH 29.3 pg (27.0-31.0) 10/15/19 04:50 MCHC 30.8 g/dL (32.0-36.0) L 10/15/19 04:50 RDW 14.1 % (12.0-15.0) 10/15/19 04:50 Plt Count 362 10^3/uL (130-450) 10/15/19 04:50 MPV 9.4 fL (7.4-11.4) 10/15/19 04:50 Neut # (Auto) 6.7 10^3/uL (1.5-6.6) H 10/15/19 04:50 Lymph # (Auto) 0.4 10^3/uL (1.5-3.5) L 10/15/19 04:50 Dickinson # (Auto) 0.3 10^3/uL (0.0-1.0) 10/15/19 04:50 Eos # (Auto) 0.0 10^3/uL (0.0-0.7) 10/15/19 04:50 Baso # (Auto) 0.0 10^3/uL (0.0-0.1) 10/15/19 04:50 Absolute Nucleated RBC 0.02 x10^3/uL 10/15/19 04:50 Nucleated RBC % 0.3 /100WBC 10/15/19 04:50 Bld Gas Analysis Time 0945 10/12/19 09:38 Sample Site RIGHT RADIAL 10/12/19 09:38 ABG pH 7.34 (7.35-7.45) L 10/12/19 09:38 ABG pCO2 54 mmHg (34-45) H 10/12/19 09:38 ABG pO2 77 mmHg (80-100) L 10/12/19 09:38 ABG HCO3 28.7 mmol/L (22.0-26.0) H 10/12/19 09:38 ABG Total CO2 30.3 MMOL/L (21.0-29.0) H 10/12/19 09:38 ABG O2 Saturation 94 % (94-98) 10/12/19 09:38 ABG Base Excess 2.2 mmol/L (-2.0-3.0) 10/12/19 09:38 Alon Test POSITIVE 10/12/19 09:38 O2 Delivery Device NASAL CANNULA 10/12/19 09:38 O2 Liters/Min 2.50 LPM 10/12/19 09:38 Sodium 137 mmol/L (135-145) 10/15/19 04:50 Potassium 4.7 mmol/L (3.5-5.0) 10/15/19 04:50 Chloride 96 mmol/L (101-111) L 10/15/19 04:50 Carbon Dioxide 34 mmol/L (21-32) H 10/15/19 04:50 Anion Gap 7.0 (6-13) 10/15/19 04:50 BUN 24 mg/dL (6-20) H 10/15/19 04:50 Creatinine 1.0 mg/dL (0.6-1.2) 10/15/19 04:50 Estimated GFR (MDRD) 73 (>89) L 10/15/19 04:50 Glucose 197 mg/dL (70-100) H 10/15/19 04:50 POC Whole Bld Glucose 179 mg/dL (70 - 100) H 10/15/19 07:44 Glycated Hemoglobin 7.8 % (4.6-6.2) H 10/12/19 09:02 Estim Average Glucose 177 (70-100) H 10/12/19 09:02 Calcium 8.5 mg/dL (8.5-10.3) 10/15/19 04:50 Magnesium 2.1 mg/dL (1.7-2.8) 10/12/19 09:02 Total Bilirubin 0.6 mg/dL (0.2-1.0) 10/11/19 13:57 AST 31 IU/L (10-42) 10/11/19 13:57 ALT 34 IU/L (10-60) 10/11/19 13:57 Alkaline Phosphatase 64 IU/L (42-121) 10/11/19 13:57 Troponin I High Sens 15.0 ng/L (2.3-19.7) 10/13/19 11:40 B-Natriuretic Peptide 21 pg/mL (5-100) 10/11/19 14:10 Total Protein 6.9 g/dL (6.7-8.2) 10/11/19 13:57 Albumin 3.8 g/dL (3.2-5.5) 10/11/19 13:57 Globulin 3.1 g/dL (2.1-4.2) 10/11/19 13:57 Albumin/Globulin Ratio 1.2 (1.0-2.2) 10/11/19 13:57 Lipase 54 U/L (22-51) H 10/11/19 13:57 - Procedures Procedures: Procedures NON-INVASIVE MECHANICAL VENTILATION (01/10/15) Sepsis Event Note (H) - Evaluation Current Stage of Sepsis: Ruled out ABX Reporting Has patient been on IV antibiotics over the past 48 hours?: Yes Current Medications - Current Medications Current Medications: Active Medications Albuterol () 2.5 mg INH RTQ4H PRN PRN Reason: Wheezing Last Admin: 10/15/19 04:37 Dose: 2.5 mg Albuterol/Ipratropium (Duoneb) 3 ml INH RTQID [facility] Last Admin: 10/15/19 08:19 Dose: 3 ml Aspirin (Ecotrin) 81 mg PO DAILY [facility] Last Admin: 10/15/19 08:44 Dose: 81 mg Azithromycin (Zithromax) 250 mg PO DAILY [facility] Last Admin: 10/15/19 08:43 Dose: 250 mg Budesonide (Pulmicort) 0.5 mg INH RTBID [facility] Last Admin: 10/15/19 04:44 Dose: 0.5 mg Calcium Carbonate/Glycine (Tums) 500 mg PO BID PRN PRN Reason: Heartburn Citalopram Hydrobromide (Celexa) 10 mg PO DAILY [facility] Last Admin: 10/15/19 08:44 Dose: 10 mg Cyclobenzaprine HCl (Flexeril) 10 mg PO TID PRN PRN Reason: Spasms Docusate Sodium (Colace 250mg Capsule) 250 - 500 mg PO DAILY [facility] Last Admin: 10/15/19 08:43 Dose: 250 mg Enoxaparin Sodium (Lovenox) 40 mg SUBQ DAILY [facility] Last Admin: 10/15/19 08:43 Dose: 40 mg Formoterol Fumarate (Perforomist) 20 mcg INH RTBID [facility] Last Admin: 10/15/19 04:45 Dose: 20 mcg Guaifenesin (Mucinex) 600 mg PO BID [facility] Last Admin: 10/15/19 08:43 Dose: 600 mg Insulin Aspart (Novolog) 2 - 10 unit SUBQ 0800,1200,1700,2100 [facility]; Protocol Last Admin: 10/15/19 08:41 Dose: 2 unit Insulin Glargine (Lantus Solostar) 5 unit SUBQ QPM [facility] Last Admin: 10/14/19 21:31 Dose: 5 unit Lisinopril (Zestril) 10 mg PO DAILY [facility] Last Admin: 10/15/19 08:43 Dose: 10 mg Lorazepam (Ativan) 0.5 mg PO Q6H PRN PRN Reason: Anxiety Methylprednisolone (Solu-Medrol (40mg Vial)) 120 mg IVP TID [facility] Last Admin: 10/15/19 06:16 Dose: 120 mg Morphine Sulfate (Morphine (Carpuject)) 2 mg IVP Q2HR PRN PRN Reason: Shortness of Air/Wheezing Last Admin: 10/15/19 08:14 Dose: 2 mg Nystatin (Mycostatin Cream) 1 applic TOP BID [facility] Last Admin: 10/14/19 21:32 Dose: 1 applic Ondansetron HCl (Zofran Inj) 4 mg IVP Q6HR PRN PRN Reason: Nausea / Vomiting Ondansetron HCl (Zofran Odt) 4 mg TL Q6HR PRN PRN Reason: Nausea / Vomiting Oxycodone HCl (Roxicodone) 5 mg PO Q4HR PRN PRN Reason: Pain 5 to 7 Polyethylene Glycol (Miralax) 17 gm PO DAILY [facility] Last Admin: 10/15/19 08:42 Dose: 17 gm Senna (Senokot) 17.2 - 25.8 mg PO Q6H [facility] Stop: 10/16/19 02:01 Sodium Chloride (Normal Saline Flush 0.9%) 10 ml IVP PRN PRN PRN Reason: NEEDED PER PROVIDER ORDERS Last Admin: 10/15/19 08:14 Dose: 10 ml Sodium Chloride (Normal Saline Flush 0.9%) 10 ml IVP 0100,0900,1700 [facility] Last Admin: 10/15/19 08:42 Dose: 10 ml Witch Flower/Glycerin (Tucks) 1 pad TOP PRN PRN PRN Reason: ITCHING Aspirin [Low Dose Aspirin EC] 81 mg PO DAILY 01/10/15 Fluticasone/Salmeterol [Advair 250-50 Diskus] 1 puffs INH BID 01/10/15 Ipratropium/Albuterol Sulfate [Combivent Respimat 20-100 Mcg] 1 puffs INH QID 01/10/15 Lisinopril [Zestril] 10 mg PO DAILY 01/10/15 Albuterol Sulfate [Proair Hfa Inhaler] 1 - 2 puffs INH Q4H PRN 04/03/15 metFORMIN [Glucophage] 500 mg PO BID 09/14/19 Furosemide 20 mg PO BID 10/11/19 Azithromycin 250 mg PO MOWEFR 10/12/19 Glipizide [Glipizide Xl] 2.5 mg PO DAILY 10/12/19 Pioglitazone HCl 45 mg PO DAILY 10/12/19 guaiFENesin [Mucinex] 600 mg PO BID PRN 10/12/19
[2019-10-15] MEDS: NYSTATIN CREAM 15 GM TUBE TOP SCH ×2 (12:53→22:08)
[2019-10-15] MEDS: SENNA 8.6 MG TABLET PO SCH (18:19)
[2019-10-15] MEDS: INSULIN GLARGINE 300 UNIT/3 ML PEN SUBQ SCH (22:11)
[2019-10-16] MEDS: SODIUM CHLORIDE FLUSH 0.9% 10 ML SYRINGE IVP SCH ×3 (01:23→16:23)
[2019-10-16] MEDS: ALBUTEROL NEB 2.5 MG/3 ML INH PRN (01:43)
[2019-10-16 06:10] LABS: BASOPHILS % (AUTO) 0.4 %; HGB - HEMOGLOBIN 10.1 g/dL (14.0-18.0); LYMPHOCYTES % (AUTO) 5.8 %; MEAN CORPUSCULAR HEMOGLOBIN 29.2 pg (27.0-31.0); MEAN CORPUSCULAR VOLUME 94.2 fL (80.0-94.0); MEAN PLATELET VOLUME 9.6 fL (7.4-11.4); MONOCYTES % (AUTO) 5.3 %; NEUTROPHILS % (AUTO) 82.9 %; PLT - PLATELET COUNT 381 10^3/uL (130-450); RED BLOOD COUNT 3.46 10^6/uL (4.70-6.10); RED CELL DISTRIBUTION WIDTH 14.1 % (12.0-15.0); WHITE BLOOD COUNT 8.4 x10^3/uL (4.8-10.8)
[2019-10-16 06:14] LABS: ABNORMAL LYMPHS % (MANUAL) 0 %
[2019-10-16] MEDS: methylPREDNISolone SUCCINATE 40 MG/ML VIAL IVP SCH ×3 (06:16→21:13)
[2019-10-16 06:19] LABS: CALCIUM 9.3 mg/dL (8.5-10.3)
[2019-10-16 06:46] LABS: BAND NEUTROPHILS % (MANUAL) 1 %; LYMPHOCYTES # (MANUAL) 0.2 10^3/uL (1.5-3.5); LYMPHOCYTES % (MANUAL) 2 %; METAMYELOCYTES % (MANUAL) 1 %; MONOCYTES # (MANUAL) 0.4 10^3/uL (0.0-1.0); MYELOCYTES % (MANUAL) 3 %
[2019-10-16 06:48] LABS: DIFFERENTIAL COMMENT MANUAL DIFFERENTIAL; PLATELET ESTIMATE, MANUAL NORMAL (130-450,000) (NORMAL); PLATELET MORPHOLOGY NORMAL APPEARANCE (NORMAL); RBC MORPHOLOGY (MULTIPLE) NORMAL APPEARANCE (NORMAL)
[2019-10-16] MEDS: IPRATROPIUM/ALBUTEROL 3 ML NEB INH SCH ×4 (07:30→19:38)
[2019-10-16] MEDS: FORMOTEROL FUMARATE NEB 20 MCG/2 ML INH SCH ×2 (07:30→19:38)
[2019-10-16] MEDS: BUDESONIDE 0.5 MG/2 ML NEB INH SCH ×2 (07:30→19:38)
[2019-10-16] MEDS: INSULIN ASPART 300 UNIT/3 ML PEN SUBQ SCH ×4 (08:19→21:10)
[2019-10-16] MEDS: AZITHROMYCIN 250 MG TABLET PO SCH (08:51)
[2019-10-16] MEDS: CITALOPRAM 10 MG TABLET PO SCH (08:51)
[2019-10-16] MEDS: guaiFENesin 600 MG TABLET PO SCH ×2 (08:51→21:12)
[2019-10-16] MEDS: ASPIRIN EC 81 MG TABLET PO SCH (08:51)
[2019-10-16] MEDS: ENOXAPARIN 40 MG/0.4 ML SYRINGE SUBQ SCH (08:51)
[2019-10-16] MEDS: lisinopriL 5 MG TABLET PO SCH (08:51)
[2019-10-16] MEDS ORDERED: SENNA 8.6 MG TABLET PO SCH (09:00)
[2019-10-16] MEDS: POLYETHYLENE GLYCOL 3350 17 GM PACKET PO SCH (09:29)
[2019-10-16] MEDS: NYSTATIN CREAM 15 GM TUBE TOP SCH ×2 (09:49→21:12)
[2019-10-16] MEDS: DOCUSATE SODIUM 250 MG CAPSULE PO SCH (10:55)
[2019-10-16] MEDS: SENNA 8.6 MG TABLET PO SCH (10:56)
--- NOTE | 2019-10-16 11:38 | PROVIDER PROGRESS NOTE ---
Assessment/Plan - Problem List (1) COPD exacerbation Assessment/Plan: 10/16, clinically, pt is slight better, HR is 93, with 2.5 liter of O2 pt has 96% sats, RR is 16. pt is still using Trilogy. gently reduced Solu-metrol from 120mg to 80mg tid continue RT treatment, followup trilogy usage instruction, continue supplement of O2 followup palliative recommendations. 10/15 pt is taking Trilogy now. it seems pt's respiratory distress is reduced. pt's wheezing sound is reduced significant from yesterday. continue solu-metrol 120mg tid today, tomorrow it might wane gradually off continue breath treatment, continue supplement of O2 followup palliative care's recommendation, continue PT/OT evaluation and treatment, health health PT and AIDe. 10/14 pt has hx of advanced stage of COPD. today pt present bilateral wheezing with mild to moderate respiratory distress although his sat is remaining similar as yesterday. pt had one episode to have have very respiratory distress, which happened multiple times before. pt's acute respiratory distress quickly return ti his baseline and wane away after pt was given Morphine. increase solu-metrol to 120mg tid. pt has given 60 mg tid before because pt has significant anxiety, we tried to reduced steroid caused anxiety continue breath treatment, continue supplement of O2 followup palliative care's recommendation, continue PT/OT evaluation and treatment, health health PT and AIDe. 10/13 pt need 2.5-3.5 of liter of O2 to remain his 93% sats. consult with RT for pt's home Triligen for appropriate usage. RT will call the company to provide the detail information for pt appropriately use the Triligen machine. continue steroids, oral azithromycin inhaled LABA + inhaled steroids called Palliative care re-consult, will pt on today. recurrent of COPD. CXR does not have infiltrate. continue steroids tid for 1 day then bid, then qd IVF for 1 liter oral azithromycin inhaled LABA + inhaled steroids called Palliative care re-consult, will pt on tomorrow. He was seen 12/2015 but no further visits. (2) Acute on chronic kidney failure Conclusion/Plan: 10/16 resolved. review pt's recent ECHO, pt has unremarkable ECHO study. home meds Lasix did increase pt's creatinine level. pt has no leg edema. CXR did not reveals pleura effusion. advise pt hold lasix when pt is d/c 10/15 continue improved. Creatinine is 1.0 today, continue hydration, lab monitor 10/14 continue improved as his baseline, continue appropriate hydration, and lab monitor 10/13 improved. creatinine is 1.2 from 1.5 at the admission. Plan: check labs in am hydrate w 1 liter IVF (3) hypoglycemia with Type 2 diabetes mellitus with neurologic complication, with long-term current use of insulin Conclusion/Plan: 10/15 hypoglycemia is resolved, continue SS, ACHS, hypoglycemia protocol 10/14 pt had hypoglycemia at glucose 37 on last night. nurse report pt is asymptomatic. pt had 15 unit of Lantus reduced from his previous 20 units. now pt's lantus is reduced to 5 units, also reduced SS insulin. pt is on steroid, will closely monitor glucose level by ACHS A1c is 7.8. pt did not take insulin at home. but pt is on steroid now stop oral meds for now change to lantus 15 unit on PM and SS insulin. continue hypoglycemia protocol continue ACHS to check glucose level (4) Hypertension Conclusion/Plan: controlled. no change in lisinopril (5) Anxiety about health Conclusion/Plan: 10/15 stable,continue Ativan and Morphine PRN 10/14 pt still present once significant anxiety today morning. will schedule for Ativan now, PRN Morphine for breathing. 10/13 continue Ativan and Morphine. we might schedule ativan and morphine the meds for pt continue Citalopram pt's sudden SOB as last admission and today morning episode is more likely caused by pt's anxiety and panic. ABGs reveals mild respiratory distress which is not matched his clinic presentation. agree Dr. Solis's analysis: In reviewing the objective data on this gentleman he has a really good right heart system, with no right-sided heart failure. There is no pulmonary hypertension. If his COPD is severe enough to be end- stage, I would think that he would have pulmonary hypertension with right-sided heart failure. He does not. He also only requires 2 L to 2-1/2 L to maintain O2 sats. Most of his decompensation is in the face of a sensation of chest tightness and pressure when he starts to hyperventilate and panic. Plan: Cardiopulmonary rehab strongly recommended Start citalopram Consider low-dose benzodiazepine PRN now start Morphine PRN (6) spiculated lesion on left lower lobe pt had 1.4 cm spiculated lesion at left lower lobe on CT of chest on 10/16/19. I asked pt's daughter if pt see his biotechnician for further evaluation of his spiculated lesion on his left lower lobe, per discussed with pt and his daughter on last discharge. pt's daughter state pt did not see his biotechnician on Friday instead he went to hospital. Advise pt and pt's daughter still need see his biotechnician for further evaluation of his left lower lobe lesion. Both understand this. - Current Meds Current Meds: Current Medications Generic Name Dose Route Start Last Admin Trade Name Freq PRN Reason Stop Dose Admin Albuterol 2.5 mg 10/11/19 17:37 10/16/19 01:43 INH 2.5 mg RTQ4H PRN Administration Wheezing Albuterol/Ipratropium 3 ml 10/11/19 19:00 10/16/19 11:00 Duoneb INH 3 ml RTQID BAUTISTA Administration Aspirin 81 mg 10/14/19 12:00 10/16/19 08:51 Ecotrin PO 81 mg DAILY BAUTISTA Administration Azithromycin 250 mg 10/11/19 17:43 10/16/19 08:51 Zithromax PO 250 mg DAILY BAUTISTA Administration Budesonide 0.5 mg 10/11/19 19:00 10/16/19 07:30 Pulmicort INH 0.5 mg RTBID BAUTISTA Administration Citalopram Hydrobromide 10 mg 10/12/19 15:53 10/16/19 08:51 Celexa PO 10 mg DAILY BAUTISTA Administration Docusate Sodium 250 - 500 mg 10/15/19 09:00 10/16/19 10:55 Colace 250mg Capsule PO Not Given DAILY BAUTISTA Enoxaparin Sodium 40 mg 10/14/19 09:00 10/16/19 08:51 Lovenox SUBQ 40 mg DAILY BAUTISTA Administration Formoterol Fumarate 20 mcg 10/11/19 19:00 10/16/19 07:30 Perforomist INH 20 mcg RTBID BAUTISTA Administration Guaifenesin 600 mg 10/12/19 10:00 10/16/19 08:51 Mucinex PO 600 mg BID BAUTISTA Administration Insulin Aspart 2 - 10 unit 10/15/19 08:00 10/16/19 08:19 Novolog SUBQ Not Given 0800,1200,1700,2100 [facility] Protocol Insulin Glargine 5 unit 10/14/19 21:00 10/15/19 22:11 Lantus Solostar SUBQ 5 unit QPM BAUTISTA Administration Lisinopril 10 mg 10/12/19 09:00 10/16/19 08:51 Zestril PO 10 mg DAILY BAUTISTA Administration Morphine Sulfate 2 mg 10/12/19 17:49 10/15/19 18:10 Morphine (Carpuject) IVP 2 mg Q2HR PRN Administration Shortness of Air/Wheezing Nystatin 1 applic 10/13/19 12:00 10/16/19 09:49 Mycostatin Cream TOP 1 applic BID BAUTISTA Administration Polyethylene Glycol 17 gm 10/15/19 09:00 10/16/19 09:29 Miralax PO 17 gm DAILY BAUTISTA Administration Senna 8.6 - 17.2 mg 10/15/19 17:00 10/16/19 10:56 Senokot PO Not Given DAILY BAUTISTA Sodium Chloride 10 ml 10/11/19 17:31 10/15/19 22:08 Normal Saline Flush 0.9% IVP 10 ml PRN PRN Administration NEEDED PER PROVIDER ORDERS Sodium Chloride 10 ml 10/12/19 01:00 10/16/19 06:18 Normal Saline Flush 0.9% IVP 10 ml 0100,0900,1700 BAUTISTA Administration - Lab Result Fish Bone Diagrams: 10/16/19 05:50 10/16/19 05:50 - Additional Planning My Orders: My Active Orders 10/15/19 17:00 Senna [Senokot] 8.6 - 17.2 mg PO DAILY 10/16/19 14:00 methylPREDNISolone SUCCINATE [SOLU-Medrol (40MG VIAL)] 80 mg IVP TID 10/16/19 Lunch Carb-controlled Diet [DIET] 10/17/19 05:00 BMP - BASIC METABOLIC PANEL [CHEM] DAILYLAB CBC - COMP BLD CT W/AUTO DIFF [HEME] DAILYLAB Subjective - Subjective Patient Reports: Feeling Better Objective Vital Signs: Vital Signs - 24 hr 10/15/19 10/15/19 10/15/19 12:50 13:19 15:54 Temperature 36.3 C L 36.3 C L Heart Rate 104 H Heart Rate [ 110 H 87 Brachial] Respiratory 24 30 H 22 Rate Blood Pressure 151/83 H 133/53 H [Right Brachial artery] O2 Saturation 98 94 10/15/19 10/15/19 10/15/19 18:14 20:37 21:25 Temperature 36.9 C Heart Rate 114 H 87 Heart Rate [ 106 H Brachial] Respiratory 30 H 24 22 Rate Blood Pressure 146/64 H [Right Brachial artery] O2 Saturation 96 10/16/19 10/16/19 10/16/19 01:35 01:45 01:51 Temperature 36.9 C Heart Rate 74 Heart Rate [ 86 Brachial] Respiratory 24 18 20 Rate Blood Pressure 135/69 H [Right Brachial artery] O2 Saturation 99 99 10/16/19 10/16/19 10/16/19 05:00 07:30 07:41 Temperature 36.3 C L 36.6 C Heart Rate 73 Heart Rate [ 81 93 Brachial] Respiratory 20 20 16 Rate Blood Pressure 144/79 H 136/64 H [Right Brachial artery] O2 Saturation 96 96 10/16/19 11:00 Temperature Heart Rate 100 Heart Rate [ Brachial] Respiratory 20 Rate Blood Pressure [Right Brachial artery] O2 Saturation Oxygen O2 Source [Without Activity] Nasal cannula O2 Source [With Activity] Nasal cannula O2 Source Nasal cannula Oxygen Flow Rate 2 I&O (Last 24 Hrs): Intake and Output Totals x24h 10/14/19 10/15/19 10/16/19 23:59 23:59 23:59 Intake Total 1716 1680 200 Output Total 1225 1000 Balance 491 680 200 General: Alert, Oriented x3, Mild distress HEENT: Atraumatic, PERRLA, EOMI Neck: Supple Lymphatic: no adenopathy Neuro: Alert, Non Focal, Oriented Times 3 Cardiovascular: Regular rate, Normal S1, Normal S2 Respiratory: Chest non-tender Abdomen: Normal bowel sounds, Soft Extremities: No edema, Normal pulses - Results Results: Laboratory Results WBC 8.4 x10^3/uL (4.8-10.8) 10/16/19 05:50 RBC 3.46 10^6/uL (4.70-6.10) L 10/16/19 05:50 Hgb 10.1 g/dL (14.0-18.0) L 10/16/19 05:50 Hct 32.6 % (42.0-52.0) L 10/16/19 05:50 MCV 94.2 fL (80.0-94.0) H 10/16/19 05:50 MCH 29.2 pg (27.0-31.0) 10/16/19 05:50 MCHC 31.0 g/dL (32.0-36.0) L 10/16/19 05:50 RDW 14.1 % (12.0-15.0) 10/16/19 05:50 Plt Count 381 10^3/uL (130-450) 10/16/19 05:50 MPV 9.6 fL (7.4-11.4) 10/16/19 05:50 Neut # (Auto) Not Reportable 10/16/19 05:50 Lymph # (Auto) Not Reportable 10/16/19 05:50 [place] # (Auto) Not Reportable 10/16/19 05:50 Eos # (Auto) Not Reportable 10/16/19 05:50 Baso # (Auto) Not Reportable 10/16/19 05:50 Absolute Nucleated RBC Not Reportable 10/16/19 05:50 Total Counted 100 10/16/19 05:50 Band Neuts % (Manual) 1 % (0-10) 10/16/19 05:50 Abnorm Lymph % (Manual) 0 % 10/16/19 05:50 Metamyelocytes % 1 % (-0) H 10/16/19 05:50 Myelocytes % 3 % (-0) H 10/16/19 05:50 Nucleated RBC % Not Reportable 10/16/19 05:50 Neutrophils # (Manual) 7.5 10^3/uL (1.5-6.6) H 10/16/19 05:50 Lymphocytes # (Manual) 0.2 10^3/uL (1.5-3.5) L 10/16/19 05:50 Monocytes # (Manual) 0.4 10^3/uL (0.0-1.0) 10/16/19 05:50 Eosinophils # (Manual) 0.0 10^3/uL (0-0.7) 10/16/19 05:50 Basophils # (Manual) 0.0 10^3/uL (0-0.1) 10/16/19 05:50 Differential Comment MANUAL DIFFERENTIAL 10/16/19 05:50 WBC Morphology NORMAL APPEARANCE (NORMAL) 10/16/19 05:50 Platelet Estimate NORMAL (130-450,000) (NORMAL) 10/16/19 05:50 Platelet Morphology NORMAL APPEARANCE (NORMAL) 10/16/19 05:50 RBC Morph Micro Appear NORMAL APPEARANCE (NORMAL) 10/16/19 05:50 Bld Gas Analysis Time 0945 10/12/19 09:38 Sample Site RIGHT RADIAL 10/12/19 09:38 ABG pH 7.34 (7.35-7.45) L 10/12/19 09:38 ABG pCO2 54 mmHg (34-45) H 10/12/19 09:38 ABG pO2 77 mmHg (80-100) L 10/12/19 09:38 ABG HCO3 28.7 mmol/L (22.0-26.0) H 10/12/19 09:38 ABG Total CO2 30.3 MMOL/L (21.0-29.0) H 10/12/19 09:38 ABG O2 Saturation 94 % (94-98) 10/12/19 09:38 ABG Base Excess 2.2 mmol/L (-2.0-3.0) 10/12/19 09:38 Alon Test POSITIVE 10/12/19 09:38 O2 Delivery Device NASAL CANNULA 10/12/19 09:38 O2 Liters/Min 2.50 LPM 10/12/19 09:38 Sodium 141 mmol/L (135-145) 10/16/19 05:50 Potassium 4.9 mmol/L (3.5-5.0) 10/16/19 05:50 Chloride 95 mmol/L (101-111) L 10/16/19 05:50 Carbon Dioxide 37 mmol/L (21-32) H 10/16/19 05:50 Anion Gap 9.0 (6-13) 10/16/19 05:50 BUN 25 mg/dL (6-20) H 10/16/19 05:50 Creatinine 1.0 mg/dL (0.6-1.2) 10/16/19 05:50 Estimated GFR (MDRD) 73 (>89) L 10/16/19 05:50 Glucose 115 mg/dL (70-100) H 10/16/19 05:50 POC Whole Bld Glucose 217 mg/dL (70 - 100) H 10/16/19 11:19 Glycated Hemoglobin 7.8 % (4.6-6.2) H 10/12/19 09:02 Estim Average Glucose 177 (70-100) H 10/12/19 09:02 Calcium 9.3 mg/dL (8.5-10.3) 10/16/19 05:50 Magnesium 2.1 mg/dL (1.7-2.8) 10/12/19 09:02 Total Bilirubin 0.6 mg/dL (0.2-1.0) 10/11/19 13:57 AST 31 IU/L (10-42) 10/11/19 13:57 ALT 34 IU/L (10-60) 10/11/19 13:57 Alkaline Phosphatase 64 IU/L (42-121) 10/11/19 13:57 Troponin I High Sens 15.0 ng/L (2.3-19.7) 10/13/19 11:40 B-Natriuretic Peptide 21 pg/mL (5-100) 10/11/19 14:10 Total Protein 6.9 g/dL (6.7-8.2) 10/11/19 13:57 Albumin 3.8 g/dL (3.2-5.5) 10/11/19 13:57 Globulin 3.1 g/dL (2.1-4.2) 10/11/19 13:57 Albumin/Globulin Ratio 1.2 (1.0-2.2) 10/11/19 13:57 Lipase 54 U/L (22-51) H 10/11/19 13:57 - Procedures Procedures: Procedures NON-INVASIVE MECHANICAL VENTILATION (01/10/15) Sepsis Event Note (H) - Evaluation Current Stage of Sepsis: Ruled out ABX Reporting Has patient been on IV antibiotics over the past 48 hours?: Yes Current Medications - Current Medications Current Medications: Active Medications Albuterol () 2.5 mg INH RTQ4H PRN PRN Reason: Wheezing Last Admin: 10/16/19 01:43 Dose: 2.5 mg Albuterol/Ipratropium (Duoneb) 3 ml INH RTQID [facility] Last Admin: 10/16/19 11:00 Dose: 3 ml Aspirin (Ecotrin) 81 mg PO DAILY [facility] Last Admin: 10/16/19 08:51 Dose: 81 mg Azithromycin (Zithromax) 250 mg PO DAILY [facility] Last Admin: 10/16/19 08:51 Dose: 250 mg Budesonide (Pulmicort) 0.5 mg INH RTBID [facility] Last Admin: 10/16/19 07:30 Dose: 0.5 mg Calcium Carbonate/Glycine (Tums) 500 mg PO BID PRN PRN Reason: Heartburn Citalopram Hydrobromide (Celexa) 10 mg PO DAILY [facility] Last Admin: 10/16/19 08:51 Dose: 10 mg Cyclobenzaprine HCl (Flexeril) 10 mg PO TID PRN PRN Reason: Spasms Docusate Sodium (Colace 250mg Capsule) 250 - 500 mg PO DAILY [facility] Last Admin: 10/16/19 10:55 Dose: Not Given Enoxaparin Sodium (Lovenox) 40 mg SUBQ DAILY [facility] Last Admin: 10/16/19 08:51 Dose: 40 mg Formoterol Fumarate (Perforomist) 20 mcg INH RTBID [facility] Last Admin: 10/16/19 07:30 Dose: 20 mcg Guaifenesin (Mucinex) 600 mg PO BID [facility] Last Admin: 10/16/19 08:51 Dose: 600 mg Insulin Aspart (Novolog) 2 - 10 unit SUBQ 0800,1200,1700,2100 [facility]; Protocol Last Admin: 10/16/19 08:19 Dose: Not Given Insulin Glargine (Lantus Solostar) 5 unit SUBQ QPM [facility] Last Admin: 10/15/19 22:11 Dose: 5 unit Lisinopril (Zestril) 10 mg PO DAILY [facility] Last Admin: 10/16/19 08:51 Dose: 10 mg Lorazepam (Ativan) 0.5 mg PO Q6H PRN PRN Reason: Anxiety Methylprednisolone (Solu-Medrol (40mg Vial)) 80 mg IVP TID [facility] Morphine Sulfate (Morphine (Carpuject)) 2 mg IVP Q2HR PRN PRN Reason: Shortness of Air/Wheezing Last Admin: 10/15/19 18:10 Dose: 2 mg Nystatin (Mycostatin Cream) 1 applic TOP BID [facility] Last Admin: 10/16/19 09:49 Dose: 1 applic Ondansetron HCl (Zofran Inj) 4 mg IVP Q6HR PRN PRN Reason: Nausea / Vomiting Ondansetron HCl (Zofran Odt) 4 mg TL Q6HR PRN PRN Reason: Nausea / Vomiting Oxycodone HCl (Roxicodone) 5 mg PO Q4HR PRN PRN Reason: Pain 5 to 7 Polyethylene Glycol (Miralax) 17 gm PO DAILY [facility] Last Admin: 10/16/19 09:29 Dose: 17 gm Senna (Senokot) 8.6 - 17.2 mg PO DAILY [facility] Last Admin: 10/16/19 10:56 Dose: Not Given Sodium Chloride (Normal Saline Flush 0.9%) 10 ml IVP PRN PRN PRN Reason: NEEDED PER PROVIDER ORDERS Last Admin: 10/15/19 22:08 Dose: 10 ml Sodium Chloride (Normal Saline Flush 0.9%) 10 ml IVP 0100,0900,1700 [facility] Last Admin: 10/16/19 06:18 Dose: 10 ml Witch Flower/Glycerin (Tucks) 1 pad TOP PRN PRN PRN Reason: ITCHING Aspirin [Low Dose Aspirin EC] 81 mg PO DAILY 01/10/15 Fluticasone/Salmeterol [Advair 250-50 Diskus] 1 puffs INH BID 01/10/15 Ipratropium/Albuterol Sulfate [Combivent Respimat 20-100 Mcg] 1 puffs INH QID 01/10/15 Lisinopril [Zestril] 10 mg PO DAILY 01/10/15 Albuterol Sulfate [Proair Hfa Inhaler] 1 - 2 puffs INH Q4H PRN 04/03/15 metFORMIN [Glucophage] 500 mg PO BID 09/14/19 Furosemide 20 mg PO BID 10/11/19 Azithromycin 250 mg PO MOWEFR 10/12/19 Glipizide [Glipizide Xl] 2.5 mg PO DAILY 10/12/19 Pioglitazone HCl 45 mg PO DAILY 10/12/19 guaiFENesin [Mucinex] 600 mg PO BID PRN 10/12/19
[2019-10-16] MEDS: INSULIN GLARGINE 300 UNIT/3 ML PEN SUBQ SCH (21:09)
[2019-10-17] MEDS: ALBUTEROL NEB 2.5 MG/3 ML INH PRN ×4 (00:15→17:04)
[2019-10-17] MEDS: methylPREDNISolone SUCCINATE 40 MG/ML VIAL IVP SCH ×3 (05:56→22:26)
[2019-10-17] MEDS: SODIUM CHLORIDE FLUSH 0.9% 10 ML SYRINGE IVP PRN ×3 (05:56→22:26)
[2019-10-17] MEDS: SODIUM CHLORIDE FLUSH 0.9% 10 ML SYRINGE IVP SCH ×3 (05:56→20:34)
[2019-10-17 06:24] LABS: BASOPHILS % (AUTO) 0.5 %; EOSINOPHILS % (AUTO) 2.3 %; HGB - HEMOGLOBIN 9.2 g/dL (14.0-18.0); LYMPHOCYTES % (AUTO) 6.2 %; MEAN CORPUSCULAR HEMOGLOBIN 28.8 pg (27.0-31.0); MEAN CORPUSCULAR HGB CONC 30.5 g/dL (32.0-36.0); MEAN CORPUSCULAR VOLUME 94.4 fL (80.0-94.0); MEAN PLATELET VOLUME 9.9 fL (7.4-11.4); MONOCYTES % (AUTO) 8.7 %; NEUTROPHILS % (AUTO) 76.9 %; PLT - PLATELET COUNT 349 10^3/uL (130-450)
[2019-10-17 06:28] LABS: ABNORMAL LYMPHS % (MANUAL) 0 %; BAND NEUTROPHILS % (MANUAL) 0 %
[2019-10-17 06:37] LABS: CALCIUM 8.5 mg/dL (8.5-10.3); CREATININE 0.9 mg/dL (0.6-1.2)
[2019-10-17 06:46] LABS: LYMPHOCYTES # (MANUAL) 0.7 10^3/uL (1.5-3.5); LYMPHOCYTES % (MANUAL) 9 %; METAMYELOCYTES % (MANUAL) 1 %; MONOCYTES # (MANUAL) 0.6 10^3/uL (0.0-1.0); MYELOCYTES % (MANUAL) 4 %
[2019-10-17 06:47] LABS: PLATELET MORPHOLOGY NORMAL APPEARANCE (NORMAL); RBC MORPHOLOGY (MULTIPLE) NORMAL APPEARANCE (NORMAL)
[2019-10-17 06:48] LABS: DIFFERENTIAL COMMENT MANUAL DIFFERENTIAL; PLATELET ESTIMATE, MANUAL NORMAL (130-450,000) (NORMAL)
[2019-10-17] MEDS: BUDESONIDE 0.5 MG/2 ML NEB INH SCH ×2 (07:32→20:06)
[2019-10-17] MEDS: FORMOTEROL FUMARATE NEB 20 MCG/2 ML INH SCH ×2 (07:32→20:06)
[2019-10-17] MEDS: AZITHROMYCIN 250 MG TABLET PO SCH (08:29)
[2019-10-17] MEDS: INSULIN ASPART 300 UNIT/3 ML PEN SUBQ SCH ×4 (08:29→21:52)
[2019-10-17] MEDS: ASPIRIN EC 81 MG TABLET PO SCH (08:29)
[2019-10-17] MEDS: lisinopriL 5 MG TABLET PO SCH (08:29)
[2019-10-17] MEDS: guaiFENesin 600 MG TABLET PO SCH ×3 (08:29→21:51)
[2019-10-17] MEDS: CITALOPRAM 10 MG TABLET PO SCH (08:29)
[2019-10-17] MEDS: DOCUSATE SODIUM 250 MG CAPSULE PO SCH (08:29)
[2019-10-17] MEDS: SENNA 8.6 MG TABLET PO SCH (08:30)
[2019-10-17] MEDS: POLYETHYLENE GLYCOL 3350 17 GM PACKET PO SCH (08:30)
[2019-10-17] MEDS: ENOXAPARIN 40 MG/0.4 ML SYRINGE SUBQ SCH (08:30)
[2019-10-17] MEDS: NYSTATIN CREAM 15 GM TUBE TOP SCH ×2 (08:31→21:53)
[2019-10-17] MEDS: IPRATROPIUM/ALBUTEROL 3 ML NEB INH SCH ×4 (10:17→20:08)
[2019-10-17] MEDS: MORPHINE 2 MG/ML CARPUJECT IVP PRN ×2 (12:56→20:55)
--- NOTE | 2019-10-17 16:26 | PROVIDER PROGRESS NOTE ---
Assessment/Plan - Problem List (1) COPD exacerbation Assessment/Plan: Patient still has scattered wheezes and scattered rhonchi but no longer prolonged expiratory phase and does have air movement that is adequate now diffusely. Continue with nebulizers, IV steroids, Mucinex, trilogy and rebreather and nasal cannula supplemental. We will add Singulair. When he is discharged, will plan a slow taper of oral steroids over months, not over 10-day. This was also discussed with the patient and daughter at bedside (2) Severe chronic obstructive pulmonary disease Assessment/Plan: He has a recently ordered Trilogy mask but he does not tolerate this. He asks for the rebreather mask when he has air hunger. Continue with IV steroids that were decreased from 125 3 times daily to 80 mg 3 times daily yesterday. Continue with nebs [id number]. Continue with inhaled steroids and bronchodilator nebs. We will add Singulair at at bedtime (3) Anxiety Assessment/Plan: He had been put on an SSRI, according to the note from Faustina Costello NP, but it was not listed on his home medicines and has not been resumed here. I described the benefit of this to the patient and his daughter at bedside. Will resume Celexa Will plan to also use Ativan. (4) Diabetes mellitus Qualifiers: Diabetes mellitus type: type 2 Assessment/Plan: Continue CC diet and SS insulin (5) Hypertension Qualifiers: Hypertension type: essential hypertension Qualified Code(s): I10 - Essential (primary) hypertension Assessment/Plan: BP controlled on lisinopril (6) Anemia Assessment/Plan: Continue to monitor H&H, transfuse if under 8. (7) Weakness Assessment/Plan: He has now had multiple admissions in the past year and gets very deconditioned. Over the past 2 days he has been too weak to participate in PT. Since this admission just 2-4 steps gives him severe air hunger which may also be from muscle weakness which then makes him anxious and leads to more air hunger. I have advised that he do PT in a chair and gave him certain leg exercises and arm exercises recommendations. The daughter was present to hear these. (8) MIGUEL ANGEL (acute kidney injury) Assessment/Plan: Resolved - Current Meds Current Meds: Current Medications Generic Name Dose Route Start Last Admin Trade Name Freq PRN Reason Stop Dose Admin Albuterol 2.5 mg 10/11/19 17:37 10/17/19 12:04 INH 2.5 mg RTQ4H PRN Administration Wheezing Albuterol/Ipratropium 3 ml 10/11/19 19:00 10/17/19 14:50 Duoneb INH 3 ml RTQID BAUTISTA Administration Aspirin 81 mg 10/14/19 12:00 10/17/19 08:29 Ecotrin PO 81 mg DAILY BAUTISTA Administration Azithromycin 250 mg 10/11/19 17:43 10/17/19 08:29 Zithromax PO 250 mg DAILY BAUTISTA Administration Budesonide 0.5 mg 10/11/19 19:00 10/17/19 07:32 Pulmicort INH 0.5 mg RTBID BAUTISTA Administration Citalopram Hydrobromide 10 mg 10/12/19 15:53 10/17/19 08:29 Celexa PO 10 mg DAILY BAUTISTA Administration Docusate Sodium 250 - 500 mg 10/15/19 09:00 10/17/19 08:29 Colace 250mg Capsule PO 250 mg DAILY BAUTISTA Administration Enoxaparin Sodium 40 mg 10/14/19 09:00 10/17/19 08:30 Lovenox SUBQ 40 mg DAILY BAUTISTA Administration Formoterol Fumarate 20 mcg 10/11/19 19:00 10/17/19 07:32 Perforomist INH 20 mcg RTBID BAUTISTA Administration Guaifenesin 600 mg 10/12/19 10:00 10/17/19 08:29 Mucinex PO 600 mg BID BAUTISTA Administration Insulin Aspart 2 - 10 unit 10/15/19 08:00 10/17/19 14:00 Novolog SUBQ 4 unit 0800,1200,1700,2100 BAUTISTA Administration Protocol Insulin Glargine 5 unit 10/14/19 21:00 10/16/19 21:09 Lantus Solostar SUBQ 5 unit QPM BAUTISTA Administration Lisinopril 10 mg 10/12/19 09:00 10/17/19 08:29 Zestril PO 10 mg DAILY BAUTISTA Administration Methylprednisolone 80 mg 10/16/19 14:00 10/17/19 14:08 Solu-Medrol (40mg Vial) IVP 80 mg TID BAUTISTA Administration Morphine Sulfate 2 mg 10/12/19 17:49 10/17/19 12:56 Morphine (Carpuject) IVP 2 mg Q2HR PRN Administration Shortness of Air/Wheezing Nystatin 1 applic 10/13/19 12:00 10/17/19 08:31 Mycostatin Cream TOP 1 applic BID BAUTISTA Administration Polyethylene Glycol 17 gm 10/15/19 09:00 10/17/19 08:30 Miralax PO Not Given DAILY BAUTISTA Senna 8.6 - 17.2 mg 10/15/19 17:00 10/17/19 08:30 Senokot PO Not Given DAILY BAUTISTA Sodium Chloride 10 ml 10/11/19 17:31 10/17/19 12:56 Normal Saline Flush 0.9% IVP 10 ml PRN PRN Administration NEEDED PER PROVIDER ORDERS Sodium Chloride 10 ml 10/12/19 01:00 10/17/19 08:30 Normal Saline Flush 0.9% IVP 10 ml 0100,0900,1700 BAUTISTA Administration - Lab Result Fish Bone Diagrams: 10/17/19 05:10 10/17/19 05:10 - Additional Planning My Orders: My Active Orders 10/17/19 14:31 SCDs [RC] QSHIFT 10/17/19 21:00 LORazepam [Ativan] 0.5 mg PO BID Montelukast [Singulair] 10 mg PO QPM Subjective - Subjective Patient Reports: Shortness of Breath Objective Vital Signs: Vital Signs - 24 hr 10/16/19 10/16/19 10/17/19 19:35 21:00 00:16 Temperature 36.9 C Heart Rate 91 95 Heart Rate [ 98 Brachial] Respiratory 22 20 24 Rate Blood Pressure 126/52 L [Left Brachial artery] O2 Saturation 96 10/17/19 10/17/19 10/17/19 00:45 04:15 07:28 Temperature 36.7 C 36.6 C 36.7 C Heart Rate Heart Rate [ 91 87 74 Brachial] Respiratory 20 20 20 Rate Blood Pressure 134/61 H 131/59 H 122/58 L [Left Brachial artery] O2 Saturation 97 97 100 10/17/19 10/17/19 10/17/19 07:35 10:25 12:07 Temperature Heart Rate 77 91 71 Heart Rate [ Brachial] Respiratory 20 18 20 Rate Blood Pressure [Left Brachial artery] O2 Saturation 10/17/19 10/17/19 10/17/19 13:25 15:01 16:20 Temperature 36.6 C 36.8 C Heart Rate 98 Heart Rate [ 102 H 93 Brachial] Respiratory 18 20 20 Rate Blood Pressure 157/79 H 141/62 H [Left Brachial artery] O2 Saturation 99 100 10/17/19 16:21 Temperature Heart Rate Heart Rate [ Brachial] Respiratory Rate Blood Pressure [Left Brachial artery] O2 Saturation 96 Oxygen O2 Source [Without Activity] Nasal cannula O2 Source [With Activity] Nasal cannula O2 Source Nasal cannula Oxygen Flow Rate 2 I&O (Last 24 Hrs): Intake and Output Totals x24h 10/15/19 10/16/19 10/17/19 23:59 23:59 23:59 Intake Total 1680 700 120 Output Total 5079 423 9277 Balance 680 -120 -1055 General: Alert, Oriented x3 HEENT: Mucous membr. moist/pink, Other (Edentulous. Very hoarse voice.) Neck: Supple, No JVD Neuro: Alert, Non Focal Cardiovascular: Regular rate, No murmurs Respiratory: Wheezes, Other (Scattered minimal wheezes, fair air entry, prolonged expiratory phase) Abdomen: Soft, Other (Obese) Extremities: No edema - Results Results: Laboratory Results WBC 8.0 x10^3/uL (4.8-10.8) 10/17/19 05:10 RBC 3.20 10^6/uL (4.70-6.10) L 10/17/19 05:10 Hgb 9.2 g/dL (14.0-18.0) L 10/17/19 05:10 Hct 30.2 % (42.0-52.0) L 10/17/19 05:10 MCV 94.4 fL (80.0-94.0) H 10/17/19 05:10 MCH 28.8 pg (27.0-31.0) 10/17/19 05:10 MCHC 30.5 g/dL (32.0-36.0) L 10/17/19 05:10 RDW 14.0 % (12.0-15.0) 10/17/19 05:10 Plt Count 349 10^3/uL (130-450) 10/17/19 05:10 MPV 9.9 fL (7.4-11.4) 10/17/19 05:10 Neut # (Auto) Not Reportable 10/17/19 05:10 Lymph # (Auto) Not Reportable 10/17/19 05:10 [place] # (Auto) Not Reportable 10/17/19 05:10 Eos # (Auto) Not Reportable 10/17/19 05:10 Baso # (Auto) Not Reportable 10/17/19 05:10 Absolute Nucleated RBC Not Reportable 10/17/19 05:10 Total Counted 100 10/17/19 05:10 Band Neuts % (Manual) 0 % (0-10) 10/17/19 05:10 Abnorm Lymph % (Manual) 0 % 10/17/19 05:10 Metamyelocytes % 1 % (-0) H 10/17/19 05:10 Myelocytes % 4 % (-0) H 10/17/19 05:10 Nucleated RBC % Not Reportable 10/17/19 05:10 Neutrophils # (Manual) 6.3 10^3/uL (1.5-6.6) 10/17/19 05:10 Lymphocytes # (Manual) 0.7 10^3/uL (1.5-3.5) L 10/17/19 05:10 Monocytes # (Manual) 0.6 10^3/uL (0.0-1.0) 10/17/19 05:10 Eosinophils # (Manual) 0.0 10^3/uL (0-0.7) 10/17/19 05:10 Basophils # (Manual) 0.0 10^3/uL (0-0.1) 10/17/19 05:10 Differential Comment MANUAL DIFFERENTIAL 10/17/19 05:10 WBC Morphology NORMAL APPEARANCE (NORMAL) 10/17/19 05:10 Platelet Estimate NORMAL (130-450,000) (NORMAL) 10/17/19 05:10 Platelet Morphology NORMAL APPEARANCE (NORMAL) 10/17/19 05:10 RBC Morph Micro Appear NORMAL APPEARANCE (NORMAL) 10/17/19 05:10 Bld Gas Analysis Time 0945 10/12/19 09:38 Sample Site RIGHT RADIAL 10/12/19 09:38 ABG pH 7.34 (7.35-7.45) L 10/12/19 09:38 ABG pCO2 54 mmHg (34-45) H 10/12/19 09:38 ABG pO2 77 mmHg (80-100) L 10/12/19 09:38 ABG HCO3 28.7 mmol/L (22.0-26.0) H 10/12/19 09:38 ABG Total CO2 30.3 MMOL/L (21.0-29.0) H 10/12/19 09:38 ABG O2 Saturation 94 % (94-98) 10/12/19 09:38 ABG Base Excess 2.2 mmol/L (-2.0-3.0) 10/12/19 09:38 Alon Test POSITIVE 10/12/19 09:38 O2 Delivery Device NASAL CANNULA 10/12/19 09:38 O2 Liters/Min 2.50 LPM 10/12/19 09:38 Sodium 137 mmol/L (135-145) 10/17/19 05:10 Potassium 4.3 mmol/L (3.5-5.0) 10/17/19 05:10 Chloride 93 mmol/L (101-111) L 10/17/19 05:10 Carbon Dioxide 39 mmol/L (21-32) H* 10/17/19 05:10 Anion Gap 5.0 (6-13) L 10/17/19 05:10 BUN 24 mg/dL (6-20) H 10/17/19 05:10 Creatinine 0.9 mg/dL (0.6-1.2) 10/17/19 05:10 Estimated GFR (MDRD) 82 (>89) L 10/17/19 05:10 Glucose 105 mg/dL (70-100) H 10/17/19 05:10 POC Whole Bld Glucose 84 mg/dL (70 - 100) 10/17/19 16:14 Glycated Hemoglobin 7.8 % (4.6-6.2) H 10/12/19 09:02 Estim Average Glucose 177 (70-100) H 10/12/19 09:02 Calcium 8.5 mg/dL (8.5-10.3) 10/17/19 05:10 Magnesium 2.1 mg/dL (1.7-2.8) 10/12/19 09:02 Total Bilirubin 0.6 mg/dL (0.2-1.0) 10/11/19 13:57 AST 31 IU/L (10-42) 10/11/19 13:57 ALT 34 IU/L (10-60) 10/11/19 13:57 Alkaline Phosphatase 64 IU/L (42-121) 10/11/19 13:57 Troponin I High Sens 15.0 ng/L (2.3-19.7) 10/13/19 11:40 B-Natriuretic Peptide 21 pg/mL (5-100) 10/11/19 14:10 Total Protein 6.9 g/dL (6.7-8.2) 10/11/19 13:57 Albumin 3.8 g/dL (3.2-5.5) 10/11/19 13:57 Globulin 3.1 g/dL (2.1-4.2) 10/11/19 13:57 Albumin/Globulin Ratio 1.2 (1.0-2.2) 10/11/19 13:57 Lipase 54 U/L (22-51) H 10/11/19 13:57 - Procedures Procedures: Procedures NON-INVASIVE MECHANICAL VENTILATION (01/10/15) Sepsis Event Note (H) - Evaluation Current Stage of Sepsis: Ruled out
--- NOTE | 2019-10-17 17:15 | ADVANCE CARE PLANNING NOTE ---
Advance Care Planning - Planning Encounter Date: 10/17/19 Time: 16:30 Purpose: To establish goals of care after updating him and daughter about his COPD and it's prognosis. Parties in Attendance: Patient, daughter and Hospitalist Decisional Capacity of the Patient: He has full decisional capacity - Diagnosis for Encounter (1) Severe chronic obstructive pulmonary disease Summary: His lung function "is at 20%". After his last admission 1 month ago, he feels that he "never got back to his baseline over this past month at home". (2) Anxiety Summary: There have been recurrent episodes with a vicious cycle: He gets short of breath, this makes him anxious, this makes him more tachypneic which makes him feel worse air hunger. - Encounter Subjective/Patient's Story: Patient has severe COPD, anxiety, hypertension, diabetes. He is on 3 pills for his diabetes. When he would have COPD exacerbations, he gets sent home with a rapid taper of steroids. He is also not on Singulair. He is on one inhaler when he is at home and also has oxygen at 2 L per nasal cannula and uses a trilogy device at home with activity. 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 His air hunger developed into the chest pressure that felt like fullness "like something was going to pop". And he was brought to the emergency room and has been admitted for COPD exacerbation. Objective/Medical Story: Patient has been here 5 days requiring Solu-Medrol 125 mg 3 times daily plus nebulizers as needed and 4 times daily and Mucinex and supplemental oxygen. Only yesterday did he break his severe wheezing episodes and steroids could be decreased slightly. He has many episodes where he gets panicky and anxious when he has air hunger which is a vicious cycle that gives him more and air trapping, worse oxygen desaturations and more air hunger. IV morphine has been used to break these episodes. He was supposed to be on an SSRI and Benzo, to manage the anxiety, as written in notes by Faustina Costello and in the ACP of Dr. Solis, but these have not started. He is not on Singulair at home. He gets put on quick steroid tapers after discharge from COPD exacerbations. He is only on one inhaler at home. Goals of Care: I explained to the patient and daughter at bedside that his prognosis with 20% lung function is poor indicating a prognosis of a year or less. He had hoped to be ambulatory and independent and I described that his new normal may be just walking 4 steps and mostly sitting in a chair or being in bed. At rest he is currently comfortable today. I propose that he be started on treatment for the anxiety and that it should have an effect in about a week. Morphine sulfate trans-lingual can also be given as needed for air hunger so that he does not need to be admitted and get IV morphine. I advised that he be transitioned to oral steroids with a very slow taper, after 3 to 4 months or longer. He should be on Advair and Spiriva inhalers when he is at home and continue with the supplemental nasal cannula oxygen and trilogy machine for supplement at home. It was explained that he is getting deconditioned with every hospitalization and therefore when he stands now he is too tired to participate in PT which then gi ves him shortness of breath and then anxiety which leads to more air hunger. I propose that he start PT in his chair, and described several leg, foot and arm exercises. The patient will need more support if he is to be discharged home from this hospitalization such as meal making and assistance with toileting and bathing. His wishes to go home, not to go to SNF. Plan: Start all of the things proposed in goals of care (above). Remain DNR. Code Status: Do Not Attempt Resuscitation Time spent on advance care plannin min
[2019-10-17] MEDS: MONTELUKAST 10 MG TABLET PO SCH ×2 (20:34→21:51)
[2019-10-17] MEDS: LORazepam 0.5 MG TABLET PO SCH ×2 (20:35→21:53)
[2019-10-17] MEDS: INSULIN GLARGINE 300 UNIT/3 ML PEN SUBQ SCH (21:52)
[2019-10-18] MEDS: LORazepam 0.5 MG TABLET PO PRN (00:19)
[2019-10-18] MEDS: SODIUM CHLORIDE FLUSH 0.9% 10 ML SYRINGE IVP SCH ×4 (00:20→21:52)
[2019-10-18] MEDS: ALBUTEROL NEB 2.5 MG/3 ML INH PRN (00:45)
[2019-10-18] MEDS: MORPHINE 2 MG/ML CARPUJECT IVP PRN ×3 (00:56→19:12)
[2019-10-18] MEDS: SODIUM CHLORIDE FLUSH 0.9% 10 ML SYRINGE IVP PRN ×2 (00:57→06:06)
[2019-10-18] MEDS: methylPREDNISolone SUCCINATE 40 MG/ML VIAL IVP SCH ×3 (06:06→21:52)
[2019-10-18] MEDS: IPRATROPIUM/ALBUTEROL 3 ML NEB INH SCH ×4 (07:55→18:24)
[2019-10-18] MEDS: FORMOTEROL FUMARATE NEB 20 MCG/2 ML INH SCH ×2 (07:55→18:24)
[2019-10-18] MEDS: BUDESONIDE 0.5 MG/2 ML NEB INH SCH ×2 (07:55→18:24)
[2019-10-18] MEDS: INSULIN ASPART 300 UNIT/3 ML PEN SUBQ SCH ×4 (08:46→21:21)
[2019-10-18] MEDS: LORazepam 0.5 MG TABLET PO SCH ×3 (08:47→17:07)
[2019-10-18] MEDS: DOCUSATE SODIUM 250 MG CAPSULE PO SCH (08:47)
[2019-10-18] MEDS: guaiFENesin 600 MG TABLET PO SCH ×2 (08:48→21:19)
[2019-10-18] MEDS: POLYETHYLENE GLYCOL 3350 17 GM PACKET PO SCH (08:48)
[2019-10-18] MEDS: SENNA 8.6 MG TABLET PO SCH (08:48)
[2019-10-18] MEDS: CITALOPRAM 10 MG TABLET PO SCH (08:49)
[2019-10-18] MEDS: AZITHROMYCIN 250 MG TABLET PO SCH (08:49)
[2019-10-18] MEDS: ASPIRIN EC 81 MG TABLET PO SCH (08:49)
[2019-10-18] MEDS: lisinopriL 5 MG TABLET PO SCH (08:49)
[2019-10-18] MEDS: ENOXAPARIN 40 MG/0.4 ML SYRINGE SUBQ SCH (08:50)
[2019-10-18] MEDS: NYSTATIN CREAM 15 GM TUBE TOP SCH ×2 (08:51→21:20)
--- NOTE | 2019-10-18 13:43 | PROVIDER PROGRESS NOTE ---
Assessment/Plan - Problem List (1) COPD exacerbation Assessment/Plan: Continue with nebs, IV steroids, Mucinex, adding Singulair, oxygen supplemental either by trilogy, nasal cannula, or rebreather mask (2) Severe chronic obstructive pulmonary disease Assessment/Plan: I discussed the prognosis with the patient and daughter Sharona at bedside. He is steadily gotten worse this year. He will need significantly more help with caregiving which was brought up with the patient and daughter Sharona at bedside (3) Anxiety Assessment/Plan: The Celexa is now on day 2. Planning to use Ativan and therefore will increase from 0.5 mg twice daily to 3 times daily with meals scheduled dosing (4) Diabetes mellitus Qualifiers: Diabetes mellitus type: type 2 Assessment/Plan: Glucoses are 200-300, possibly due to many days of IV steroids. Continue with CC diet and SS insulin (5) Hypertension Qualifiers: Hypertension type: essential hypertension Qualified Code(s): I10 - Essential (primary) hypertension Assessment/Plan: Stable on current meds (6) Anemia Assessment/Plan: He seems to have anemia of chronic disease. He does not have compensatory polycythemia in a patient with such severe COPD. Follow CBC daily, transfuse if under 8 (7) Weakness Assessment/Plan: He has been unable to walk with PT for the previous 3 days. New orders were given to PT for exercises in a chair The patient would now agreed to go to SNF for PT rehab (8) MIGUEL ANGEL (acute kidney injury) Assessment/Plan: Resolved - Current Meds Current Meds: Current Medications Generic Name Dose Route Start Last Admin Trade Name Freq PRN Reason Stop Dose Admin Albuterol 2.5 mg 10/11/19 17:37 10/18/19 00:45 INH 2.5 mg RTQ4H PRN Administration Wheezing Albuterol/Ipratropium 3 ml 10/11/19 19:00 10/18/19 12:24 Duoneb INH 3 ml RTQID BAUTISTA Administration Aspirin 81 mg 10/14/19 12:00 10/18/19 08:49 Ecotrin PO 81 mg DAILY BAUTISTA Administration Azithromycin 250 mg 10/11/19 17:43 10/18/19 08:49 Zithromax PO 250 mg DAILY BAUTISTA Administration Budesonide 0.5 mg 10/11/19 19:00 10/18/19 07:55 Pulmicort INH 0.5 mg RTBID BAUTISTA Administration Citalopram Hydrobromide 10 mg 10/12/19 15:53 10/18/19 08:49 Celexa PO 10 mg DAILY BAUTISTA Administration Docusate Sodium 250 - 500 mg 10/15/19 09:00 10/18/19 08:47 Colace 250mg Capsule PO Not Given DAILY BAUTISTA Enoxaparin Sodium 40 mg 10/14/19 09:00 10/18/19 08:50 Lovenox SUBQ 40 mg DAILY BAUTISTA Administration Formoterol Fumarate 20 mcg 10/11/19 19:00 10/18/19 07:55 Perforomist INH 20 mcg RTBID BAUTISTA Administration Guaifenesin 600 mg 10/12/19 10:00 10/18/19 08:48 Mucinex PO 600 mg BID BAUTISTA Administration Insulin Aspart 2 - 10 unit 10/15/19 08:00 10/18/19 11:57 Novolog SUBQ 2 unit 0800,1200,1700,2100 BAUTISTA Administration Protocol Insulin Glargine 5 unit 10/14/19 21:00 10/17/19 21:52 Lantus Solostar SUBQ 5 unit QPM BAUTISTA Administration Lisinopril 10 mg 10/12/19 09:00 10/18/19 08:49 Zestril PO 10 mg DAILY BAUTISTA Administration Lorazepam 0.5 mg 10/14/19 15:11 10/18/19 00:19 Ativan PO 0.5 mg Q6H PRN Administration Anxiety Methylprednisolone 80 mg 10/16/19 14:00 10/18/19 06:06 Solu-Medrol (40mg Vial) IVP 80 mg TID BAUTISTA Administration Montelukast Sodium 10 mg 10/17/19 21:00 10/17/19 21:51 Singulair PO 10 mg QPM BAUTISTA Administration Morphine Sulfate 2 mg 10/12/19 17:49 10/18/19 11:43 Morphine (Carpuject) IVP 2 mg Q2HR PRN Administration Shortness of Air/Wheezing Nystatin 1 applic 10/13/19 12:00 10/18/19 08:51 Mycostatin Cream TOP 1 applic BID BAUTISTA Administration Polyethylene Glycol 17 gm 10/15/19 09:00 10/18/19 08:48 Miralax PO Not Given DAILY [facility] Senna 8.6 - 17.2 mg 10/15/19 17:00 10/18/19 08:48 Senokot PO Not Given DAILY BAUTISTA Sodium Chloride 10 ml 10/11/19 17:31 10/18/19 06:06 Normal Saline Flush 0.9% IVP 10 ml PRN PRN Administration NEEDED PER PROVIDER ORDERS Sodium Chloride 10 ml 10/12/19 01:00 10/18/19 08:50 Normal Saline Flush 0.9% IVP 10 ml 0100,0900,1700 BAUTISTA Administration - Lab Result Fish Bone Diagrams: 10/17/19 05:10 10/17/19 05:10 - Additional Planning My Orders: My Active Orders 10/17/19 14:31 SCDs [RC] QSHIFT 10/17/19 21:00 Montelukast [Singulair] 10 mg PO QPM 10/18/19 13:00 LORazepam [Ativan] 0.5 mg PO TIDWM Subjective - Subjective Patient Reports: Shortness of Breath Objective Vital Signs: Vital Signs - 24 hr 10/17/19 10/17/19 10/17/19 15:01 16:20 16:21 Temperature 36.8 C Heart Rate 98 Heart Rate [ 93 Brachial] Respiratory 20 20 Rate Blood Pressure 141/62 H [Left Brachial artery] O2 Saturation 100 96 10/17/19 10/17/19 10/17/19 16:42 17:11 20:10 Temperature 36.8 C Heart Rate 93 94 94 Heart Rate [ Brachial] Respiratory 20 18 24 Rate Blood Pressure [Left Brachial artery] O2 Saturation 96 10/17/19 10/18/19 10/18/19 21:00 00:07 00:45 Temperature 36.8 C 36.8 C Heart Rate 88 Heart Rate [ 100 96 Brachial] Respiratory 18 18 24 Rate Blood Pressure 150/79 H 127/72 [Left Brachial artery] O2 Saturation 100 99 10/18/19 10/18/19 10/18/19 05:00 07:25 07:55 Temperature 35.5 C L 36.6 C Heart Rate 91 Heart Rate [ 90 82 Brachial] Respiratory 20 20 16 Rate Blood Pressure 129/75 127/56 L [Left Brachial artery] O2 Saturation 100 100 10/18/19 10/18/19 11:05 12:24 Temperature 36.8 C Heart Rate 104 H Heart Rate [ 94 Brachial] Respiratory 18 22 Rate Blood Pressure 121/61 [Left Brachial artery] O2 Saturation 100 Oxygen O2 Source [Without Activity] Nasal cannula O2 Source [With Activity] Nasal cannula O2 Source Nasal cannula Oxygen Flow Rate 2 I&O (Last 24 Hrs): Intake and Output Totals x24h 10/16/19 10/17/19 10/18/19 23:59 23:59 23:59 Intake Total 700 440 120 Output Total 820 3135 400 [facility] -120 -4845 -280 General: Alert HEENT: Mucous membr. moist/pink, Other (Edentulous, voice is very hoarse) Neck: Supple, No JVD Neuro: Non Focal Cardiovascular: No murmurs Respiratory: Other (Scattered mild wheezes, prolonged expiratory) Abdomen: Soft Extremities: No edema - Results Results: Laboratory Results WBC 8.0 x10^3/uL (4.8-10.8) 10/17/19 05:10 RBC 3.20 10^6/uL (4.70-6.10) L 10/17/19 05:10 Hgb 9.2 g/dL (14.0-18.0) L 10/17/19 05:10 Hct 30.2 % (42.0-52.0) L 10/17/19 05:10 MCV 94.4 fL (80.0-94.0) H 10/17/19 05:10 MCH 28.8 pg (27.0-31.0) 10/17/19 05:10 MCHC 30.5 g/dL (32.0-36.0) L 10/17/19 05:10 RDW 14.0 % (12.0-15.0) 10/17/19 05:10 Plt Count 349 10^3/uL (130-450) 10/17/19 05:10 MPV 9.9 fL (7.4-11.4) 10/17/19 05:10 Neut # (Auto) Not Reportable 10/17/19 05:10 Lymph # (Auto) Not Reportable 10/17/19 05:10 [place] # (Auto) Not Reportable 10/17/19 05:10 Eos # (Auto) Not Reportable 10/17/19 05:10 Baso # (Auto) Not Reportable 10/17/19 05:10 Absolute Nucleated RBC Not Reportable 10/17/19 05:10 Total Counted 100 10/17/19 05:10 Band Neuts % (Manual) 0 % (0-10) 10/17/19 05:10 Abnorm Lymph % (Manual) 0 % 10/17/19 05:10 Metamyelocytes % 1 % (-0) H 10/17/19 05:10 Myelocytes % 4 % (-0) H 10/17/19 05:10 Nucleated RBC % Not Reportable 10/17/19 05:10 Neutrophils # (Manual) 6.3 10^3/uL (1.5-6.6) 10/17/19 05:10 Lymphocytes # (Manual) 0.7 10^3/uL (1.5-3.5) L 10/17/19 05:10 Monocytes # (Manual) 0.6 10^3/uL (0.0-1.0) 10/17/19 05:10 Eosinophils # (Manual) 0.0 10^3/uL (0-0.7) 10/17/19 05:10 Basophils # (Manual) 0.0 10^3/uL (0-0.1) 10/17/19 05:10 Differential Comment MANUAL DIFFERENTIAL 10/17/19 05:10 WBC Morphology NORMAL APPEARANCE (NORMAL) 10/17/19 05:10 Platelet Estimate NORMAL (130-450,000) (NORMAL) 10/17/19 05:10 Platelet Morphology NORMAL APPEARANCE (NORMAL) 10/17/19 05:10 RBC Morph Micro Appear NORMAL APPEARANCE (NORMAL) 10/17/19 05:10 Bld Gas Analysis Time 0945 10/12/19 09:38 Sample Site RIGHT RADIAL 10/12/19 09:38 ABG pH 7.34 (7.35-7.45) L 10/12/19 09:38 ABG pCO2 54 mmHg (34-45) H 10/12/19 09:38 ABG pO2 77 mmHg (80-100) L 10/12/19 09:38 ABG HCO3 28.7 mmol/L (22.0-26.0) H 10/12/19 09:38 ABG Total CO2 30.3 MMOL/L (21.0-29.0) H 10/12/19 09:38 ABG O2 Saturation 94 % (94-98) 10/12/19 09:38 ABG Base Excess 2.2 mmol/L (-2.0-3.0) 10/12/19 09:38 Alon Test POSITIVE 10/12/19 09:38 O2 Delivery Device NASAL CANNULA 10/12/19 09:38 O2 Liters/Min 2.50 LPM 10/12/19 09:38 Sodium 137 mmol/L (135-145) 10/17/19 05:10 Potassium 4.3 mmol/L (3.5-5.0) 10/17/19 05:10 Chloride 93 mmol/L (101-111) L 10/17/19 05:10 Carbon Dioxide 39 mmol/L (21-32) H* 10/17/19 05:10 Anion Gap 5.0 (6-13) L 10/17/19 05:10 BUN 24 mg/dL (6-20) H 10/17/19 05:10 Creatinine 0.9 mg/dL (0.6-1.2) 10/17/19 05:10 Estimated GFR (MDRD) 82 (>89) L 10/17/19 05:10 Glucose 105 mg/dL (70-100) H 10/17/19 05:10 POC Whole Bld Glucose 177 mg/dL (70 - 100) H 10/18/19 11:05 Glycated Hemoglobin 7.8 % (4.6-6.2) H 10/12/19 09:02 Estim Average Glucose 177 (70-100) H 10/12/19 09:02 Calcium 8.5 mg/dL (8.5-10.3) 10/17/19 05:10 Magnesium 2.1 mg/dL (1.7-2.8) 10/12/19 09:02 Total Bilirubin 0.6 mg/dL (0.2-1.0) 10/11/19 13:57 AST 31 IU/L (10-42) 10/11/19 13:57 ALT 34 IU/L (10-60) 10/11/19 13:57 Alkaline Phosphatase 64 IU/L (42-121) 10/11/19 13:57 Troponin I High Sens 15.0 ng/L (2.3-19.7) 10/13/19 11:40 B-Natriuretic Peptide 21 pg/mL (5-100) 10/11/19 14:10 Total Protein 6.9 g/dL (6.7-8.2) 10/11/19 13:57 Albumin 3.8 g/dL (3.2-5.5) 10/11/19 13:57 Globulin 3.1 g/dL (2.1-4.2) 10/11/19 13:57 Albumin/Globulin Ratio 1.2 (1.0-2.2) 10/11/19 13:57 Lipase 54 U/L (22-51) H 10/11/19 13:57 - Procedures Procedures: Procedures NON-INVASIVE MECHANICAL VENTILATION (01/10/15) Sepsis Event Note (H) - Evaluation Current Stage of Sepsis: Ruled out
--- NOTE | 2019-10-18 13:44 | CONSULTATION NOTE ---
Palliative Care Follow Up - Referral Referring Provider: Lucas DAVIS Time of Visit: 7744-1521: [id number] Referral setting: Hospitalized patient Referral Reason: Advanced COPD/Goals of Care - Information Sources Records reviewed: RN notes reviewed, Previous records reviewed History/Review of Systems obtained from: Patient Exam limitations: Clinical condition - History of Present Illness Update Brief HPI Update: Please see Palliative Care Consultation note 10/13 for HPI. Patient has continued to struggle with his advanced COPD, still with high anxiety, chest pain has improved but activity intolerance remains quite poor. He does feel like he is about the same, though improved as far as his respiratory distress. He has had some medication changes, continues on his high-dose steroids, and today's meeting is to focus on transition plan. Patient continues on intermittent trilogy with mask, currently sitting in the chair with his nasal cannula.Reports she had a good night sleep, is starting to eat a little bit better, but continues to get quite panicky with any kind of transfer and feels at times he is "suffocating".He does respond to intermittent morphine as well as his Lorazepam, he is currently scheduled newly on predictable dose of 0.5 mg 3 times daily. He does feel somewhat foggy, but does appear relaxed, but does drop off to sleep easily. Social History - Living Situation Living arrangement: At home Living Situation: Alone Support System: His main support system is his daughter Sharona, she is struggling how best to put a care plan together. Patient is retired [employer], his a little less than 2 years ago, she was main caregiver for her. Patient has 3 sisters who are still living, and are planning to come up for the holidays, including a sister who has lung cancer. Patient is previously lived by himself, with support from paid caregiving, and daughter providing intermittent care as needed. Patient's care needs at this point in time, would be 24-hour care, though she can perceive ways to put this together, and the level of care that patient has "at this point in time would be somewhat overwhelming for caregivers. Medications/Allergies - Medications Active Medication List: Active Medications Albuterol () 2.5 mg INH RTQ4H PRN PRN Reason: Wheezing Last Admin: 10/18/19 00:45 Dose: 2.5 mg Albuterol/Ipratropium (Duoneb) 3 ml INH RTQID [facility] Last Admin: 10/18/19 12:24 Dose: 3 ml Aspirin (Ecotrin) 81 mg PO DAILY [facility] Last Admin: 10/18/19 08:49 Dose: 81 mg Azithromycin (Zithromax) 250 mg PO DAILY [facility] Last Admin: 10/18/19 08:49 Dose: 250 mg Budesonide (Pulmicort) 0.5 mg INH RTBID [facility] Last Admin: 10/18/19 07:55 Dose: 0.5 mg Calcium Carbonate/Glycine (Tums) 500 mg PO BID PRN PRN Reason: Heartburn Citalopram Hydrobromide (Celexa) 10 mg PO DAILY [facility] Last Admin: 10/18/19 08:49 Dose: 10 mg Cyclobenzaprine HCl (Flexeril) 10 mg PO TID PRN PRN Reason: Spasms Docusate Sodium (Colace 250mg Capsule) 250 - 500 mg PO DAILY [facility] Last Admin: 10/18/19 08:47 Dose: Not Given Enoxaparin Sodium (Lovenox) 40 mg SUBQ DAILY [facility] Last Admin: 10/18/19 08:50 Dose: 40 mg Formoterol Fumarate (Perforomist) 20 mcg INH RTBID [facility] Last Admin: 10/18/19 07:55 Dose: 20 mcg Guaifenesin (Mucinex) 600 mg PO BID [facility] Last Admin: 10/18/19 08:48 Dose: 600 mg Insulin Aspart (Novolog) 2 - 10 unit SUBQ 0800,1200,1700,2100 [facility]; Protocol Last Admin: 10/18/19 11:57 Dose: 2 unit Insulin Glargine (Lantus Solostar) 5 unit SUBQ QPM [facility] Last Admin: 10/17/19 21:52 Dose: 5 unit Lisinopril (Zestril) 10 mg PO DAILY [facility] Last Admin: 10/18/19 08:49 Dose: 10 mg Lorazepam (Ativan) 0.5 mg PO Q6H PRN PRN Reason: Anxiety Last Admin: 10/18/19 00:19 Dose: 0.5 mg Lorazepam (Ativan) 0.5 mg PO TIDWM [facility] Methylprednisolone (Solu-Medrol (40mg Vial)) 80 mg IVP TID [facility] Last Admin: 10/18/19 06:06 Dose: 80 mg Montelukast Sodium (Singulair) 10 mg PO QPM [facility] Last Admin: 10/17/19 21:51 Dose: 10 mg Morphine Sulfate (Morphine (Carpuject)) 2 mg IVP Q2HR PRN PRN Reason: Shortness of Air/Wheezing Last Admin: 10/18/19 11:43 Dose: 2 mg Nystatin (Mycostatin Cream) 1 applic TOP BID [facility] Last Admin: 10/18/19 08:51 Dose: 1 applic Ondansetron HCl (Zofran Inj) 4 mg IVP Q6HR PRN PRN Reason: Nausea / Vomiting Ondansetron HCl (Zofran Odt) 4 mg TL Q6HR PRN PRN Reason: Nausea / Vomiting Oxycodone HCl (Roxicodone) 5 mg PO Q4HR PRN PRN Reason: Pain 5 to 7 Polyethylene Glycol (Miralax) 17 gm PO DAILY [facility] Last Admin: 10/18/19 08:48 Dose: Not Given Senna (Senokot) 8.6 - 17.2 mg PO DAILY [facility] Last Admin: 10/18/19 08:48 Dose: Not Given Sodium Chloride (Normal Saline Flush 0.9%) 10 ml IVP PRN PRN PRN Reason: NEEDED PER PROVIDER ORDERS Last Admin: 10/18/19 06:06 Dose: 10 ml Sodium Chloride (Normal Saline Flush 0.9%) 10 ml IVP 0100,0900,1700 [facility] Last Admin: 10/18/19 08:50 Dose: 10 ml Witch Flower/Glycerin (Tucks) 1 pad TOP PRN PRN PRN Reason: ITCHING Aspirin [Low Dose Aspirin EC] 81 mg PO DAILY 01/10/15 Fluticasone/Salmeterol [Advair 250-50 Diskus] 1 puffs INH BID 01/10/15 Ipratropium/Albuterol Sulfate [Combivent Respimat 20-100 Mcg] 1 puffs INH QID 01/10/15 Lisinopril [Zestril] 10 mg PO DAILY 01/10/15 Albuterol Sulfate [Proair Hfa Inhaler] 1 - 2 puffs INH Q4H PRN 04/03/15 metFORMIN [Glucophage] 500 mg PO BID 09/14/19 Furosemide 20 mg PO BID 10/11/19 Azithromycin 250 mg PO MOWEFR 10/12/19 Glipizide [Glipizide Xl] 2.5 mg PO DAILY 10/12/19 Pioglitazone HCl 45 mg PO DAILY 10/12/19 guaiFENesin [Mucinex] 600 mg PO BID PRN 10/12/19 - Allergies Allergies/Adverse Reactions: Allergies Allergy/AdvReac Type Severity Reaction Status Date / Time acetaminophen AdvReac Hives Verified 10/11/19 18:40 [id number] Reductase AdvReac Cramps Verified 10/11/19 14:04 Inhibitor Review of Systems - Constitutional Constitutional: reports: Fatigue. denies: Fever, Chills - Eyes Eyes: reports: Vision loss - Ears, Nose & Throat Ears, Nose & Throat: reports: Hearing loss, Dry mouth - Cardiovascular Cardiovascular: reports: Exertional dyspnea, Decr. exercise tolerance, Orthopnea. denies: Edema - Respiratory Respiratory: reports: Cough, SOB at rest, SOB with exertion. denies: Pleuritic pain - Gastrointestinal Gastrointestinal: reports: Bloating, Early satiety. denies: Constipation, Nausea - Genitourinary Genitourinary: reports: Frequency, Urgency - Musculoskeletal Musculoskeletal: reports: Stiffness, Muscle weakness, Transfer issues (needs assistance with transfers related to anxiety and dyspnea; can pivot transfer but needing to work with nonbreathing mask/switiching to cannula) - Integumentary Integumentary: reports: Dryness, Other (brusing on thinned arms/IV sites) - Neurological Neurological: reports: General weakness, Memory problems, Other (difficulty following conversation second visit; alert and awake at lunch) - Psychiatric Psychiatric: reports: Depression, Anxiety - Endocrine Endocrine: reports: Diabetes type 2 - Hematologic/Lymphatic Hematologic/Lymphatic: reports: Anemia (9.2), Bruising - All Other Systems All Other Systems: reports: Other (limited ROS with fatigue) Physical Exam - Vital Signs Vital Signs: Vital Signs x48h Temp Pulse Pulse Resp BP Pulse Ox 10/18/19 12:24 104 H 22 10/18/19 11:05 36.8 C 94 18 121/61 100 10/18/19 07:55 91 16 10/18/19 07:25 36.6 C 82 20 127/56 L 100 - Physical Exam General Appearance: positive: Mild distress, Lethargic Eyes Bilateral: positive: Normal inspection ENT: positive: No signs of dehydration Neck: positive: No JVD, Trachea midline Cardiovascular: positive: Tachycardia Respiratory: positive: Diminished throughout, Wheezes. negative: No respiratory distress (increased respiratory effort with conversation) Abdomen: positive: Soft, Nml bowel sounds, Distended Skin: positive: Pallor, Dryness, Bruising Extremities: positive: No pedal edema Neurologic/Psychiatric: positive: Disoriented to time, Weakness, Depressed m ood/affect, Flat affect Palliative Care - POLST Patient has POLST: Yes POLST Status: DNR, Selective Treatment Pain: Pain improved, Location (upper abd/lower chest area) Tiredness/Fatigue: Moderate (4-6) Drowsiness/Sedation: Severe (7-10) Nausea: None Anorexia: Moderate (4-6) Dyspnea: Severe (7-10) Depression: Moderate (4-6) Anxiety: Severe (7-10) Feelings of wellbeing/Perceived Quality of Life: Worsening Sleep: Sleeps well (good night last night) Constipation: No Performance Status: Patient previous to August admission, had been managing actually fairly well at home independently. He did have some paid caregiving help, was fairly homebound, and did have to pace activities. After his admission in August, he did have a decline in functional status, was able to ambulate only 10 to 15 feet to the restroom, and easily became dyspneic. With this last hospitalization, he is been mostly bedbound, he is able to transfer the chair, most of his functional decline is related to his dyspnea, though he is having increased lower extremity weakness. He does have some exercises that he does in his chair he got today, his goal would be to at least have independent transfers, and be able to transfer without respiratory distress or anxiety.He currently is dependent for assistance with toileting, dressing, but can self feed. - Palliative Care Discussion: 1300 Met with patient independently, he was much more awake and alert and able to engage in conversation. We did discuss concerns regarding transition plan, given at this point in time he would need 24-hour care, did reintroduce perhaps transitioning to a SNF for rehab. When asked if this was something that might be acceptable, "is only reality that I have then yes I would". We did discuss in the context of caregiver burden, just having someone to be have to be able to manage particular at this point in time with medications, his oxygen, and need for reassurance and assistance that there might be a place for a transition plan and then returned home. He did say he was willing to consider this. He did say he asked the doctor "how long I got", he did hear may be a year or less. I asked him what he thought, he thought he more likely had a month, so is feeling somewhat more hopeful but concerned. We did agreed to continue this conversation regarding what might be best for both him and his family, with his daughter was available. 1445 Patient up in chair on arrival, met with daughter. Patient more lethargic and less able to engage. But we did review with the daughter a conversation about considering SNF as a transition plan. His daughter would like to be able to meet his goals which is to have him at home, but recognizes as patient has declined, and is having significant care needs, this might be more risky with a chance of coming back to the hospital, he is she is afraid if he panics that he will want her to call 911. We did discuss using the tools of lorazepam and poss ibly morphine, but she is hopeful with the changes in his medications for his COPD that there might be some improvement, as well as a slower taper. After much discussion we did come to agreement, SNF would be a good transition point, and then transition home with home health. This seemed to satisfy the daughter as far as a safe plan, and patient though resigned was understanding. Had separate conversation with daughter, of course hoping for the best and for him to have some improvement in his both functional and cognitive status. Recognizing he is quite frail, she is somewhat worried about using morphine and the Lorazepam. She did have to give her mother end-of-life morphine, and felt l chi it just caused her to be quite sleepy. We did discuss in the context of transitioning to end-of-life, were often weighing the benefits of sedation versus suffering. We are somewhat in the same place aware not at eminent end-of-life, and keeping him comfortable because of his high level of anxiety and his feeling of suffocation with his breathing. She is hopeful in transitioning to the SNF and rehab, he will stabilize out, his anxiety will improve with nursing care available, as well as be able to work on getting stronger. His goal is to be as independent as possible, and she does see him is quite focused on this. We also introduced the concept of if patient continues to decline, she does want him to be at home for end-of-life event, and has been encouraged to reach out if she feels he is worsening we can transition him home with hospice if needed. He would choose to take care of him, she does need some support for FMLA, I did encourage her to send the forms I would be happy to assist her. Results - Lab Results Lab results reviewed: Yes Fish Bones: 10/17/19 05:10 10/17/19 05:10 Lab and Imaging Results: Lab Results x24hrs 10/18/19 10/18/19 10/17/19 Range/Units 11:05 07:27 20:30 POC Whole Bld Glucose 177 H 101 H 203 H (70 - 100) mg/dL 10/17/19 Range/Units 16:14 POC Whole Bld Glucose 84 (70 - 100) mg/dL Impression and Recommendations - Palliative Care Impression: This is a 73-year-old gentleman who presents with advanced COPD, and continued high symptom burden. He has experienced both functional and cognitive decline, is currently unable to meet his ADLs. His goals are to continue to work towards independence, he has agreeable at this point in time to transition to SNF to address bridging to home. Palliative care will continue to follow him on transition back home given the severity of his illness. Recommendations/Counseling Done: 1. Generalized weakness. Patient presents with functional decline, patient's goal is to be independent. Counseling provided regarding home PT/OT versus SNF placement at this point in time. Given patient's goals, needs for 24-hour care, and further acute skilled need and managing his COPD symptom burden and steroid taper would be better managed in a SNF. Daughter reports has been at [facility] previously and had a good experience this is also in [place] which should be supportive for her and she could be an advocate. As well as her second choice [facility] as she does understand they have a good reputation as well. This was communicated to the social work department. 2. Severe anxiety. Patient is currently on Celexa, he is on scheduled Lorazepam 0.5 mg 3 times daily. Counseling provided with the daughter regarding weighing benefits and burdens of sedation versus patient's suffering and anxiety. Would recommend continue to titrate in response to patient's acute anxiety/breathlessness. 3. Stage IV COPD. Patient presents is quite frail, both he and his daughter recognize patient has a limited life expectancy, he is hoping to return to some level of independence and quality of life. Daughter does understand patient may continue to decline, counseling provided regarding disease trajectory, anticipa tory guidance, and continuum of care. 4. Advanced Care planning. Patient's stated goals at this point are to continue to work towards independence, though he does understand his "new normal may be different." Patient hoping for some improvement in quality of life, I he does get quite fearful when he feels like he is "suffocating", and prefers to continue to weigh benefits and burdens as we move forward on this. Daughter is quite supportive, wanting patient to participate in his decision making as long as he can, she would though at end-of-life like to bring him home and care for him. Time Spent: 70 minutes with greater than 50% of this done in [id number] counseling for goals of care, transition planning, and anticipatory guidance. Coordination of care with hospitalist and clinical team.
[2019-10-18] MEDS: MONTELUKAST 10 MG TABLET PO SCH (21:19)
[2019-10-18] MEDS: INSULIN GLARGINE 300 UNIT/3 ML PEN SUBQ SCH (21:25)
[2019-10-19] MEDS: SODIUM CHLORIDE FLUSH 0.9% 10 ML SYRINGE IVP SCH ×2 (05:23→17:16)
[2019-10-19] MEDS: methylPREDNISolone SUCCINATE 40 MG/ML VIAL IVP SCH ×3 (05:24→21:10)
[2019-10-19] MEDS: BUDESONIDE 0.5 MG/2 ML NEB INH SCH ×2 (07:36→19:26)
[2019-10-19] MEDS: FORMOTEROL FUMARATE NEB 20 MCG/2 ML INH SCH ×2 (07:36→19:26)
[2019-10-19] MEDS: IPRATROPIUM/ALBUTEROL 3 ML NEB INH SCH ×4 (07:36→19:26)
[2019-10-19] MEDS ORDERED: DEXTROSE GEL 37.5 GM TUBE ONE (07:47)
[2019-10-19] MEDS ORDERED: DEXTROSE GEL 37.5 GM TUBE PO ONE (07:48)
[2019-10-19] MEDS: INSULIN ASPART 300 UNIT/3 ML PEN SUBQ SCH ×4 (07:59→21:13)
[2019-10-19] MEDS: POLYETHYLENE GLYCOL 3350 17 GM PACKET PO SCH (10:18)
[2019-10-19] MEDS: ENOXAPARIN 40 MG/0.4 ML SYRINGE SUBQ SCH (10:19)
[2019-10-19] MEDS: DOCUSATE SODIUM 250 MG CAPSULE PO SCH (10:19)
[2019-10-19] MEDS: lisinopriL 5 MG TABLET PO SCH (10:21)
[2019-10-19] MEDS: AZITHROMYCIN 250 MG TABLET PO SCH (10:22)
[2019-10-19] MEDS: LORazepam 0.5 MG TABLET PO SCH ×3 (10:22→17:14)
[2019-10-19] MEDS: guaiFENesin 600 MG TABLET PO SCH ×2 (10:23→21:10)
[2019-10-19] MEDS: SENNA 8.6 MG TABLET PO SCH (10:23)
[2019-10-19] MEDS: ASPIRIN EC 81 MG TABLET PO SCH (10:23)
[2019-10-19] MEDS: CITALOPRAM 10 MG TABLET PO SCH (10:24)
--- NOTE | 2019-10-19 10:43 | PROVIDER PROGRESS NOTE ---
Assessment/Plan - Problem List (1) COPD exacerbation Assessment/Plan: Will continue to taper the steroid management: Solu-Medrol 80mg, 3 times daily down to 40mg, 3 times daily for a day and then start Prednisone 40 mg orally daily which will have a very slow taper planned over about 4 months. Continue with his nebs, Mucinex, Singulair. Continue with supplemental oxygen. Recheck a CXR, to determine if he needs antibiotics other than the Zithro prophylaxis med. (2) Severe chronic obstructive pulmonary disease Assessment/Plan: As above in #1. He has been told that he now has a new normal of much less activity possible because of severe deconditioning plus severe COPD causing desaturations and air hunger. He does agree to go to SNF for PT and OT. Possible discharge to SNF in 1 to 2 days (3) Anxiety Assessment/Plan: Celexa is on day #4 of being restarted here. Ativan 0.5 tid with meals has had some beneficial effect as well. (4) Diabetes mellitus Qualifiers: Diabetes mellitus type: type 2 Assessment/Plan: Last evening his glucose check was 337 and his sliding scale insulin dose was increased to maximum. This morning he was hypoglycemic with a glucose of 50 then 60 despite extra glucose treatment. Will return to management with a [id number] sliding scale insulin scale, not High (5) Hypertension Qualifiers: Hypertension type: essential hypertension Qualified Code(s): I10 - Essential (primary) hypertension Assessment/Plan: Will change his Lisinopril management to Cardizem for HR control and BP control. (6) Anemia Assessment/Plan: Anemia of chronic disease is suspected. We will check B12, folate and iron stores and replace if low. Follow hemoglobin intermittently (7) Weakness Assessment/Plan: He has marked deconditioning with worsening of his COPD this year and hospitalizations this year. He now agrees to be discharged to a SNF for PT (and OT). (8) MIGUEL ANGEL (acute kidney injury) Assessment/Plan: Resolved - Current Meds Current Meds: Current Medications Generic Name Dose Route Start Last Admin Trade Name Freq PRN Reason Stop Dose Admin Albuterol 2.5 mg 10/11/19 17:37 10/18/19 00:45 INH 2.5 mg RTQ4H PRN Administration Wheezing Albuterol/Ipratropium 3 ml 10/11/19 19:00 10/19/19 07:36 Duoneb INH 3 ml RTQID BAUTISTA Administration Aspirin 81 mg 10/14/19 12:00 10/19/19 10:23 Ecotrin PO 81 mg DAILY BAUTISTA Administration Azithromycin 250 mg 10/11/19 17:43 10/19/19 10:22 Zithromax PO 250 mg DAILY BAUTISTA Administration Budesonide 0.5 mg 10/11/19 19:00 10/19/19 07:36 Pulmicort INH 0.5 mg RTBID BAUTISTA Administration Citalopram Hydrobromide 10 mg 10/12/19 15:53 10/19/19 10:24 Celexa PO 10 mg DAILY BAUTISTA Administration Docusate Sodium 250 - 500 mg 10/15/19 09:00 10/19/19 10:19 Colace 250mg Capsule PO Not Given DAILY BAUTISTA Enoxaparin Sodium 40 mg 10/14/19 09:00 10/19/19 10:19 Lovenox SUBQ 40 mg DAILY BAUTISTA Administration Formoterol Fumarate 20 mcg 10/11/19 19:00 10/19/19 07:36 Perforomist INH 20 mcg RTBID BAUTISTA Administration Guaifenesin 600 mg 10/12/19 10:00 10/19/19 10:23 Mucinex PO 600 mg BID BAUTISTA Administration Insulin Glargine 5 unit 10/14/19 21:00 10/18/19 21:25 Lantus Solostar SUBQ 5 unit QPM BAUTISTA Administration Lorazepam 0.5 mg 10/14/19 15:11 10/18/19 00:19 Ativan PO 0.5 mg Q6H PRN Administration Anxiety Lorazepam 0.5 mg 10/18/19 13:00 10/19/19 10:22 Ativan PO 0.5 mg TIDWM BAUTISTA Administration Montelukast Sodium 10 mg 10/17/19 21:00 10/18/19 21:19 Singulair PO 10 mg QPM BAUTISTA Administration Morphine Sulfate 2 mg 10/12/19 17:49 10/18/19 19:12 Morphine (Carpuject) IVP 2 mg Q2HR PRN Administration Shortness of Air/Wheezing Nystatin 1 applic 10/13/19 12:00 10/18/19 21:20 Mycostatin Cream TOP 1 applic BID BAUTISTA Administration Polyethylene Glycol 17 gm 10/15/19 09:00 10/19/19 10:18 Miralax PO 17 gm DAILY BAUTISTA Administration Senna 8.6 - 17.2 mg 10/15/19 17:00 10/19/19 10:23 Senokot PO Not Given DAILY BAUTISTA Sodium Chloride 10 ml 10/11/19 17:31 10/18/19 06:06 Normal Saline Flush 0.9% IVP 10 ml PRN PRN Administration NEEDED PER PROVIDER ORDERS Sodium Chloride 10 ml 10/12/19 01:00 10/19/19 05:23 Normal Saline Flush 0.9% IVP 10 ml 0100,0900,1700 BAUTISTA Administration - Lab Result Fish Bone Diagrams: 10/17/19 05:10 10/17/19 05:10 - Additional Planning My Orders: My Active Orders 10/18/19 13:00 LORazepam [Ativan] 0.5 mg PO TIDWM 10/18/19 Dinner Carb-controlled Diet [DIET] 10/19/19 10:34 A1C [CHEM] Routine 10/19/19 12:00 Insulin Aspart [NovoLOG] 2 - 10 unit SUBQ 0800,1200,1700,2100 10/19/19 14:00 methylPREDNISolone SUCCINATE [SOLU-Medrol (40MG VIAL)] 40 mg IVP TID 10/19/19 17:00 diltiaZEM [Cardizem] 30 mg PO BIDWM 10/20/19 08:00 predniSONE [Deltasone] 40 mg PO DAILYWM Subjective - Subjective Patient Reports: Resting Comfortably Objective Vital Signs: Vital Signs - 24 hr 10/18/19 10/18/19 10/18/19 11:05 12:24 16:08 Temperature 36.8 C 37.0 C Heart Rate 104 H Heart Rate [ 94 98 Brachial] Respiratory 18 22 20 Rate Blood Pressure 121/61 137/69 H [Left Brachial artery] O2 Saturation 100 100 10/18/19 10/18/19 10/18/19 18:26 20:34 23:35 Temperature 36.9 C 37.0 C Heart Rate 107 H Heart Rate [ 96 79 Brachial] Respiratory 24 18 16 Rate Blood Pressure 103/50 L 120/54 L [Left Brachial artery] O2 Saturation 100 100 10/19/19 10/19/19 10/19/19 03:58 07:25 07:36 Temperature 36.3 C L 36.9 C Heart Rate 101 H Heart Rate [ 87 87 Brachial] Respiratory 16 18 22 Rate Blood Pressure 133/61 H 134/64 H [Left Brachial artery] O2 Saturation 99 99 Oxygen O2 Source [Without Activity] Nasal cannula O2 Source [With Activity] Nasal cannula O2 Source Nasal cannula Oxygen Flow Rate 2 I&O (Last 24 Hrs): Intake and Output Totals x24h 10/17/19 10/18/19 10/19/19 23:59 23:59 23:59 Intake Total 440 760 340 Output Total 1475 712 700 Balance -1035 -90 -360 General: Alert HEENT: Mucous membr. moist/pink, Other (Edentulous) Cardiovascular: Regular rate, No murmurs Respiratory: Other (Prolonged expiratory phase, less wheezing) Abdomen: Soft Extremities: No edema - Results Results: Laboratory Results WBC 8.0 x10^3/uL (4.8-10.8) 10/17/19 05:10 RBC 3.20 10^6/uL (4.70-6.10) L 10/17/19 05:10 Hgb 9.2 g/dL (14.0-18.0) L 10/17/19 05:10 Hct 30.2 % (42.0-52.0) L 10/17/19 05:10 MCV 94.4 fL (80.0-94.0) H 10/17/19 05:10 MCH 28.8 pg (27.0-31.0) 10/17/19 05:10 MCHC 30.5 g/dL (32.0-36.0) L 10/17/19 05:10 RDW 14.0 % (12.0-15.0) 10/17/19 05:10 Plt Count 349 10^3/uL (130-450) 10/17/19 05:10 MPV 9.9 fL (7.4-11.4) 10/17/19 05:10 Neut # (Auto) Not Reportable 10/17/19 05:10 Lymph # (Auto) Not Reportable 10/17/19 05:10 [place] # (Auto) Not Reportable 10/17/19 05:10 Eos # (Auto) Not Reportable 10/17/19 05:10 Baso # (Auto) Not Reportable 10/17/19 05:10 Absolute Nucleated RBC Not Reportable 10/17/19 05:10 Total Counted 100 10/17/19 05:10 Band Neuts % (Manual) 0 % (0-10) 10/17/19 05:10 Abnorm Lymph % (Manual) 0 % 10/17/19 05:10 Metamyelocytes % 1 % (-0) H 10/17/19 05:10 Myelocytes % 4 % (-0) H 10/17/19 05:10 Nucleated RBC % Not Reportable 10/17/19 05:10 Neutrophils # (Manual) 6.3 10^3/uL (1.5-6.6) 10/17/19 05:10 Lymphocytes # (Manual) 0.7 10^3/uL (1.5-3.5) L 10/17/19 05:10 Monocytes # (Manual) 0.6 10^3/uL (0.0-1.0) 10/17/19 05:10 Eosinophils # (Manual) 0.0 10^3/uL (0-0.7) 10/17/19 05:10 Basophils # (Manual) 0.0 10^3/uL (0-0.1) 10/17/19 05:10 Differential Comment MANUAL DIFFERENTIAL 10/17/19 05:10 WBC Morphology NORMAL APPEARANCE (NORMAL) 10/17/19 05:10 Platelet Estimate NORMAL (130-450,000) (NORMAL) 10/17/19 05:10 Platelet Morphology NORMAL APPEARANCE (NORMAL) 10/17/19 05:10 RBC Morph Micro Appear NORMAL APPEARANCE (NORMAL) 10/17/19 05:10 Bld Gas Analysis Time 0945 10/12/19 09:38 Sample Site RIGHT RADIAL 10/12/19 09:38 ABG pH 7.34 (7.35-7.45) L 10/12/19 09:38 ABG pCO2 54 mmHg (34-45) H 10/12/19 09:38 ABG pO2 77 mmHg (80-100) L 10/12/19 09:38 ABG HCO3 28.7 mmol/L (22.0-26.0) H 10/12/19 09:38 ABG Total CO2 30.3 MMOL/L (21.0-29.0) H 10/12/19 09:38 ABG O2 Saturation 94 % (94-98) 10/12/19 09:38 ABG Base Excess 2.2 mmol/L (-2.0-3.0) 10/12/19 09:38 Alon Test POSITIVE 10/12/19 09:38 O2 Delivery Device NASAL CANNULA 10/12/19 09:38 O2 Liters/Min 2.50 LPM 10/12/19 09:38 Sodium 137 mmol/L (135-145) 10/17/19 05:10 Potassium 4.3 mmol/L (3.5-5.0) 10/17/19 05:10 Chloride 93 mmol/L (101-111) L 10/17/19 05:10 Carbon Dioxide 39 mmol/L (21-32) H* 10/17/19 05:10 Anion Gap 5.0 (6-13) L 10/17/19 05:10 BUN 24 mg/dL (6-20) H 10/17/19 05:10 Creatinine 0.9 mg/dL (0.6-1.2) 10/17/19 05:10 Estimated GFR (MDRD) 82 (>89) L 10/17/19 05:10 Glucose 105 mg/dL (70-100) H 10/17/19 05:10 POC Whole Bld Glucose 119 mg/dL (70 - 100) H 10/19/19 08:23 Glycated Hemoglobin 7.8 % (4.6-6.2) H 10/12/19 09:02 Estim Average Glucose 177 (70-100) H 10/12/19 09:02 Calcium 8.5 mg/dL (8.5-10.3) 10/17/19 05:10 Magnesium 2.1 mg/dL (1.7-2.8) 10/12/19 09:02 Total Bilirubin 0.6 mg/dL (0.2-1.0) 10/11/19 13:57 AST 31 IU/L (10-42) 10/11/19 13:57 ALT 34 IU/L (10-60) 10/11/19 13:57 Alkaline Phosphatase 64 IU/L (42-121) 10/11/19 13:57 Troponin I High Sens 15.0 ng/L (2.3-19.7) 10/13/19 11:40 B-Natriuretic Peptide 21 pg/mL (5-100) 10/11/19 14:10 Total Protein 6.9 g/dL (6.7-8.2) 10/11/19 13:57 Albumin 3.8 g/dL (3.2-5.5) 10/11/19 13:57 Globulin 3.1 g/dL (2.1-4.2) 10/11/19 13:57 Albumin/Globulin Ratio 1.2 (1.0-2.2) 10/11/19 13:57 Lipase 54 U/L (22-51) H 10/11/19 13:57 - Procedures Procedures: Procedures NON-INVASIVE MECHANICAL VENTILATION (01/10/15) Sepsis Event Note (H) - Evaluation Current Stage of Sepsis: Ruled out
[2019-10-19] MEDS: NYSTATIN CREAM 15 GM TUBE TOP SCH ×2 (11:03→21:24)
[2019-10-19] MEDS: MORPHINE 2 MG/ML CARPUJECT IVP PRN ×2 (11:03→19:53)
[2019-10-19 13:06] LABS: BASOPHILS # (AUTO) 0.1 10^3/uL (0.0-0.1); BASOPHILS % (AUTO) 0.3 %; EOSINOPHILS % (AUTO) 0.1 %; HGB - HEMOGLOBIN 10.8 g/dL (14.0-18.0); LYMPHOCYTES # (AUTO) 0.3 10^3/uL (1.5-3.5); LYMPHOCYTES % (AUTO) 1.7 %; MEAN CORPUSCULAR HEMOGLOBIN 29.3 pg (27.0-31.0); MEAN CORPUSCULAR HGB CONC 30.4 g/dL (32.0-36.0); MEAN CORPUSCULAR VOLUME 96.2 fL (80.0-94.0); MEAN PLATELET VOLUME 9.8 fL (7.4-11.4); MONOCYTES # (AUTO) 1.1 10^3/uL (0.0-1.0); MONOCYTES % (AUTO) 6.6 %; NEUTROPHILS # (AUTO) 14.4 10^3/uL (1.5-6.6); NEUTROPHILS % (AUTO) 88.9 %; PLT - PLATELET COUNT 287 10^3/uL (130-450); RED BLOOD COUNT 3.69 10^6/uL (4.70-6.10); RED CELL DISTRIBUTION WIDTH 14.3 % (12.0-15.0); WHITE BLOOD COUNT 16.1 x10^3/uL (4.8-10.8)
[2019-10-19 13:33] LABS: DIFFERENTIAL COMMENT MANUAL=AUTO DIFF; PLATELET ESTIMATE, MANUAL NORMAL (130-450,000) (NORMAL); PLATELET MORPHOLOGY NORMAL APPEARANCE (NORMAL); RBC MORPHOLOGY (MULTIPLE) NORMAL APPEARANCE (NORMAL)
--- NOTE | 2019-10-19 13:35 | XRAY Report ---
Reason: SOB, severe COPD Procedure Date: 10/19/2019 Accession Number: [id number] / [id number] Procedure: XR - Chest 1 View X-Ray CPT Code: 33537 Final Report FULL RESULT: EXAM: CHEST RADIOGRAPHY EXAM DATE: 10/19/2019 01:25 PM. CLINICAL HISTORY: Shortness of breath, severe COPD. COMPARISON: CHEST 2 VIEW 10/11/2019 2:32 PM. TECHNIQUE: 1 view. FINDINGS IMPRESSION: 1. Bibasilar patchy opacities, bilateral small pleural effusions again noted, slightly increased. No new pulmonary opacity identified. 2. No other significant change recognized. RADIA
[2019-10-19 13:42] LABS: CALCIUM 8.7 mg/dL (8.5-10.3)
[2019-10-19 13:47] LABS: FOLATE 14.47 ng/mL (5.90 - >24.8)
[2019-10-19] MEDS: diltiaZEM 30 MG TABLET PO SCH (17:18)
[2019-10-19] MEDS: FERROUS SULFATE 300 MG/5 ML UDC PO SCH (17:20)
[2019-10-19] MEDS: SODIUM CHLORIDE FLUSH 0.9% 10 ML SYRINGE IVP PRN (19:53)
[2019-10-19] MEDS: LORazepam 0.5 MG TABLET PO PRN (20:01)
[2019-10-19] MEDS: MONTELUKAST 10 MG TABLET PO SCH (21:10)
[2019-10-19] MEDS: INSULIN GLARGINE 300 UNIT/3 ML PEN SUBQ SCH (21:12)
[2019-10-20] MEDS: SODIUM CHLORIDE FLUSH 0.9% 10 ML SYRINGE IVP SCH ×4 (01:33→23:36)
[2019-10-20] MEDS: IPRATROPIUM/ALBUTEROL 3 ML NEB INH SCH ×4 (07:07→19:12)
[2019-10-20] MEDS: BUDESONIDE 0.5 MG/2 ML NEB INH SCH ×2 (07:07→19:12)
[2019-10-20] MEDS: FORMOTEROL FUMARATE NEB 20 MCG/2 ML INH SCH ×2 (07:07→19:12)
[2019-10-20] MEDS: DOCUSATE SODIUM 250 MG CAPSULE PO SCH (08:49)
[2019-10-20] MEDS: POLYETHYLENE GLYCOL 3350 17 GM PACKET PO SCH (08:49)
[2019-10-20] MEDS: ASPIRIN EC 81 MG TABLET PO SCH (08:50)
[2019-10-20] MEDS: SENNA 8.6 MG TABLET PO SCH (08:50)
[2019-10-20] MEDS: predniSONE 20 MG TABLET PO SCH (08:50)
[2019-10-20] MEDS: LORazepam 0.5 MG TABLET PO SCH ×3 (08:50→17:11)
[2019-10-20] MEDS: guaiFENesin 600 MG TABLET PO SCH ×2 (08:50→20:52)
[2019-10-20] MEDS: CITALOPRAM 10 MG TABLET PO SCH (08:50)
[2019-10-20] MEDS: diltiaZEM 30 MG TABLET PO SCH ×3 (08:50→17:10)
[2019-10-20] MEDS: AZITHROMYCIN 250 MG TABLET PO SCH (08:50)
[2019-10-20] MEDS: ENOXAPARIN 40 MG/0.4 ML SYRINGE SUBQ SCH (08:51)
[2019-10-20] MEDS: FERROUS SULFATE 300 MG/5 ML UDC PO SCH (08:51)
[2019-10-20] MEDS: INSULIN ASPART 300 UNIT/3 ML PEN SUBQ SCH ×4 (09:00→20:56)
[2019-10-20] MEDS: NYSTATIN CREAM 15 GM TUBE TOP SCH ×2 (09:00→20:52)
--- NOTE | 2019-10-20 10:40 | PROVIDER PROGRESS NOTE ---
Assessment/Plan - Problem List (1) COPD exacerbation Assessment/Plan: The IV steroids were weaned down over several days, today he will start po Prednisone. Continue with the other management: empiric Zithromax, nebs 4 times daily and as needed, po Singulair, supplemental oxygen using Trilogy mask and nasal cannula. The increase of WBC to 16 is expected from the high steroid use. (2) Severe chronic obstructive pulmonary disease Assessment/Plan: As above. He understands the new normal of his capabilities. (3) Anxiety Assessment/Plan: He has had less panicky events with Celexa day#5, since it was restarted, and on scheduled 0.5 mg po Ativan tid with meals (4) Diabetes mellitus Qualifiers: Diabetes mellitus type: type 2 Assessment/Plan: Continue CC diet, SS insulin and fingerstick checks. Higher glucoses are expected because of the steroid use at high levels (5) Hypertension Qualifiers: Hypertension type: essential hypertension Qualified Code(s): I10 - Essential (primary) hypertension Assessment/Plan: His Lisinopril was stopped yesterday and instead Cardizem 30 mg twice daily was started, since his HR rises to 130's-140's with his minimal activity. With this management, his blood pressure is good at 137/60 and heart rate is now in the 70s at rest, not 90s. Will increase to 30 mg tid with meals. (6) Anemia Assessment/Plan: Hemoglobin remained stable, was checked yesterday afternoon after no blood tests for several days. Iron levels are low, B12 and folate levels are adequate. Start oral iron replacement (7) Weakness Assessment/Plan: He has progressed from chair exercises to standing and doing short walks. Discharge to SNF for PT is the plan peer (8) MIGUEL ANGEL (acute kidney injury) Assessment/Plan: Resolved - Current Meds Current Meds: Current Medications Generic Name Dose Route Start Last Admin Trade Name Freq PRN Reason Stop Dose Admin Albuterol 2.5 mg 10/11/19 17:37 10/18/19 00:45 INH 2.5 mg RTQ4H PRN Administration Wheezing Albuterol/Ipratropium 3 ml 10/11/19 19:00 10/20/19 07:07 Duoneb INH 3 ml RTQID BAUTISTA Administration Aspirin 81 mg 10/14/19 12:00 10/20/19 08:50 Ecotrin PO 81 mg DAILY BAUTISTA Administration Azithromycin 250 mg 10/11/19 17:43 10/20/19 08:50 Zithromax PO 250 mg DAILY BAUTISTA Administration Budesonide 0.5 mg 10/11/19 19:00 10/20/19 07:07 Pulmicort INH 0.5 mg RTBID BAUTISTA Administration Citalopram Hydrobromide 10 mg 10/12/19 15:53 10/20/19 08:50 Celexa PO 10 mg DAILY BAUTISTA Administration Diltiazem HCl 30 mg 10/19/19 17:00 10/20/19 08:50 Cardizem PO 30 mg BIDWM BAUTISTA Administration Docusate Sodium 250 - 500 mg 10/15/19 09:00 10/20/19 08:49 Colace 250mg Capsule PO Not Given DAILY BAUTISTA Enoxaparin Sodium 40 mg 10/14/19 09:00 10/20/19 08:51 Lovenox SUBQ 40 mg DAILY BAUTISTA Administration Ferrous Sulfate 300 mg 10/19/19 18:00 10/20/19 08:51 Feosol Liquid PO 300 mg DAILYWM BAUTISTA Administration Formoterol Fumarate 20 mcg 10/11/19 19:00 10/20/19 07:07 Perforomist INH 20 mcg RTBID BAUTISTA Administration Guaifenesin 600 mg 10/12/19 10:00 10/20/19 08:50 Mucinex PO 600 mg BID BAUTISTA Administration Insulin Aspart 2 - 10 unit 10/19/19 12:00 10/20/19 09:00 Novolog SUBQ 4 unit 0800,1200,1700,2100 BAUTISTA Administration Protocol Insulin Glargine 5 unit 10/14/19 21:00 10/19/19 21:12 Lantus Solostar SUBQ 5 unit QPM BAUTISTA Administration Lorazepam 0.5 mg 10/14/19 15:11 10/19/19 20:01 Ativan PO 0.5 mg Q6H PRN Administration Anxiety Lorazepam 0.5 mg 10/18/19 13:00 10/20/19 08:50 Ativan PO 0.5 mg TIDWM BAUTISTA Administration Montelukast Sodium 10 mg 10/17/19 21:00 10/19/19 21:10 Singulair PO 10 mg QPM BAUTISTA Administration Morphine Sulfate 2 mg 10/12/19 17:49 10/19/19 19:53 Morphine (Carpuject) IVP 2 mg Q2HR PRN Administration Shortness of Air/Wheezing Nystatin 1 applic 10/13/19 12:00 10/20/19 09:00 Mycostatin Cream TOP 1 applic BID BAUTISTA Administration Polyethylene Glycol 17 gm 10/15/19 09:00 10/20/19 08:49 Miralax PO Not Given DAILY BAUTISTA Prednisone 40 mg 10/20/19 08:00 10/20/19 08:50 Deltasone PO 40 mg DAILYWM BAUTISTA Administration Senna 8.6 - 17.2 mg 10/15/19 17:00 10/20/19 08:50 Senokot PO 8.6 mg DAILY BAUTISTA Administration Sodium Chloride 10 ml 10/11/19 17:31 10/19/19 19:53 Normal Saline Flush 0.9% IVP 10 ml PRN PRN Administration NEEDED PER PROVIDER ORDERS Sodium Chloride 10 ml 10/12/19 01:00 10/20/19 08:51 Normal Saline Flush 0.9% IVP 10 ml 0100,0900,1700 BAUTISTA Administration - Lab Result Fish Bone Diagrams: 10/19/19 13:00 10/19/19 13:00 - Additional Planning My Orders: My Active Orders 10/19/19 12:00 Insulin Aspart [NovoLOG] 2 - 10 unit SUBQ 0800,1200,1700,2100 10/19/19 14:24 Acapella (Flutter Valve Device [RC] .TID 10/19/19 17:00 diltiaZEM [Cardizem] 30 mg PO BIDWM 10/19/19 18:00 Ferrous Sulfate Liquid [Feosol Liquid] 300 mg PO DAILYWM 10/19/19 18:48 Home [Home CPAP/BiPAP/NPPV] [RC] .ONCE 10/20/19 08:00 predniSONE [Deltasone] 40 mg PO DAILYWM Subjective - Subjective Patient Reports: No Complaints Objective Vital Signs: Vital Signs - 24 hr 10/19/19 10/19/19 10/19/19 11:10 11:21 14:20 Temperature 37.3 C 37.3 C Heart Rate 99 80 Heart Rate [ 110 H Brachial] Respiratory 22 20 24 Rate Blood Pressure Blood Pressure [Left Brachial artery] O2 Saturation 95 99 12/10/19/19 10/19/19 15:18 17:00 17:18 Temperature 36.5 C Heart Rate 73 Heart Rate [ 95 Brachial] Respiratory 16 25 H Rate Blood Pressure 140/68 H Blood Pressure 140/68 H [Left Brachial artery] O2 Saturation 99 10/19/19 10/19/19 10/20/19 19:28 20:09 01:00 Temperature 36.8 C 36.5 C Heart Rate 118 H Heart Rate [ 111 H 86 Brachial] Respiratory 30 H 24 19 Rate Blood Pressure Blood Pressure 155/67 H 129/69 [Left Brachial artery] O2 Saturation 99 96 10/20/19 10/20/19 10/20/19 04:25 05:38 07:11 Temperature Heart Rate 72 Heart Rate [ 63 Brachial] Respiratory 18 22 Rate Blood Pressure Blood Pressure [Left Brachial artery] O2 Saturation 96 94 10/20/19 10/20/19 08:23 08:50 Temperature 36.6 C Heart Rate Heart Rate [ 78 Brachial] Respiratory 20 Rate Blood Pressure 133/57 H Blood Pressure 133/57 H [Left Brachial artery] O2 Saturation 99 Oxygen O2 Source [Without Activity] Nasal cannula O2 Source [With Activity] Nasal cannula O2 Source Nasal cannula Oxygen Flow Rate 2 I&O (Last 24 Hrs): Intake and Output Totals x24h 10/18/19 10/19/19 10/20/19 23:59 23:59 23:59 Intake Total 760 1440 330 Output Total 850 1425 680 Balance -90 15 -350 General: Alert, Oriented x3 HEENT: Mucous membr. moist/pink, Other (Wearing the Trilogy mask during a BM) Neck: Supple Neuro: Non Focal Cardiovascular: Regular rate Respiratory: Other (Prolonged exp phase) Abdomen: Soft Extremities: No edema - Results Results: Laboratory Results WBC 16.1 x10^3/uL (4.8-10.8) H 10/19/19 13:00 RBC 3.69 10^6/uL (4.70-6.10) L 10/19/19 13:00 Hgb 10.8 g/dL (14.0-18.0) L 10/19/19 13:00 Hct 35.5 % (42.0-52.0) L 10/19/19 13:00 MCV 96.2 fL (80.0-94.0) H 10/19/19 13:00 MCH 29.3 pg (27.0-31.0) 10/19/19 13:00 MCHC 30.4 g/dL (32.0-36.0) L 10/19/19 13:00 RDW 14.3 % (12.0-15.0) 10/19/19 13:00 Plt Count 287 10^3/uL (130-450) 10/19/19 13:00 MPV 9.8 fL (7.4-11.4) 10/19/19 13:00 Neut # (Auto) 14.4 10^3/uL (1.5-6.6) H 10/19/19 13:00 Lymph # (Auto) 0.3 10^3/uL (1.5-3.5) L 10/19/19 13:00 [place] # (Auto) 1.1 10^3/uL (0.0-1.0) H 10/19/19 13:00 Eos # (Auto) 0.0 10^3/uL (0.0-0.7) 10/19/19 13:00 Baso # (Auto) 0.1 10^3/uL (0.0-0.1) 10/19/19 13:00 Absolute Nucleated RBC 0.03 x10^3/uL 10/19/19 13:00 Total Counted 100 10/17/19 05:10 Band Neuts % (Manual) Not Reportable 10/19/19 13:00 Abnorm Lymph % (Manual) Not Reportable 10/19/19 13:00 Metamyelocytes % 1 % (-0) H 10/17/19 05:10 Myelocytes % 4 % (-0) H 10/17/19 05:10 Nucleated RBC % 0.2 /100WBC 10/19/19 13:00 Neutrophils # (Manual) Not Reportable 10/19/19 13:00 Lymphocytes # (Manual) Not Reportable 10/19/19 13:00 Monocytes # (Manual) Not Reportable 10/19/19 13:00 Eosinophils # (Manual) Not Reportable 10/19/19 13:00 Basophils # (Manual) Not Reportable 10/19/19 13:00 Differential Comment MANUAL=AUTO DIFF 10/19/19 13:00 WBC Morphology NORMAL APPEARANCE (NORMAL) 10/17/19 05:10 Platelet Estimate NORMAL (130-450,000) (NORMAL) 10/19/19 13:00 Platelet Morphology NORMAL APPEARANCE (NORMAL) 10/19/19 13:00 RBC Morph Micro Appear NORMAL APPEARANCE (NORMAL) 10/19/19 13:00 Bld Gas Analysis Time 0910/12/19 09:38 Sample Site RIGHT RADIAL 10/12/19 09:38 ABG pH 7.34 (7.35-7.45) L 10/12/19 09:38 ABG pCO2 54 mmHg (34-45) H 10/12/19 09:38 ABG pO2 77 mmHg (80-100) L 10/12/19 09:38 ABG HCO3 28.7 mmol/L (22.0-26.0) H 10/12/19 09:38 ABG Total CO2 30.3 MMOL/L (21.0-29.0) H 10/12/19 09:38 ABG O2 Saturation 94 % (94-98) 10/12/19 09:38 ABG Base Excess 2.2 mmol/L (-2.0-3.0) 10/12/19 09:38 Alon Test POSITIVE 10/12/19 09:38 O2 Delivery Device NASAL CANNULA 10/12/19 09:38 O2 Liters/Min 2.50 LPM 10/12/19 09:38 Sodium 132 mmol/L (135-145) L 10/19/19 13:00 Potassium 4.8 mmol/L (3.5-5.0) 10/19/19 13:00 Chloride 86 mmol/L (101-111) L 10/19/19 13:00 Carbon Dioxide 36 mmol/L (21-32) H 10/19/19 13:00 Anion Gap 10.0 (6-13) 10/19/19 13:00 BUN 33 mg/dL (6-20) H 10/19/19 13:00 Creatinine 1.0 mg/dL (0.6-1.2) 10/19/19 13:00 Estimated GFR (MDRD) 73 (>89) L 10/19/19 13:00 Glucose 337 mg/dL (70-100) H 10/19/19 13:00 POC Whole Bld Glucose 195 mg/dL (70 - 100) H 10/20/19 07:33 Glycated Hemoglobin 7.8 % (4.6-6.2) H 10/12/19 09:02 Estim Average Glucose 177 (70-100) H 10/12/19 09:02 Calcium 8.7 mg/dL (8.5-10.3) 10/19/19 13:00 Magnesium 2.1 mg/dL (1.7-2.8) 10/12/19 09:02 Iron 27 ug/dL (45-182) L 10/19/19 13:00 TIBC 288 ug/dL (250-450) 10/19/19 13:00 % Saturation 9 % (20-50) L 10/19/19 13:00 Transferrin 206 mg/dL (180-329) 10/19/19 13:00 Total Bilirubin 0.6 mg/dL (0.2-1.0) 10/11/19 13:57 AST 31 IU/L (10-42) 10/11/19 13:57 ALT 34 IU/L (10-60) 10/11/19 13:57 Alkaline Phosphatase 64 IU/L (42-121) 10/11/19 13:57 Troponin I High Sens 15.0 ng/L (2.3-19.7) 10/13/19 11:40 B-Natriuretic Peptide 21 pg/mL (5-100) 10/11/19 14:10 Total Protein 6.9 g/dL (6.7-8.2) 10/11/19 13:57 Albumin 3.8 g/dL (3.2-5.5) 10/11/19 13:57 Globulin 3.1 g/dL (2.1-4.2) 10/11/19 13:57 Albumin/Globulin Ratio 1.2 (1.0-2.2) 10/11/19 13:57 Lipase 54 U/L (22-51) H 10/11/19 13:57 Vitamin B12 350 pg/mL (180-914) 10/19/19 13:00 Folate 14.47 ng/mL (5.90 - >24.8) 10/19/19 13:00 - Procedures Procedures: Procedures NON-INVASIVE MECHANICAL VENTILATION (01/10/15) Sepsis Event Note (H) - Evaluation Current Stage of Sepsis: Ruled out
[2019-10-20] MEDS: MONTELUKAST 10 MG TABLET PO SCH (20:52)
[2019-10-20] MEDS: INSULIN GLARGINE 300 UNIT/3 ML PEN SUBQ SCH (20:56)
[2019-10-21] MEDS: ALBUTEROL NEB 2.5 MG/3 ML INH PRN (00:19)
[2019-10-21] MEDS: BUDESONIDE 0.5 MG/2 ML NEB INH SCH ×2 (07:21→19:34)
[2019-10-21] MEDS: FORMOTEROL FUMARATE NEB 20 MCG/2 ML INH SCH ×2 (07:21→19:34)
[2019-10-21] MEDS: IPRATROPIUM/ALBUTEROL 3 ML NEB INH SCH ×4 (07:21→19:34)
[2019-10-21] MEDS: DOCUSATE SODIUM 250 MG CAPSULE PO SCH (07:58)
[2019-10-21] MEDS: POLYETHYLENE GLYCOL 3350 17 GM PACKET PO SCH (07:58)
[2019-10-21] MEDS: INSULIN ASPART 300 UNIT/3 ML PEN SUBQ SCH ×4 (07:58→20:40)
[2019-10-21] MEDS: ENOXAPARIN 40 MG/0.4 ML SYRINGE SUBQ SCH (07:58)
[2019-10-21] MEDS: FERROUS SULFATE 300 MG/5 ML UDC PO SCH (07:58)
[2019-10-21] MEDS: ASPIRIN EC 81 MG TABLET PO SCH (07:59)
[2019-10-21] MEDS: LORazepam 0.5 MG TABLET PO SCH ×3 (07:59→16:51)
[2019-10-21] MEDS: diltiaZEM 30 MG TABLET PO SCH ×3 (07:59→16:51)
[2019-10-21] MEDS: AZITHROMYCIN 250 MG TABLET PO SCH (07:59)
[2019-10-21] MEDS: CITALOPRAM 10 MG TABLET PO SCH (07:59)
[2019-10-21] MEDS: guaiFENesin 600 MG TABLET PO SCH ×2 (07:59→20:38)
[2019-10-21] MEDS: SENNA 8.6 MG TABLET PO SCH (07:59)
[2019-10-21] MEDS: predniSONE 20 MG TABLET PO SCH (07:59)
[2019-10-21] MEDS: NYSTATIN CREAM 15 GM TUBE TOP SCH ×2 (08:02→20:38)
[2019-10-21] MEDS: SODIUM CHLORIDE FLUSH 0.9% 10 ML SYRINGE IVP SCH ×2 (12:20→16:55)
--- NOTE | 2019-10-21 15:17 | PROVIDER PROGRESS NOTE ---
Assessment/Plan - Problem List (1) COPD exacerbation Assessment/Plan: He is now on his planned intermodal truck driver therapy using nebulizers, oral prednisone, oral Singulair, supplemental nasal cannula oxygen, trilogy portable ventilator mask. (2) Severe chronic obstructive pulmonary disease Assessment/Plan: As in #1 (3) Anxiety Assessment/Plan: Over the past 24 to 48 hours, there is been a marked improvement in his anxiety level. No panic attacks over the last 36 hours, approx. Continue with scheduled Celexa daily and scheduled Ativan 3 times daily (4) Diabetes mellitus Qualifiers: Diabetes mellitus type: type 2 Assessment/Plan: Stable on cc diet and ss Insulin, with higher Insulin needs since on steroids iv, now po Prednisone. (5) Hypertension Qualifiers: Hypertension type: essential hypertension Qualified Code(s): I10 - Essential (primary) hypertension Assessment/Plan: Stable on current meds (6) Anemia Qualifiers: Anemia type: iron deficiency Assessment/Plan: On po Iron replacement daily and will DCh with this (7) Weakness Assessment/Plan: He has been able to participate slightly more daily with PT, taking steps. Plan is for discharge to SNF, and the SNF is accepting him tomorrow in [place], where his step-daughter lives. (8) MIGUEL ANGEL (acute kidney injury) Assessment/Plan: Resolved - Current Meds Current Meds: Current Medications Generic Name Dose Route Start Last Admin Trade Name Freq PRN Reason Stop Dose Admin Albuterol 2.5 mg 10/11/19 17:37 10/21/19 00:19 INH 2.5 mg RTQ4H PRN Administration Wheezing Albuterol/Ipratropium 3 ml 10/11/19 19:00 10/21/19 11:37 Duoneb INH 3 ml RTQID BAUTISTA Administration Aspirin 81 mg 10/14/19 12:00 10/21/19 07:59 Ecotrin PO 81 mg DAILY BAUTISTA Administration Azithromycin 250 mg 10/11/19 17:43 10/21/19 07:59 Zithromax PO 250 mg DAILY BAUTISTA Administration Budesonide 0.5 mg 10/11/19 19:00 10/21/19 07:21 Pulmicort INH 0.5 mg RTBID BAUTISTA Administration Citalopram Hydrobromide 10 mg 10/12/19 15:53 10/21/19 07:59 Celexa PO 10 mg DAILY BAUTISTA Administration Diltiazem HCl 30 mg 10/20/19 12:00 10/21/19 12:16 Cardizem PO 30 mg TIDWM BAUTISTA Administration Docusate Sodium 250 - 500 mg 10/15/19 09:00 10/21/19 07:58 Colace 250mg Capsule PO Not Given DAILY BAUTISTA Enoxaparin Sodium 40 mg 10/14/19 09:00 10/21/19 07:58 Lovenox SUBQ 40 mg DAILY BAUTISTA Administration Ferrous Sulfate 300 mg 10/19/19 18:00 10/21/19 07:58 Feosol Liquid PO 300 mg DAILYWM BAUTISTA Administration Formoterol Fumarate 20 mcg 10/11/19 19:00 10/21/19 07:21 Perforomist INH 20 mcg RTBID BAUTISTA Administration Guaifenesin 600 mg 10/12/19 10:00 10/21/19 07:59 Mucinex PO 600 mg BID BAUTISTA Administration Insulin Aspart 3 - 11 unit 10/21/19 08:00 10/21/19 12:15 Novolog SUBQ 7 unit 0800,1200,1700,2100 BAUTISTA Administration Protocol Insulin Glargine 5 unit 10/14/19 21:00 10/20/19 20:56 Lantus Solostar SUBQ 5 unit QPM BAUTISTA Administration Lorazepam 0.5 mg 10/14/19 15:11 10/19/19 20:01 Ativan PO 0.5 mg Q6H PRN Administration Anxiety Lorazepam 0.5 mg 10/18/19 13:00 10/21/19 12:15 Ativan PO 0.5 mg TIDWM BAUTISTA Administration Montelukast Sodium 10 mg 10/17/19 21:00 10/20/19 20:52 Singulair PO 10 mg QPM BAUTISTA Administration Morphine Sulfate 2 mg 10/12/19 17:49 10/19/19 19:53 Morphine (Carpuject) IVP 2 mg Q2HR PRN Administration Shortness of Air/Wheezing Nystatin 1 applic 10/13/19 12:00 10/21/19 08:02 Mycostatin Cream TOP 1 applic BID BAUTISTA Administration Polyethylene Glycol 17 gm 10/15/19 09:00 10/21/19 07:58 Miralax PO Not Given DAILY [facility] Prednisone 40 mg 10/20/19 08:00 12/26/19 07:59 Deltasone PO 40 mg DAILYWM BAUTISTA Administration Senna 8.6 - 17.2 mg 10/15/19 17:00 10/21/19 07:59 Senokot PO 8.6 mg DAILY BAUTISTA Administration Sodium Chloride 10 ml 10/11/19 17:31 10/19/19 19:53 Normal Saline Flush 0.9% IVP 10 ml PRN PRN Administration NEEDED PER PROVIDER ORDERS Sodium Chloride 10 ml 10/12/19 01:00 10/21/19 12:20 Normal Saline Flush 0.9% IVP 10 ml 0100,0900,1700 BAUTISTA Administration - Lab Result Fish Bone Diagrams: 10/19/19 13:00 10/19/19 13:00 - Additional Planning My Orders: My Active Orders 10/21/19 08:00 Insulin Aspart [NovoLOG] 3 - 11 unit SUBQ 0800,1200,1700,2100 Subjective - Subjective Patient Reports: Feeling Better, Resting Comfortably Objective Vital Signs: Vital Signs - 24 hr 10/20/19 10/20/19 10/20/19 15:58 17:00 17:10 Temperature 36.6 C Heart Rate 4 L Heart Rate [ 77 Brachial] Respiratory 22 16 Rate Blood Pressure 129/56 L Blood Pressure [Left Brachial artery] Blood Pressure 137/53 H [Right Brachial artery] O2 Saturation 95 10/20/19 10/20/19 10/20/19 19:05 21:00 22:44 Temperature 36.6 C 36.9 C Heart Rate 78 Heart Rate [ 91 85 Brachial] Respiratory 22 20 18 Rate Blood Pressure Blood Pressure 145/56 H 133/54 H [Left Brachial artery] Blood Pressure [Right Brachial artery] O2 Saturation 97 96 10/21/19 10/21/19 10/21/19 00:20 01:46 03:22 Temperature Heart Rate 80 Heart Rate [ 76 76 Brachial] Respiratory 20 Rate Blood Pressure Blood Pressure [Left Brachial artery] Blood Pressure [Right Brachial artery] O2 Saturation 99 99 10/21/19 10/21/19 10/21/19 04:39 06:19 07:22 Temperature 36.8 C Heart Rate 80 Heart Rate [ 83 Brachial] Respiratory 18 24 Rate Blood Pressure Blood Pressure 142/60 H [Left Brachial artery] Blood Pressure [Right Brachial artery] O2 Saturation 100 99 10/21/19 10/21/19 10/21/19 07:27 07:59 11:38 Temperature 36.7 C Heart Rate 97 Heart Rate [ 80 Brachial] Respiratory 20 24 Rate Blood Pressure 136/64 H Blood Pressure 136/64 H [Left Brachial artery] Blood Pressure [Right Brachial artery] O2 Saturation 98 10/21/19 10/21/19 12:16 13:14 Temperature 37.1 C Heart Rate Heart Rate [ 92 Brachial] Respiratory 20 Rate Blood Pressure 127/59 L Blood Pressure 135/61 H [Left Brachial artery] Blood Pressure [Right Brachial artery] O2 Saturation 94 Oxygen O2 Source [Without Activity] Nasal cannula O2 Source [With Activity] Nasal cannula O2 Source Nasal cannula Oxygen Flow Rate 2 I&O (Last 24 Hrs): Intake and Output Totals x24h 10/19/19 10/20/19 10/21/19 23:59 23:59 23:59 Intake Total 1440 1165 420 Output Total 1425 1430 1675 Balance 36 -230 -3398 General: Alert HEENT: Mucous membr. moist/pink, Other (edentulous) Neck: Supple Neuro: Non Focal Cardiovascular: Regular rate Respiratory: Other (On O2 and intermittently on Trilogy mask) Abdomen: Soft Extremities: No edema - Results Results: Laboratory Results WBC 16.1 x10^3/uL (4.8-10.8) H 10/19/19 13:00 RBC 3.69 10^6/uL (4.70-6.10) L 10/19/19 13:00 Hgb 10.8 g/dL (14.0-18.0) L 10/19/19 13:00 Hct 35.5 % (42.0-52.0) L 10/19/19 13:00 MCV 96.2 fL (80.0-94.0) H 10/19/19 13:00 MCH 29.3 pg (27.0-31.0) 10/19/19 13:00 MCHC 30.4 g/dL (32.0-36.0) L 10/19/19 13:00 RDW 14.3 % (12.0-15.0) 10/19/19 13:00 Plt Count 287 10^3/uL (130-450) 10/19/19 13:00 MPV 9.8 fL (7.4-11.4) 10/19/19 13:00 Neut # (Auto) 14.4 10^3/uL (1.5-6.6) H 10/19/19 13:00 Lymph # (Auto) 0.3 10^3/uL (1.5-3.5) L 10/19/19 13:00 [place] # (Auto) 1.1 10^3/uL (0.0-1.0) H 10/19/19 13:00 Eos # (Auto) 0.0 10^3/uL (0.0-0.7) 10/19/19 13:00 Baso # (Auto) 0.1 10^3/uL (0.0-0.1) 10/19/19 13:00 Absolute Nucleated RBC 0.03 x10^3/uL 10/19/19 13:00 Total Counted 100 10/17/19 05:10 Band Neuts % (Manual) Not Reportable 10/19/19 13:00 Abnorm Lymph % (Manual) Not Reportable 10/19/19 13:00 Metamyelocytes % 1 % (-0) H 10/17/19 05:10 Myelocytes % 4 % (-0) H 10/17/19 05:10 Nucleated RBC % 0.2 /100WBC 10/19/19 13:00 Neutrophils # (Manual) Not Reportable 10/19/19 13:00 Lymphocytes # (Manual) Not Reportable 10/19/19 13:00 Monocytes # (Manual) Not Reportable 10/19/19 13:00 Eosinophils # (Manual) Not Reportable 10/19/19 13:00 Basophils # (Manual) Not Reportable 10/19/19 13:00 Differential Comment MANUAL=AUTO DIFF 10/19/19 13:00 WBC Morphology NORMAL APPEARANCE (NORMAL) 10/17/19 05:10 Platelet Estimate NORMAL (130-450,000) (NORMAL) 10/19/19 13:00 Platelet Morphology NORMAL APPEARANCE (NORMAL) 10/19/19 13:00 RBC Morph Micro Appear NORMAL APPEARANCE (NORMAL) 10/19/19 13:00 Bld Gas Analysis Time 0945 10/12/19 09:38 Sample Site RIGHT RADIAL 10/12/19 09:38 ABG pH 7.34 (7.35-7.45) L 10/12/19 09:38 ABG pCO2 54 mmHg (34-45) H 10/12/19 09:38 ABG pO2 77 mmHg (80-100) L 10/12/19 09:38 ABG HCO3 28.7 mmol/L (22.0-26.0) H 10/12/19 09:38 ABG Total CO2 30.3 MMOL/L (21.0-29.0) H 10/12/19 09:38 ABG O2 Saturation 94 % (94-98) 10/12/19 09:38 ABG Base Excess 2.2 mmol/L (-2.0-3.0) 10/12/19 09:38 Alon Test POSITIVE 10/12/19 09:38 O2 Delivery Device NASAL CANNULA 10/12/19 09:38 O2 Liters/Min 2.50 LPM 10/12/19 09:38 Sodium 132 mmol/L (135-145) L 10/19/19 13:00 Potassium 4.8 mmol/L (3.5-5.0) 10/19/19 13:00 Chloride 86 mmol/L (101-111) L 10/19/19 13:00 Carbon Dioxide 36 mmol/L (21-32) H 10/19/19 13:00 Anion Gap 10.0 (6-13) 10/19/19 13:00 BUN 33 mg/dL (6-20) H 10/19/19 13:00 Creatinine 1.0 mg/dL (0.6-1.2) 10/19/19 13:00 Estimated GFR (MDRD) 73 (>89) L 10/19/19 13:00 Glucose 337 mg/dL (70-100) H 10/19/19 13:00 POC Whole Bld Glucose 273 mg/dL (70 - 100) H 10/21/19 11:11 Glycated Hemoglobin 7.8 % (4.6-6.2) H 10/12/19 09:02 Estim Average Glucose 177 (70-100) H 10/12/19 09:02 Calcium 8.7 mg/dL (8.5-10.3) 10/19/19 13:00 Magnesium 2.1 mg/dL (1.7-2.8) 10/12/19 09:02 Iron 27 ug/dL (45-182) L 10/19/19 13:00 TIBC 288 ug/dL (250-450) 10/19/19 13:00 % Saturation 9 % (20-50) L 10/19/19 13:00 Transferrin 206 mg/dL (180-329) 10/19/19 13:00 Total Bilirubin 0.6 mg/dL (0.2-1.0) 10/11/19 13:57 AST 31 IU/L (10-42) 10/11/19 13:57 ALT 34 IU/L (10-60) 10/11/19 13:57 Alkaline Phosphatase 64 IU/L (42-121) 10/11/19 13:57 Troponin I High Sens 15.0 ng/L (2.3-19.7) 10/13/19 11:40 B-Natriuretic Peptide 21 pg/mL (5-100) 10/11/19 14:10 Total Protein 6.9 g/dL (6.7-8.2) 10/11/19 13:57 Albumin 3.8 g/dL (3.2-5.5) 10/11/19 13:57 Globulin 3.1 g/dL (2.1-4.2) 10/11/19 13:57 Albumin/Globulin Ratio 1.2 (1.0-2.2) 10/11/19 13:57 Lipase 54 U/L (22-51) H 10/11/19 13:57 Vitamin B12 350 pg/mL (180-914) 10/19/19 13:00 Folate 14.47 ng/mL (5.90 - >24.8) 10/19/19 13:00 - Procedures Procedures: Procedures NON-INVASIVE MECHANICAL VENTILATION (01/10/15) Sepsis Event Note (H) - Evaluation Current Stage of Sepsis: Ruled out
[2019-10-21] MEDS: MORPHINE 2 MG/ML CARPUJECT IVP PRN (19:17)
[2019-10-21] MEDS: SODIUM CHLORIDE FLUSH 0.9% 10 ML SYRINGE IVP PRN (19:19)
[2019-10-21] MEDS: MONTELUKAST 10 MG TABLET PO SCH (20:38)
[2019-10-21] MEDS: INSULIN GLARGINE 300 UNIT/3 ML PEN SUBQ SCH (20:39)
[2019-10-22] MEDS: SODIUM CHLORIDE FLUSH 0.9% 10 ML SYRINGE IVP SCH ×2 (05:04→09:27)
--- NOTE | 2019-10-22 07:54 | Discharge Plan ---
"Discharge Plan for SNF / SENIOR CARE - Discharge Plan And Transition Orders Problem Reviewed?: Yes Disposition: 03 SNF DC/Xfer Condition: Stable Allergies and Adverse Reactions: Allergies Allergy/AdvReac Type Severity Reaction Status Date / Time acetaminophen AdvReac Hives Verified 10/11/19 18:40 Fskhpdn-Gph-Nmd Reductase AdvReac Cramps Verified 10/11/19 14:04 Inhibitor Health Concerns: You were admitted with a COPD exacerbation. Many of your medications have been changed for long-term management of COPD. Continue with the supplemental oxygen including the Trilogy mask with any activity. Physical therapy at SNF is planned before you return to your home. Plan of Treatment: Continue with the present medical management. A very slow taper of Prednisone is planned. Care Goals: Returning to your home is the overall plan. Assessment: The patient and step-daughter are in agreement with the plan. - SNF / SENIOR CARE Transition Orders Admit to (Facility): [facility] Discharge Diagnosis: (1) COPD exacerbation, improved (2) Severe chronic obstructive pulmonary disease (3) Anxiety (4) Diabetes mellitus (5) Hypertension (6) Anemia, iron deficiency (7) Weakness, generalized (8) MIGUEL ANGEL (acute kidney injury), resolved (9) Code Status: DNR/DNI Medicare Certification Statement: I certify that [facility] care is medically necessary on a continuing basis for any of the conditions for which she/he is receiving care during hospitalization. Notify PCP of admission and forward orders to primary provider for signature. Weight on admission and: Weekly Call PCP immediately if weight increases by: 5 kg Other Notification Orders: Call PCP immediately if patient develops dyspnea, chest pain/tightness or edema. House Bowel Program: Yes Additional Bowel Program Orders: If no BM after 2 days, nurse may give M.O.M. 30ml PO PRN and/or ducolax Supp 1 CA and/or KELVIN 250mg P.O., and/or senna 1-2 tabs PO. On day 3 nurse may give repeat above order until residents constipation is resolved. Annual Influenza Vaccine (between Jun 27 and January 24): Yes Two-step PPD per [facility] [phone] or approved exception documents: Yes Treatments & Other Orders: Daily PT and OT Oxygen Orders: O2 per n.c. at 2-2.5 at rest, Trilogy mask with any activity. Medication Orders: PLEASE REFER TO THE DISCHARGE MEDICATION LIST. Insulin Orders?: Yes - Medications New Prescriptions: Calcium Carbonate [Tums (Calcium Carbonate 500mg)] 500 mg PO BID PRN #30 tablet PRN Reason: Heartburn Citalopram [CeleXA] 10 mg PO DAILY #30 tablet Cyclobenzaprine [Flexeril] 10 mg PO TID PRN #30 tablet PRN Reason: Spasms diltiaZEM [Cardizem] 30 mg PO TIDWM #90 tablet Ferrous Gluconate [Fergon] 270 mg PO DAILY #30 tablet Insulin Aspart [NovoLOG] 3 - 11 unit SUBQ 0800,1200,1700,2100 #4 pen Insulin Glargine [Lantus Solostar] 5 unit SUBQ QPM #1 pen LORazepam [Ativan] 0.5 mg PO TIDWM #90 tablet Montelukast [Singulair] 10 mg PO QPM #30 tablet Nystatin Cream [Mycostatin Cream] 1 applic TOP BID #1 tube predniSONE [Deltasone] 40 mg PO DAILYWM #100 tablet - Diet Type: Geriatric Texture: Regular Liquids: Thin May have monthly special meal: Yes - Therapies | Activity Therapy: Evaluation | Treat if indicated: PT, OT Rehabilitation Potential: Maximize functional status, Return to independent living, Maintain present ADL Functional Activity: Activity as Tolerated Weight Bearing: Full Weight Follow Up: See your PCP after discharge from the SNF. Insulin Orders - [facility] Basal | Correction | Custom Orders: Diagnosis: Diabetes Initiate hypo and hyperglycemia protocols for BG <70 and BG >375. May check BG PRN for signs/symptoms of dysglycemia. Frequency of BG checks: [AC/HS] Basal Insulin: [X] Lantus 5 units / ml inject subq as follows: qpm Correction Insulin: - Select the type of insulin below [Choose: Novolog/Humalog]100 units /ml insulin inject subq per orders indicate below [] LOW DOSE [] MODERATE DOSE [X] MODERATE/HIGH DOSE [] HIGH DOSE GB UNITS GB UNITS GB UNITS GB UNITS 61-140 0 UNITS 61-140 0 UNITS 61-140 0 UNITS 61-140 0 UNITS 141-175 1 UNITS 141-175 1 UNITS 141-175 2 UNITS 141-175 3 UNITS 176-225 2 UNITS 176-225 3 UNITS 176-225 4 UNITS 176-225 5 UNITS 226-275 3 UNITS 226-275 5 UNITS 226-275 6 UNITS 226-275 7 UNITS 276-325 4 UNITS 276-325 7 UNITS 276-325 8 UNITS 276-325 9 UNITS 326-375 5 UNITS 326-375 9 UNITS 326-375 10 UNITS 326-375 11 UNITS >375 CONTACT MD >375 CONTACT MD >375 CONTACT MD >375 CONTACT MD"
--- NOTE | 2019-10-22 08:19 | DISCHARGE SUMMARY ---
Discharge Summary Admit Date: 10/11/19 Discharge Date: 10/22/19 Discharging Provider: Dr Lakeshia Wagoner Primary Care Provider: SILAS Courtney Code Status: Do Not Attempt Resuscitation Condition at Discharge: Stable Discharge Disposition: 03 SNF DC/Xfer Discharge Facility Name: [facility] - DIAGNOSES Admission Diagnoses: (1) COPD exacerbation (2) Acute on chronic kidney failure (3) Type 2 diabetes mellitus (4) Hypertension (5) Anxiety Discharge Diagnoses with Status of Each Condition: See below - HPI History of Present Illness: From the admission H&P of Dr. Niyah Solis: This is a gentleman with severe COPD, DM and anxiety. 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 He was already short of breath by the time he was in the middle of his service with the [employer]. As time is gone on, he is developed and progressed to COPD. He did meet with Faustina Costello in December 2015 for palliative care consultation. He was anxious, depressed, fearful of the future and what his lung deterioration would mean. At that time his was alive. She 2 years ago. He lives by himself. The step-daughter lives in [place] and comes on a regular basis or the grandchildren come over to help him with groceries, tetc. He lives a very solitary life. Does have a caregiver that comes Friday through Friday a couple hours a day. Both he and his daughter agree that there is a strong component of anxiety to his shortness of breath. One of the reasons he refuses to leave the apartment is his fear of running out of oxygen. He was just in the hospital September 13 through September 22. He presented with shortness of breath, and blood on the toilet paper on 2 occasions. He had an O2 sat of 80% in spite of being on his usual 2-1/2 L of oxygen. He was brought into the hospital because he was continued to be symptomatic in spite of treatment in the emergency room. Rectal bleeding did stop. COPD exacerbation was gradually tempered and he was able to walk from the bathroom to his room door and out a few feet and back again without feeling like he was completely wiped out. He was sent home on a Trilogy portable ventilator/mask. Prednisone was tapered quickly. Since being home not much is changed. He and his daughter both state that he is compliant with his medications. She does not see him taking them but she knows that he is nervous enough about his status that he will take them. There is been no antecedent change with regards to fever, chills, and no one else is sick. He has had increased leg edema and his legs have gotten severely puffy. The soles of his feet, the skin between his toes, and the tops of his feet were red and hot feeling but not tender. The skin started peeling off like a sunburn. She went to go pick him up to take him to see his General Maintenance Engineer. By the time she got the car ready with his oxygen and other equipment, and came to get him out of the house, he was starting to panic and say that his chest hurt. He describes his chest pain as a "full feeling", "like he is going to pop". It is not pleuritic or stabbing. Every once it does feel like there is an elephant sitting on his chest. There is no diaphoresis, sweats, nausea with this. No radiation. He felt panicky and like he was going to . As such she called an ambulance and he was brought to the emergency room. They did give him steroids, nebulizers, and were trying to send him home, but when they tried to walk him, his O2 sat was 84% on his usual oxygen setting and he was admitted. Chest x-ray is negative for new infiltrates, he has emphysematous change. His creatinine is 1.5 and his baseline is 1.0. Glucose is 197. White cell count is normal. He is now admitted for COPD exacerbation. - HOSPITAL COURSE Hospital Course: (1) COPD exacerbation He was put on IV Solu-Medrol 125 mg IV every 8 hours, nebulizers 4 times daily plus as needed. He was put on Mucinex and Singulair also, after several days. He was kept on his prophylactic low-dose daily Zithromax. He continued to need supplemental oxygen using 2 to 2.5 L at rest and needed a rebreather mask during times of panic attacks and air hunger (which occurred often), since he did not tolerate the mask of his Trilogy machine until much later in the hospital stay. We tapered the steroid management: Solu-Medrol 80mg tid down to 40mg tid and then start Prednisone 40 mg orally daily which will have a very slow taper planned over about 3-4 months. Repeat chest x-ray was done toward the end of his hospital stay which showed no new problems. (2) Severe chronic obstructive pulmonary disease As above in #1. He has been told that his COPD is worsening, he now has a new normal of much less activity possible because of severe deconditioning plus severe COPD causing desaturations and air hunger. He did agree to go to SNF for PT and OT. (3) Anxiety On a previous admission he had been on Celexa, a coming in now there was no Celexa but there was a plan to restarted it, however this was overlooked and not restarted until approximately day 5. Along with Celexa, there was Ativan given as needed which was then changed to scheduled 3 times daily. Eventually his panic attacks decreased and anxiety improved. (4) Diabetes mellitus He had been on 3 oral agents at the time of admission. These were all put on hold, metformin especially because of the kidney failure. He got 5 units of Lantus at at bedtime and a sliding scale of insulin plus carb controlled diet. Fingerstick glucoses ran 200-300, rising because of long-term steroid use. At discharge his metformin and pioglitazone are being resumed along with 5U Lantus and hs and sliding scale Insulin coverage. (5) Hypertension He had been on Lisinopril and Lasix. Lasix was put on hold while he needed gentle hydration for his MIGUEL ANGEL. Lisinopril was continued. An Echo had been done that showed normal LV and RV contractility, and no signs of cor pulmonale. It does not appear that he needs daily and chronic Lasix therefore. Later in his hospital course, the Lisinopril was changed to Cardizem in order to have better heart rate control and also to use for blood pressure. His heart rate would rise as high as 130-140 with minimal activity because of his deconditioning. (6) Anemia Anemia of chronic disease is suspected plus he has low Iron store, but heme (-) stool. He was started on oral Iron replacement. (7) Weakness He has marked deconditioning with worsening of his COPD this year and due to several hospitalizations this year. He now agrees to be discharged to a SNF for PT and OT. (8) Acute on chronic kidney fsilure Resolved with gentle hydration for several days and stopping and discontinuing Lasix use. - ALLERGIES Allergies/Adverse Reactions: Allergies Allergy/AdvReac Type Severity Reaction Status Date / Time acetaminophen AdvReac Hives Verified 10/11/19 18:40 Jlnzoxf-Vmi-Rld Reductase AdvReac Cramps Verified 10/11/19 14:04 Inhibitor - MEDICATIONS Home Medications: Ambulatory Orders Medication Instructions Recorded Confirmed Aspirin [Low Dose Aspirin EC] 81 mg PO DAILY 01/10/15 10/12/19 Fluticasone/Salmeterol [Advair 1 puffs INH BID 01/10/15 10/12/19 250-50 Diskus] Ipratropium/Albuterol Sulfate 1 puffs INH QID 01/10/15 10/12/19 [Combivent Respimat 20-100 Mcg] Albuterol Sulfate [Proair Hfa 1 - 2 puffs INH Q4H PRN 04/03/15 10/12/19 Inhaler] metFORMIN [Glucophage] 500 mg PO BID 09/14/19 10/12/19 Azithromycin 250 mg PO MOWEFR 10/12/19 10/12/19 Glipizide [Glipizide Xl] 2.5 mg PO DAILY 10/12/19 10/12/19 guaiFENesin [Mucinex] 600 mg PO BID PRN 10/12/19 10/12/19 Calcium Carbonate [Tums (Calcium 500 mg PO BID PRN #30 tablet 10/22/19 Carbonate 500mg)] Citalopram [CeleXA] 10 mg PO DAILY #30 tablet 10/22/19 Cyclobenzaprine [Flexeril] 10 mg PO TID PRN #30 tablet 10/22/19 Ferrous Gluconate [Fergon] 270 mg PO DAILY #30 tablet 10/22/19 Insulin Aspart [NovoLOG] 3 - 11 unit SUBQ 10/22/19 0800,1200,1700,2100 #4 pen Insulin Glargine [Lantus Solostar] 5 unit SUBQ QPM #1 pen 10/22/19 LORazepam [Ativan] 0.5 mg PO TIDWM #90 tablet 10/22/19 Montelukast [Singulair] 10 mg PO QPM #30 tablet 10/22/19 Nystatin Cream [Mycostatin Cream] 1 applic TOP BID #1 tube 10/22/19 diltiaZEM [Cardizem] 30 mg PO TIDWM #90 tablet 10/22/19 predniSONE [Deltasone] 40 mg PO DAILYWM #100 tablet 10/22/19 - PHYSICAL EXAM AT DISCHARGE General Appearance: positive: No acute distress, Alert Eyes Bilateral: positive: Normal inspection ENT: positive: Other (Edentulous. Pale skin. On oxygen per nasal cannula. ) Neck: positive: Nml inspection, No JVD Respiratory: positive: Other (Increased AP diameter, prolonged expiratory phase, no wheezing or rhonchi.) Cardiovascular: positive: Regular rate & rhythm, No murmur Abdomen: positive: Non-tender, Nml bowel sounds, No distention Skin: positive: Pallor Extremities: positive: Non-tender, No pedal edema Neurologic/Psychiatric: positive: Oriented x3, Other (Grossly intact.) - LABS Result Diagrams: 10/19/19 13:00 10/19/19 13:00 - DIAGNOSTIC IMAGING Diagnostic Imaging Results: Final report reviewed - SEPSIS Current Stage of Sepsis: Ruled out - FOLLOW UP Follow Up: Follow-up with PCP after discharge from SNF. - TIME SPENT Time Spent in Discharge (Minutes): 50
[2019-10-22] MEDS: BUDESONIDE 0.5 MG/2 ML NEB INH SCH (08:36)
[2019-10-22] MEDS: FORMOTEROL FUMARATE NEB 20 MCG/2 ML INH SCH (08:36)
[2019-10-22] MEDS: IPRATROPIUM/ALBUTEROL 3 ML NEB INH SCH (08:36)
[2019-10-22] MEDS: diltiaZEM 30 MG TABLET PO SCH (09:23)
[2019-10-22] MEDS: SENNA 8.6 MG TABLET PO SCH (09:24)
[2019-10-22] MEDS: predniSONE 20 MG TABLET PO SCH (09:25)
[2019-10-22] MEDS: ASPIRIN EC 81 MG TABLET PO SCH (09:25)
[2019-10-22] MEDS: ENOXAPARIN 40 MG/0.4 ML SYRINGE SUBQ SCH (09:25)
[2019-10-22] MEDS: DOCUSATE SODIUM 250 MG CAPSULE PO SCH (09:25)
[2019-10-22] MEDS: LORazepam 0.5 MG TABLET PO SCH (09:26)
[2019-10-22] MEDS: INSULIN ASPART 300 UNIT/3 ML PEN SUBQ SCH (09:26)
[2019-10-22] MEDS: CITALOPRAM 10 MG TABLET PO SCH (09:26)
[2019-10-22] MEDS: FERROUS SULFATE 300 MG/5 ML UDC PO SCH (09:26)
[2019-10-22] MEDS: AZITHROMYCIN 250 MG TABLET PO SCH (09:27)
[2019-10-22] MEDS: MORPHINE 2 MG/ML CARPUJECT IVP PRN (09:27)
[2019-10-22] MEDS: POLYETHYLENE GLYCOL 3350 17 GM PACKET PO SCH (09:27)
[2019-10-22] MEDS: NYSTATIN CREAM 15 GM TUBE TOP SCH (09:27)
[2019-10-22] MEDS: guaiFENesin 600 MG TABLET PO SCH (09:27)
[2019-10-22 10:17] VITALS: BP 142/58
== END 2019-10-22 10:15 | DRG 191 ==
LOC: EDUNIT# → EDBD → ED 13:51 → MS2 17:31
PROVIDERS: ADMIT Specialist; ATTEND Internal Medicine
DX: J44.1 Chronic obstructive pulmonary disease with (acute) exacerbation (principal); R09.02 Hypoxemia; B35.3 Tinea pedis; I11.0 Hypertensive heart disease with heart failure; I50.9 Heart failure, unspecified; N17.9 Acute kidney failure, unspecified; E11.9 Type 2 diabetes mellitus without complications; I13.0 Hypertensive heart and chronic kidney disease with heart failure and stage 1 through stage 4 chronic kidney disease, or unspecified chronic kidney disease; I50.32 Chronic diastolic (congestive) heart failure; F41.9 Anxiety disorder, unspecified; E11.22 Type 2 diabetes mellitus with diabetic chronic kidney disease; N18.3 Chronic kidney disease, stage 3 (moderate); E11.40 Type 2 diabetes mellitus with diabetic neuropathy, unspecified; E11.649 Type 2 diabetes mellitus with hypoglycemia without coma; R91.1 Solitary pulmonary nodule; D63.8 Anemia in other chronic diseases classified elsewhere; D50.9 Iron deficiency anemia, unspecified; Z74.09 Other reduced mobility; M62.81 Muscle weakness (generalized); E78.00 Pure hypercholesterolemia, unspecified; R35.0 Frequency of micturition; H91.90 Unspecified hearing loss, unspecified ear; H54.7 Unspecified visual loss; G89.29 Other chronic pain; M54.9 Dorsalgia, unspecified; Z66 Do not resuscitate; Z51.5 Encounter for palliative care; Z99.81 Dependence on supplemental oxygen; Z79.82 Long term (current) use of aspirin; Z79.51 Long term (current) use of inhaled steroids; Z79.84 Long term (current) use of oral hypoglycemic drugs; Z79.52 Long term (current) use of systemic steroids; Z79.899 Other long term (current) drug therapy; Z87.891 Personal history of nicotine dependence
CPT/HCPCS: 36415; 36600; 71045; 71046; 80048; 80053; 82272; 82607; 82746; 82803; 83036; 83540; 83690; 83735; 83880; 84466; 84484; 85025; 93005; 94640; 96374; 97110; 97162; 97165; 97530; 97535; 99222; 99233; 99285; A9270; J1650; J1815; J2060; J7512; J7626; J8499